=== PATIENT | male | born 1945 | race Caucasian/White ===

== ENCOUNTER 2016-07-05 13:21 | Inpatient (IN) | payer MEDICARE, BC ==
[2016-07-05] MEDS ORDERED: Acetaminophen 325 MG Tab PO ONE (13:36)
[2016-07-05] MEDS ORDERED: Ampicillin/Sulbactam Na 3 GM in Sodium Chloride 0.9% 100 ML IV ONE (13:37)
[2016-07-05] MEDS ORDERED: Sodium Chloride 0.9% 2.5 ML Syringe FLUSH PRN (13:37)
[2016-07-05] MEDS ORDERED: Sodium Chloride 0.9% 10 ML Syringe FLUSH PRN (13:37)
[2016-07-05] MEDS ORDERED: Albuterol/Ipratropium 3.0-0.5 MG/3 ML Neb Soln NEB ONE (13:37)
[2016-07-05] MEDS ORDERED: Sodium Chloride 0.9% 1,000 ML IV ONE (13:39)
--- NOTE | 2016-07-05 13:44 | EDM.PDOC ---
ED HISTORY OF PRESENT ILLNESS - General Chief Complaint: Respiratory Problem Stated Complaint: TROUBLE BREATHING Time Seen by Provider: 07/05/16 13:25 - History of Present Illness INITIAL COMMENTS - FREE TEXT/NARRATIVE: HISTORY AND PHYSICAL: History of present illness: The patient is a 71-year-old male who was recently discharged from [facility] in [place] one week ago with a protracted history. 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 He had a history of recurrent pneumonias and developed an empyema on the right side and was treated surgically in [place] several weeks ago. He was on antibiotics for 2 weeks, Unasyn, for his positive sputum cultures and wanted to come home so he was discharged last week on . Outpatient antibiotics were set up with the infectious disease physician and he was receiving Invanz until he had a reaction to this drug 4 days ago. Since that time he has not received any antibiotics. According to the patient he's been tolerating his feeds relatively well and has not any had any fevers Although his temp here is 101. The patient states he is incredibly dry mouth and he has been coughing ever since he was discharged last week with the cough seemed to get worse today. He felt more short of breath with a cough. He does use nebulizer treatments at home and this did not seem to help. He has no discrete chest pain abdominal pain or any other discomfort. Review of systems: As per history of present illness and below otherwise all systems reviewed and negative. Past medical history: As per history of present illness and as reviewed below otherwise noncontributory. Surgical history: As per history of present illness and as reviewed below otherwise noncontributory. Social history: No reported history of drug or alcohol abuse. Family history: As per history of present illness and as reviewed below otherwise noncontributory. Physical exam: General: Well-developed well-nourished male who has a chronic stacatto-like a dry cough in the ER. He is not breathless but he seems to have some work of breathing. HEENT: Atraumatic, normocephalic, pupils reactive, negative for conjunctival pallor or scleral icterus, mucous membranes very dry, throat clear, neck supple , nontender, trachea midline. At the site of the old tracheostomy site there is a small pinhole that the patient does cover when he tries to speak but there is no gross erythema or swelling at the site Lungs: Breath sounds on the left are very tubular but there is good air exchange route the left along. The right side is very coarse and rhonchi throughout with some wheezing but there is no stridor but there is abdominal muscle use with breathing, a healing incision at the right chest wall is seen and nontender and the remainder of the chest is nontender. Heart: S1S2, regular rhythm and tachycardic rate, negative for clicks, rubs, or JVD. Abdomen: Soft, nondistended, nontender. Negative for masses or hepatosplenomegaly. Negative for costovertebral tenderness. Pelvis: Stable nontender. Genitourinary: Deferred. Rectal: Deferred. Extremities: Atraumatic, negative for cords or calf pain. Neurovascular unremarkable. No pedal edema Neuro: Awake, alert, oriented. Cranial nerves II through XII unremarkable. Cerebellum unremarkable. Motor and sensory unremarkable throughout. Exam nonfocal. Diagnostics: EKG chest x-ray CBC CMP lactic acid blood cultures x2 Therapeutics: IV fluids duo neb humidified oxygen Unasyn, oxygen monitor Please note that I did discuss this case at length with Dr. pierce the patient's primary care physician to get a background history and he was the one who gave me detailed information about the antibiotics. 1415: Case was discussed with our hospitalist and he is currently seeing the patient. Upon my re\\re entry into the room with him the patient looks significantly better and has better color overall and on his modified oxygen is having less cough. He states he does feel better and the sats are 94% . We reviewed the chest x-ray together and we are currently awaiting the remainder of his workup. We will decide if he can stay here for admission or needs to be transferred to [place] 1420: Dr Brown will admit the patient here and the and patient are very happy. He currently awaiting only EKG in [facility] and our plan for telemetry admission Critical care time excluding procedures:31min Impression: Acute dyspnea and recurrent infection/early sepsis with history of recurrent pneumonias, empyema and thoracotomy Definitive disposition and diagnosis as appropriate pending reevaluation and review of above. - Related Data Allergies/ADRs: Allergies Allergy/AdvReac Type Severity Reaction Status Date / Time ertapenem [From Invanz] Allergy Unknown Unknown Verified 07/05/16 13:39 Home Meds: Home Meds Aspirin 81 mg PO DAILY 11/25/15 [History] Levothyroxine 125 mcg PO ACBREAKFAST 11/25/15 [History] Metoprolol Succinate [Toprol XL] 25 mg PO BID 11/25/15 [History] Prochlorperazine [Compazine] 10 mg PO Q6H PRN 11/25/15 [History] Simvastatin [Zocor] 40 mg PO DAILY 11/25/15 [History] buPROPion [Wellbutrin] 50 mg PO BID 11/25/15 [History] Lisinopril 0.5 tab PO DAILY 07/05/16 [History] Loperamide HCl [Loperamide] 1 mg PEGTUBE DAILY 07/05/16 [History] Ranitidine [Zantac] 10 mg PEGTUBE BID 07/05/16 [History] guaiFENesin [Adult Tussin Chest Congestion] 15 ml PEGTUBE Q4HR 07/05/16 [History ] Past Medical History HEENT History: Reports: Hard of hearing, Other (see below) Other HEENT History: Bilateral hearing aids, Hears best on RIGHT when aids out Cardiovascular History: Reports: Hypertension, [place] Respiratory History: Reports: COPD, Pneumonia, recurrent, Sleep apnea, Other ( see below) Other Respiratory History: Sleep apnea with machien "do not use it", 50 yr history of tobacco use, QUIT 04/2011 Gastrointestinal History: Reports: Other (see below) Other Gastrointestinal History: Epiglottis cancer diagnosis 06/21/2013 Genitourinary History: Reports: None Musculoskeletal History: Reports: Other (see below) Other Musculoskeletal History: hx: fracturing both ankles, Cheek, denies any implants in fractures. 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 Also had trach that almost healed by this time and feeding tube that is still in use Dermatologic History: Reports: None - Infectious Disease History Infectious Disease History: Reports: Chicken pox, Measles - Past Surgical History HEENT Surgical History: Reports: None Cardiovascular Surgical History: Reports: Coronary artery stent Other Respiratory Surgeries/Procedures: Fluid drained from lung in right side in [place] GI Surgical History: Reports: Other (see below) Other GI Surgeries/Procedures: PEG Social & Family History - Family History Family Medical History: Noncontributory - Tobacco Use Smoking Status *Q: Former Smoker Years of Tobacco use: 50 Used Tobacco, but Quit: Yes Month Tobacco Last Used: 06/13/2010 Second Hand Smoke Exposure: No - Caffeine Use Caffeine Use: Reports: None - Alcohol Use Days Per Week of Alcohol Use: 0 - Recreational Drug Use Recreational Drug Use: No Drug Use in Last 12 Months: No ED ROS GENERAL - Review of Systems Review Of Systems: ROS reveals no pertinent complaints other than HPI. ED EXAM, GENERAL - Physical Exam Exam: See Below (See dictation) Course - Vital Signs Last Recorded V/S: Last Vital Signs Temp 39.3 C H 07/05/16 13:30 Pulse 134 H 07/05/16 13:30 Resp 28 H 07/05/16 13:30 BP 135/72 07/05/16 13:30 Pulse Ox 90 L 07/05/16 13:45 - Orders/Labs/Meds Orders: Active Orders 24 hr Category Date Time Status Patient Status [ADT] Stat ADT 07/05/16 14:24 Ordered Cardiac Monitoring [RC] . DIRECTED Care 07/05/16 13:36 Active EKG Documentation Completion [RC] STAT Care 07/05/16 13:36 Active Oxygen Therapy, ED [RC] ASDIRECTED Care 07/05/16 13:36 Active Pulse Oximetry [RC] ASDIRECTED Care 07/05/16 13:36 Active RT Aerosol Therapy [RC] ASDIRECTED Care 07/05/16 13:37 Active CULTURE BLOOD [BC] Stat Lab 07/05/16 13:37 Ordered CULTURE BLOOD [BC] Stat Lab 07/05/16 13:37 Ordered Sodium Chloride 0.9% [Normal Saline] 1,000 ml Med 07/05/16 13:39 Active IV STAT Sodium Chloride 0.9% [Saline Flush] Med 07/05/16 13:37 Active 10 ml FLUSH ASDIRECTED PRN Sodium Chloride 0.9% [Saline Flush] Med 07/05/16 13:37 Active 2.5 ml FLUSH ASDIRECTED PRN Blood Culture x2 Reflex Set [OM.PC] Stat Ot 07/05/16 13:36 Ordered Saline Lock Insert [OM.PC] Stat Oth 07/05/16 13:36 Ordered Medication Orders Sodium Chloride (Normal Saline) 1,000 mls @ 999 mls/hr IV STAT ONE Stop: 07/05/16 14:39 Last Admin: 07/05/16 14:03 Dose: 999 mls/hr Sodium Chloride (Saline Flush) 10 ml FLUSH ASDIRECTED PRN PRN Reason: Keep Vein Open Last Admin: 07/05/16 14:04 Dose: 10 ml Sodium Chloride (Saline Flush) 2.5 ml FLUSH ASDIRECTED PRN PRN Reason: Keep Vein Open Last Admin: 07/05/16 14:04 Dose: 2.5 ml Labs: Laboratory Tests 07/05/16 07/05/16 07/05/16 Range/Units 13:35 13:35 13:35 WBC 17.17 H (4.0-11.0) K/uL RBC 4.11 L (4.50-5.90) M/uL Hgb 11.7 L (13.0-17.0) g/dL Hct 37.6 L (38.0-50.0) % MCV 91.5 (80.0-98.0) fL MCH 28.5 (27.0-32.0) pg MCHC 31.1 (31.0-37.0) g/dL RDW Std Deviation 49.3 (28.0-62.0) fl RDW Coeff of [place] 15 (11.0-15.0) % Plt Count 301 (150-400) K/uL MPV 10.50 (7.40-12.00) fL Neut % (Auto) 86.3 H (48.0-80.0) % Lymph % (Auto) 6.1 L (16.0-40.0) % [place] % (Auto) 5.1 (0.0-15.0) % Eos % (Auto) 2.2 (0.0-7.0) % Baso % (Auto) 0.3 (0.0-1.5) % Neut # 14.8 H (1.4-5.7) K/uL Lymph # 1.0 (0.6-2.4) K/uL [place] # 0.9 H (0.0-0.8) K/uL Eos # 0.4 (0.0-0.7) K/uL Baso # 0.1 (0.0-0.1) K/uL Nucleated RBC % 0.0 /100WBC Nucleated RBCs # 0 K/uL Lactate 2.5 H (0.20-2.00) mmol/L Sodium 138 (136-146) mmol/L Potassium 4.3 (3.5-5.1) mmol/L Chloride 100 (98-110) mmol/L Carbon Dioxide 26 (21-31) mmol/L BUN 17 (6.0-23.0) mg/dL Creatinine 0.9 (0.6-1.5) mg/dL Est Cr Clr Drug Dosing 67.38 mL/min Estimated GFR (MDRD) > 60.0 ml/min Glucose 94 (60-110) mg/dL Calcium 9.2 (8.8-10.8) mg/dL Total Bilirubin 0.4 (0.1-1.5) mg/dL AST 15 (5-40) IU/L ALT 15 (8-54) IU/L Alkaline Phosphatase 148 (40-150) Total Protein 7.1 (6.0-8.0) g/dL Albumin 3.6 (3.4-4.8) g/dL Globulin 3.5 (2.0-3.5) g/dL Albumin/Globulin Ratio 1.0 L (1.3-2.8) Meds: Medications Generic Name Dose Route Start Last Admin Trade Name Freq PRN Reason Stop Dose Admin Sodium Chloride 1,000 mls @ 999 mls/hr 07/05/16 13:39 07/05/16 14:03 Normal Saline IV 07/05/16 14:39 999 mls/hr STAT ONE Administration Sodium Chloride 10 ml 07/05/16 13:37 07/05/16 14:04 Saline Flush FLUSH 10 ml ASDIRECTED PRN Administration Keep Vein Open Sodium Chloride 2.5 ml 07/05/16 13:37 07/05/16 14:04 Saline Flush FLUSH 2.5 ml ASDIRECTED PRN Administration Keep Vein Open Discontinued Medications Generic Name Dose Route Start Last Admin Trade Name Freq PRN Reason Stop Dose Admin Acetaminophen 650 mg 07/05/16 13:36 07/05/16 14:01 Tylenol PO 07/05/16 13:37 650 mg NOW ONE Administration Albuterol/Ipratropium 3 ml 07/05/16 13:37 07/05/16 13:52 Duoneb 3.0-0.5 Mg/3 Ml NEB 07/05/16 13:38 3 ml ONETIME ONE Administration Ampicillin Sodium/Sulbactam 100 mls @ 200 mls/hr 07/05/16 13:37 Sodium 3 gm/ Sodium Chloride IV 07/05/16 14:06 ONETIME ONE Sodium Chloride 500 mls @ 999 mls/hr 07/05/16 13:45 Normal Saline IV STAT JORGE Departure - Departure Time of Disposition: 14:23 Disposition: Admitted As Inpatient 68 Condition: fair Clinical Impression: Dyspnea Qualifiers: Dyspnea type: unspecified Qualified Code(s): R06.00 - Dyspnea, unspecified Sepsis Qualifiers: Sepsis type: sepsis due to unspecified organism Qualified Code(s): A41.9 - Sepsis, unspecified organism Referrals: Akira Mai [Primary Care Provider] - Forms: ED Department Discharge - My Orders Last 24 Hours: My Active Orders 07/05/16 13:36 Cardiac Monitoring [RC] . DIRECTED EKG Documentation Completion [RC] STAT Oxygen Therapy, ED [RC] ASDIRECTED Pulse Oximetry [RC] ASDIRECTED Blood Culture x2 Reflex Set [OM.PC] Stat Saline Lock Insert [OM.PC] Stat 07/05/16 13:37 RT Aerosol Therapy [RC] ASDIRECTED CULTURE BLOOD [BC] Stat CULTURE BLOOD [BC] Stat Sodium Chloride 0.9% [Saline Flush] 10 ml FLUSH ASDIRECTED PRN Sodium Chloride 0.9% [Saline Flush] 2.5 ml FLUSH ASDIRECTED PRN 07/05/16 13:39 Sodium Chloride 0.9% [Normal Saline] 1,000 ml IV STAT 07/05/16 14:24 Patient Status [ADT] Stat - Assessment/Plan Last 24 Hours: My Active Orders 07/05/16 13:36 Cardiac Monitoring [RC] . DIRECTED EKG Documentation Completion [RC] STAT Oxygen Therapy, ED [RC] ASDIRECTED Pulse Oximetry [RC] ASDIRECTED Blood Culture x2 Reflex Set [OM.PC] Stat Saline Lock Insert [OM.PC] Stat 07/05/16 13:37 RT Aerosol Therapy [RC] ASDIRECTED CULTURE BLOOD [BC] Stat CULTURE BLOOD [BC] Stat Sodium Chloride 0.9% [Saline Flush] 10 ml FLUSH ASDIRECTED PRN Sodium Chloride 0.9% [Saline Flush] 2.5 ml FLUSH ASDIRECTED PRN 07/05/16 13:39 Sodium Chloride 0.9% [Normal Saline] 1,000 ml IV STAT 07/05/16 14:24 Patient Status [ADT] Stat
[2016-07-05] MEDS ORDERED: Sodium Chloride 0.9% 500 ML IV SCH (13:45)
[2016-07-05 14:15] LABS: CHLORIDE,CL 100 mmol/L (98-110); SODIUM,NA 138 mmol/L (136-146)
--- NOTE | 2016-07-05 14:19 | CR ---
EXAMINATION: Portable chest radiograph. HISTORY: Shortness of breath. FINDINGS: The trachea is midline. The cardiomediastinal silhouette is within normal limits. There is likely a trace right pleural effusion with adjacent atelectasis. Mild left basilar atelectasis and/or infiltr ate is not excluded. Osseous structures appear unremarkable. IMPRESSION: Mild bibasilar atelectasis and/or infiltrate with a trace right pleural effusion.
[2016-07-05] MEDS ORDERED: Bisacodyl 5 MG Tab PO PRN (14:43)
[2016-07-05] MEDS ORDERED: Ondansetron 4 MG Tab.DIS PO PRN (14:43)
[2016-07-05] MEDS ORDERED: Acetaminophen 325 MG Tab PO PRN (14:43)
[2016-07-05] MEDS ORDERED: Prochlorperazine 10 MG Tab PO PRN (14:50)
--- NOTE | 2016-07-05 14:59 | PCM.HP ---
H&P History of Present Illness - General Date of Service: 07/05/16 Source of Information: Patient, Family, Provider - History of Present Illness Initial Comments - Free Text/Narative: He was recently discharged from [facility] after a prolonged hospitalization for pneumonia , empyema. He was on INvanz a prolonged course. Invanz was stopped due to intolerance. Shortly thereafter he developed fever . He has a G tube for recurrent aspiration after radiation for epiglottis cancer. He has a full code status. He has a chronic cough. - Related Data Allergies/Adverse Reactions: Allergies Allergy/AdvReac Type Severity Reaction Status Date / Time ertapenem [From Invanz] Allergy Unknown Unknown Verified 07/05/16 13:39 Home Medications: Home Meds Aspirin 81 mg PO DAILY 11/25/15 [History] Levothyroxine 125 mcg PO ACBREAKFAST 11/25/15 [History] Metoprolol Succinate [Toprol XL] 25 mg PO BID 11/25/15 [History] Prochlorperazine [Compazine] 10 mg PO Q6H PRN 11/25/15 [History] Simvastatin [Zocor] 40 mg PO DAILY 11/25/15 [History] buPROPion [Wellbutrin] 50 mg PO BID 11/25/15 [History] Lisinopril 0.5 tab PO DAILY 07/05/16 [History] Loperamide HCl [Loperamide] 1 mg PEGTUBE DAILY 07/05/16 [History] Ranitidine [Zantac] 10 mg PEGTUBE BID 07/05/16 [History] guaiFENesin [Adult Tussin Chest Congestion] 15 ml PEGTUBE Q4HR 07/05/16 [History ] Past Medical History HEENT History: Reports: Hard of hearing, Other (see below) Other HEENT History: Bilateral hearing aids, Hears best on RIGHT when aids out Cardiovascular History: Reports: Hypertension, [place] Respiratory History: Reports: COPD, Pneumonia, recurrent, Sleep apnea, Other ( see below) Other Respiratory History: Sleep apnea with machien "do not use it", 50 yr history of tobacco use, QUIT 04/2011 Gastrointestinal History: Reports: Other (see below) Other Gastrointestinal History: Epiglottis cancer diagnosis 06/21/2013 Genitourinary History: Reports: None Musculoskeletal History: Reports: Other (see below) Other Musculoskeletal History: hx: fracturing both ankles, Cheek, denies any implants in fractures. 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 Also had trach that almost healed by this time and feeding tube that is still in use Dermatologic History: Reports: None - Infectious Disease History Infectious Disease History: Reports: Chicken pox, Measles - Past Surgical History HEENT Surgical History: Reports: None Cardiovascular Surgical History: Reports: Coronary artery stent Other Respiratory Surgeries/Procedures: Fluid drained from lung in right side in [place] GI Surgical History: Reports: Other (see below) Other GI Surgeries/Procedures: PEG Social & Family History - Family History Family Medical History: Noncontributory - Tobacco Use Smoking Status *Q: Former Smoker Years of Tobacco use: 50 Used Tobacco, but Quit: Yes Month Tobacco Last Used: 06/13/2010 Second Hand Smoke Exposure: No - Caffeine Use Caffeine Use: Reports: None - Alcohol Use Days Per Week of Alcohol Use: 0 - Recreational Drug Use Recreational Drug Use: No Drug Use in Last 12 Months: No H&P Review of Systems - Review of Systems: Review Of Systems: See Below General: Reports: fever HEENT: Reports: other (chronic aspiration ) Pulmonary: Reports: cough (chronic cough) Cardiovascular: Denies: chest pain, palpitations Gastrointestinal: Denies: Abdominal pain, Black stool, Bloody stool Genitourinary: Denies: dysuria, frequency, hematuria Skin: Denies: jaundice Neurological: Denies: seizure Exam - Exam Exam: See Below - Vital Signs Vital Signs: Last Vital Signs Temp 102.8 F H 07/05/16 13:30 Pulse 134 H 07/05/16 13:30 Resp 28 H 07/05/16 13:30 BP 135/72 07/05/16 13:30 Pulse Ox 90 L 07/05/16 13:45 Weight: 65.3 kg - Exam General: alert, cooperative HEENT: EOMI Neck: supple, trachea midline Lungs: Other (coarse bilateral breath sounds) Cardiovascular: regular rate, regular rhythm Abdomen: soft. No: tenderness (Male) Exam: Deferred Rectal (Males) Exam: Deferred Neuro Extensive - Motor, Sensory, Reflexes: No: facial palsy (L), facial palsy ( R), hemiplagia (L), hemiplagia (R) Psychiatric: alert. No: agitated - Patient Data Result Diagrams: 07/05/16 13:35 07/05/16 13:35 *Q Meaningful Use (ADM) - VTE *Q VTE Criteria *Q: - Stroke *Q Stroke Criteria *Q: - AMI *Q AMI Criteria *Q: - Problem List (1) Aspiration pneumonia SNOMED Code(s): 711971677 ICD Code: J69.0 - PNEUMONITIS DUE TO INHALATION OF FOOD AND VOMIT Status: Acute Current Visit: No Problem List Initiated/Reviewed/Updated: Yes Orders Last 24hrs: Active Orders 24 hr Category Date Time Status Oxygen Therapy [RC] PRN Care 07/05/16 14:43 Ordered Oxygen Therapy [RC] PRN Care 07/05/16 14:53 Ordered RT Aerosol Therapy [RC] ASDIRECTED Care 07/05/16 14:49 Ordered VTE/DVT Education [RC] PER UNIT ROUTINE Care 07/05/16 14:43 Ordered VTE/DVT Education [RC] PER UNIT ROUTINE Care 07/05/16 14:53 Ordered Vital Signs [RC] Q4H Care 07/05/16 14:43 Ordered Vital Signs [RC] Q4H Care 07/05/16 14:53 Ordered Regular Diet [DIET] Diet 07/05/16 Dinner Ordered BASIC METABOLIC PANEL,BMP [CHEM] AM Lab 07/06/16 05:11 Ordered BASIC METABOLIC PANEL,BMP [CHEM] AM Lab 07/07/16 05:11 Ordered BASIC METABOLIC PANEL,BMP [CHEM] AM Lab 07/08/16 05:11 Ordered CBC WITH AUTO DIFF [HEME] AM Lab 07/06/16 05:11 Ordered CBC WITH AUTO DIFF [HEME] AM Lab 07/07/16 05:11 Ordered CBC WITH AUTO DIFF [HEME] AM Lab 07/08/16 05:11 Ordered CULTURE SPUTUM + SMEAR [RM] Stat Lab 07/05/16 14:48 Uncollected MAGNESIUM [CHEM] AM Lab 07/06/16 05:11 Ordered MAGNESIUM [CHEM] AM Lab 07/07/16 05:11 Ordered MAGNESIUM [CHEM] AM Lab 07/08/16 05:11 Ordered Acetaminophen [Tylenol] Med 07/05/16 14:43 Ordered 650 mg PO Q4H PRN Albuterol/Ipratropium [DuoNeb 3.0-0.5 MG/3 ML] Med 07/05/16 21:00 Ordered 3 ml NEB Q6H Ampicillin/Sulbactam Na [Unasyn] 3 gm Med 07/05/16 21:00 Ordered Sodium Chloride 0.9% [Normal Saline] 100 ml IV Q6H Aspirin Med 07/06/16 09:00 Ordered 81 mg PO DAILY Bisacodyl [Dulcolax] Med 07/05/16 14:43 Ordered 5 mg PO DAILY PRN Enoxaparin [Lovenox] Med 07/06/16 09:00 Ordered 40 mg SUBCUT DAILY Levothyroxine Med 07/06/16 07:30 Ordered 125 mcg PO ACBREAKFAST Lisinopril [Prinivil] Med 07/06/16 09:00 Ordered 0.5 tab PO DAILY Loperamide [Imodium] Med 07/06/16 09:00 Ordered 1 mg GTUBE DAILY Metoprolol Succinate [Toprol XL] Med 07/05/16 21:00 Ordered 25 mg PO BID Ondansetron [Zofran ODT] Med 07/05/16 14:43 Ordered 4 mg PO Q4H PRN Prochlorperazine [Compazine] Med 07/05/16 14:50 Ordered 10 mg PO Q6H PRN Ranitidine [Zantac] Med 07/05/16 21:00 Ordered 10 mg PEGTUBE BID Simvastatin [Zocor] Med 07/06/16 09:00 Ordered 40 mg PO DAILY Temazepam [Restoril] Med 07/05/16 14:43 Ordered 15 mg PO BEDTIME PRN buPROPion [Wellbutrin] Med 07/05/16 21:00 Ordered 50 mg PO BID guaiFENesin Med 07/05/16 16:00 Ordered 15 ml PEGTUBE Q4HR Resuscitation Status Routine Resus Stat 07/05/16 14:43 Ordered Medication Orders Acetaminophen (Tylenol) 650 mg PO Q4H PRN PRN Reason: Pain (Mild 1-3)/fever Albuterol/Ipratropium (Duoneb 3.0-0.5 Mg/3 Ml) 3 ml NEB Q6H JORGE Aspirin (Aspirin) 81 mg PO DAILY JORGE Bisacodyl (Dulcolax) 5 mg PO DAILY PRN PRN Reason: Constipation Bupropion HCl (Wellbutrin) 50 mg PO BID JOREG Enoxaparin Sodium (Lovenox) 40 mg SUBCUT DAILY [facility] Ampicillin Sodium/Sulbactam (Sodium 3 gm/ Sodium Chloride) 100 mls @ 200 mls/ hr IV Q6H JORGE Levothyroxine Sodium (Levothyroxine) 125 mcg PO ACBREAKFAST JORGE Lisinopril (Prinivil) mg PO DAILY JORGE Loperamide HCl (Imodium) 1 mg GTUBE DAILY [facility] Metoprolol Succinate (Toprol Xl) 25 mg PO BID [facility] Non-Formulary Medication (Simvastatin [Zocor]) 40 mg PO DAILY [facility] Non-Formulary Medication (Guaifenesin) 15 ml PEGTUBE Q4HR JORGE Ondansetron HCl (Zofran Odt) 4 mg PO Q4H PRN PRN Reason: nausea, able to take PO Prochlorperazine Maleate (Compazine) 10 mg PO Q6H PRN PRN Reason: Nausea Ranitidine HCl (Zantac) 10 mg PEGTUBE BID [facility] Sodium Chloride (Saline Flush) 10 ml FLUSH ASDIRECTED PRN PRN Reason: Keep Vein Open Last Admin: 07/05/16 14:04 Dose: 10 ml Sodium Chloride (Saline Flush) 2.5 ml FLUSH ASDIRECTED PRN PRN Reason: Keep Vein Open Last Admin: 07/05/16 14:04 Dose: 2.5 ml Temazepam (Restoril) 15 mg PO BEDTIME PRN PRN Reason: Sleep Assessment/Plan Comment:: will admit restart unasyn
[2016-07-05] MEDS: GUAIFENESIN PEGTUBE SCH ×2 (16:38→20:18)
[2016-07-05] MEDS: Ranitidine 15 MG/ML Syrup 10 ML UD Cup PEGTUBE SCH (20:15)
[2016-07-05] MEDS: buPROPion 100 MG Tab PO SCH (20:15)
[2016-07-05] MEDS: Ampicillin/Sulbactam Na 3 GM in Sodium Chloride 0.9% 100 ML IV SCH (20:23)
[2016-07-05] MEDS: Metoprolol Succinate 25 MG Tab.ER PO SCH (20:28)
[2016-07-05] MEDS: Albuterol/Ipratropium 3.0-0.5 MG/3 ML Neb Soln NEB SCH (21:05)
[2016-07-05] MEDS: Temazepam 15 MG Cap PO PRN (22:08)
[2016-07-06] MEDS: GUAIFENESIN PEGTUBE SCH ×6 (00:46→20:04)
[2016-07-06] MEDS: Ampicillin/Sulbactam Na 3 GM in Sodium Chloride 0.9% 100 ML IV SCH ×4 (03:36→21:32)
[2016-07-06] MEDS: Albuterol/Ipratropium 3.0-0.5 MG/3 ML Neb Soln NEB SCH ×4 (03:37→20:30)
[2016-07-06 06:26] LABS: CHLORIDE,CL 103 mmol/L (98-110); SODIUM,NA 141 mmol/L (136-146)
[2016-07-06] MEDS: Levothyroxine 125 MCG Tab PO SCH (06:52)
[2016-07-06] MEDS: Loperamide 1 MG/5 ML ML Solution 120 ML Bottle GTUBE SCH (08:27)
[2016-07-06] MEDS: Metoprolol Succinate 25 MG Tab.ER PO SCH ×2 (08:30→20:03)
[2016-07-06] MEDS: Simvastatin 40 MG Tab PO SCH (08:30)
[2016-07-06] MEDS: Aspirin 81 MG Tab.Chew PO SCH (08:30)
[2016-07-06] MEDS: Lisinopril 5 MG Tab PO SCH (08:30)
[2016-07-06] MEDS: Enoxaparin 40 MG/0.4 ML Syringe SUBCUT SCH (08:30)
[2016-07-06] MEDS: buPROPion 100 MG Tab PO SCH ×2 (08:31→20:03)
[2016-07-06] MEDS: Ranitidine 15 MG/ML Syrup 10 ML UD Cup PEGTUBE SCH ×2 (08:49→20:04)
--- NOTE | 2016-07-06 13:49 | PCM.PN ---
- General Info Date of Service: 07/06/16 - Review of Systems Gastrointestinal: Denies: Vomiting (feeling improvement) Psychiatric: Denies: agitation - Patient Data Vitals - most recent: Last Vital Signs Temp 98.2 F 07/06/16 12:00 Pulse 91 07/06/16 12:00 Resp 19 07/06/16 12:00 BP 127/60 07/06/16 12:00 Pulse Ox 96 07/06/16 12:34 Weight - most recent: 65.3 kg I&O - last 24 hours: Intake & Output 07/05/16 07/06/16 07/06/16 22:59 06:59 14:59 Intake Total 100 1040 Output Total 280 780 Balance -180 260 Lab Results last 24 hrs: Laboratory Results - last 24 hr 07/05/16 07/06/16 07/06/16 Range/Units 17:14 05:57 05:57 WBC 9.56 (4.0-11.0) K/uL RBC 3.39 L (4.50-5.90) M/uL Hgb 9.8 L (13.0-17.0) g/dL Hct 31.3 L (38.0-50.0) % MCV 92.3 (80.0-98.0) fL MCH 28.9 (27.0-32.0) pg MCHC 31.3 (31.0-37.0) g/dL RDW Std Deviation 51.2 (28.0-62.0) fl RDW Coeff of Randolph 15 (11.0-15.0) % Plt Count 249 (150-400) K/uL MPV 10.00 (7.40-12.00) fL Neut % (Auto) 76.2 (48.0-80.0) % Lymph % (Auto) 9.7 L (16.0-40.0) % [place] % (Auto) 8.7 (0.0-15.0) % Eos % (Auto) 5.1 (0.0-7.0) % Baso % (Auto) 0.3 (0.0-1.5) % Neut # 7.3 H (1.4-5.7) K/uL Lymph # 0.9 (0.6-2.4) K/uL [place] # 0.8 (0.0-0.8) K/uL Eos # 0.5 (0.0-0.7) K/uL Baso # 0.0 (0.0-0.1) K/uL Nucleated RBC % 0.0 /100WBC Nucleated RBCs # 0 K/uL Lactate 1.3 (0.20-2.00) mmol/L Sodium 141 (136-146) mmol/L Potassium 4.2 (3.5-5.1) mmol/L Chloride 103 (98-110) mmol/L Carbon Dioxide 29 (21-31) mmol/L BUN 13 (6.0-23.0) mg/dL Creatinine 0.8 (0.6-1.5) mg/dL Est Cr Clr Drug Dosing 75.81 mL/min Estimated GFR (MDRD) > 60.0 ml/min Glucose 115 H (60-110) mg/dL Calcium 8.3 L (8.8-10.8) mg/dL Magnesium 1.6 (1.5-2.3) mEq/L Teo Results last 24 hrs: Microbiology 07/05/16 19:45 Gram Stain - Final Sputum - Expectorated Med Orders - Current: Current Medications Acetaminophen (Tylenol) 650 mg PO Q4H PRN PRN Reason: Pain (Mild 1-3)/fever Albuterol/Ipratropium (Duoneb 3.0-0.5 Mg/3 Ml) 3 ml NEB Q6H [facility] Last Admin: 07/06/16 08:45 Dose: 3 ml Aspirin (Aspirin) 81 mg PO DAILY [facility] Last Admin: 07/06/16 08:30 Dose: 81 mg Bisacodyl (Dulcolax) 5 mg PO DAILY PRN PRN Reason: Constipation Bupropion HCl (Wellbutrin) 50 mg PO BID [facility] Last Admin: 07/06/16 08:31 Dose: 50 mg Enoxaparin Sodium (Lovenox) 40 mg SUBCUT DAILY [facility] Last Admin: 07/06/16 08:30 Dose: 40 mg Ampicillin Sodium/Sulbactam (Sodium 3 gm/ Sodium Chloride) 100 mls @ 200 mls/ hr IV Q6H [facility] Levothyroxine Sodium (Levothyroxine) 125 mcg PO ACBREAKFAST [facility] Last Admin: 07/06/16 06:52 Dose: 125 mcg Lisinopril (Prinivil) 5 mg PO DAILY [facility] Last Admin: 07/06/16 08:30 Dose: 5 mg Loperamide HCl (Imodium) 1 mg GTUBE DAILY [facility] Last Admin: 07/06/16 08:27 Dose: 7.5 ml Metoprolol Succinate (Toprol Xl) 25 mg PO BID [facility] Last Admin: 07/06/16 08:30 Dose: 25 mg Non-Formulary Medication 1 Each ( Guaifenesin 10 Ml) 10 ml PEGTUBE Q4HR [facility] Last Admin: 07/06/16 12:07 Dose: 10 ml Ondansetron HCl (Zofran Odt) 4 mg PO Q4H PRN PRN Reason: nausea, able to take PO Prochlorperazine Maleate (Compazine) 10 mg PO Q6H PRN PRN Reason: Nausea Ranitidine HCl (Zantac) 150 mg PEGTUBE BID [facility] Last Admin: 07/06/16 08:49 Dose: 10 ml Simvastatin (Zocor) 40 mg PO DAILY [facility] Last Admin: 07/06/16 08:30 Dose: 40 mg Sodium Chloride (Saline Flush) 10 ml FLUSH ASDIRECTED PRN PRN Reason: Keep Vein Open Last Admin: 07/05/16 14:04 Dose: 10 ml Sodium Chloride (Saline Flush) 2.5 ml FLUSH ASDIRECTED PRN PRN Reason: Keep Vein Open Last Admin: 07/05/16 14:04 Dose: 2.5 ml Temazepam (Restoril) 15 mg PO BEDTIME PRN PRN Reason: Sleep Last Admin: 07/05/16 22:08 Dose: 15 mg Discontinued Medications Acetaminophen (Tylenol) 650 mg PO NOW ONE Stop: 07/05/16 13:37 Last Admin: 07/05/16 14:01 Dose: 650 mg Albuterol/Ipratropium (Duoneb 3.0-0.5 Mg/3 Ml) 3 ml NEB ONETIME ONE Stop: 07/05/16 13:38 Last Admin: 07/05/16 13:52 Dose: 3 ml Ampicillin Sodium/Sulbactam (Sodium 3 gm/ Sodium Chloride) 100 mls @ 200 mls/ hr IV ONETIME ONE Stop: 07/05/16 14:06 Last Admin: 07/05/16 14:43 Dose: 200 mls/hr Sodium Chloride (Normal Saline) 500 mls @ 999 mls/hr IV STAT JORGE Sodium Chloride (Normal Saline) 1,000 mls @ 999 mls/hr IV STAT ONE Stop: 07/05/16 14:39 Last Admin: 07/05/16 14:03 Dose: 999 mls/hr Ampicillin Sodium/Sulbactam (Sodium 3 gm/ Sodium Chloride) 100 mls @ 200 mls/ hr IV Q6H [facility] Last Admin: 07/06/16 08:38 Dose: 200 mls/hr - Exam General: alert, oriented, cooperative Neck: supple, trachea midline Lungs: Other (faint rhonchi; good tidal volumes) Cardiovascular: regular rate, regular rhythm Abdomen: no tenderness Psy/Mental Status: alert, normal affect - Problem List & Annotations (1) Aspiration pneumonia SNOMED Code(s): 169738949 Code(s): J69.0 - PNEUMONITIS DUE TO INHALATION OF FOOD AND VOMIT Status: Acute Current Visit: No - Problem List Review Problem List Initiated/Reviewed/Updated: Yes - My Orders Last 24 Hours: My Active Orders 07/05/16 14:43 Oxygen Therapy [RC] PRN VTE/DVT Education [RC] PER UNIT ROUTINE Vital Signs [RC] Q4H Acetaminophen [Tylenol] 650 mg PO Q4H PRN Bisacodyl [Dulcolax] 5 mg PO DAILY PRN Ondansetron [Zofran ODT] 4 mg PO Q4H PRN Temazepam [Restoril] 15 mg PO BEDTIME PRN Resuscitation Status Routine 07/05/16 14:49 RT Aerosol Therapy [RC] ASDIRECTED 07/05/16 14:50 Prochlorperazine [Compazine] 10 mg PO Q6H PRN 07/05/16 14:52 Telemetry Monitoring [Cardiac Monitoring] [RC] Q8H 07/05/16 14:53 Oxygen Therapy [RC] PRN VTE/DVT Education [RC] PER UNIT ROUTINE 07/05/16 16:00 guaiFENesin 10 ml PEGTUBE Q4HR 07/05/16 19:45 CULTURE SPUTUM + SMEAR [RM] Stat 07/05/16 21:00 Albuterol/Ipratropium [DuoNeb 3.0-0.5 MG/3 ML] 3 ml NEB Q6H Metoprolol Succinate [Toprol XL] 25 mg PO BID Ranitidine [Zantac] 150 mg PEGTUBE BID buPROPion [Wellbutrin] 50 mg PO BID 07/05/16 Dinner Tube Feeding Adult Diet [DIET] 07/06/16 07:30 Levothyroxine 125 mcg PO ACBREAKFAST 07/06/16 09:00 Aspirin 81 mg PO DAILY Enoxaparin [Lovenox] 40 mg SUBCUT DAILY Lisinopril [Prinivil] 5 mg PO DAILY Loperamide [Imodium] 1 mg GTUBE DAILY Simvastatin [Zocor] 40 mg PO DAILY 07/06/16 15:00 Ampicillin/Sulbactam Na [Unasyn] 3 gm Sodium Chloride 0.9% [Normal Saline] 100 ml IV Q6H 07/07/16 05:11 BASIC METABOLIC PANEL,BMP [CHEM] AM CBC WITH AUTO DIFF [HEME] AM MAGNESIUM [CHEM] AM 07/08/16 05:11 BASIC METABOLIC PANEL,BMP [CHEM] AM CBC WITH AUTO DIFF [HEME] AM MAGNESIUM [CHEM] AM - Plan Plan:: will admit restart isidro Brown MD 07/06/2016: continue isidro. Will seek reports from [place] recent admission. Luis Fernando Brown MD
[2016-07-06] MEDS: Temazepam 15 MG Cap PO PRN (22:25)
[2016-07-07] MEDS: GUAIFENESIN PEGTUBE SCH ×3 (00:12→10:28)
[2016-07-07] MEDS: Ampicillin/Sulbactam Na 3 GM in Sodium Chloride 0.9% 100 ML IV SCH ×4 (02:19→20:06)
[2016-07-07] MEDS: Albuterol/Ipratropium 3.0-0.5 MG/3 ML Neb Soln NEB SCH ×4 (02:24→21:15)
[2016-07-07] MEDS: Levothyroxine 125 MCG Tab PO SCH (06:30)
[2016-07-07 07:10] LABS: CHLORIDE,CL 103 mmol/L (98-110); SODIUM,NA 139 mmol/L (136-146)
[2016-07-07] MEDS: Ranitidine 15 MG/ML Syrup 10 ML UD Cup PEGTUBE SCH ×2 (09:18→20:01)
[2016-07-07] MEDS: Lisinopril 5 MG Tab PO SCH (09:18)
[2016-07-07] MEDS: Aspirin 81 MG Tab.Chew PO SCH (09:18)
[2016-07-07] MEDS: Metoprolol Succinate 25 MG Tab.ER PO SCH ×2 (09:18→20:06)
[2016-07-07] MEDS: Simvastatin 40 MG Tab PO SCH (09:18)
[2016-07-07] MEDS: buPROPion 100 MG Tab PO SCH ×2 (09:19→22:02)
[2016-07-07] MEDS: Loperamide 1 MG/5 ML ML Solution 120 ML Bottle GTUBE SCH (09:21)
[2016-07-07] MEDS: Enoxaparin 40 MG/0.4 ML Syringe SUBCUT SCH (09:31)
[2016-07-07] MEDS: guaiFENesin 300 MG/15 ML Soln 15 ML UD Cup PEGTUBE SCH ×4 (09:31→20:05)
--- NOTE | 2016-07-07 13:10 | PCM.PN ---
- General Info Date of Service: 07/07/16 - Review of Systems Gastrointestinal: Denies: Abdominal pain Skin: Denies: cyanosis Systems Review Comment:: he thinks that he is improving - Patient Data Vitals - most recent: Last Vital Signs Temp 98.6 F 07/07/16 08:00 Pulse 99 07/07/16 09:18 Resp 18 07/07/16 08:00 BP 134/70 07/07/16 09:18 Pulse Ox 88 L 07/07/16 11:17 Weight - most recent: 65.3 kg I&O - last 24 hours: Intake & Output 07/06/16 07/07/16 07/07/16 22:59 06:59 14:59 Intake Total 2140 1050 Output Total 400 Balance 2140 650 Lab Results last 24 hrs: Laboratory Results - last 24 hr 07/07/16 07/07/16 Range/Units 06:25 06:25 WBC 8.43 (4.0-11.0) K/uL RBC 3.22 L (4.50-5.90) M/uL Hgb 9.5 L (13.0-17.0) g/dL Hct 30.8 L (38.0-50.0) % MCV 95.7 (80.0-98.0) fL MCH 29.5 (27.0-32.0) pg MCHC 30.8 L (31.0-37.0) g/dL RDW Std Deviation 48.5 (28.0-62.0) fl RDW Coeff of [place] 14 (11.0-15.0) % Plt Count 300 (150-400) K/uL MPV 10.60 (7.40-12.00) fL Neut % (Auto) 72.6 (48.0-80.0) % Lymph % (Auto) 7.9 L (16.0-40.0) % [place] % (Auto) 11.0 (0.0-15.0) % Eos % (Auto) 8.3 H (0.0-7.0) % Baso % (Auto) 0.2 (0.0-1.5) % Neut # 6.1 H (1.4-5.7) K/uL Lymph # 0.7 (0.6-2.4) K/uL [place] # 0.9 H (0.0-0.8) K/uL Eos # 0.7 (0.0-0.7) K/uL Baso # 0.0 (0.0-0.1) K/uL Sodium 139 (136-146) mmol/L Potassium 3.9 (3.5-5.1) mmol/L Chloride 103 (98-110) mmol/L Carbon Dioxide 28 (21-31) mmol/L BUN 13 (6.0-23.0) mg/dL Creatinine 0.7 (0.6-1.5) mg/dL Est Cr Clr Drug Dosing 86.64 mL/min Estimated GFR (MDRD) > 60.0 ml/min Glucose 111 H (60-110) mg/dL Calcium 8.5 L (8.8-10.8) mg/dL Magnesium 1.3 L (1.5-2.3) mEq/L Teo Results last 24 hrs: Microbiology 07/05/16 19:45 Gram Stain - Final Sputum - Expectorated Med Orders - Current: Current Medications Acetaminophen (Tylenol) 650 mg PO Q4H PRN PRN Reason: Pain (Mild 1-3)/fever Albuterol/Ipratropium (Duoneb 3.0-0.5 Mg/3 Ml) 3 ml NEB Q6H [facility] Last Admin: 07/07/16 08:37 Dose: 3 ml Aspirin (Aspirin) 81 mg PO DAILY [facility] Last Admin: 07/07/16 09:18 Dose: 81 mg Bisacodyl (Dulcolax) 5 mg PO DAILY PRN PRN Reason: Constipation Bupropion HCl (Wellbutrin) 50 mg PO BID [facility] Last Admin: 07/07/16 09:19 Dose: 50 mg Enoxaparin Sodium (Lovenox) 40 mg SUBCUT DAILY [facility] Last Admin: 07/07/16 09:31 Dose: 40 mg Guaifenesin (Guaifenesin) 200 mg PEGTUBE Q4HR [facility] Last Admin: 07/07/16 12:34 Dose: 200 mg Ampicillin Sodium/Sulbactam (Sodium 3 gm/ Sodium Chloride) 100 mls @ 200 mls/ hr IV Q6H [facility] Last Admin: 07/07/16 09:17 Dose: 200 mls/hr Levothyroxine Sodium (Levothyroxine) 125 mcg PO ACBREAKFAST [facility] Last Admin: 07/07/16 06:30 Dose: 125 mcg Lisinopril (Prinivil) 5 mg PO DAILY [facility] Last Admin: 07/07/16 09:18 Dose: 5 mg Loperamide HCl (Imodium) 1 mg GTUBE DAILY [facility] Last Admin: 07/07/16 09:21 Dose: Not Given Metoprolol Succinate (Toprol Xl) 25 mg PO BID [facility] Last Admin: 07/07/16 09:18 Dose: 25 mg Ondansetron HCl (Zofran Odt) 4 mg PO Q4H PRN PRN Reason: nausea, able to take PO Prochlorperazine Maleate (Compazine) 10 mg PO Q6H PRN PRN Reason: Nausea Ranitidine HCl (Zantac) 150 mg PEGTUBE BID [facility] Last Admin: 07/07/16 09:18 Dose: 10 ml Simvastatin (Zocor) 40 mg PO DAILY [facility] Last Admin: 07/07/16 09:18 Dose: 40 mg Sodium Chloride (Saline Flush) 10 ml FLUSH ASDIRECTED PRN PRN Reason: Keep Vein Open Last Admin: 07/05/16 14:04 Dose: 10 ml Sodium Chloride (Saline Flush) 2.5 ml FLUSH ASDIRECTED PRN PRN Reason: Keep Vein Open Last Admin: 07/05/16 14:04 Dose: 2.5 ml Temazepam (Restoril) 15 mg PO BEDTIME PRN PRN Reason: Sleep Last Admin: 07/06/16 22:25 Dose: 15 mg Discontinued Medications Acetaminophen (Tylenol) 650 mg PO NOW ONE Stop: 07/05/16 13:37 Last Admin: 07/05/16 14:01 Dose: 650 mg Albuterol/Ipratropium (Duoneb 3.0-0.5 Mg/3 Ml) 3 ml NEB ONETIME ONE Stop: 07/05/16 13:38 Last Admin: 07/05/16 13:52 Dose: 3 ml Ampicillin Sodium/Sulbactam (Sodium 3 gm/ Sodium Chloride) 100 mls @ 200 mls/ hr IV ONETIME ONE Stop: 07/05/16 14:06 Last Admin: 07/05/16 14:43 Dose: 200 mls/hr Sodium Chloride (Normal Saline) 500 mls @ 999 mls/hr IV STAT [facility] Sodium Chloride (Normal Saline) 1,000 mls @ 999 mls/hr IV STAT ONE Stop: 07/05/16 14:39 Last Admin: 07/05/16 14:03 Dose: 999 mls/hr Ampicillin Sodium/Sulbactam (Sodium 3 gm/ Sodium Chloride) 100 mls @ 200 mls/ hr IV Q6H [facility] Last Admin: 07/06/16 08:38 Dose: 200 mls/hr Non-Formulary Medication 1 Each ( Guaifenesin 10 Ml) 10 ml PEGTUBE Q4HR [facility] Last Admin: 07/07/16 10:28 Dose: Not Given - Exam General: alert, oriented, cooperative Neck: supple Lungs: Normal respiratory effort, Other (slight diffuse coarsening of breath sounds) Cardiovascular: regular rate, regular rhythm Abdomen: no tenderness Neurological: cranial nerves intact - Problem List & Annotations (1) Aspiration pneumonia SNOMED Code(s): 404260249 Code(s): J69.0 - PNEUMONITIS DUE TO INHALATION OF FOOD AND VOMIT Status: Acute Current Visit: No (2) Leukocytosis SNOMED Code(s): 466511678, 981749919 Code(s): D72.829 - ELEVATED WHITE BLOOD CELL COUNT, UNSPECIFIED Status: Acute Current Visit: Yes (3) History of airway aspiration SNOMED Code(s): 090995956 Code(s): Z78.9 - OTHER SPECIFIED HEALTH STATUS Status: Acute Current Visit: Yes (4) Cancer, epiglottis SNOMED Code(s): 092016052, 200548866 Code(s): C32.1 - MALIGNANT NEOPLASM OF SUPRAGLOTTIS Status: Acute Current Visit: Yes (5) Empyema lung SNOMED Code(s): 846767141 Code(s): J86.9 - PYOTHORAX WITHOUT FISTULA Status: Acute Current Visit: Yes (6) History of COPD SNOMED Code(s): 054860762 Code(s): Z87.09 - PERSONAL HISTORY OF OTHER DISEASES OF THE RESPIRATORY SYSTEM Status: Acute Current Visit: Yes (7) Feeding by G-tube SNOMED Code(s): 220366743, 263692029 Code(s): Z93.1 - GASTROSTOMY STATUS Status: Acute Current Visit: Yes (8) History of chronic hypertension SNOMED Code(s): 842866902 Code(s): Z86.79 - PERSONAL HISTORY OF OTHER DISEASES OF THE CIRCULATORY SYSTEM Status: Acute Current Visit: Yes (9) History of coronary artery disease SNOMED Code(s): 973908766 Code(s): Z86.79 - PERSONAL HISTORY OF OTHER DISEASES OF THE CIRCULATORY SYSTEM Status: Acute Current Visit: Yes - Problem List Review Problem List Initiated/Reviewed/Updated: Yes - My Orders Last 24 Hours: My Active Orders 07/06/16 13:50 Communication Order [RC] PER UNIT ROUTINE 07/06/16 15:00 Ampicillin/Sulbactam Na [Unasyn] 3 gm Sodium Chloride 0.9% [Normal Saline] 100 ml IV Q6H 07/07/16 08:10 guaiFENesin 200 mg PEGTUBE Q4HR 07/08/16 05:11 BASIC METABOLIC PANEL,BMP [CHEM] AM CBC WITH AUTO DIFF [HEME] AM MAGNESIUM [CHEM] AM 07/08/16 07:00 CXR [Chest 2V] [CR] Routine - Plan Plan:: will admit restart isidro Brown MD 07/06/2016: continue unasyn. Will seek reports from [place] recent admission. Luis Fernando Brown MD 07/07/2016 continue unasyn. await further records from [facility] Anticipate discharge likely by Friday CXR tomorrow am Luis Fernando Brown MD
[2016-07-07] MEDS: Temazepam 15 MG Cap PO PRN (22:01)
[2016-07-08] MEDS: guaiFENesin 300 MG/15 ML Soln 15 ML UD Cup PEGTUBE SCH ×6 (00:02→20:32)
[2016-07-08] MEDS: Ampicillin/Sulbactam Na 3 GM in Sodium Chloride 0.9% 100 ML IV SCH ×2 (03:24→08:28)
[2016-07-08] MEDS: Albuterol/Ipratropium 3.0-0.5 MG/3 ML Neb Soln NEB SCH ×4 (03:24→17:15)
[2016-07-08 05:30] LABS: CHLORIDE,CL 102 mmol/L (98-110); SODIUM,NA 140 mmol/L (136-146)
[2016-07-08] MEDS: Levothyroxine 125 MCG Tab PO SCH (06:39)
[2016-07-08] MEDS: Aspirin 81 MG Tab.Chew PO SCH (08:23)
[2016-07-08] MEDS: buPROPion 100 MG Tab PO SCH ×2 (08:23→20:33)
[2016-07-08] MEDS: Simvastatin 40 MG Tab PO SCH (08:23)
[2016-07-08] MEDS: Lisinopril 5 MG Tab PO SCH (08:27)
[2016-07-08] MEDS: Metoprolol Succinate 25 MG Tab.ER PO SCH ×2 (08:27→20:39)
[2016-07-08] MEDS: Enoxaparin 40 MG/0.4 ML Syringe SUBCUT SCH (08:28)
[2016-07-08] MEDS: Loperamide 1 MG/5 ML ML Solution 120 ML Bottle GTUBE SCH (08:34)
[2016-07-08] MEDS ORDERED: Magnesium Sulfate/Water 2 GM in Premix Bag 1 BAG IV ONE (08:37)
[2016-07-08] MEDS: Ranitidine 15 MG/ML Syrup 10 ML UD Cup PEGTUBE SCH ×2 (08:54→20:32)
--- NOTE | 2016-07-08 12:13 | PCM.PN ---
- General Info Date of Service: 07/08/16 Functional Status: Reports: tolerating diet - Review of Systems General: Reports: no symptoms HEENT: Reports: no symptoms Pulmonary: Reports: no symptoms Cardiovascular: Reports: no symptoms Gastrointestinal: Reports: No symptoms Genitourinary: Reports: no symptoms Musculoskeletal: Reports: no symptoms Skin: Reports: no symptoms Neurological: Reports: no symptoms Psychiatric: Reports: no symptoms - Patient Data Vitals - most recent: Last Vital Signs Temp 97.6 F 07/08/16 08:00 Pulse 91 07/08/16 08:27 Resp 18 07/08/16 08:00 BP 144/77 H 07/08/16 08:27 Pulse Ox 93 L 07/08/16 08:00 Weight - most recent: 65.3 kg I&O - last 24 hours: Intake & Output 07/07/16 07/08/16 07/08/16 22:59 06:59 14:59 Intake Total 670 100 Balance 670 100 Lab Results last 24 hrs: Laboratory Results - last 24 hr 07/08/16 07/08/16 Range/Units 04:45 04:45 WBC 7.67 (4.0-11.0) K/uL RBC 3.50 L (4.50-5.90) M/uL Hgb 10.1 L (13.0-17.0) g/dL Hct 32.9 L (38.0-50.0) % MCV 94.0 (80.0-98.0) fL MCH 28.9 (27.0-32.0) pg MCHC 30.7 L (31.0-37.0) g/dL RDW Std Deviation 46.7 (28.0-62.0) fl RDW Coeff of [place] 14 (11.0-15.0) % Plt Count 373 (150-400) K/uL MPV 10.30 (7.40-12.00) fL Neut % (Auto) 71.5 (48.0-80.0) % Lymph % (Auto) 9.5 L (16.0-40.0) % [place] % (Auto) 10.0 (0.0-15.0) % Eos % (Auto) 8.5 H (0.0-7.0) % Baso % (Auto) 0.5 (0.0-1.5) % Neut # 5.5 (1.4-5.7) K/uL Lymph # 0.7 (0.6-2.4) K/uL [place] # 0.8 (0.0-0.8) K/uL Eos # 0.7 (0.0-0.7) K/uL Baso # 0.0 (0.0-0.1) K/uL Sodium 140 (136-146) mmol/L Potassium 3.9 (3.5-5.1) mmol/L Chloride 102 (98-110) mmol/L Carbon Dioxide 28 (21-31) mmol/L BUN 11 (6.0-23.0) mg/dL Creatinine 0.7 (0.6-1.5) mg/dL Est Cr Clr Drug Dosing 86.64 mL/min Estimated GFR (MDRD) > 60.0 ml/min Glucose 114 H (60-110) mg/dL Calcium 8.8 (8.8-10.8) mg/dL Magnesium 1.4 L (1.5-2.3) mEq/L Teo Results last 24 hrs: Microbiology 07/05/16 19:45 Gram Stain - Final Sputum - Expectorated Sputum Culture - Preliminary Escherichia Coli Med Orders - Current: Current Medications Acetaminophen (Tylenol) 650 mg PO Q4H PRN PRN Reason: Pain (Mild 1-3)/fever Albuterol/Ipratropium (Duoneb 3.0-0.5 Mg/3 Ml) 3 ml NEB Q6H [facility] Aspirin (Aspirin) 81 mg PO DAILY [facility] Last Admin: 07/08/16 08:23 Dose: 81 mg Bisacodyl (Dulcolax) 5 mg PO DAILY PRN PRN Reason: Constipation Bupropion HCl (Wellbutrin) 50 mg PO BID [facility] Last Admin: 07/08/16 08:23 Dose: 50 mg Enoxaparin Sodium (Lovenox) 40 mg SUBCUT DAILY [facility] Last Admin: 07/08/16 08:28 Dose: 40 mg Guaifenesin (Guaifenesin) 200 mg PEGTUBE Q4HR [facility] Last Admin: 07/08/16 08:22 Dose: 200 mg Ampicillin Sodium/Sulbactam (Sodium 3 gm/ Sodium Chloride) 100 mls @ 200 mls/ hr IV Q6H [facility] Last Admin: 07/08/16 08:28 Dose: 200 mls/hr Levothyroxine Sodium (Levothyroxine) 125 mcg PO ACBREAKFAST [facility] Last Admin: 07/08/16 06:39 Dose: 125 mcg Lisinopril (Prinivil) 5 mg PO DAILY [facility] Last Admin: 07/08/16 08:27 Dose: 5 mg Loperamide HCl (Imodium) 1 mg GTUBE DAILY [facility] Last Admin: 07/08/16 08:34 Dose: Not Given Metoprolol Succinate (Toprol Xl) 25 mg PO BID [facility] Last Admin: 07/08/16 08:27 Dose: 25 mg Ondansetron HCl (Zofran Odt) 4 mg PO Q4H PRN PRN Reason: nausea, able to take PO Prochlorperazine Maleate (Compazine) 10 mg PO Q6H PRN PRN Reason: Nausea Ranitidine HCl (Zantac) 150 mg PEGTUBE BID [facility] Last Admin: 07/08/16 08:54 Dose: 15 ml Simvastatin (Zocor) 40 mg PO DAILY [facility] Last Admin: 07/08/16 08:23 Dose: 40 mg Sodium Chloride (Saline Flush) 10 ml FLUSH ASDIRECTED PRN PRN Reason: Keep Vein Open Last Admin: 07/05/16 14:04 Dose: 10 ml Sodium Chloride (Saline Flush) 2.5 ml FLUSH ASDIRECTED PRN PRN Reason: Keep Vein Open Last Admin: 07/05/16 14:04 Dose: 2.5 ml Temazepam (Restoril) 15 mg PO BEDTIME PRN PRN Reason: Sleep Last Admin: 07/07/16 22:01 Dose: 15 mg Discontinued Medications Acetaminophen (Tylenol) 650 mg PO NOW ONE Stop: 07/05/16 13:37 Last Admin: 07/05/16 14:01 Dose: 650 mg Albuterol/Ipratropium (Duoneb 3.0-0.5 Mg/3 Ml) 3 ml NEB ONETIME ONE Stop: 07/05/16 13:38 Last Admin: 07/05/16 13:52 Dose: 3 ml Albuterol/Ipratropium (Duoneb 3.0-0.5 Mg/3 Ml) 3 ml NEB Q6H [facility] Last Admin: 07/08/16 09:31 Dose: 3 ml Ampicillin Sodium/Sulbactam (Sodium 3 gm/ Sodium Chloride) 100 mls @ 200 mls/ hr IV ONETIME ONE Stop: 07/05/16 14:06 Last Admin: 07/05/16 14:43 Dose: 200 mls/hr Sodium Chloride (Normal Saline) 500 mls @ 999 mls/hr IV STAT JORGE Sodium Chloride (Normal Saline) 1,000 mls @ 999 mls/hr IV STAT ONE Stop: 07/05/16 14:39 Last Admin: 07/05/16 14:03 Dose: 999 mls/hr Ampicillin Sodium/Sulbactam (Sodium 3 gm/ Sodium Chloride) 100 mls @ 200 mls/ hr IV Q6H [facility] Last Admin: 07/06/16 08:38 Dose: 200 mls/hr Magnesium Sulfate 2 gm/ Premix 50 mls @ 25 mls/hr IV ONETIME ONE Stop: 07/08/16 10:36 Last Admin: 07/08/16 09:29 Dose: 25 mls/hr Non-Formulary Medication 1 Each ( Guaifenesin 10 Ml) 10 ml PEGTUBE Q4HR [facility] Last Admin: 07/07/16 10:28 Dose: Not Given - Exam Quality Assessment: supplemental oxygen General: alert, oriented HEENT: Pupils equal, EOMI Neck: supple, trachea midline Lungs: Clear to auscultation, Normal respiratory effort Cardiovascular: regular rate, regular rhythm Abdomen: bowel sounds present, soft Back Exam: normal inspection, full range of motion Extremities: no edema - Problem List Review Problem List Initiated/Reviewed/Updated: Yes - Plan Plan:: CXR: new bilateral pneumonia with trace right pleural fluid. Clinically patient is doing well. [facility] to send pleural fluid cultures
--- NOTE | 2016-07-08 14:27 | PCM.SN ---
- Free Text/Narrative Note: Reviewed [facility] records and called DR. Tierney. Patient has recurrent aspiration pneumonia. Patient was discharged with Ertapenem I.V QD then he developed a reaction four days later. He was switched to PO augmentin NOT unasyn. This hospitalization his sputum culture is E-coli which is sensitive to Rocephin. Dr. doe recommended five days of rocephin antibiotics and if improved discharge to home.
[2016-07-08] MEDS ORDERED: cefTRIAXone 1 GM in Premix Bag 1 BAG IV SCH (14:30)
--- NOTE | 2016-07-08 18:10 | CR ---
MEXAM DATE: 07/05/16 PATIENT'S AGE: 71 Patient: MARLEEN SOSA Facility: [place], [place] Site . Site : 1945 Study: XRay Chest [id number]/27/2017 7:34:36 AM Ordering Physician: Kevin Freitas Final Report: INDICATION: Right-sided empyema TECHNIQUE: Chest 2 views. COMPARISON: 07/05/2016 FINDINGS: Cardiovascular and mediastinum: Heart size and vasculature are normal in caliber and appearance. Mediastinum is within normal limits. Lungs and pleural spaces: Ill-defined infiltrates are present in the perihilar region on the right and the left lower lobe. Trace right lateral pleural effusion is suspected. No pneumothorax. Bones and soft tissues: No significant findings. IMPRESSION: Suspected bilateral lower lobe pneumonia and trace right pleural effusion. Pneumonia is a new finding. Dictated by Karl Alfaro MD @ 07/08/2016 7:56:02 AM Dictated by: Karl Alfaro MD @ 07/08/2016 07:56:07 (Electronic Signature) Report Signed by Proxy and Original Signed Document filed in the Medical Record. [facility]
[2016-07-08] MEDS: Temazepam 15 MG Cap PO PRN (22:14)
[2016-07-09] MEDS: guaiFENesin 300 MG/15 ML Soln 15 ML UD Cup PEGTUBE SCH ×4 (00:25→12:04)
[2016-07-09] MEDS: Albuterol/Ipratropium 3.0-0.5 MG/3 ML Neb Soln NEB SCH ×3 (00:25→11:11)
[2016-07-09 05:39] LABS: CHLORIDE,CL 102 mmol/L (98-110); SODIUM,NA 141 mmol/L (136-146)
[2016-07-09] MEDS: Levothyroxine 125 MCG Tab PO SCH (06:31)
[2016-07-09] MEDS: buPROPion 100 MG Tab PO SCH (08:26)
[2016-07-09] MEDS: Lisinopril 5 MG Tab PO SCH (08:26)
[2016-07-09] MEDS: Aspirin 81 MG Tab.Chew PO SCH (08:27)
[2016-07-09] MEDS: Simvastatin 40 MG Tab PO SCH (08:27)
[2016-07-09] MEDS: Metoprolol Succinate 25 MG Tab.ER PO SCH (08:28)
[2016-07-09] MEDS: Ranitidine 15 MG/ML Syrup 10 ML UD Cup PEGTUBE SCH (08:29)
[2016-07-09] MEDS: Loperamide 1 MG/5 ML ML Solution 120 ML Bottle GTUBE SCH (08:30)
[2016-07-09] MEDS: Enoxaparin 40 MG/0.4 ML Syringe SUBCUT SCH (08:36)
[2016-07-09] MEDS ORDERED: Magnesium Sulfate/Water 2 GM in Premix Bag 1 BAG IV ONE ×2 (09:39→11:55)
[2016-07-09] MEDS ORDERED: Levofloxacin/Dextrose 5%-Water 750 MG in Premix Bag 1 BAG IV SCH (10:15)
--- NOTE | 2016-07-09 11:01 | PCM.PN ---
<Daysi Arambula - Last Filed: 07/09/16 11:51> - General Info Date of Service: 07/09/16 Functional Status: Reports: tolerating diet - Review of Systems General: Reports: no symptoms HEENT: Reports: no symptoms Pulmonary: Reports: no symptoms Cardiovascular: Reports: no symptoms Gastrointestinal: Reports: No symptoms Genitourinary: Reports: no symptoms Musculoskeletal: Reports: no symptoms Skin: Reports: no symptoms Neurological: Reports: no symptoms Psychiatric: Reports: no symptoms - Patient Data Vitals - most recent: Last Vital Signs Temp 98.9 F 07/09/16 07:45 Pulse 100 07/09/16 08:28 Resp 20 07/09/16 07:45 BP 136/71 07/09/16 08:28 Pulse Ox 93 L 07/09/16 07:45 Weight - most recent: 143 lb 15.39 oz I&O - last 24 hours: Intake & Output 07/08/16 07/09/16 07/09/16 22:59 06:59 14:59 Intake Total 1020 550 Output Total 250 280 Balance 770 270 Lab Results last 24 hrs: Laboratory Results - last 24 hr 07/09/16 07/09/16 07/09/16 Range/Units 04:35 04:35 04:35 WBC 6.51 (4.0-11.0) K/uL RBC 3.85 L (4.50-5.90) M/uL Hgb 10.9 L (13.0-17.0) g/dL Hct 35.3 L (38.0-50.0) % MCV 91.7 (80.0-98.0) fL MCH 28.3 (27.0-32.0) pg MCHC 30.9 L (31.0-37.0) g/dL RDW Std Deviation 48.1 (28.0-62.0) fl RDW Coeff of Randolph 14 (11.0-15.0) % Plt Count 408 H (150-400) K/uL MPV 10.10 (7.40-12.00) fL Neut % (Auto) 69.0 (48.0-80.0) % Lymph % (Auto) 10.8 L (16.0-40.0) % Bertie % (Auto) 10.8 (0.0-15.0) % Eos % (Auto) 8.0 H (0.0-7.0) % Baso % (Auto) 1.4 (0.0-1.5) % Neut # 4.5 (1.4-5.7) K/uL Lymph # 0.7 (0.6-2.4) K/uL Bertie # 0.7 (0.0-0.8) K/uL Eos # 0.5 (0.0-0.7) K/uL Baso # 0.1 (0.0-0.1) K/uL Nucleated RBC % 0.0 /100WBC Nucleated RBCs # 0 K/uL Sodium 141 (136-146) mmol/L Potassium 4.6 (3.5-5.1) mmol/L Chloride 102 (98-110) mmol/L Carbon Dioxide 28 (21-31) mmol/L BUN 12 (6.0-23.0) mg/dL Creatinine 0.7 (0.6-1.5) mg/dL Est Cr Clr Drug Dosing 86.64 mL/min Estimated GFR (MDRD) > 60.0 ml/min Glucose 110 (60-110) mg/dL Calcium 8.9 (8.8-10.8) mg/dL Magnesium 1.5 (1.5-2.3) mEq/L Teo Results last 24 hrs: Microbiology 07/05/16 19:45 Gram Stain - Final Sputum - Expectorated Sputum Culture - Final Escherichia Coli Pseudomonas Aeruginosa Med Orders - Current: Current Medications Acetaminophen (Tylenol) 650 mg PO Q4H PRN PRN Reason: Pain (Mild 1-3)/fever Albuterol/Ipratropium (Duoneb 3.0-0.5 Mg/3 Ml) 3 ml NEB Q6H [facility] Last Admin: 07/09/16 06:40 Dose: 3 ml Aspirin (Aspirin) 81 mg PO DAILY [facility] Last Admin: 07/09/16 08:27 Dose: 81 mg Bisacodyl (Dulcolax) 5 mg PO DAILY PRN PRN Reason: Constipation Bupropion HCl (Wellbutrin) 50 mg PO BID [facility] Last Admin: 07/09/16 08:26 Dose: 50 mg Enoxaparin Sodium (Lovenox) 40 mg SUBCUT DAILY [facility] Last Admin: 07/09/16 08:36 Dose: 40 mg Guaifenesin (Guaifenesin) 200 mg PEGTUBE Q4HR [facility] Last Admin: 07/09/16 08:29 Dose: 200 mg Magnesium Sulfate 2 gm/ Premix 50 mls @ 25 mls/hr IV ONETIME ONE Stop: 07/09/16 11:38 Piperacillin Sod/Tazobactam (Sod 4.5 gm/ Sodium Chloride) 100 mls @ 100 mls/hr IV Q6H [facility] Levofloxacin/Dextrose 750 mg/ (Premix) 150 mls @ 100 mls/hr IV Q24H [facility] Last Admin: 07/09/16 10:22 Dose: 100 mls/hr Levothyroxine Sodium (Levothyroxine) 125 mcg PO ACBREAKFAST [facility] Last Admin: 07/09/16 06:31 Dose: 125 mcg Lisinopril (Prinivil) 5 mg PO DAILY [facility] Last Admin: 07/09/16 08:26 Dose: 5 mg Loperamide HCl (Imodium) 1 mg GTUBE DAILY [facility] Last Admin: 07/09/16 08:30 Dose: 7.5 ml Metoprolol Succinate (Toprol Xl) 25 mg PO BID [facility] Last Admin: 07/09/16 08:28 Dose: 25 mg Ondansetron HCl (Zofran Odt) 4 mg PO Q4H PRN PRN Reason: nausea, able to take PO Prochlorperazine Maleate (Compazine) 10 mg PO Q6H PRN PRN Reason: Nausea Ranitidine HCl (Zantac) 150 mg PEGTUBE BID [facility] Last Admin: 07/09/16 08:29 Dose: 10 ml Simvastatin (Zocor) 40 mg PO DAILY [facility] Last Admin: 07/09/16 08:27 Dose: 40 mg Sodium Chloride (Saline Flush) 10 ml FLUSH ASDIRECTED PRN PRN Reason: Keep Vein Open Last Admin: 07/05/16 14:04 Dose: 10 ml Sodium Chloride (Saline Flush) 2.5 ml FLUSH ASDIRECTED PRN PRN Reason: Keep Vein Open Last Admin: 07/05/16 14:04 Dose: 2.5 ml Temazepam (Restoril) 15 mg PO BEDTIME PRN PRN Reason: Sleep Last Admin: 07/08/16 22:14 Dose: 15 mg Discontinued Medications Acetaminophen (Tylenol) 650 mg PO NOW ONE Stop: 07/05/16 13:37 Last Admin: 07/05/16 14:01 Dose: 650 mg Albuterol/Ipratropium (Duoneb 3.0-0.5 Mg/3 Ml) 3 ml NEB ONETIME ONE Stop: 07/05/16 13:38 Last Admin: 07/05/16 13:52 Dose: 3 ml Albuterol/Ipratropium (Duoneb 3.0-0.5 Mg/3 Ml) 3 ml NEB Q6H [facility] Last Admin: 07/08/16 09:31 Dose: 3 ml Ampicillin Sodium/Sulbactam (Sodium 3 gm/ Sodium Chloride) 100 mls @ 200 mls/ hr IV ONETIME ONE Stop: 07/05/16 14:06 Last Admin: 07/05/16 14:43 Dose: 200 mls/hr Sodium Chloride (Normal Saline) 500 mls @ 999 mls/hr IV STAT JORGE Sodium Chloride (Normal Saline) 1,000 mls @ 999 mls/hr IV STAT ONE Stop: 07/05/16 14:39 Last Admin: 07/05/16 14:03 Dose: 999 mls/hr Ampicillin Sodium/Sulbactam (Sodium 3 gm/ Sodium Chloride) 100 mls @ 200 mls/ hr IV Q6H [facility] Last Admin: 07/06/16 08:38 Dose: 200 mls/hr Ampicillin Sodium/Sulbactam (Sodium 3 gm/ Sodium Chloride) 100 mls @ 200 mls/ hr IV Q6H [facility] Last Admin: 07/08/16 08:28 Dose: 200 mls/hr Magnesium Sulfate 2 gm/ Premix 50 mls @ 25 mls/hr IV ONETIME ONE Stop: 07/08/16 10:36 Last Admin: 07/08/16 09:29 Dose: 25 mls/hr Ceftriaxone Sodium/Dextrose 1 (gm/ Premix) 50 mls @ 100 mls/hr IV Q24H [facility] Last Admin: 07/08/16 15:46 Dose: 100 mls/hr Non-Formulary Medication 1 Each ( Guaifenesin 10 Ml) 10 ml PEGTUBE Q4HR [facility] Last Admin: 07/07/16 10:28 Dose: Not Given - Exam General: alert, oriented, cooperative HEENT: Pupils equal, EOMI Neck: supple Lungs: Normal respiratory effort, Decreased breath sounds Cardiovascular: regular rate, regular rhythm Abdomen: bowel sounds present, soft Back Exam: normal inspection Extremities: no edema Skin: warm, dry, intact Neurological: no new focal deficit Psy/Mental Status: alert, normal affect - Problem List Review Problem List Initiated/Reviewed/Updated: Yes - My Orders Last 24 Hours: My Active Orders 07/09/16 09:39 Magnesium Sulfate/Water [Magnesium Sulfate 2 GM in Water 50 ML] 2 gm Premix Bag 1 bag IV ONETIME 07/09/16 10:15 Levofloxacin/Dextrose 5%-Water [Levaquin in D5W 750 MG/150 ML] 750 mg Premix Bag 1 bag IV Q24H 07/09/16 12:00 Piperacillin/Tazobactam [Piperacil-Tazobact] 4.5 gm Sodium Chloride 0.9% [ Normal Saline] 100 ml IV Q6H - Plan Plan:: 71 y male admitted for recurrent pneumonia yesterday sputum culture: [facility] 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 Tierney. <Neeraj Ward - Last Filed: 07/09/16 16:15> - Patient Data Vitals - most recent: Last Vital Signs Temp 98.8 F 07/09/16 11:38 Pulse 100 07/09/16 11:38 Resp 18 07/09/16 11:38 BP 122/69 07/09/16 11:38 Pulse Ox 95 07/09/16 11:38 I&O - last 24 hours: Intake & Output 07/09/16 07/09/16 07/09/16 06:59 14:59 22:59 Intake Total 550 Output Total 280 Balance 270 Lab Results last 24 hrs: Laboratory Results - last 24 hr 07/09/16 07/09/16 07/09/16 Range/Units 04:35 04:35 04:35 WBC 6.51 (4.0-11.0) K/uL RBC 3.85 L (4.50-5.90) M/uL Hgb 10.9 L (13.0-17.0) g/dL Hct 35.3 L (38.0-50.0) % MCV 91.7 (80.0-98.0) fL MCH 28.3 (27.0-32.0) pg MCHC 30.9 L (31.0-37.0) g/dL RDW Std Deviation 48.1 (28.0-62.0) fl RDW Coeff of Randolph 14 (11.0-15.0) % Plt Count 408 H (150-400) K/uL MPV 10.10 (7.40-12.00) fL Neut % (Auto) 69.0 (48.0-80.0) % Lymph % (Auto) 10.8 L (16.0-40.0) % Bertie % (Auto) 10.8 (0.0-15.0) % Eos % (Auto) 8.0 H (0.0-7.0) % Baso % (Auto) 1.4 (0.0-1.5) % Neut # 4.5 (1.4-5.7) K/uL Lymph # 0.7 (0.6-2.4) K/uL Bertie # 0.7 (0.0-0.8) K/uL Eos # 0.5 (0.0-0.7) K/uL Baso # 0.1 (0.0-0.1) K/uL Nucleated RBC % 0.0 /100WBC Nucleated RBCs # 0 K/uL Sodium 141 (136-146) mmol/L Potassium 4.6 (3.5-5.1) mmol/L Chloride 102 (98-110) mmol/L Carbon Dioxide 28 (21-31) mmol/L BUN 12 (6.0-23.0) mg/dL Creatinine 0.7 (0.6-1.5) mg/dL Est Cr Clr Drug Dosing 86.64 mL/min Estimated GFR (MDRD) > 60.0 ml/min Glucose 110 (60-110) mg/dL Calcium 8.9 (8.8-10.8) mg/dL Magnesium 1.5 (1.5-2.3) mEq/L Teo Results last 24 hrs: Microbiology 07/05/16 19:45 Gram Stain - Final Sputum - Expectorated Sputum Culture - Final Escherichia Coli Pseudomonas Aeruginosa Med Orders - Current: Current Medications Acetaminophen (Tylenol) 650 mg PO Q4H PRN PRN Reason: Pain (Mild 1-3)/fever Albuterol/Ipratropium (Duoneb 3.0-0.5 Mg/3 Ml) 3 ml NEB Q6H [facility] Last Admin: 07/09/16 11:11 Dose: 3 ml Aspirin (Aspirin) 81 mg PO DAILY [facility] Last Admin: 07/09/16 08:27 Dose: 81 mg Bisacodyl (Dulcolax) 5 mg PO DAILY PRN PRN Reason: Constipation Bupropion HCl (Wellbutrin) 50 mg PO BID [facility] Last Admin: 07/09/16 08:26 Dose: 50 mg Enoxaparin Sodium (Lovenox) 40 mg SUBCUT DAILY [facility] Last Admin: 07/09/16 08:36 Dose: 40 mg Guaifenesin (Guaifenesin) 200 mg PEGTUBE Q4HR [facility] Last Admin: 07/09/16 12:04 Dose: 200 mg Piperacillin Sod/Tazobactam (Sod 4.5 gm/ Sodium Chloride) 100 mls @ 100 mls/hr IV Q6H [facility] Last Admin: 07/09/16 13:23 Dose: 100 mls/hr Levothyroxine Sodium (Levothyroxine) 125 mcg PO ACBREAKFAST [facility] Last Admin: 07/09/16 06:31 Dose: 125 mcg Lisinopril (Prinivil) 5 mg PO DAILY [facility] Last Admin: 07/09/16 08:26 Dose: 5 mg Loperamide HCl (Imodium) 1 mg GTUBE DAILY [facility] Last Admin: 07/09/16 08:30 Dose: 7.5 ml Metoprolol Succinate (Toprol Xl) 25 mg PO BID [facility] Last Admin: 07/09/16 08:28 Dose: 25 mg Ondansetron HCl (Zofran Odt) 4 mg PO Q4H PRN PRN Reason: nausea, able to take PO Prochlorperazine Maleate (Compazine) 10 mg PO Q6H PRN PRN Reason: Nausea Ranitidine HCl (Zantac) 150 mg PEGTUBE BID [facility] Last Admin: 07/09/16 08:29 Dose: 10 ml Simvastatin (Zocor) 40 mg PO DAILY [facility] Last Admin: 07/09/16 08:27 Dose: 40 mg Sodium Chloride (Saline Flush) 10 ml FLUSH ASDIRECTED PRN PRN Reason: Keep Vein Open Last Admin: 07/05/16 14:04 Dose: 10 ml Sodium Chloride (Saline Flush) 2.5 ml FLUSH ASDIRECTED PRN PRN Reason: Keep Vein Open Last Admin: 07/05/16 14:04 Dose: 2.5 ml Temazepam (Restoril) 15 mg PO BEDTIME PRN PRN Reason: Sleep Last Admin: 07/08/16 22:14 Dose: 15 mg Discontinued Medications Acetaminophen (Tylenol) 650 mg PO NOW ONE Stop: 07/05/16 13:37 Last Admin: 07/05/16 14:01 Dose: 650 mg Albuterol/Ipratropium (Duoneb 3.0-0.5 Mg/3 Ml) 3 ml NEB ONETIME ONE Stop: 07/05/16 13:38 Last Admin: 07/05/16 13:52 Dose: 3 ml Albuterol/Ipratropium (Duoneb 3.0-0.5 Mg/3 Ml) 3 ml NEB Q6H [facility] Last Admin: 07/08/16 09:31 Dose: 3 ml Ampicillin Sodium/Sulbactam (Sodium 3 gm/ Sodium Chloride) 100 mls @ 200 mls/ hr IV ONETIME ONE Stop: 07/05/16 14:06 Last Admin: 07/05/16 14:43 Dose: 200 mls/hr Sodium Chloride (Normal Saline) 500 mls @ 999 mls/hr IV STAT JORGE Sodium Chloride (Normal Saline) 1,000 mls @ 999 mls/hr IV STAT ONE Stop: 07/05/16 14:39 Last Admin: 07/05/16 14:03 Dose: 999 mls/hr Ampicillin Sodium/Sulbactam (Sodium 3 gm/ Sodium Chloride) 100 mls @ 200 mls/ hr IV Q6H [facility] Last Admin: 07/06/16 08:38 Dose: 200 mls/hr Ampicillin Sodium/Sulbactam (Sodium 3 gm/ Sodium Chloride) 100 mls @ 200 mls/ hr IV Q6H [facility] Last Admin: 07/08/16 08:28 Dose: 200 mls/hr Magnesium Sulfate 2 gm/ Premix 50 mls @ 25 mls/hr IV ONETIME ONE Stop: 07/08/16 10:36 Last Admin: 07/08/16 09:29 Dose: 25 mls/hr Ceftriaxone Sodium/Dextrose 1 (gm/ Premix) 50 mls @ 100 mls/hr IV Q24H [facility] Last Admin: 07/08/16 15:46 Dose: 100 mls/hr Magnesium Sulfate 2 gm/ Premix 50 mls @ 25 mls/hr IV ONETIME ONE Stop: 07/09/16 11:38 Last Admin: 07/09/16 11:54 Dose: Not Given Levofloxacin/Dextrose 750 mg/ (Premix) 150 mls @ 100 mls/hr IV Q24H [facility] Last Admin: 07/09/16 10:22 Dose: 100 mls/hr Magnesium Sulfate 2 gm/ Premix 50 mls @ 50 mls/hr IV ONETIME ONE Stop: 07/09/16 12:54 Last Admin: 07/09/16 12:18 Dose: 50 mls/hr Non-Formulary Medication 1 Each ( Guaifenesin 10 Ml) 10 ml PEGTUBE Q4HR [facility] Last Admin: 07/07/16 10:28 Dose: Not Given - Plan Plan:: Patient seen and examined , agree with assessment and plan . Infectious dises was called recommended patient transfer to [place] for ID consult
[2016-07-09] MEDS ORDERED: Piperacillin/Tazobactam 4.5 GM in Sodium Chloride 0.9% 100 ML IV SCH (12:00)
--- NOTE | 2016-07-09 12:43 | PCM.DCSUM1 ---
<Daysi Arambula - Last Filed: 07/10/16 12:25> Discharge Summary - Hospital Course Free Text/Narrative:: 71 yo male admitted for recurrent aspiration. He recently had a long course of hospital stay in [place] from 06/02/16-06/27/16 for bilateral aspiration pneumonia, hypoxic respiratory failure and right sided empyema s/p decortication. He was discharged with ertapenam where he developed rash and hives whcih was switched to po augmentin. He started to develop fever, chills, rigors and productive cough. He had elevated WBC 17.9 and lactate of 2.5. He was treated with IVF and Unasyn while waiting for sensitivities. He was positive for E-COLI in sputum culture yesterday which was sensitive to Rocephin. 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 I spoke to Dr. man who recommended to send him back to [place] for further evaluation. - Discharge Data Discharge Date: 07/09/16 Discharge Disposition: DC/Tfer to Acute Hospital 02 Condition: Good - Patient Summary/Data Operative Procedure(s) Performed: egd with biopsy. colonoscopy - Patient Instructions Diet: Heart Healthy Diet Activity: As Tolerated Driving: Do Not Drive Notify Provider of: Fever, Increased Pain, Swelling and Redness, Drainage, Nausea and/or Vomiting - Discharge Plan Home Medications: Home Meds Aspirin 81 mg PO DAILY 11/25/15 [History] Levothyroxine 125 mcg PO ACBREAKFAST 11/25/15 [History] Metoprolol Succinate [Toprol XL] 25 mg PO BID 11/25/15 [History] Prochlorperazine [Compazine] 10 mg PO Q6H PRN 11/25/15 [History] Simvastatin [Zocor] 40 mg PO DAILY 11/25/15 [History] buPROPion [Wellbutrin] 50 mg PO BID 11/25/15 [History] Lisinopril 5 mg PO DAILY 07/05/16 [History] Loperamide HCl [Loperamide] 1 mg PEGTUBE DAILY 07/05/16 [History] Ranitidine [Zantac] 10 mg PEGTUBE BID 07/05/16 [History] guaiFENesin [Adult Tussin Chest Congestion] 15 ml PEGTUBE Q4HR 07/05/16 [History ] Forms: ED Department Discharge Referrals: Akira Mai [Primary Care Provider] - - General Info Date of Service: 07/09/16 Functional Status: Reports: pain controlled - Review of Systems General: Reports: no symptoms HEENT: Reports: no symptoms Pulmonary: Reports: no symptoms Cardiovascular: Reports: no symptoms Gastrointestinal: Reports: No symptoms Genitourinary: Reports: no symptoms Musculoskeletal: Reports: no symptoms Skin: Reports: no symptoms Neurological: Reports: no symptoms Psychiatric: Reports: no symptoms - Patient Data Vitals - Most Recent: Last Vital Signs Temp 98.8 F 07/09/16 11:38 Pulse 100 07/09/16 11:38 Resp 18 07/09/16 11:38 BP 122/69 07/09/16 11:38 Pulse Ox 95 07/09/16 11:38 Weight - Most Recent: 143 lb 15.39 oz I&O - Last 24 hours: Intake & Output 07/08/16 07/09/16 07/09/16 22:59 06:59 14:59 Intake Total 1020 550 Output Total 250 280 Balance 770 270 Lab Results - Last 24 hrs: Laboratory Results - last 24 hr 07/09/16 07/09/16 07/09/16 Range/Units 04:35 04:35 04:35 WBC 6.51 (4.0-11.0) K/uL RBC 3.85 L (4.50-5.90) M/uL Hgb 10.9 L (13.0-17.0) g/dL Hct 35.3 L (38.0-50.0) % MCV 91.7 (80.0-98.0) fL MCH 28.3 (27.0-32.0) pg MCHC 30.9 L (31.0-37.0) g/dL RDW Std Deviation 48.1 (28.0-62.0) fl RDW Coeff of Randolph 14 (11.0-15.0) % Plt Count 408 H (150-400) K/uL MPV 10.10 (7.40-12.00) fL Neut % (Auto) 69.0 (48.0-80.0) % Lymph % (Auto) 10.8 L (16.0-40.0) % Trinity % (Auto) 10.8 (0.0-15.0) % Eos % (Auto) 8.0 H (0.0-7.0) % Baso % (Auto) 1.4 (0.0-1.5) % Neut # 4.5 (1.4-5.7) K/uL Lymph # 0.7 (0.6-2.4) K/uL Trinity # 0.7 (0.0-0.8) K/uL Eos # 0.5 (0.0-0.7) K/uL Baso # 0.1 (0.0-0.1) K/uL Nucleated RBC % 0.0 /100WBC Nucleated RBCs # 0 K/uL Sodium 141 (136-146) mmol/L Potassium 4.6 (3.5-5.1) mmol/L Chloride 102 (98-110) mmol/L Carbon Dioxide 28 (21-31) mmol/L BUN 12 (6.0-23.0) mg/dL Creatinine 0.7 (0.6-1.5) mg/dL Est Cr Clr Drug Dosing 86.64 mL/min Estimated GFR (MDRD) > 60.0 ml/min Glucose 110 (60-110) mg/dL Calcium 8.9 (8.8-10.8) mg/dL Magnesium 1.5 (1.5-2.3) mEq/L ADRIANA Results - Last 24 hrs: Microbiology 07/05/16 19:45 Gram Stain - Final Sputum - Expectorated Sputum Culture - Final Escherichia Coli Pseudomonas Aeruginosa Med Orders - Current: Current Medications Acetaminophen (Tylenol) 650 mg PO Q4H PRN PRN Reason: Pain (Mild 1-3)/fever Albuterol/Ipratropium (Duoneb 3.0-0.5 Mg/3 Ml) 3 ml NEB Q6H [facility] Last Admin: 07/09/16 11:11 Dose: 3 ml Aspirin (Aspirin) 81 mg PO DAILY [facility] Last Admin: 07/09/16 08:27 Dose: 81 mg Bisacodyl (Dulcolax) 5 mg PO DAILY PRN PRN Reason: Constipation Bupropion HCl (Wellbutrin) 50 mg PO BID [facility] Last Admin: 07/09/16 08:26 Dose: 50 mg Enoxaparin Sodium (Lovenox) 40 mg SUBCUT DAILY [facility] Last Admin: 07/09/16 08:36 Dose: 40 mg Guaifenesin (Guaifenesin) 200 mg PEGTUBE Q4HR [facility] Last Admin: 07/09/16 12:04 Dose: 200 mg Piperacillin Sod/Tazobactam (Sod 4.5 gm/ Sodium Chloride) 100 mls @ 100 mls/hr IV Q6H [facility] Magnesium Sulfate 2 gm/ Premix 50 mls @ 50 mls/hr IV ONETIME ONE Stop: 07/09/16 12:54 Last Admin: 07/09/16 12:18 Dose: 50 mls/hr Levothyroxine Sodium (Levothyroxine) 125 mcg PO ACBREAKFAST [facility] Last Admin: 07/09/16 06:31 Dose: 125 mcg Lisinopril (Prinivil) 5 mg PO DAILY [facility] Last Admin: 07/09/16 08:26 Dose: 5 mg Loperamide HCl (Imodium) 1 mg GTUBE DAILY [facility] Last Admin: 07/09/16 08:30 Dose: 7.5 ml Metoprolol Succinate (Toprol Xl) 25 mg PO BID [facility] Last Admin: 07/09/16 08:28 Dose: 25 mg Ondansetron HCl (Zofran Odt) 4 mg PO Q4H PRN PRN Reason: nausea, able to take PO Prochlorperazine Maleate (Compazine) 10 mg PO Q6H PRN PRN Reason: Nausea Ranitidine HCl (Zantac) 150 mg PEGTUBE BID [facility] Last Admin: 07/09/16 08:29 Dose: 10 ml Simvastatin (Zocor) 40 mg PO DAILY [facility] Last Admin: 07/09/16 08:27 Dose: 40 mg Sodium Chloride (Saline Flush) 10 ml FLUSH ASDIRECTED PRN PRN Reason: Keep Vein Open Last Admin: 07/05/16 14:04 Dose: 10 ml Sodium Chloride (Saline Flush) 2.5 ml FLUSH ASDIRECTED PRN PRN Reason: Keep Vein Open Last Admin: 07/05/16 14:04 Dose: 2.5 ml Temazepam (Restoril) 15 mg PO BEDTIME PRN PRN Reason: Sleep Last Admin: 07/08/16 22:14 Dose: 15 mg Discontinued Medications Acetaminophen (Tylenol) 650 mg PO NOW ONE Stop: 07/05/16 13:37 Last Admin: 07/05/16 14:01 Dose: 650 mg Albuterol/Ipratropium (Duoneb 3.0-0.5 Mg/3 Ml) 3 ml NEB ONETIME ONE Stop: 07/05/16 13:38 Last Admin: 07/05/16 13:52 Dose: 3 ml Albuterol/Ipratropium (Duoneb 3.0-0.5 Mg/3 Ml) 3 ml NEB Q6H [facility] Last Admin: 07/08/16 09:31 Dose: 3 ml Ampicillin Sodium/Sulbactam (Sodium 3 gm/ Sodium Chloride) 100 mls @ 200 mls/ hr IV ONETIME ONE Stop: 07/05/16 14:06 Last Admin: 07/05/16 14:43 Dose: 200 mls/hr Sodium Chloride (Normal Saline) 500 mls @ 999 mls/hr IV STAT JORGE Sodium Chloride (Normal Saline) 1,000 mls @ 999 mls/hr IV STAT ONE Stop: 07/05/16 14:39 Last Admin: 07/05/16 14:03 Dose: 999 mls/hr Ampicillin Sodium/Sulbactam (Sodium 3 gm/ Sodium Chloride) 100 mls @ 200 mls/ hr IV Q6H [facility] Last Admin: 07/06/16 08:38 Dose: 200 mls/hr Ampicillin Sodium/Sulbactam (Sodium 3 gm/ Sodium Chloride) 100 mls @ 200 mls/ hr IV Q6H [facility] Last Admin: 07/08/16 08:28 Dose: 200 mls/hr Magnesium Sulfate 2 gm/ Premix 50 mls @ 25 mls/hr IV ONETIME ONE Stop: 07/08/16 10:36 Last Admin: 07/08/16 09:29 Dose: 25 mls/hr Ceftriaxone Sodium/Dextrose 1 (gm/ Premix) 50 mls @ 100 mls/hr IV Q24H [facility] Last Admin: 07/08/16 15:46 Dose: 100 mls/hr Magnesium Sulfate 2 gm/ Premix 50 mls @ 25 mls/hr IV ONETIME ONE Stop: 07/09/16 11:38 Last Admin: 07/09/16 11:54 Dose: Not Given Levofloxacin/Dextrose 750 mg/ (Premix) 150 mls @ 100 mls/hr IV Q24H [facility] Last Admin: 07/09/16 10:22 Dose: 100 mls/hr Non-Formulary Medication 1 Each ( Guaifenesin 10 Ml) 10 ml PEGTUBE Q4HR [facility] Last Admin: 07/07/16 10:28 Dose: Not Given - Exam General: Reports: alert, oriented, cooperative HEENT: Reports: Pupils equal, Pupils reactive, EOMI Neck: Reports: supple Lungs: Reports: Normal respiratory effort, Decreased breath sounds Cardiovascular: Reports: regular rate, regular rhythm Abdomen: Reports: bowel sounds present, soft Extremities: Reports: no edema Skin: Reports: warm, dry, intact Neurological: Reports: no new focal deficit Psy/Mental Status: Reports: alert, normal affect, normal mood *Q Meaningful Use (DIS) - VTE *Q VTE Criteria *Q: - Stroke *Q Stroke Criteria *Q: - AMI *Q AMI Criteria *Q: <Neeraj Ward - Last Filed: 07/10/16 16:57> Discharge Summary - Discharge Summary/Plan Comment Discharge Summary/Plan Comment: Patient seen and examined , agree with discharge summary - Patient Data Vitals - Most Recent: Last Vital Signs Temp 98.5 F 07/09/16 13:30 Pulse 103 H 07/09/16 13:30 Resp 20 07/09/16 13:30 BP 135/72 07/09/16 13:30 Pulse Ox 94 L 07/09/16 13:30 Med Orders - Current: Current Medications Discontinued Medications Acetaminophen (Tylenol) 650 mg PO NOW ONE Stop: 07/05/16 13:37 Last Admin: 07/05/16 14:01 Dose: 650 mg Acetaminophen (Tylenol) 650 mg PO Q4H PRN PRN Reason: Pain (Mild 1-3)/fever Albuterol/Ipratropium (Duoneb 3.0-0.5 Mg/3 Ml) 3 ml NEB ONETIME ONE Stop: 07/05/16 13:38 Last Admin: 07/05/16 13:52 Dose: 3 ml Albuterol/Ipratropium (Duoneb 3.0-0.5 Mg/3 Ml) 3 ml NEB Q6H [facility] Last Admin: 07/08/16 09:31 Dose: 3 ml Albuterol/Ipratropium (Duoneb 3.0-0.5 Mg/3 Ml) 3 ml NEB Q6H [facility] Last Admin: 07/09/16 11:11 Dose: 3 ml Aspirin (Aspirin) 81 mg PO DAILY [facility] Last Admin: 07/09/16 08:27 Dose: 81 mg Bisacodyl (Dulcolax) 5 mg PO DAILY PRN PRN Reason: Constipation Bupropion HCl (Wellbutrin) 50 mg PO BID [facility] Last Admin: 07/09/16 08:26 Dose: 50 mg Enoxaparin Sodium (Lovenox) 40 mg SUBCUT DAILY [facility] Last Admin: 07/09/16 08:36 Dose: 40 mg Guaifenesin (Guaifenesin) 200 mg PEGTUBE Q4HR [facility] Last Admin: 07/09/16 12:04 Dose: 200 mg Ampicillin Sodium/Sulbactam (Sodium 3 gm/ Sodium Chloride) 100 mls @ 200 mls/ hr IV ONETIME ONE Stop: 07/05/16 14:06 Last Admin: 07/05/16 14:43 Dose: 200 mls/hr Sodium Chloride (Normal Saline) 500 mls @ 999 mls/hr IV STAT [facility] Sodium Chloride (Normal Saline) 1,000 mls @ 999 mls/hr IV STAT ONE Stop: 07/05/16 14:39 Last Admin: 07/05/16 14:03 Dose: 999 mls/hr Ampicillin Sodium/Sulbactam (Sodium 3 gm/ Sodium Chloride) 100 mls @ 200 mls/ hr IV Q6H [facility] Last Admin: 07/06/16 08:38 Dose: 200 mls/hr Ampicillin Sodium/Sulbactam (Sodium 3 gm/ Sodium Chloride) 100 mls @ 200 mls/ hr IV Q6H [facility] Last Admin: 07/08/16 08:28 Dose: 200 mls/hr Magnesium Sulfate 2 gm/ Premix 50 mls @ 25 mls/hr IV ONETIME ONE Stop: 07/08/16 10:36 Last Admin: 07/08/16 09:29 Dose: 25 mls/hr Ceftriaxone Sodium/Dextrose 1 (gm/ Premix) 50 mls @ 100 mls/hr IV Q24H [facility] Last Admin: 07/08/16 15:46 Dose: 100 mls/hr Magnesium Sulfate 2 gm/ Premix 50 mls @ 25 mls/hr IV ONETIME ONE Stop: 07/09/16 11:38 Last Admin: 07/09/16 11:54 Dose: Not Given Piperacillin Sod/Tazobactam (Sod 4.5 gm/ Sodium Chloride) 100 mls @ 100 mls/hr IV Q6H [facility] Last Admin: 07/09/16 13:23 Dose: 100 mls/hr Levofloxacin/Dextrose 750 mg/ (Premix) 150 mls @ 100 mls/hr IV Q24H [facility] Last Admin: 07/09/16 10:22 Dose: 100 mls/hr Magnesium Sulfate 2 gm/ Premix 50 mls @ 50 mls/hr IV ONETIME ONE Stop: 07/09/16 12:54 Last Admin: 07/09/16 12:18 Dose: 50 mls/hr Levothyroxine Sodium (Levothyroxine) 125 mcg PO ACBREAKFAST [facility] Last Admin: 07/09/16 06:31 Dose: 125 mcg Lisinopril (Prinivil) 5 mg PO DAILY [facility] Last Admin: 07/09/16 08:26 Dose: 5 mg Loperamide HCl (Imodium) 1 mg GTUBE DAILY [facility] Last Admin: 07/09/16 08:30 Dose: 7.5 ml Metoprolol Succinate (Toprol Xl) 25 mg PO BID [facility] Last Admin: 07/09/16 08:28 Dose: 25 mg Non-Formulary Medication 1 Each ( Guaifenesin 10 Ml) 10 ml PEGTUBE Q4HR [facility] Last Admin: 07/07/16 10:28 Dose: Not Given Ondansetron HCl (Zofran Odt) 4 mg PO Q4H PRN PRN Reason: nausea, able to take PO Prochlorperazine Maleate (Compazine) 10 mg PO Q6H PRN PRN Reason: Nausea Ranitidine HCl (Zantac) 150 mg PEGTUBE BID [facility] Last Admin: 07/09/16 08:29 Dose: 10 ml Simvastatin (Zocor) 40 mg PO DAILY [facility] Last Admin: 07/09/16 08:27 Dose: 40 mg Sodium Chloride (Saline Flush) 10 ml FLUSH ASDIRECTED PRN PRN Reason: Keep Vein Open Last Admin: 07/05/16 14:04 Dose: 10 ml Sodium Chloride (Saline Flush) 2.5 ml FLUSH ASDIRECTED PRN PRN Reason: Keep Vein Open Last Admin: 07/05/16 14:04 Dose: 2.5 ml Temazepam (Restoril) 15 mg PO BEDTIME PRN PRN Reason: Sleep Last Admin: 07/08/16 22:14 Dose: 15 mg *Q Meaningful Use (DIS) - VTE *Q VTE Criteria *Q: - Stroke *Q Stroke Criteria *Q: - AMI *Q AMI Criteria *Q:
[2016-07-09 17:58] VITALS: BP 135/72
== END 2016-07-09 13:45 | DRG 871 ==
LOC: MW.ED 13:21 → MW.MS 14:30
PROVIDERS: ADMIT Family Medicine; ATTEND Family Medicine
DX: A41.9 Sepsis, unspecified organism (principal); J69.0 Pneumonitis due to inhalation of food and vomit; J86.9 Pyothorax without fistula; J44.9 Chronic obstructive pulmonary disease, unspecified; J44.0 Chronic obstructive pulmonary disease with (acute) lower respiratory infection; I25.2 Old myocardial infarction; Z85.89 Personal history of malignant neoplasm of other organs and systems; B96.20 Unspecified Escherichia coli [E. coli] as the cause of diseases classified elsewhere; B96.5 Pseudomonas (aeruginosa) (mallei) (pseudomallei) as the cause of diseases classified elsewhere; I10 Essential (primary) hypertension; E03.9 Hypothyroidism, unspecified; I25.10 Atherosclerotic heart disease of native coronary artery without angina pectoris; C32.1 Malignant neoplasm of supraglottis; Z79.82 Long term (current) use of aspirin; Z87.891 Personal history of nicotine dependence; Z79.899 Other long term (current) drug therapy; Z88.8 Allergy status to other drugs, medicaments and biological substances; Z93.1 Gastrostomy status
CPT/HCPCS: 71010; 80053; 83605; 85025; 87040 ×2; 93005; 94664; 96361; 99285; A9270; J7040; 36415; 71020; 71020-26; 80048; 83735; 87070; 87077; 87186; 87205; 94640; 96365; 96374; 97802; J0295; J0696; J1650; J1956; J2543; J3475; J7030

== ENCOUNTER → 2016-07-25 | Outpatient (CLI) | payer MEDICARE, BC ==
[2016-07-25 13:12] LABS: CHLORIDE,CL 100 mmol/L (98-110); SODIUM,NA 141 mmol/L (136-146)
== END ==
LOC: MW.CHRC 11:49
PROVIDERS: ATTEND Family Medicine
DX: J86.9 Pyothorax without fistula (principal); E03.9 Hypothyroidism, unspecified; R19.7 Diarrhea, unspecified; I50.9 Heart failure, unspecified; J18.9 Pneumonia, unspecified organism; E87.5 Hyperkalemia; Z23 Encounter for immunization
CPT/HCPCS: 36415; 80053; 84439; 84443; 85025; 90670; G0009; G0463

== ENCOUNTER → 2016-07-29 | Outpatient (CLI) | payer MEDICARE, BC | END | disposition home or self-care (01) | LOC: MW.CHRC 09:54 | PROVIDERS: ATTEND Family Medicine | DX: R19.7 Diarrhea, unspecified (principal) | CPT/HCPCS: 87046; 87324; 87899 ==

== ENCOUNTER → 2016-07-31 | Outpatient (CLI) | payer MEDICARE, BC ==
[2016-07-31 12:09] LABS: CHLORIDE,CL 101 mmol/L (98-110); SODIUM,NA 141 mmol/L (136-146)
== END ==
LOC: MW.CHRC 10:59
PROVIDERS: ATTEND Family Medicine
DX: J18.9 Pneumonia, unspecified organism (principal); R19.7 Diarrhea, unspecified
CPT/HCPCS: 36415; 80053; 85025; G0463

== ENCOUNTER → 2016-08-02 | Outpatient (CLI) | payer MEDICARE, BC ==
--- NOTE | 2016-08-08 14:05 | ECHO ---
The echocardiogram report can be seen in this patient's EMR in the Reports section. RODOLFO
== END ==
LOC: MW.US 12:46
PROVIDERS: ATTEND Family Medicine
DX: I50.9 Heart failure, unspecified (principal)
CPT/HCPCS: 93306

== ENCOUNTER → 2016-08-12 | Outpatient (CLI) | payer MEDICARE, BC ==
--- NOTE | 2016-08-12 11:55 | CR ---
EXAMINATION: Two-view chest (PA and Lateral views). HISTORY: Cough. Comparison: 07/08/2016. FINDINGS: The trachea is midline. The cardiomediastinal silhouette is within normal limits. Stable bibasilar a telectasis/scarring and/or infiltrate. A trace right pleural effusion is not excluded. Chronic inter stitial prominence and mild hyperinflation. Osseous structures appear unremarkable. IMPRESSION: Stable chest radiograph.
== END ==
LOC: MW.CHRC 11:22
PROVIDERS: ATTEND Family Medicine
DX: R05 Cough (principal); R91.8 Other nonspecific abnormal finding of lung field; J98.11 Atelectasis; R93.8 Abnormal findings on diagnostic imaging of other specified body structures; Z85.21 Personal history of malignant neoplasm of larynx; Z43.1 Encounter for attention to gastrostomy
CPT/HCPCS: 36415; 71020; 71020-26; 85025; 94640; 99214

== ENCOUNTER → 2016-08-20 | Outpatient (CLI) | payer MEDICARE, BC | END | disposition home or self-care (01) | LOC: MW.CHRC 15:50 | PROVIDERS: ATTEND Family Medicine | DX: R05 Cough (principal); J18.9 Pneumonia, unspecified organism | CPT/HCPCS: 36415; 85025; G0463 ==

== ENCOUNTER → 2016-09-09 | Outpatient (CLI) | payer MEDICARE, BC ==
--- NOTE | 2016-09-09 12:12 | CR ---
EXAMINATION: Two-view chest (PA and Lateral views). HISTORY: Cough. COMPARISON: 08/12/2016, 07/08/2016 FINDINGS: The trachea is midline. The cardiomediastinal silhouette is within normal limits. Chronic interstiti al prominence most notable within the lung bases. Mild hyperinflation is noted. Osseous structures appear unremarkable. IMPRESSION: Chronic bibasilar scarring.
== END ==
LOC: MW.CHFP 09:56
PROVIDERS: ATTEND Family Medicine
DX: R05 Cough (principal); R06.00 Dyspnea, unspecified; D72.829 Elevated white blood cell count, unspecified; J44.9 Chronic obstructive pulmonary disease, unspecified
CPT/HCPCS: 36415; 71020; 71020-26; 85025; G0463

== ENCOUNTER 2017-08-17 00:39 | Emergency (ER) | payer MEDICARE, BC ==
--- NOTE | 2017-08-17 01:19 | EDM.PDOC ---
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 He also has a recent tracheostomy performed August 04, 2017. Tonight he had crushed some medication to placed through the PEG tube and there was a piece of a tablet that became lodged in the tube there were unable to flush this through however on arrival here the tube is completely clear we were able to flush 30 mL's of saline without any difficulty as well as repeated approximately one hour later another 30 mL again without any difficulty. patient's is generally concerned may be fearful however the patient does not have any concerns appear to be comfortable in no distress whatsoever he denies fever nausea vomiting diarrhea constipation chest pain shortness breath headache dizziness palpitation no bowel or urine symptoms ] Review of systems: As per history of present illness and below otherwise all systems reviewed and negative. Past medical history: As per history of present illness and as reviewed below otherwise noncontributory. Surgical history: As per history of present illness and as reviewed below otherwise noncontributory. Social history: No reported history of drug or alcohol abuse. Family history: As per history of present illness and as reviewed below otherwise noncontributory. Physical exam: HEENT: Atraumatic, normocephalic, pupils reactive, negative for conjunctival pallor or scleral icterus, mucous membranes moist, throat clear, neck supple, nontender, trachea midline. trachea noted, drainage tube between left there and esophagus noted Lungs: Clear to auscultation, breath sounds equal bilaterally, chest nontender. Heart: S1S2, regular, negative for clicks, rubs, or JVD. Abdomen: Soft, nondistended, nontender. Negative for masses or hepatosplenomegaly. Negative for costovertebral tenderness. PEG tube noted clear no plug Pelvis: Stable nontender. Genitourinary: Deferred. Rectal: Deferred. Extremities: Atraumatic, negative for cords or calf pain. Neurovascular unremarkable. Neuro: Awake, alert, oriented. Cranial nerves II through XII unremarkable. Cerebellum unremarkable. Motor and sensory unremarkable throughout. Exam nonfocal. Diagnostics: [ clinical Saline flush without difficulty ] Therapeutics: [] Impression: [ medical screening exam Chronic history of baseline ] Definitive disposition and diagnosis as appropriate pending reevaluation and review of above. - Related Data Allergies Allergy/AdvReac Type Severity Reaction Status Date / Time ertapenem [From Invanz] Allergy Unknown Rash Verified 08/17/17 01:01 Home Meds: Home Meds Aspirin 81 mg PO DAILY 11/25/15 [History] Levothyroxine 100 mcg PO ACBREAKFAST 11/25/15 [History] Metoprolol Succinate [Toprol XL] 25 mg PO BID 11/25/15 [History] Simvastatin [Zocor] 40 mg PO BEDTIME 11/25/15 [History] buPROPion [Wellbutrin] 50 mg PO TID 11/25/15 [History] Loperamide HCl [Loperamide] 1 mg PEGTUBE DAILY 07/05/16 [History] Acetaminophen [Tylenol Arthritis Pain] 650 mg PO Q4HR PRN 08/17/17 [History] Albuterol/Ipratropium [DuoNeb 3.0-0.5 MG/3 ML] 3 ml INH ASDIRECTED 08/17/17 [ History] Cetirizine [ZyrTEC] 0 mg PO DAILY 08/17/17 [History] Fluticasone Furoate [Flonase Sensimist] 0 spray INH BID 08/17/17 [History] Past Medical History HEENT History: Reports: Hard of Hearing, Impaired Vision, Other (See Below) Other HEENT History: wears glasses Cardiovascular History: Reports: Hypertension, [place] Other Cardiovascular History: 2010 Respiratory History: Reports: COPD, Pneumonia, Recurrent, Sleep Apnea, Other ( See Below) Other Respiratory History: Sleep apnea with machien "do not use it", 50 yr history of tobacco use, QUIT 04/2011 Gastrointestinal History: Reports: Other (See Below) Other Gastrointestinal History: 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, Other (See Below) Other Oncologic History: epiglottis Dermatologic History: Reports: None - Infectious Disease History Infectious Disease History: Reports: Chicken Pox, Measles - Past Surgical History Cardiovascular Surgical History: Reports: Coronary Artery Stent Respiratory Surgical History: Reports: Tracheostomy, Other (See Below) GI Surgical History: Reports: Other (See Below) Other GI Surgeries/Procedures: Gastrostomy TUbe Social & Family History - Family History Family Medical History: Noncontributory HEENT: Reports: Impaired Vision Cardiac: Reports: Heart Failure Musculoskeletal: Reports: Arthritis Neurological: Reports: CVA Endocrine/Metabolic: Reports: Diabetes, type II Oncologic: Reports: Breast, Other (See Below) Other Oncologic Family History: Stomach - Tobacco Use Smoking Status *Q: Never Smoker Years of Tobacco use: 50 Used Tobacco, but Quit: Yes Month/Year Tobacco Last Used: 06/13/2010 Second Hand Smoke Exposure: No - Caffeine Use Caffeine Use: Reports: None - Alcohol Use Days Per Week of Alcohol Use: 0 - Recreational Drug Use Recreational Drug Use: No Drug Use in Last 12 Months: No ED ROS GENERAL - Review of Systems Review Of Systems: ROS reveals no pertinent complaints other than HPI. ED EXAM, GENERAL - Physical Exam Exam: See Below Course - Vital Signs Last Recorded V/S: Last Vital Signs Temp 97.8 F 08/17/17 00:39 Pulse 82 08/17/17 00:39 Resp 18 08/17/17 00:39 BP 119/63 08/17/17 00:39 Pulse Ox 97 08/17/17 00:39 Departure - Departure Time of Disposition: 02:20 Disposition: Home, Self-Care 01 Condition: Good Clinical Impression: Encounter for medical screening examination - Discharge Information Referrals: Akira Mai [Primary Care Provider] - Forms: ED Department Discharge Additional Instructions: Return if symptoms persist or worsen or new concerning symptoms develop Follow-up with surgeon as scheduled for recheck Follow-up with primary care as needed The following information is given to patients seen in the emergency department who are being discharged to home. This information is to outline your options for follow-up care. We provide all patients seen in our emergency department with a follow-up referral. The need for follow-up, as well as the timing and circumstances, are variable depending upon the specifics of your emergency department visit. If you don't have a primary care physician on staff, we will provide you with a referral. We always advise you to contact your personal physician following an emergency department visit to inform them of the circumstance of the visit and for follow-up with them and/or the need for any referrals to a consulting specialist. The emergency department will also refer you to a specialist when appropriate. This referral assures that you have the opportunity for follow-up care with a specialist. All of these measure are taken in an effort to provide you with optimal care, which includes your follow-up. Under all circumstances we always encourage you to contact your private physician who remains a resource for coordinating your care. When calling for follow-up care, please make the office aware that this follow-up is from your recent emergency room visit. If for any reason you are refused follow-up, please contact the [facility] emergency department at and asked to speak to the emergency department charge nurse.
[2017-08-17 02:22] VITALS: BP 124/64
== END 2017-08-17 02:30 | disposition home or self-care (01) ==
LOC: MW.ED 00:39
DX: Z43.1 Encounter for attention to gastrostomy (principal); I10 Essential (primary) hypertension; I25.2 Old myocardial infarction; E03.9 Hypothyroidism, unspecified; Z88.8 Allergy status to other drugs, medicaments and biological substances; Z79.82 Long term (current) use of aspirin; Z79.899 Other long term (current) drug therapy; Z87.891 Personal history of nicotine dependence; Z85.21 Personal history of malignant neoplasm of larynx
CPT/HCPCS: 99283

== ENCOUNTER 2018-11-18 05:54 | Observation (INO) | payer MEDICARE, BC ==
[2018-11-18] MEDS ORDERED: Sodium Chloride 0.9% 2.5 ML Syringe FLUSH PRN (06:05)
[2018-11-18] MEDS ORDERED: Sodium Chloride 0.9% 10 ML Syringe FLUSH PRN (06:05)
--- NOTE | 2018-11-18 06:12 | EDM.PDOC ---
ED HPI GENERAL MEDICAL PROBLEM - General Stated Complaint: PT IS DISORIENTATED Time Seen by Provider: 11/18/18 05:59 - History of Present Illness INITIAL COMMENTS - FREE TEXT/NARRATIVE: HISTORY AND PHYSICAL: History of present illness: The patient is a 73-year-old male with a history of COPD hypertension hypercholesterolemia coronary artery disease multiple episodes of pneumonia at trach is in place and thyroid disease who presents with for "confusion" .. 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 The patient has a history of a total laryngectomy done at [facility] and has a trach in place. The patient recently was seen here by our radiation oncology team in August and was noted to have a new right lung nodule which according to at bedside received radiation therapy at another location. The patient has been dealing with disc issues in his back and has had chronic pain. According to the at bedside at approximately 5 AM, one hour ago, she heard some ruffling of the shower curtain in the bathroom and when she entered the bathroom the patient was attempting to put the shower curtain back in place as it it fallen down and she was unsure if the patient pulled it down accidentally or intentionally. She did not hear or notice that the patient had fallen in the bathroom. He then proceeded to leave the bathroom and as he was walking to his recliner chair he seemed to be very off balance and had his hands outstretched as if he were trying to reach for things to maintain his balance and he proceeded to fall to the right side. He did not hit his head pass out or blackout and after she was able to get him up and reassess him and he seemed very confused with some of her questions and not acting at his baseline of appropriateness. Yesterday he had a normal day without any systemic issues. According to the the last time she saw him at his baseline of normal was 12 midnight and the next time she saw him was with the events as described above. Due to the patient's history of laryngectomy he only whispers. She says that he was completely at his baseline at 12 midnight last evening. He did not complain of any pain after the fall and when she sat him in a chair she says that he did not know what month it was but then he subsequently was able to tell her his birthdate. She said it was very vague but he just didn't seem like himself. She didn't notice any focal weakness and he kept telling her that he was "okay". The patient is hard of hearing and also needs glasses which the did not bring along. On our evaluation the patient says he is not having chest pain he is not having shortness of breath abdominal pain back or neck pain and no extremity complaints. He denies nausea vomiting diarrhea fevers and chills. He has no headache no neck or back pain and no upper respiratory symptoms The patient used to have a PEG tube in place which has now been removed and he is eating independently without issues. When I queried the patient about where he was he knew he was in the hospital and made a funny face as if not to be pleased. says this is typical of his personality Review of systems: As per history of present illness and below otherwise all systems reviewed and negative. Past medical history: As per history of present illness and as reviewed below otherwise noncontributory. Surgical history: As per history of present illness and as reviewed below otherwise noncontributory. Social history: No reported history of drug or alcohol abuse. Family history: As per history of present illness and as reviewed below otherwise noncontributory. Physical exam: General: Well-developed frail man who was assisted from the wheelchair into the bed and initially was exhibiting signs of global weakness but after some time he was able to follow commands and whisper answers. He has a visible trach place. Patient seemed drowsy on initial evaluation but again will open eyes and respond to voice and questions. HEENT: Atraumatic, normocephalic, pupils reactive approximate 3 mm bilaterally, negative for conjunctival pallor or scleral icterus, mucous membranes moist, throat clear, neck supple, nontender, trachea midline. Lungs: Clear to auscultation with some coarse breath sounds but good air exchange and good effort and no stridor or work of breathing, breath sounds equal bilaterally, chest nontender. Heart: S1S2, regular rate and rhythm no overt murmurs, negative for clicks, rubs , or JVD. Abdomen: Soft, nondistended, nontender. Bowel sounds are hyperactive and there are multiple old scars seen. Negative for masses or hepatosplenomegaly. Negative for costovertebral tenderness. Pelvis: Stable nontender. Genitourinary: Deferred. Rectal: Deferred. Extremities: Atraumatic, negative for cords or calf pain. Neurovascular unremarkable. Full range of motion without any defects or deficits and no pedal edema. The patient has chronic bruising seen on his upper extremities which the says occurs when he bumps into things and they are varying ages but there is no new injuries appreciated on the soft tissue or in the bony regions of the extremities. Neuro: Awake, alert, oriented. Cranial nerves II through XII unremarkable. Cerebellum unremarkable. Motor and sensory unremarkable throughout. Exam nonfocal. Patient is able to answer more complex questions. His duster tender and dorsi and plantar flexion is 5/5 bilaterally inclusive of the great toe and heel winkler is also intact. There is no evidence of any focal deficits on our exam. Back: There are no midline step-offs or defects of the thoracic or lumbar spine and no posterior rib tenderness and no soft tissue injuries are appreciated Skin: turgor is normal and there is no evidence of any overt rashes or lesions and no diaphoresis Diagnostics: EKG chest x-ray CT scan of the head CBC CMP troponin TSH lactate acid UA and blood cultures Therapeutics: IV O2 monitor Rocephin The patient's last known well time was 12 midnight and on arrival here he is at 6 hours time frame from last well-known time. We will continue to monitor the patient's workup and disposition pending those results The case was called as a trauma alert as it was noted once came back and we were able to obtain information that he does take an aspirin daily. Although the patient did not his head or blackout we are proceeding to evaluate the patient more for the cause of his fall than the fall itself as the patient is not exhibiting any pain or traumatic symptomatology . We will involve the trauma surgeon as needed 0640: Patient is back from CT and says that he is significantly improved from earlier and is much more himself but is still just a little bit slow overall. She says that he is very active at home and actually mowed the lawn last week and went to the store yesterday. 0645: Case was discussed with Dr. Myles and he is aware of this history and the patient's presenting symptoms and agrees that he should be observed today. He would like to be recontacted with any abnormalities on the lab tests or the imaging. I will endorse those test to Dr. Harris who will follow those up and recontact as needed. Chest x-ray reveals a possible right lower lobe pneumonia as well as changes in the right midlung field which correspond with areas of new radiation of the patient just received. CT scan of the head also indicates some sinusitis. We will give a dose of Rocephin and send blood cultures Impression: Unstable gait and confusion per history improved, simple fall secondary to the unstable gait, history of multiple cancers total laryngectomy and trach Definitive disposition and diagnosis as appropriate pending reevaluation and review of above. - Related Data Allergies Allergy/AdvReac Type Severity Reaction Status Date / Time ertapenem [From Invanz] Allergy Unknown Rash Verified 11/18/18 06:44 Home Meds: Home Meds Aspirin 81 mg PO DAILY 11/25/15 [History] Levothyroxine 100 mcg PO ACBREAKFAST 11/25/15 [History] Metoprolol Succinate [Toprol XL] 25 mg PO BID 11/25/15 [History] Simvastatin [Zocor] 40 mg PO BEDTIME 11/25/15 [History] buPROPion [Wellbutrin] 50 mg PO TID 11/25/15 [History] Albuterol/Ipratropium [DuoNeb 3.0-0.5 MG/3 ML] 3 ml INH ASDIRECTED 08/17/17 [ History] Cetirizine [ZyrTEC] 0 mg PO DAILY 08/17/17 [History] Cholecalciferol (Vitamin D3) [Vitamin D3] units PO DAILY 11/18/18 [History] Past Medical History HEENT History: Reports: Hard of Hearing, Impaired Vision, Other (See Below) Other HEENT History: wears glasses Cardiovascular History: Reports: Hypertension, CT Other Cardiovascular History: 2010 Respiratory History: Reports: COPD, Pneumonia, Recurrent, Sleep Apnea, Other ( See Below) Other Respiratory History: Sleep apnea with machine "do not use it", 50 yr history of tobacco use, QUIT 04/2011 Gastrointestinal History: Reports: Other (See Below) Other Gastrointestinal History: 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 Neurological History: Reports: None Psychiatric History: Reports: Depression Endocrine/Metabolic History: Reports: Hypothyroidism Other Endocrine/Metabolic History: Hypothyroidism Hematologic History: Reports: None Immunologic History: Reports: None Oncologic (Cancer) History: Reports: Lung, Other (See Below) Other Oncologic History: epiglottis Dermatologic History: Reports: None - Infectious Disease History Infectious Disease History: Reports: Chicken Pox, Measles - Past Surgical History HEENT Surgical History: Reports: Tonsillectomy Cardiovascular Surgical History: Reports: Coronary Artery Stent Respiratory Surgical History: Reports: Tracheostomy, Other (See Below) Other Respiratory Surgeries/Procedures: laryngectomy 08/04/17. "lung surgery" 2016 GI Surgical History: Reports: Other (See Below) Other GI Surgeries/Procedures: Gastrostomy TUbe Musculoskeletal Surgical History: Reports: Shoulder Surgery, Other (See Below) Other Musculoskeletal Surgeries/Procedures:: ankle surgery Social & Family History - Family History Family Medical History: Noncontributory HEENT: Reports: Impaired Vision Cardiac: Reports: Heart Failure Musculoskeletal: Reports: Arthritis Neurological: Reports: CVA Endocrine/Metabolic: Reports: Diabetes, type II Oncologic: Reports: Breast, Other (See Below) Other Oncologic Family History: Stomach - Caffeine Use Caffeine Use: Reports: None ED ROS GENERAL - Review of Systems Review Of Systems: ROS reveals no pertinent complaints other than HPI. ED EXAM, GENERAL - Physical Exam Exam: See Below (See dictation) Course - Vital Signs Last Recorded V/S: Last Vital Signs Temp 36.1 C 11/18/18 05:54 Pulse 71 11/18/18 06:34 Resp 20 11/18/18 06:34 BP 122/73 11/18/18 06:34 Pulse Ox 97 11/18/18 06:34 - Orders/Labs/Meds Orders: Active Orders 24 hr Category Date Time Status Patient Status [ADT] Stat ADT 11/18/18 06:49 Active Blood Glucose Check, Bedside [RC] ONETIME Care 11/18/18 06:01 Active Cardiac Monitoring [RC] . DIRECTED Care 11/18/18 06:01 Active EKG Documentation Completion [RC] STAT Care 11/18/18 06:01 Active Oxygen Therapy, ED [RC] ASDIRECTED Care 11/18/18 06:01 Active Pulse Oximetry [RC] ASDIRECTED Care 11/18/18 06:01 Active CULTURE BLOOD [BC] Stat Lab 11/18/18 06:51 Ordered CULTURE BLOOD [BC] Stat Lab 11/18/18 06:51 Ordered UA RFX ADRIANA AND CULT IF INDIC [URIN] Stat Lab 11/18/18 06:40 Received Sodium Chloride 0.9% [Saline Flush] Med 11/18/18 06:05 Active 10 ml FLUSH ASDIRECTED PRN Sodium Chloride 0.9% [Saline Flush] Med 11/18/18 06:05 Active 2.5 ml FLUSH ASDIRECTED PRN cefTRIAXone [Rocephin in Dextrose,Iso-Osm 1 GM/50 ML] 1 Med 11/18/18 06:51 Active gm Premix Bag 1 bag IV ONETIME Blood Culture x2 Reflex Set [OM.PC] Stat Oth 11/18/18 06:51 Ordered Saline Lock Insert [OM.PC] Stat Oth 11/18/18 06:01 Ordered Medication Orders Ceftriaxone Sodium/Dextrose 1 (gm/ Premix) 50 mls @ 100 mls/hr IV ONETIME ONE Stop: 11/18/18 07:20 Sodium Chloride (Saline Flush) 10 ml FLUSH ASDIRECTED PRN PRN Reason: Keep Vein Open Sodium Chloride (Saline Flush) 2.5 ml FLUSH ASDIRECTED PRN PRN Reason: Keep Vein Open Labs: Laboratory Tests 11/18/18 11/18/18 11/18/18 Range/Units 06:00 06:00 06:00 WBC 5.53 (4.0-11.0) K/uL RBC 4.18 L (4.50-5.90) M/uL Hgb 12.6 L (13.0-17.0) g/dL Hct 39.1 (38.0-50.0) % MCV 93.5 (80.0-98.0) fL MCH 30.1 (27.0-32.0) pg MCHC 32.2 (31.0-37.0) g/dL RDW Std Deviation 46.9 (28.0-62.0) fl RDW Coeff of Randolph 14 (11.0-15.0) % Plt Count 253 (150-400) K/uL MPV 9.90 (7.40-12.00) fL Neut % (Auto) 65.9 (48.0-80.0) % Lymph % (Auto) 20.1 (16.0-40.0) % Noble % (Auto) 11.0 (0.0-15.0) % Eos % (Auto) 2.5 (0.0-7.0) % Baso % (Auto) 0.5 (0.0-1.5) % Neut # (Auto) 3.6 (1.4-5.7) K/uL Lymph # (Auto) 1.1 (0.6-2.4) K/uL Noble # (Auto) 0.6 (0.0-0.8) K/uL Eos # (Auto) 0.1 (0.0-0.7) K/uL Baso # (Auto) 0.0 (0.0-0.1) K/uL Nucleated RBC % 0.0 /100WBC Nucleated RBCs # 0 K/uL Lactate 1.5 (0.20-2.00) mmol/L Sodium 142 (136-148) mmol/L Potassium 3.6 (3.5-5.1) mmol/L Chloride 107 (98-107) mmol/L Carbon Dioxide 24.1 (21.0-32.0) mmol/L BUN 19 H (7.0-18.0) mg/dL Creatinine 1.2 (0.8-1.3) mg/dL Est Cr Clr Drug Dosing TNP Estimated GFR (MDRD) 59.7 ml/min Glucose 99 (74-106) mg/dL Calcium 8.5 (8.5-10.1) mg/dL Total Bilirubin 0.2 (0.2-1.0) mg/dL AST 24 (15-37) IU/L ALT 27 (14-63) IU/L Alkaline Phosphatase 67 (46-116) U/L Troponin I < 0.050 (0.000-0.056) ng/mL Total Protein 6.8 (6.4-8.2) g/dL Albumin 3.5 (3.4-5.0) g/dL Globulin 3.3 (2.6-4.0) g/dL Albumin/Globulin Ratio 1.1 (0.9-1.6) [facility] 3rd Generation 2.57 (0.36-3.74) uIU/mL Meds: Medications Generic Name Dose Route Start Last Admin Trade Name Dana PRN Reason Stop Dose Admin Ceftriaxone Sodium/Dextrose 1 50 mls @ 100 mls/hr 11/18/18 06:51 gm/ Premix IV 11/18/18 07:20 ONETIME ONE Sodium Chloride 10 ml 11/18/18 06:05 Saline Flush FLUSH ASDIRECTED PRN Keep Vein Open Sodium Chloride 2.5 ml 11/18/18 06:05 Saline Flush FLUSH ASDIRECTED PRN Keep Vein Open Departure - Departure Time of Disposition: 07:00 Disposition: Refer to Observation Condition: Good Clinical Impression: Confusion - Discharge Information Referrals: Akira Mai MD [Primary Care Provider] - - My Orders Last 24 Hours: My Active Orders 11/18/18 06:01 Blood Glucose Check, Bedside [RC] ONETIME Cardiac Monitoring [RC] . DIRECTED EKG Documentation Completion [RC] STAT Oxygen Therapy, ED [RC] ASDIRECTED Pulse Oximetry [RC] ASDIRECTED Saline Lock Insert [OM.PC] Stat 11/18/18 06:05 Sodium Chloride 0.9% [Saline Flush] 10 ml FLUSH ASDIRECTED PRN Sodium Chloride 0.9% [Saline Flush] 2.5 ml FLUSH ASDIRECTED PRN 11/18/18 06:40 UA RFX ADRIANA AND CULT IF INDIC [URIN] Stat 11/18/18 06:49 Patient Status [ADT] Stat 11/18/18 06:51 CULTURE BLOOD [BC] Stat CULTURE BLOOD [BC] Stat cefTRIAXone [Rocephin in Dextrose,Iso-Osm 1 GM/50 ML] 1 gm Premix Bag 1 bag IV ONETIME Blood Culture x2 Reflex Set [OM.PC] Stat - Assessment/Plan Last 24 Hours: My Active Orders 11/18/18 06:01 Blood Glucose Check, Bedside [RC] ONETIME Cardiac Monitoring [RC] . DIRECTED EKG Documentation Completion [RC] STAT Oxygen Therapy, ED [RC] ASDIRECTED Pulse Oximetry [RC] ASDIRECTED Saline Lock Insert [OM.PC] Stat 11/18/18 06:05 Sodium Chloride 0.9% [Saline Flush] 10 ml FLUSH ASDIRECTED PRN Sodium Chloride 0.9% [Saline Flush] 2.5 ml FLUSH ASDIRECTED PRN 11/18/18 06:40 UA RFX ADRIANA AND CULT IF INDIC [URIN] Stat 11/18/18 06:49 Patient Status [ADT] Stat 11/18/18 06:51 CULTURE BLOOD [BC] Stat CULTURE BLOOD [BC] Stat cefTRIAXone [Rocephin in Dextrose,Iso-Osm 1 GM/50 ML] 1 gm Premix Bag 1 bag IV ONETIME Blood Culture x2 Reflex Set [OM.PC] Stat
--- NOTE | 2018-11-18 06:49 | CR ---
INDICATION: Disorientation. COMPARISON: None available TECHNIQUE: Portable AP erect chest performed at 6:13 a.m. FINDINGS: There is an irregular central mass within the right lung measuring approximately 3 cm in size. This extends towards the right hilum. Within the right lower lobe there is bronchial wall thickening and subtle patchy air bronchograms suggesting areas of inflammatory pneumonia. Left lung appears clear. Heart and pulmonary vessels are normal in size. IMPRESSION: Suspicious mass noted within the central right lung. This could be investigated further with a contrast-enhanced CT scan of the chest. Inflammatory changes are noted within the right lower lobe suggesting early pneumonia. Dictated by Sidney Martinez MD @ Nov 18 2018 6:45AM Signed by Dr. Sidney Martinez @ Nov 18 2018 6:48AM
[2018-11-18] MEDS ORDERED: cefTRIAXone 1 GM in Premix Bag 1 BAG IV ONE (06:51)
[2018-11-18 06:52] LABS: CHLORIDE,CL 107 mmol/L (98-107); SODIUM,NA 142 mmol/L (136-148)
--- NOTE | 2018-11-18 06:54 | CT ---
INDICATION: Disorientation COMPARISON: none TECHNIQUE: A CT volumetric acquisition was performed of the brain without IV contrast. FINDINGS: There is no evidence of a subdural or epidural hematoma. There is no evidence of subarachnoid hemorrhage or intraparenchymal bleeding. The CT images reveal a normal appearance of the cerebral ventricles and basal cisterns. There is no evidence of localized tissue infarction or mass effect. There is normal fields white matter differentiation. Atherosclerotic vascular calcifications are noted within the carotid arteries. The mastoid air cells and middle ear cavities are clear. The calvarium appears intact. There is inflammatory mucoperiosteal thickening within the left maxillary sinus. The remaining paranasal sinuses appear clear IMPRESSION: No evidence of intracranial hemorrhage, infarct or mass effect. Left maxillary sinusitis. Please note that all CT scans at this facility use dose modulation, iterative reconstruction, and/or weight-based dosing when appropriate to reduce radiation dose to as low as reasonably achievable. Dictated by Sidney Martinez MD @ Nov 18 2018 6:48AM Signed by Dr. Sidney Martinez @ Nov 18 2018 6:52AM
[2018-11-18] MEDS ORDERED: Albuterol/Ipratropium 3.0-0.5 MG/3 ML Neb Soln INH PRN (09:16)
[2018-11-18] MEDS ORDERED: Acetaminophen 325 MG Tab PO PRN (09:21)
[2018-11-18] MEDS: Aspirin 81 MG Tab.Chew PO SCH (09:58)
[2018-11-18] MEDS: Fluticasone Propionate Nasal Spray 16 GM Bottle NASBOTH SCH (09:58)
[2018-11-18] MEDS: Cetirizine 10 MG Tab PO SCH (09:59)
[2018-11-18] MEDS: Metoprolol Succinate 50 MG Tab.ER PO SCH ×2 (10:00→20:58)
--- NOTE | 2018-11-18 10:27 | PCM.HP ---
H&P History of Present Illness - General Date of Service: 11/18/18 Admit Problem/Dx: Admission Diagnosis/Problem Admission Diagnosis/Problem Confusion Source of Information: Patient, Family, Old Records History Limitations: Reports: Other (trach limits communication, patient whispers and mouths words. 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 She reports he heard noises in the bathroom and he was fixing the shower curtain. He then was walking down the hallway and seemed unsteady and holding on to the rodriguez for support and was walking off to the right more so. The denies recent cough or increase in phlegm from trach and no color change in phlegm. No fevers or chills at home. She reports he has been choking more on food and not swallowing as easily. I spoke with Clayton, who only whispers and mouths words. He feels fine. Denies dizziness or feeling off. Denies confusion and even denies fall his witnessed. But she does report he slowly helped himself to the ground more so. He denies chest pain or cough. No abdominal pain. In the ED labwork WNL. Troponin negative. UA negative. CXR reveals R central pulmonary mass as well as RLL atelectasis. Headt CT negative for intracranial process and noted L maxillary sinusitis.BC obtained. VS stable in ED. He was treated with Rocephin and referred to observation for confusion and possible CAP. - Related Data Allergies/Adverse Reactions: Allergies Allergy/AdvReac Type Severity Reaction Status Date / Time ertapenem [From Invanz] Allergy Unknown Rash Verified 11/18/18 06:44 Home Medications: Home Meds Aspirin 81 mg PO DAILY 11/25/15 [History] Levothyroxine 100 mcg PO ACBREAKFAST 11/25/15 [History] Metoprolol Succinate [Toprol XL] 25 mg PO BID 11/25/15 [History] Simvastatin [Zocor] 40 mg PO BEDTIME 11/25/15 [History] Albuterol/Ipratropium [DuoNeb 3.0-0.5 MG/3 ML] 3 ml INH ASDIRECTED 08/17/17 [ History] Cetirizine [ZyrTEC] 5 mg PO DAILY 08/17/17 [History] Acetaminophen with Codeine [Acetaminophen-Cod #2] 1 tab 11/18/18 [History] Cholecalciferol (Vitamin D3) [Vitamin D3] 1 cap PO DAILY 11/18/18 [History] Past Medical History HEENT History: Reports: Hard of Hearing, Impaired Vision, Other (See Below) Other HEENT History: wears glasses Cardiovascular History: Reports: Hypertension, IL, Stents (2010) Other Cardiovascular History: IL 2010 Respiratory History: Reports: COPD, Pneumonia, Recurrent, Sleep Apnea, Other ( See Below) Other Respiratory History: Sleep apnea with machine "do not use it", 50 yr history of tobacco use, QUIT 04/2011 Gastrointestinal History: Reports: Other (See Below) Other Gastrointestinal History: 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 Denies: CVA, TIA Psychiatric History: Reports: Depression Endocrine/Metabolic History: Reports: Hypothyroidism. Denies: Diabetes, Type II Hematologic History: Reports: None Immunologic History: Reports: None Oncologic (Cancer) History: Reports: Lung, Other (See Below) Other Oncologic History: epiglottis Dermatologic History: Reports: None - Infectious Disease History Infectious Disease History: Reports: Chicken Pox, Measles - Past Surgical History HEENT Surgical History: Reports: Tonsillectomy Other HEENT Surgeries/Procedures: total laryngectomy with trach placement 2016 Cardiovascular Surgical History: Reports: Coronary Artery Stent Respiratory Surgical History: Reports: Tracheostomy, Other (See Below) GI Surgical History: Reports: Other (See Below) Other GI Surgeries/Procedures: Gastrostomy Tube, has since been removed. Musculoskeletal Surgical History: Reports: Shoulder Surgery, Other (See Below) Other Musculoskeletal Surgeries/Procedures:: ankle surgery Social & Family History - Family History Family Medical History: Noncontributory HEENT: Reports: Impaired Vision Cardiac: Reports: Heart Failure Musculoskeletal: Reports: Arthritis Neurological: Reports: CVA Endocrine/Metabolic: Reports: Diabetes, type II Oncologic: Reports: Breast, Other (See Below) Other Oncologic Family History: Stomach - Tobacco Use Smoking Status *Q: Former Smoker Years of Tobacco use: 50 Packs/Tins Daily: 1 Used Tobacco, but Quit: No Second Hand Smoke Exposure: No - Caffeine Use Caffeine Use: Reports: Coffee - Recreational Drug Use Recreational Drug Use: No - Living Situation & Occupation Living situation: Reports: H&P Review of Systems - Review of Systems: Review Of Systems: See Below General: Denies: Fever, Chills, Malaise HEENT: Reports: Vertigo (he denies this, reports he appeared dizzy and unsteady with walking) Pulmonary: Reports: No Symptoms. Denies: Shortness of Breath, Wheezing, Cough Cardiovascular: Reports: No Symptoms. Denies: Chest Pain, Edema, Blood Pressure Problem Gastrointestinal: Reports: No Symptoms. Denies: Abdominal Pain, Black Stool, Bloody Stool Genitourinary: Reports: No Symptoms. Denies: Frequency, Burning Musculoskeletal: Reports: Back Pain (chronic with sciatica) Skin: Reports: No Symptoms Psychiatric: Reports: No Symptoms Neurological: Reports: No Symptoms Hematologic/Lymphatic: Reports: No Symptoms Immunologic: Reports: No Symptoms Exam - Exam Exam: See Below - Vital Signs Vital Signs: Last Vital Signs Temp 97.6 F 11/18/18 08:34 Pulse 73 11/18/18 10:00 Resp 16 11/18/18 08:34 BP 113/61 11/18/18 10:00 Pulse Ox 97 11/18/18 09:21 Orthostatic Blood Pressure [ 102/67 Standing] Orthostatic Blood Pressure [ 125/71 Sitting] Orthostatic Blood Pressure [ 119/70 Supine] Weight: 61 kg - Exam Quality Assessment: Supplemental Oxygen General: Alert, Oriented HEENT: Conjunctiva Clear, Pupils Equal. No: Hearing Intact ([place], not wearing his hearing aids) Neck: Supple, Other (trach in place, no drainage or erythema.) Lungs: Clear to Auscultation, Normal Respiratory Effort Cardiovascular: Regular Rate, Regular Rhythm Back Exam: Normal Inspection, Full Range of Motion Extremities: Normal Inspection, Normal Range of Motion, Non-Tender Neurological: Cranial Nerves Intact Neuro Extensive - Mental Status: Alert, Oriented x3, Normal Mood/Affect Neuro Extensive - Motor, Sensory, Reflexes: CN II-XII Intact, Normal Gait, Normal Reflexes. No: Abnormal Gait, Tongue Deviation (L), Tongue Deviation (R) Psychiatric: Alert, Normal Affect, Normal Mood - Patient Data Lab Results Last 24 hrs: Laboratory Results - last 24 hr 11/18/18 11/18/18 11/18/18 Range/Units 06:00 06:00 06:00 WBC 5.53 (4.0-11.0) K/uL RBC 4.18 L (4.50-5.90) M/uL Hgb 12.6 L (13.0-17.0) g/dL Hct 39.1 (38.0-50.0) % MCV 93.5 (80.0-98.0) fL MCH 30.1 (27.0-32.0) pg MCHC 32.2 (31.0-37.0) g/dL RDW Std Deviation 46.9 (28.0-62.0) fl RDW Coeff of [place] 14 (11.0-15.0) % Plt Count 253 (150-400) K/uL MPV 9.90 (7.40-12.00) fL Neut % (Auto) 65.9 (48.0-80.0) % Lymph % (Auto) 20.1 (16.0-40.0) % [place] % (Auto) 11.0 (0.0-15.0) % Eos % (Auto) 2.5 (0.0-7.0) % Baso % (Auto) 0.5 (0.0-1.5) % Neut # (Auto) 3.6 (1.4-5.7) K/uL Lymph # (Auto) 1.1 (0.6-2.4) K/uL [place] # (Auto) 0.6 (0.0-0.8) K/uL Eos # (Auto) 0.1 (0.0-0.7) K/uL Baso # (Auto) 0.0 (0.0-0.1) K/uL Nucleated RBC % 0.0 /100WBC Nucleated RBCs # 0 K/uL Lactate 1.5 (0.20-2.00) mmol/L Sodium 142 (136-148) mmol/L Potassium 3.6 (3.5-5.1) mmol/L Chloride 107 (98-107) mmol/L Carbon Dioxide 24.1 (21.0-32.0) mmol/L BUN 19 H (7.0-18.0) mg/dL Creatinine 1.2 (0.8-1.3) mg/dL Est Cr Clr Drug Dosing TNP Estimated GFR (MDRD) 59.7 ml/min Glucose 99 (74-106) mg/dL Calcium 8.5 (8.5-10.1) mg/dL Total Bilirubin 0.2 (0.2-1.0) mg/dL AST 24 (15-37) IU/L ALT 27 (14-63) IU/L Alkaline Phosphatase 67 (46-116) U/L Troponin I < 0.050 (0.000-0.056) ng/mL Total Protein 6.8 (6.4-8.2) g/dL Albumin 3.5 (3.4-5.0) g/dL Globulin 3.3 (2.6-4.0) g/dL Albumin/Globulin Ratio 1.1 (0.9-1.6) TSH 3rd Generation 2.57 (0.36-3.74) uIU/mL Urine Color Urine Appearance Urine pH (5.0-8.0) Ur Specific [place] (1.001-1.035) Urine Protein (NEGATIVE) mg/dL Urine Glucose (UA) (NEGATIVE) mg/dL Urine Ketones (NEGATIVE) mg/dL Urine Occult Blood (NEGATIVE) Urine Nitrite (NEGATIVE) Urine Bilirubin (NEGATIVE) Urine Urobilinogen (<2.0) EU/dL Ur Leukocyte Esterase (NEGATIVE) 11/18/18 Range/Units 06:40 WBC (4.0-11.0) K/uL RBC (4.50-5.90) M/uL Hgb (13.0-17.0) g/dL Hct (38.0-50.0) % MCV (80.0-98.0) fL MCH (27.0-32.0) pg MCHC (31.0-37.0) g/dL RDW Std Deviation (28.0-62.0) fl RDW Coeff of [place] (11.0-15.0) % Plt Count (150-400) K/uL MPV (7.40-12.00) fL Neut % (Auto) (48.0-80.0) % Lymph % (Auto) (16.0-40.0) % [place] % (Auto) (0.0-15.0) % Eos % (Auto) (0.0-7.0) % Baso % (Auto) (0.0-1.5) % Neut # (Auto) (1.4-5.7) K/uL Lymph # (Auto) (0.6-2.4) K/uL [place] # (Auto) (0.0-0.8) K/uL Eos # (Auto) (0.0-0.7) K/uL Baso # (Auto) (0.0-0.1) K/uL Nucleated RBC % /100WBC Nucleated RBCs # K/uL Lactate (0.20-2.00) mmol/L Sodium (136-148) mmol/L Potassium (3.5-5.1) mmol/L Chloride (98-107) mmol/L Carbon Dioxide (21.0-32.0) mmol/L BUN (7.0-18.0) mg/dL Creatinine (0.8-1.3) mg/dL Est Cr Clr Drug Dosing Estimated GFR (MDRD) ml/min Glucose (74-106) mg/dL Calcium (8.5-10.1) mg/dL Total Bilirubin (0.2-1.0) mg/dL AST (15-37) IU/L ALT (14-63) IU/L Alkaline Phosphatase (46-116) U/L Troponin I (0.000-0.056) ng/mL Total Protein (6.4-8.2) g/dL Albumin (3.4-5.0) g/dL Globulin (2.6-4.0) g/dL Albumin/Globulin Ratio (0.9-1.6) TSH 3rd Generation (0.36-3.74) uIU/mL Urine Color YELLOW Urine Appearance CLEAR Urine pH 5.5 (5.0-8.0) Ur Specific [place] 1.010 (1.001-1.035) Urine Protein NEGATIVE (NEGATIVE) mg/dL Urine Glucose (UA) NEGATIVE (NEGATIVE) mg/dL Urine Ketones NEGATIVE (NEGATIVE) mg/dL Urine Occult Blood NEGATIVE (NEGATIVE) Urine Nitrite NEGATIVE (NEGATIVE) Urine Bilirubin NEGATIVE (NEGATIVE) Urine Urobilinogen 0.2 (<2.0) EU/dL Ur Leukocyte Esterase NEGATIVE (NEGATIVE) Result Diagrams: 11/18/18 06:00 11/18/18 06:00 - Problem List (1) Confusion SNOMED Code(s): 977171159 ICD Code: R41.0 - DISORIENTATION, UNSPECIFIED Status: Acute Current Visit : Yes (2) CAP (community acquired pneumonia) SNOMED Code(s): 149722317 ICD Code: J18.9 - PNEUMONIA, UNSPECIFIED ORGANISM Status: Acute Current Visit: Yes Qualifiers: Laterality: right Lung location: lower lobe of lung Qualified Code(s): J18.1 - Lobar pneumonia, unspecified organism (3) Dysphagia SNOMED Code(s): 61566838, 079290006 ICD Code: R13.10 - DYSPHAGIA, UNSPECIFIED Status: Acute Current Visit: Yes (4) Hx of laryngectomy SNOMED Code(s): 621695398, 997299694 ICD Code: Z90.02 - ACQUIRED ABSENCE OF LARYNX Status: Chronic Current Visit: Yes (5) Tracheostomy in place SNOMED Code(s): 918240738 ICD Code: Z93.0 - TRACHEOSTOMY STATUS Status: Chronic Current Visit: Yes (6) HTN (hypertension) SNOMED Code(s): 99538178 ICD Code: I10 - ESSENTIAL (PRIMARY) HYPERTENSION Status: Chronic Current Visit: Yes (7) CAD (coronary artery disease) SNOMED Code(s): 36988259 ICD Code: I25.10 - ATHSCL HEART DISEASE OF [place] CORONARY ARTERY W/O ANG PCTRS Status: Chronic Current Visit: Yes (8) HLD (hyperlipidemia) SNOMED Code(s): 12796637 ICD Code: E78.5 - HYPERLIPIDEMIA, UNSPECIFIED Status: Chronic Current Visit: Yes (9) COPD (chronic obstructive pulmonary disease) SNOMED Code(s): 21228686 ICD Code: J44.9 - CHRONIC OBSTRUCTIVE PULMONARY DISEASE, UNSPECIFIED Status : Chronic Current Visit: Yes (10) Cancer, epiglottis SNOMED Code(s): 801308753, 697672076 ICD Code: C32.1 - MALIGNANT NEOPLASM OF SUPRAGLOTTIS Status: Chronic Current Visit: No Problem List Initiated/Reviewed/Updated: Yes Orders Last 24hrs: Active Orders 24 hr Category Date Time Status Patient Status [ADT] Stat ADT 11/18/18 06:49 Active Blood Glucose Check, Bedside [RC] ONETIME Care 11/18/18 06:01 Active Cardiac Monitoring [RC] . DIRECTED Care 11/18/18 06:01 Active EKG Documentation Completion [RC] STAT Care 11/18/18 06:01 Active Intake and Output [RC] QSHIFT Care 11/18/18 09:21 Active Orthostatic Vital Signs [RC] ASDIRECTED Care 11/18/18 09:14 Active Oxygen Therapy [RC] PRN Care 11/18/18 09:21 Active Oxygen Therapy, ED [RC] ASDIRECTED Care 11/18/18 06:01 Active Pulse Oximetry [RC] ASDIRECTED Care 11/18/18 06:01 Active Tracheostomy Care [RT Tracheostomy Assessment] [RC] Care 11/18/18 09:15 Active ASDIRECTED Up With Assistance [RC] ASDIRECTED Care 11/18/18 09:21 Active VTE/DVT Education [RC] PER UNIT ROUTINE Care 11/18/18 09:21 Active Vital Signs [RC] Q4H Care 11/18/18 09:21 Active Consult to Speech Language Pathology [GAME MANAGER Evaluation Cons 11/18/18 09:16 Active and Treatment] [CONS] Routine PT Evaluation and Treatment [CONS] Routine Cons 11/18/18 09:14 Active Regular Diet [DIET] Diet 11/18/18 Breakfast Active CULTURE BLOOD [BC] Stat Lab 11/18/18 07:03 Received CULTURE BLOOD [BC] Stat Lab 11/18/18 07:20 Received Acetaminophen [Tylenol] Med 11/18/18 09:21 Active 650 mg PO Q4H PRN Albuterol/Ipratropium [DuoNeb 3.0-0.5 MG/3 ML] Med 11/18/18 09:16 Active 3 ml INH Q6HRRT PRN Aspirin Med 11/18/18 09:30 Active 81 mg PO DAILY Cetirizine [ZyrTEC] Med 11/18/18 09:30 Active 10 mg PO DAILY Fluticasone Propionate [Flonase] Med 11/18/18 09:30 Active See Dose Instructions NASBOTH DAILY Levothyroxine [Synthroid] Med 11/19/18 07:30 Active 100 mcg PO ACBREAKFAST Metoprolol Succinate [Toprol XL] Med 11/18/18 09:30 Active 25 mg PO BID Simvastatin [Zocor] Med 11/18/18 21:00 Active 40 mg PO BEDTIME Sodium Chloride 0.9% [Saline Flush] Med 11/18/18 06:05 Active 10 ml FLUSH ASDIRECTED PRN Sodium Chloride 0.9% [Saline Flush] Med 11/18/18 06:05 Active 2.5 ml FLUSH ASDIRECTED PRN Blood Culture x2 Reflex Set [OM.PC] Stat Ot 11/18/18 06:51 Ordered RT Suction Oropharyngeal [RESPCARE] Routine Ot 11/18/18 09:19 Ordered Saline Lock Insert [OM.PC] Stat Ot 11/18/18 06:01 Ordered Resuscitation Status Routine Resus Stat 11/18/18 09:13 Ordered Medication Orders Acetaminophen (Tylenol) 650 mg PO Q4H PRN PRN Reason: Pain (Mild 1-3)/fever Albuterol/Ipratropium (Duoneb 3.0-0.5 Mg/3 Ml) 3 ml INH Q6HRRT PRN PRN Reason: SOB/wheezing Aspirin (Aspirin) 81 mg PO DAILY [facility] Last Admin: 11/18/18 09:58 Dose: 81 mg Cetirizine HCl (Zyrtec) 10 mg PO DAILY [facility] Last Admin: 11/18/18 09:59 Dose: 10 mg Fluticasone Propionate (Flonase) 0 gm NASBOTH DAILY [facility] Last Admin: 11/18/18 09:58 Dose: 1 spray Levothyroxine Sodium (Synthroid) 100 mcg PO ACBREAKFAST [facility] Metoprolol Succinate (Toprol Xl) 25 mg PO BID [facility] Last Admin: 11/18/18 10:00 Dose: 25 mg Simvastatin (Zocor) 40 mg PO BEDTIME [facility] Sodium Chloride (Saline Flush) 10 ml FLUSH ASDIRECTED PRN PRN Reason: Keep Vein Open Sodium Chloride (Saline Flush) 2.5 ml FLUSH ASDIRECTED PRN PRN Reason: Keep Vein Open Assessment/Plan Comment:: This 73 year old male admitted with confusion with unsteady gait and suspected CAP 1. Confusion/Unsteady gait: No alert and oriented. Orthostatic BP reveals some orthostasis, will start gentle IVFs and recheck this evening. PT to evaluate and treat. Denies much narcotic use, does have chronic back pain which he sees a specialist soon for evaluation. 2. Suspected CAP: Given Rocephin in the ED. No leukocytosis or increase in cough or secretions. No fever at home. Maxillary sinusitis noted on head CT. Continue Rocephin and Azithromycin. 3. Dysphagia: Consult ST, recommended Modified barium swallow study then maybe consider esophagram. 4. HTN: Orthostatic hypotension noted this morning. Give IVFs and monitor. 5. CAD: Stable, continue statin and ASA VTE prophylaxis: Heparin. Dispo: 1 day
[2018-11-18] MEDS ORDERED: Sodium Chloride 0.9% 1,000 ML IV SCH (10:30)
[2018-11-18] MEDS ORDERED: Azithromycin 250 MG Tab PO SCH (13:30)
--- NOTE | 2018-11-18 16:00 | CR ---
EXAMINATION: Oropharyngeal video swallow study. HISTORY: Dysphasia, and tracheostomy COMPARISON: None TECHNIQUE: Lateral images obtained, speech pathologist present, various barium consistencies provided. FINDINGS: There is good bolus formation and transfer. Epiglottis is not definitively characterize, possibly surgically absent. Thin liquids were well tolerated. Pudding and solid foods takes several subsequent swallows to clear the pharyngeal region. IMPRESSION: 1. Pudding consistency and solid foods takes several swallows to clear the pharyngeal region. Please see speech pathology report for additional details.
[2018-11-18] MEDS ORDERED: Simvastatin 40 MG Tab PO SCH (21:00)
[2018-11-18] MEDS: Acetaminophen/Codeine 300-30 MG Tab PO PRN (22:14)
[2018-11-19] MEDS: Acetaminophen/Codeine 300-30 MG Tab PO PRN ×2 (02:50→06:17)
[2018-11-19 06:08] LABS: CHLORIDE,CL 107 mmol/L (98-107); SODIUM,NA 142 mmol/L (136-148)
[2018-11-19] MEDS: Levothyroxine 100 MCG Tab PO SCH ×2 (06:16→06:32)
[2018-11-19 08:10] VITALS: BP 175/100
--- NOTE | 2018-11-19 08:32 | PCM.DCSUM1 ---
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 She reports he heard noises in the bathroom and he was fixing the shower curtain. He then was walking down the hallway and seemed unsteady and holding on to the rodriguez for support and was walking off to the right more so. The denies recent cough or increase in phlegm from trach and no color change in phlegm. No fevers or chills at home. She reports he has been choking more on food and not swallowing as easily. I spoke with Clayton, who only whispers and mouths words. He feels fine. Denies dizziness or feeling off. Denies confusion and even denies fall his witnessed. But she does report he slowly helped himself to the ground more so. He denies chest pain or cough. No abdominal pain. In the ED labwork WNL. Troponin negative. UA negative. CXR reveals R central pulmonary mass as well as RLL atelectasis. Headt CT negative for intracranial process and noted L maxillary sinusitis.BC obtained. VS stable in ED. He was treated with Rocephin and referred to observation for confusion and possible CAP. Diagnosis: Stroke: No - Discharge Data Discharge Date: 11/19/18 Discharge Disposition: Home, Self-Care 01 Condition: Good - Discharge Diagnosis/Problem(s) (1) Confusion SNOMED Code(s): 707298246 ICD Code: R41.0 - DISORIENTATION, UNSPECIFIED Status: Acute (2) CAP (community acquired pneumonia) SNOMED Code(s): 267666133 ICD Code: J18.9 - PNEUMONIA, UNSPECIFIED ORGANISM Status: Acute Qualifiers: Laterality: right Lung location: lower lobe of lung Qualified Code(s): J18.1 - Lobar pneumonia, unspecified organism (3) Dysphagia SNOMED Code(s): 88770648, 379155544 ICD Code: R13.10 - DYSPHAGIA, UNSPECIFIED Status: Acute (4) Hx of laryngectomy SNOMED Code(s): 776828670, 600663551 ICD Code: Z90.02 - ACQUIRED ABSENCE OF LARYNX Status: Chronic (5) Tracheostomy in place SNOMED Code(s): 785977098 ICD Code: Z93.0 - TRACHEOSTOMY STATUS Status: Chronic (6) HTN (hypertension) SNOMED Code(s): 31559740 ICD Code: I10 - ESSENTIAL (PRIMARY) HYPERTENSION Status: Chronic (7) CAD (coronary artery disease) SNOMED Code(s): 39545885 ICD Code: I25.10 - ATHSCL HEART DISEASE OF [place] CORONARY ARTERY W/O ANG PCTRS Status: Chronic (8) HLD (hyperlipidemia) SNOMED Code(s): 20726963 ICD Code: E78.5 - HYPERLIPIDEMIA, UNSPECIFIED Status: Chronic (9) COPD (chronic obstructive pulmonary disease) SNOMED Code(s): 47654144 ICD Code: J44.9 - CHRONIC OBSTRUCTIVE PULMONARY DISEASE, UNSPECIFIED Status : Chronic (10) Cancer, epiglottis SNOMED Code(s): 981507993, 397969218 ICD Code: C32.1 - MALIGNANT NEOPLASM OF SUPRAGLOTTIS Status: Chronic - Patient Summary/Data Consults: Consultations 11/18/18 09:14 PT Evaluation and Treatment [CONS] Routine 11/18/18 09:16 Consult to Speech Language Pathology [[employer] SEAMER Evaluation and Treatment] [CONS] Routine - Patient Instructions Diet: Regular Diet as Tolerated Activity: As Tolerated Driving: Do Not Drive Showering/Bathing: May Shower Notify Provider of: Fever, Increased Pain, Swelling and Redness, Drainage, Nausea and/or Vomiting - Discharge Plan *PRESCRIPTION DRUG MONITORING PROGRAM REVIEWED*: Not Applicable *COPY OF PRESCRIPTION DRUG MONITORING REPORT IN PATIENT CAITLYN: Not Applicable Prescriptions/Med Rec: Azithromycin [Zithromax] 500 mg PO Q24H #6 tablet Home Medications: Home Meds Aspirin 81 mg PO DAILY 11/25/15 [History] Levothyroxine 100 mcg PO ACBREAKFAST 11/25/15 [History] Metoprolol Succinate [Toprol XL] 25 mg PO BID 11/25/15 [History] Simvastatin [Zocor] 40 mg PO BEDTIME 11/25/15 [History] Albuterol/Ipratropium [DuoNeb 3.0-0.5 MG/3 ML] 3 ml INH ASDIRECTED 08/17/17 [ History] Cetirizine [ZyrTEC] 5 mg PO DAILY 08/17/17 [History] Acetaminophen with Codeine [Acetaminophen-Cod #2] 1 tab 11/18/18 [History] Cholecalciferol (Vitamin D3) [Vitamin D3] 1 cap PO DAILY 11/18/18 [History] Azithromycin [Zithromax] 500 mg PO Q24H #6 tablet 11/19/18 [Rx] Fluticasone Propionate [Flonase] 1 spray NASBOTH DAILY #1 bottle 11/19/18 [Rx] Oxygen Therapy Mode: Room Air Patient Handouts: Confusion, Azithromycin tablets, Community-Acquired Pneumonia , Adult, [id number] Referrals: [facility] [Outside] - 12/04/18 2:00 pm Akira Mai MD [Primary Care Provider] - - Discharge Summary/Plan Comment DC Time >30 min.: No Discharge Summary/Plan Comment: Admitting Diagnoses: Confusion CAP Discharge Diagnoses: CAP Dehydration Other PMH Hx epiglottis cancer Hx total laryngectomy Tracheostomy in place HTN CAD HLD COPD Davis was admitted and monitored for confusion. He denied any concerns. All concerns came from . He was noted to have Orthostatic hypotension, he was given some IVFs and BP improved. He was up ambulating well and was alert and oriented. PNA suspected to RLL on Xray. He was continued on Azithromycin and Rocephin. He is very eager for discharge home today. He is to continue Azithromycin for 3 more days. MBS study was obtained as he reports food gets stuck a lot. This was noted to have some residual but it clear with water after eat bite. He was told to monitor which foods do this such as meat and breads and to be cautious and diligent about drinking water after eat bite. No risk of aspiration since laryngectomy. he is to return to ED or clinic if concerns should arise. - General Info Date of Service: 11/19/18 Admission Dx/Problem (Free Text: Admission Diagnosis/Problem Admission Diagnosis/Problem Confusion Subjective Update: Doing well this morning, completely alert and oriented. No concerns eating breakfast. No other symptoms. Functional Status: Reports: Pain Controlled, Tolerating Diet, Ambulating, Urinating - Review of Systems General: Reports: No Symptoms. Denies: Weakness, Fatigue HEENT: Reports: No Symptoms. Denies: Headaches, Sore Throat, Visual Changes Pulmonary: Reports: No Symptoms. Denies: Shortness of Breath Cardiovascular: Reports: No Symptoms. Denies: Chest Pain Gastrointestinal: Reports: No Symptoms. Denies: Abdominal Pain, Nausea, Vomiting Genitourinary: Reports: No Symptoms Musculoskeletal: Reports: No Symptoms Skin: Reports: No Symptoms Neurological: Reports: No Symptoms Psychiatric: Reports: No Symptoms - Patient Data Vitals - Most Recent: Last Vital Signs Temp 98.6 F 11/19/18 08:00 Pulse 84 11/19/18 08:00 Resp 16 11/19/18 08:00 BP 175/100 H 11/19/18 08:00 Pulse Ox 92 L 11/19/18 04:25 Orthostatic Blood Pressure [ 171/80 Standing] Orthostatic Blood Pressure [ 187/81 Sitting] Orthostatic Blood Pressure [ 172/84 Supine] Weight - Most Recent: 61 kg I&O - Last 24 hours: Intake & Output 11/18/18 11/19/18 11/19/18 22:59 06:59 14:59 Intake Total 640 Output Total 775 Balance -135 Lab Results - Last 24 hrs: Laboratory Results - last 24 hr 11/19/18 11/19/18 Range/Units 05:05 05:05 WBC 6.13 (4.0-11.0) K/uL RBC 4.15 L (4.50-5.90) M/uL Hgb 12.4 L (13.0-17.0) g/dL Hct 38.8 (38.0-50.0) % MCV 93.5 (80.0-98.0) fL MCH 29.9 (27.0-32.0) pg MCHC 32.0 (31.0-37.0) g/dL RDW Std Deviation 46.9 (28.0-62.0) fl RDW Coeff of [place] 14 (11.0-15.0) % Plt Count 233 (150-400) K/uL MPV 10.00 (7.40-12.00) fL Neut % (Auto) 79.3 (48.0-80.0) % Lymph % (Auto) 8.8 L (16.0-40.0) % [place] % (Auto) 9.1 (0.0-15.0) % Eos % (Auto) 2.1 (0.0-7.0) % Baso % (Auto) 0.7 (0.0-1.5) % Neut # (Auto) 4.9 (1.4-5.7) K/uL Lymph # (Auto) 0.5 L (0.6-2.4) K/uL [place] # (Auto) 0.6 (0.0-0.8) K/uL Eos # (Auto) 0.1 (0.0-0.7) K/uL Baso # (Auto) 0.0 (0.0-0.1) K/uL Nucleated RBC % 0.0 /100WBC Nucleated RBCs # 0 K/uL Sodium 142 (136-148) mmol/L Potassium 4.3 (3.5-5.1) mmol/L Chloride 107 (98-107) mmol/L Carbon Dioxide 27.5 (21.0-32.0) mmol/L BUN 16 (7.0-18.0) mg/dL Creatinine 0.9 (0.8-1.3) mg/dL Est Cr Clr Drug Dosing 64.95 mL/min Estimated GFR (MDRD) > 60.0 ml/min Glucose 114 H (74-106) mg/dL Calcium 8.5 (8.5-10.1) mg/dL ADRIANA Results - Last 24 hrs: Microbiology 11/18/18 07:20 Aerobic Blood Culture - Preliminary Blood - Venous - Lab Draw NO GROWTH AFTER 1 DAY Anaerobic Blood Culture - Preliminary NO GROWTH AFTER 1 DAY 11/18/18 07:03 Aerobic Blood Culture - Preliminary Blood - Venous NO GROWTH AFTER 1 DAY Anaerobic Blood Culture - Preliminary NO GROWTH AFTER 1 DAY Med Orders - Current: Current Medications Acetaminophen (Tylenol) 650 mg PO Q4H PRN PRN Reason: Pain (Mild 1-3)/fever Acetaminophen/Codeine Phosphate (Tylenol With Codeine No.3 300mg/30mg) 1 tab PO Q4H PRN PRN Reason: Pain Last Admin: 11/19/18 06:17 Dose: 1 tab Albuterol/Ipratropium (Duoneb 3.0-0.5 Mg/3 Ml) 3 ml INH Q6HRRT PRN PRN Reason: SOB/wheezing Aspirin (Aspirin) 81 mg PO DAILY JORGE Last Admin: 11/18/18 09:58 Dose: 81 mg Azithromycin (Zithromax) 500 mg PO Q24H [facility] Last Admin: 11/18/18 14:17 Dose: 500 mg Cetirizine HCl (Zyrtec) 10 mg PO DAILY [facility] Last Admin: 11/18/18 09:59 Dose: 10 mg Fluticasone Propionate (Flonase) 0 gm NASBOTH DAILY [facility] Last Admin: 11/18/18 09:58 Dose: 1 spray Levothyroxine Sodium (Synthroid) 100 mcg PO ACBREAKFAST [facility] Last Admin: 11/19/18 06:32 Dose: Not Given Metoprolol Succinate (Toprol Xl) 25 mg PO BID [facility] Last Admin: 11/18/18 20:58 Dose: 25 mg Simvastatin (Zocor) 40 mg PO BEDTIME [facility] Last Admin: 11/18/18 20:58 Dose: 40 mg Sodium Chloride (Saline Flush) 10 ml FLUSH ASDIRECTED PRN PRN Reason: Keep Vein Open Sodium Chloride (Saline Flush) 2.5 ml FLUSH ASDIRECTED PRN PRN Reason: Keep Vein Open Discontinued Medications Ceftriaxone Sodium/Dextrose 1 (gm/ Premix) 50 mls @ 100 mls/hr IV ONETIME ONE Stop: 11/18/18 07:20 Last Admin: 11/18/18 07:25 Dose: 100 mls/hr Sodium Chloride (Normal Saline) 1,000 mls @ 100 mls/hr IV ASDIRECTED [facility] Last Admin: 11/18/18 11:38 Dose: 100 mls/hr - Exam General: Reports: Alert, Oriented, Cooperative, No Acute Distress Neck: Reports: Supple, Other (trach patent, no erythema or drainage) Lungs: Reports: Clear to Auscultation, Normal Respiratory Effort Cardiovascular: Reports: Regular Rate, Regular Rhythm GI/Abdominal Exam: Normal Bowel Sounds, Soft, Non-Tender Wound/Incisions: Reports: Healing Well Neurological: Reports: No New Focal Deficit Psy/Mental Status: Reports: Alert, Normal Affect, Normal Mood
[2018-11-19] MEDS: Fluticasone Propionate Nasal Spray 16 GM Bottle NASBOTH SCH (08:54)
[2018-11-19] MEDS: Aspirin 81 MG Tab.Chew PO SCH (08:54)
[2018-11-19] MEDS: Cetirizine 10 MG Tab PO SCH (08:54)
[2018-11-19] MEDS: Metoprolol Succinate 50 MG Tab.ER PO SCH (08:57)
== END 2018-11-19 09:40 | disposition home or self-care (01) ==
LOC: MW.ED 05:54 → MW.MS 06:49
PROVIDERS: ADMIT Internal Medicine; ATTEND Internal Medicine
DX: R41.0 Disorientation, unspecified (principal); J18.1 Lobar pneumonia, unspecified organism; R13.10 Dysphagia, unspecified; I10 Essential (primary) hypertension; I25.10 Atherosclerotic heart disease of native coronary artery without angina pectoris; E78.5 Hyperlipidemia, unspecified; J44.9 Chronic obstructive pulmonary disease, unspecified; C32.1 Malignant neoplasm of supraglottis; E03.9 Hypothyroidism, unspecified; M19.90 Unspecified osteoarthritis, unspecified site; Z90.02 Acquired absence of larynx; Z93.0 Tracheostomy status; Z79.82 Long term (current) use of aspirin; Z79.899 Other long term (current) drug therapy; Z79.891 Long term (current) use of opiate analgesic; Z79.2 Long term (current) use of antibiotics; Z79.52 Long term (current) use of systemic steroids; Z88.1 Allergy status to other antibiotic agents; Z87.891 Personal history of nicotine dependence
CPT/HCPCS: 36415; 70450; 71045; 74230; 80048; 80053; 81003; 83605; 84443; 84484; 85025; 87040; 92611; 93005; 96361; 96374; 97110; 97161; 99285; A4217; A9270; G0378; J0696; J7040

== ENCOUNTER 2018-11-23 12:32 | Observation (INO) | payer MEDICARE, BC ==
[2018-11-23] MEDS ORDERED: Sodium Chloride 0.9% 2.5 ML Syringe FLUSH PRN (12:38)
[2018-11-23] MEDS ORDERED: Sodium Chloride 0.9% 1,000 ML IV ONE (12:38)
[2018-11-23] MEDS ORDERED: Sodium Chloride 0.9% 10 ML Syringe FLUSH PRN (12:38)
[2018-11-23] MEDS ORDERED: Morphine 2 MG/ML Syringe IVPUSH ONE (12:38)
[2018-11-23] MEDS ORDERED: Ondansetron 4 MG/2 ML SDV IVPUSH ONE (12:38)
[2018-11-23] MEDS ORDERED: Silver Sulfadiazine 1% Crm 400 GM Jar TOP ONE (12:48)
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
[2018-11-23] MEDS ORDERED: Albuterol/Ipratropium 3.0-0.5 MG/3 ML Neb Soln NEB ONE (13:18)
[2018-11-23] MEDS ORDERED: Ketorolac 30 MG/ML SDV IVPUSH ONE (13:18)
[2018-11-23] MEDS ORDERED: fentaNYL 100 MCG/2 ML SDV IVPUSH ONE (13:21)
[2018-11-23] MEDS ORDERED: Acetaminophen 325 MG Tab PO PRN (13:24)
[2018-11-23] MEDS ORDERED: Ondansetron 4 MG/2 ML SDV IVPUSH PRN (13:24)
[2018-11-23] MEDS ORDERED: Ketorolac 15 MG/ML SDV ONE (13:26)
[2018-11-23 13:33] LABS: CHLORIDE,CL 104 mmol/L (98-107); SODIUM,NA 142 mmol/L (136-148)
[2018-11-23] MEDS ORDERED: methylPREDNISolone Sodium Succinate 125 MG/2 ML SDV IVPUSH ONE (13:36)
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
--- NOTE | 2018-11-23 14:38 | CR ---
EXAMINATION: Portable chest radiograph. HISTORY: Shortness of breath. FINDINGS: The trachea is midline. The heart is normal in size. Endotracheal tube noted with tip in good position within the mid air column. Spiculated right suprahilar masslike infiltrate noted. There is however increasing hazy infiltrate within the remaining right hemithorax. No pneumothorax or pleural effusion. Osseous structures appear osteopenic. Advanced degenerative changes within the right shoulder. IMPRESSION: 1. Spiculated suspicious masslike infiltrate within the right suprahilar region again noted. 2. Otherwise mildly increasing infiltrate within the right lung, this may represent developing pneumonia. 3. Endotracheal tube noted with tip in good position.
[2018-11-23] MEDS: Ibuprofen 400 MG Tab PO SCH ×2 (15:03→21:20)
[2018-11-23] MEDS: Bacitracin Oint 28.35 GM Tube TOP SCH ×2 (15:04→21:27)
[2018-11-23] MEDS: Lactated Ringers 1,000 ML IV SCH (15:51)
[2018-11-23] MEDS: Morphine 10 MG/ML Syringe IVPUSH PRN ×2 (15:57→22:25)
[2018-11-23] MEDS ORDERED: Simvastatin 40 MG Tab PO SCH (21:00)
[2018-11-23] MEDS: Metoprolol Succinate 25 MG Tab.ER PO SCH (21:21)
[2018-11-24] MEDS: Acetaminophen/HYDROcodone 325-5 MG Tab PO PRN ×2 (00:15→08:25)
[2018-11-24] MEDS: Lactated Ringers 1,000 ML IV SCH (03:00)
[2018-11-24] MEDS: Morphine 10 MG/ML Syringe IVPUSH PRN (03:12)
[2018-11-24] MEDS: Ibuprofen 400 MG Tab PO SCH (05:45)
[2018-11-24] MEDS: Bacitracin Oint 28.35 GM Tube TOP SCH (05:52)
[2018-11-24] MEDS ORDERED: Levothyroxine 100 MCG Tab PO SCH ×2 (06:00→07:30)
[2018-11-24 07:32] VITALS: BP 147/72
[2018-11-24] MEDS: Metoprolol Succinate 25 MG Tab.ER PO SCH (08:24)
[2018-11-24] MEDS ORDERED: Cetirizine 10 MG Tab PO SCH (09:00)
[2018-11-24] MEDS ORDERED: Cholecalciferol (Vitamin D3) 25 MCG Tab PO SCH (09:00)
[2018-11-24] MEDS ORDERED: Aspirin 81 MG Tab.Chew PO SCH (09:00)
== END 2018-11-24 11:34 | disposition home or self-care (01) ==
LOC: MW.ED 12:32 → MW.MS 13:09
PROVIDERS: ADMIT Surgery; ATTEND Surgery
DX: T22.30XA Burn of third degree of shoulder and upper limb, except wrist and hand, unspecified site, initial encounter (principal); T20.3 Burn of third degree of head, face, and neck; T21.32XA Burn of third degree of abdominal wall, initial encounter; T31.10 Burns involving 10-19% of body surface with 0% to 9% third degree burns; I25.10 Atherosclerotic heart disease of native coronary artery without angina pectoris; J44.9 Chronic obstructive pulmonary disease, unspecified; C32.1 Malignant neoplasm of supraglottis; I10 Essential (primary) hypertension; M19.012 Primary osteoarthritis, left shoulder; M19.011 Primary osteoarthritis, right shoulder; M19.022 Primary osteoarthritis, left elbow; M19.021 Primary osteoarthritis, right elbow; M19.072 Primary osteoarthritis, left ankle and foot; M19.071 Primary osteoarthritis, right ankle and foot; E03.9 Hypothyroidism, unspecified; X04.XXXA Exposure to ignition of highly flammable material, initial encounter; Z87.891 Personal history of nicotine dependence; Z90.02 Acquired absence of larynx; Z93.0 Tracheostomy status; Z88.1 Allergy status to other antibiotic agents; Z79.82 Long term (current) use of aspirin; Z79.899 Other long term (current) drug therapy; Z79.891 Long term (current) use of opiate analgesic; Z79.2 Long term (current) use of antibiotics; Z79.51 Long term (current) use of inhaled steroids
CPT/HCPCS: 36415; 71045; 80053; 85025; 96361; 96374; 96375; 96376; 99285; A9270; G0378; J1885; J2270; J2405; J2930; J3010; J7040; J7120; 99284; J7620-GY

== ENCOUNTER 2019-06-10 10:12 | Observation (INO) | payer MEDICARE, BC ==
[2019-06-10] MEDS ORDERED: Sodium Chloride 0.9% 2.5 ML Syringe FLUSH PRN (10:41)
[2019-06-10] MEDS ORDERED: Sodium Chloride 0.9% 10 ML SDV IV PRN (10:41)
[2019-06-10] MEDS ORDERED: Sodium Chloride 0.9% 10 ML Syringe FLUSH PRN (10:41)
--- NOTE | 2019-06-10 10:44 | EDM.PDOC ---
ED HPI GENERAL MEDICAL PROBLEM - General Chief Complaint: Neuro Symptoms/Deficits Stated Complaint: CONFUSION Time Seen by Provider: 06/10/19 10:33 Source of Information: Reports: Patient, Family History Limitations: Reports: Other - History of Present Illness INITIAL COMMENTS - FREE TEXT/NARRATIVE: HISTORY OF PRESENT ILLNESS: Patient is a 74 year old male brought in by family for evaluation of confusion and weakness. came home last night at 2000 and noticed him sleeping in his recliner with his tongue "hanging out to the side." . She had to wake him at 0130 today to suction his trach. This morning, she noticed he was more confused than usual and had difficulty ambulating. 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 Pt is on ASA. No recent trauma/falls. No cp, dyspnea or abdominal pain. No recent urinary sx. No focal weakness/ paresthesias. REVIEW OF SYSTEMS: Other than the symptoms associated with the present events, the following is reported with regard to recent health: General: (-) fever. HENT: (-) congestion. Respiratory: (-) cough. Cardiovascular: (-) chest pain. GI: (-) abdominal pain. : (-) urinary complaints. Musculoskeletal: (-) other aches or pains. Endocrine: (+) generalized weakness. Neurological: (-) localized weakness. Skin: (-) rash PAST MEDICAL HISTORY: reviewed as per nursing notes SOCIAL HISTORY: reviewed as per nursing notes, MEDICATIONS: Per nurse's note ALLERGIES: Per nurse's note, reviewed by me PHYSICAL EXAMINATION: GENERALIZED APPEARANCE: well developed, well nourished in no distress VITAL SIGNS: Per nurse's note, reviewed by me SKIN: Warm, dry; (-) cyanosis; (-) rash. HEAD: (-) scalp swelling, (-) tenderness. EYES: (-) conjunctival pallor, (-) scleral icterus. ENMT: (-) stridor; mucous membranes moist. NECK: (-) tenderness, (-) stiffness, trach present c/d/i CHEST AND RESPIRATORY: (-) rales, (-) rhonchi, (-) wheezes; breath sounds equal bilaterally. HEART AND CARDIOVASCULAR: (-) irregularity; (-) murmur, (-) gallop. ABDOMEN AND GI: Soft; (-) tenderness, (-) guarding, (-) rebound, (-) palpable masses, EXTREMITIES: (-) deformity, (-) edema. NEURO AND PSYCH: Alert. oriented x 2 (not oriented to year). No facial droop. No gaze palsy.visual elena intact to confrontation. no facial palsy. No drift to UE/LE. Sensation intact. No neglect. unable to test language. Finger to nose wnl. DIAGNOSTICS: EKG: nsr at [address] bpm. n[address] axis. no st elevation or depression CT head: read by radiologist (see report), reviewed by myself EMERGENCY DEPARTMENT COURSE AND TREATMENT: Patient's condition remained stable during Emergency Department evaluation. Pt initially had limb ataxia at initial time of triage nurse evaluation, but resolved at time of my evaluation. confusion improved from this morning per . Pt did not take his ASA today. ASA ordered. Call placed to hospitalist, Dr. Daigle, who kindly agrees to admit. PLAN AND FOLLOW-UP: Admit to med-surg. - Related Data Allergies Allergy/AdvReac Type Severity Reaction Status Date / Time ertapenem [From Invanz] Allergy Unknown Rash Verified 11/23/18 15:11 Home Meds: Home Meds Aspirin 81 mg PO DAILY 11/25/15 [History] Levothyroxine 100 mcg PO ACBREAKFAST 11/25/15 [History] Metoprolol Succinate [Toprol XL] 25 mg PO BID 11/25/15 [History] Simvastatin [Zocor] 40 mg PO BEDTIME 11/25/15 [History] Cetirizine [ZyrTEC] 10 mg PO DAILY 08/17/17 [History] Cholecalciferol (Vitamin D3) [Vitamin D3] 1 cap PO TID 11/18/18 [History] Famotidine 40 mg PO BID 06/10/19 [History] Pentoxifylline 400 mg PO 06/10/19 [History] Past Medical History HEENT History: Reports: Hard of Hearing, Impaired Vision, Other (See Below) Other HEENT History: wears glasses Cardiovascular History: Reports: Hypertension, [place], Stents Other Cardiovascular History: [place] 2010 Respiratory History: Reports: COPD, Pneumonia, Recurrent, Sleep Apnea, Other ( See Below) Other Respiratory History: Sleep apnea with machine "do not use it", 50 yr history of tobacco use, QUIT 04/2011 Gastrointestinal History: Reports: Other (See Below) Other Gastrointestinal History: 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 Neurological History: Reports: None Psychiatric History: Reports: Anxiety, Depression Endocrine/Metabolic History: Reports: Hypothyroidism Other Endocrine/Metabolic History: Hypothyroidism Hematologic History: Reports: None Immunologic History: Reports: None Oncologic (Cancer) History: Reports: Lung, Other (See Below) Other Oncologic History: epiglottis Dermatologic History: Reports: None - Infectious Disease History Infectious Disease History: Reports: Chicken Pox, Measles - Past Surgical History HEENT Surgical History: Reports: Tonsillectomy Other HEENT Surgeries/Procedures: total laryngectomy with trach placement 2016 Cardiovascular Surgical History: Reports: Coronary Artery Stent Respiratory Surgical History: Reports: Tracheostomy, Other (See Below) GI Surgical History: Reports: Other (See Below) Other GI Surgeries/Procedures: Gastrostomy Tube, has since been removed. Musculoskeletal Surgical History: Reports: Shoulder Surgery, Other (See Below) Other Musculoskeletal Surgeries/Procedures:: ankle surgery Social & Family History - Family History Family Medical History: Noncontributory HEENT: Reports: Impaired Vision Cardiac: Reports: Heart Failure Musculoskeletal: Reports: Arthritis Neurological: Reports: CVA Endocrine/Metabolic: Reports: Diabetes, type II Oncologic: Reports: Breast, Other (See Below) Other Oncologic Family History: Stomach - Caffeine Use Caffeine Use: Reports: Coffee - Living Situation & Occupation Living situation: Reports: ED ROS GENERAL - Review of Systems Review Of Systems: See Below (see dictation) ED EXAM, NEURO - Physical Exam Exam: See Below (see dictation) Course - Vital Signs Last Recorded V/S: Last Vital Signs Temp 96.8 F 06/10/19 10:14 Pulse 69 06/10/19 12:55 Resp 16 06/10/19 12:55 BP 112/58 L 06/10/19 12:55 Pulse Ox 97 06/10/19 12:55 - Orders/Labs/Meds Orders: Active Orders 24 hr Category Date Time Status Admission Status [Patient Status] [ADT] Stat ADT 06/10/19 12:32 Active Assess Neurological Status [RC] ASDIRECTED Care 06/10/19 10:41 Active Bedrest [RC] ASDIRECTED Care 06/10/19 10:41 Active Blood Glucose Check, Bedside [RC] STAT Care 06/10/19 10:41 Active Cardiac Monitoring [RC] . DIRECTED Care 06/10/19 10:41 Active EKG 12 Lead [EKG Documentation Completion] [RC] ROUTINE Care 06/10/19 10:40 Active EKG Documentation Completion [RC] STAT Care 06/10/19 10:41 Active Height and Weight [RC] UPON Care 06/10/19 10:41 Active Initiate Acute Stroke Protocol [RC] STAT Care 06/10/19 10:41 Active NIH Stroke Scale [RC] ASDIRECTED Care 06/10/19 10:41 Active Nursing Bedside Swallow Screen [RC] ASDIRECTED Care 06/10/19 10:41 Active Oxygen Therapy [RC] ASDIRECTED Care 06/10/19 10:41 Active Stroke Education, General [RC] Click to Edit Care 06/10/19 10:41 Active Telemetry Monitoring [Cardiac Monitoring] [RC] . Care 06/10/19 12:37 Active DIRECTED Vital Signs [RC] Q15M Care 06/10/19 10:41 Active Ang Head wo Cont [MR] Stat Exams 06/10/19 12:37 Ordered Ang Neck wo Cont [MR] Stat Exams 06/10/19 12:37 Ordered Brain w wo Cont [MR] Stat Exams 06/10/19 12:37 Ordered Echo Comp wo Cont [US] Urgent Exams 06/10/19 12:38 Ordered UA RFX ADRIANA AND CULT IF INDIC [URIN] Stat Lab 06/10/19 12:31 Ordered Sodium Chloride 0.9% [Normal Saline] Med 06/10/19 10:41 Active 10 ml IV ASDIRECTED PRN Sodium Chloride 0.9% [Saline Flush] Med 06/10/19 10:41 Active 10 ml FLUSH ASDIRECTED PRN Sodium Chloride 0.9% [Saline Flush] Med 06/10/19 10:41 Active 2.5 ml FLUSH ASDIRECTED PRN Peripheral IV Insertion Adult [OM.PC] Stat Oth 06/10/19 10:41 Ordered Peripheral IV Insertion Adult [OM.PC] Stat Oth 06/10/19 10:41 Ordered Medication Orders Sodium Chloride (Saline Flush) 10 ml FLUSH ASDIRECTED PRN PRN Reason: Keep Vein Open Last Admin: 06/10/19 12:06 Dose: 10 ml Sodium Chloride (Saline Flush) 2.5 ml FLUSH ASDIRECTED PRN PRN Reason: Keep Vein Open Last Admin: 06/10/19 12:06 Dose: 2.5 ml Sodium Chloride (Normal Saline) 10 ml IV ASDIRECTED PRN PRN Reason: IV Use Last Admin: 06/10/19 12:06 Dose: 10 ml Labs: Laboratory Tests 06/10/19 06/10/19 06/10/19 Range/Units 10:46 10:46 10:46 WBC 6.14 (4.0-11.0) K/uL RBC 4.75 (4.50-5.90) M/uL Hgb 13.5 (13.0-17.0) g/dL Hct 42.7 (38.0-50.0) % MCV 89.9 (80.0-98.0) fL MCH 28.4 (27.0-32.0) pg MCHC 31.6 (31.0-37.0) g/dL RDW Std Deviation 52.4 (28.0-62.0) fl RDW Coeff of Randolph 16 H (11.0-15.0) % Plt Count 355 (150-400) K/uL MPV 9.80 (7.40-12.00) fL Neut % (Auto) 65.1 (48.0-80.0) % Lymph % (Auto) 19.5 (16.0-40.0) % Bradley % (Auto) 9.8 (0.0-15.0) % Eos % (Auto) 4.6 (0.0-7.0) % Baso % (Auto) 1.0 (0.0-1.5) % Neut # (Auto) 4.0 (1.4-5.7) K/uL Lymph # (Auto) 1.2 (0.6-2.4) K/uL Bradley # (Auto) 0.6 (0.0-0.8) K/uL Eos # (Auto) 0.3 (0.0-0.7) K/uL Baso # (Auto) 0.1 (0.0-0.1) K/uL Nucleated RBC % 0.0 /100WBC Nucleated RBCs # 0 K/uL INR 1.00 APTT 24.5 (18.6-31.3) SEC Sodium 145 (136-148) mmol/L Potassium 4.5 (3.5-5.1) mmol/L Chloride 105 (98-107) mmol/L Carbon Dioxide 28.7 (21.0-32.0) mmol/L BUN 15 (7.0-18.0) mg/dL Creatinine 1.0 (0.8-1.3) mg/dL Est Cr Clr Drug Dosing 55.69 mL/min Estimated GFR (MDRD) > 60.0 ml/min Glucose 94 (74-106) mg/dL Calcium 9.2 (8.5-10.1) mg/dL Total Bilirubin 0.3 (0.2-1.0) mg/dL AST 29 (15-37) IU/L ALT 22 (14-63) IU/L Alkaline Phosphatase 86 (46-116) U/L Troponin I < 0.050 (0.000-0.056) ng/mL Total Protein 7.9 (6.4-8.2) g/dL Albumin 3.8 (3.4-5.0) g/dL Globulin 4.1 H (2.6-4.0) g/dL Albumin/Globulin Ratio 0.9 (0.9-1.6) TSH 3rd Generation 0.73 (0.36-3.74) uIU/mL Meds: Medications Generic Name Dose Route Start Last Admin Trade Name Freq PRN Reason Stop Dose Admin Sodium Chloride 10 ml 06/10/19 10:41 06/10/19 12:06 Saline Flush FLUSH 10 ml ASDIRECTED PRN Administration Keep Vein Open Sodium Chloride 2.5 ml 06/10/19 10:41 06/10/19 12:06 Saline Flush FLUSH 2.5 ml ASDIRECTED PRN Administration Keep Vein Open Sodium Chloride 10 ml 06/10/19 10:06/10/19 12:06 Normal Saline IV 10 ml ASDIRECTED PRN Administration IV Use Discontinued Medications Generic Name Dose Route Start Last Admin Trade Name Freq PRN Reason Stop Dose Admin Aspirin 325 mg 06/10/19 12:30 06/10/19 12:54 Aspirin PO 06/10/19 12:31 325 mg ONETIME ONE Administration Gadobenate Dimeglumine 20 ml 06/10/19 13:15 06/10/19 13:20 Multihance IVPUSH 06/10/19 13:16 11 ml ONETIME STA Administration Departure - Departure Time of Disposition: 12:34 Disposition: Refer to Observation Condition: Good Clinical Impression: TIA (transient ischemic attack), Altered mental status - Discharge Information Sepsis Event Note - Evaluation Sepsis Screening Result: No Definite Risk - Focused Exam Vital Signs: Vital Signs Temp Pulse Resp BP Pulse Ox 06/10/19 12:30 78 16 106/61 99 06/10/19 12:15 63 16 112/67 100 06/10/19 12:00 65 18 121/63 97 06/10/19 11:52 63 18 119/61 97 06/10/19 11:27 63 18 124/77 96 06/10/19 11:12 64 20 140/69 96 06/10/19 10:14 96.8 F 66 16 126/69 90 L Date Exam was Performed: 06/10/19 Time Exam was Performed: 13:50 - My Orders Last 24 Hours: My Active Orders 06/10/19 10:40 EKG 12 Lead [EKG Documentation Completion] [RC] ROUTINE 06/10/19 10:41 Assess Neurological Status [RC] ASDIRECTED Bedrest [RC] ASDIRECTED Blood Glucose Check, Bedside [RC] STAT Cardiac Monitoring [RC] . DIRECTED EKG Documentation Completion [RC] STAT Height and Weight [RC] UPON Initiate Acute Stroke Protocol [RC] STAT NIH Stroke Scale [RC] ASDIRECTED Nursing Bedside Swallow Screen [RC] ASDIRECTED Oxygen Therapy [RC] ASDIRECTED Stroke Education, General [RC] Click to Edit Vital Signs [RC] Q15M Sodium Chloride 0.9% [Normal Saline] 10 ml IV ASDIRECTED PRN Sodium Chloride 0.9% [Saline Flush] 10 ml FLUSH ASDIRECTED PRN Sodium Chloride 0.9% [Saline Flush] 2.5 ml FLUSH ASDIRECTED PRN Peripheral IV Insertion Adult [OM.PC] Stat Peripheral IV Insertion Adult [OM.PC] Stat 06/10/19 12:31 UA RFX ADRIANA AND CULT IF INDIC [URIN] Stat 06/10/19 12:32 Admission Status [Patient Status] [ADT] Stat - Assessment/Plan Last 24 Hours: My Active Orders 06/10/19 10:40 EKG 12 Lead [EKG Documentation Completion] [RC] ROUTINE 06/10/19 10:41 Assess Neurological Status [RC] ASDIRECTED Bedrest [RC] ASDIRECTED Blood Glucose Check, Bedside [RC] STAT Cardiac Monitoring [RC] . DIRECTED EKG Documentation Completion [RC] STAT Height and Weight [RC] UPON Initiate Acute Stroke Protocol [RC] STAT NIH Stroke Scale [RC] ASDIRECTED Nursing Bedside Swallow Screen [RC] ASDIRECTED Oxygen Therapy [RC] ASDIRECTED Stroke Education, General [RC] Click to Edit Vital Signs [RC] Q15M Sodium Chloride 0.9% [Normal Saline] 10 ml IV ASDIRECTED PRN Sodium Chloride 0.9% [Saline Flush] 10 ml FLUSH ASDIRECTED PRN Sodium Chloride 0.9% [Saline Flush] 2.5 ml FLUSH ASDIRECTED PRN Peripheral IV Insertion Adult [OM.PC] Stat Peripheral IV Insertion Adult [OM.PC] Stat 06/10/19 12:31 UA RFX ADRIANA AND CULT IF INDIC [URIN] Stat 06/10/19 12:32 Admission Status [Patient Status] [ADT] Stat
--- NOTE | 2019-06-10 11:05 | CT ---
Head CT Technique: Multiple axial sections through the brain were obtained. Intravenous contrast was not utilized. Comparison: No prior intracranial imaging is available. Findings: Ventricles along with basal cisterns and sulci over the convexities are mildly prominent. Mild atrophy is also noted within the cerebellum. 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 No other abnormal parenchymal densities are seen. No evidence of intracranial hemorrhage. No midline shift or mass effect is appreciated. Atherosclerotic calcification is seen within the carotid siphon. Visualized mastoid sinuses are clear. Minimal areas mucosal thickening within the left maxillary and ethmoid sinuses are seen. No acute calvarial abnormality is appreciated. Impression: 1. Sinus findings believed to be chronic. 2. Mild senescent change as noted above. 3. No acute intracranial abnormality is identified on noncontrast head CT study. Diagnostic code #2 This report was dictated in [place] Standard Time
[2019-06-10 11:48] LABS: BLOOD UREA NITROGEN,BUN 15 mg/dL (7.0-18.0); CARBON DIOXIDE,CO2 28.7 mmol/L (21.0-32.0); CHLORIDE,CL 105 mmol/L (98-107); GLUCOSE RANDOM 94 mg/dL (74-106); POTASSIUM,K 4.5 mmol/L (3.5-5.1); SODIUM,NA 145 mmol/L (136-148)
[2019-06-10] MEDS ORDERED: Aspirin 325 MG Tab PO ONE (12:30)
[2019-06-10] MEDS ORDERED: Gadobenate Dimeglumine 529 MG/ML 20 ML SDV IVPUSH STA (13:15)
[2019-06-10] MEDS ORDERED: Ondansetron 4 MG/2 ML SDV IVPUSH PRN (14:17)
--- NOTE | 2019-06-10 14:17 | PCM.HP.2 ---
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 arrived home last night and he was sleeping in the recliner, she woke him up around 0130 to suction his trach. This morning then she noticed more confusion than usual and difficulty ambulating. He was leaned forward sleeping in an unusual position. She reports she gave him socks and he had no idea what to do with them. Patient whispers only due to trach. He reports he is feeling good and doesn't feel he is confused. He denies any pain currently. Appears tired. Denies recent illness or fevers. No chest pain or SOB. In the ED labwork WNL. EKG SR with no ST elevation. Head CT negative. UA pending. Troponin negative. ASA given. Admitted for suspected TIA rule out CVA. - Related Data Allergies/Adverse Reactions: Allergies Allergy/AdvReac Type Severity Reaction Status Date / Time ertapenem [From Invanz] Allergy Unknown Rash Verified 06/10/19 15:07 Home Medications: Home Meds Aspirin 81 mg PO DAILY 11/25/15 [History] Levothyroxine 100 mcg PO ACBREAKFAST 11/25/15 [History] Metoprolol Succinate [Toprol XL] 25 mg PO BID 11/25/15 [History] Simvastatin [Zocor] 40 mg PO BEDTIME 11/25/15 [History] Cetirizine [ZyrTEC] 10 mg PO DAILY 08/17/17 [History] Cholecalciferol (Vitamin D3) [Vitamin D3] 1 cap PO DAILY 11/18/18 [History] Famotidine 40 mg PO BID 06/10/19 [History] Pentoxifylline 400 mg PO TID 06/10/19 [History] Vitamin E 400 unit PO BIDMEALS 06/10/19 [History] Past Medical History HEENT History: Reports: Hard of Hearing, Impaired Vision, Other (See Below) Other HEENT History: wears glasses Cardiovascular History: Reports: Hypertension, MS, Stents Other Cardiovascular History: MS 2010 Respiratory History: Reports: COPD, Pneumonia, Recurrent, Sleep Apnea, Other ( See Below) Other Respiratory History: Sleep apnea with machine "do not use it", 50 yr history of tobacco use, QUIT 04/2011 Gastrointestinal History: Reports: Other (See Below) Other Gastrointestinal History: 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 Neurological History: Reports: None Psychiatric History: Reports: Anxiety, Depression Endocrine/Metabolic History: Reports: Hypothyroidism Other Endocrine/Metabolic History: Hypothyroidism Hematologic History: Reports: None Immunologic History: Reports: None Oncologic (Cancer) History: Reports: Lung, Other (See Below) Other Oncologic History: epiglottis Dermatologic History: Reports: None - Infectious Disease History Infectious Disease History: Reports: Chicken Pox, Measles - Past Surgical History HEENT Surgical History: Reports: Tonsillectomy Other HEENT Surgeries/Procedures: total laryngectomy with trach placement 2016 Cardiovascular Surgical History: Reports: Coronary Artery Stent Respiratory Surgical History: Reports: Tracheostomy, Other (See Below) GI Surgical History: Reports: Other (See Below) Other GI Surgeries/Procedures: Gastrostomy Tube, has since been removed. Musculoskeletal Surgical History: Reports: Shoulder Surgery, Other (See Below) Other Musculoskeletal Surgeries/Procedures:: ankle surgery Social & Family History - Family History Family Medical History: Noncontributory HEENT: Reports: Impaired Vision Cardiac: Reports: Heart Failure Musculoskeletal: Reports: Arthritis Neurological: Reports: CVA Endocrine/Metabolic: Reports: Diabetes, type II Oncologic: Reports: Breast, Other (See Below) Other Oncologic Family History: Stomach - Tobacco Use Smoking Status *Q: Former Smoker Used Tobacco, but Quit: Yes Month/Year Tobacco Last Used: 05/2010 - Caffeine Use Caffeine Use: Reports: Coffee - Living Situation & Occupation Living situation: Reports: H&P Review of Systems - Review of Systems: Review Of Systems: See Below General: Reports: No Symptoms. Denies: Fever, Chills, Malaise Pulmonary: Reports: No Symptoms. Denies: Shortness of Breath, Cough, Sputum Cardiovascular: Reports: No Symptoms. Denies: Chest Pain Gastrointestinal: Reports: No Symptoms. Denies: Abdominal Pain Genitourinary: Reports: No Symptoms. Denies: Dysuria, Frequency, Burning Musculoskeletal: Reports: No Symptoms. Denies: Neck Pain Neurological: Reports: Confusion Exam - Exam Exam: See Below - Vital Signs Vital Signs: Last Vital Signs Temp 96.8 F 06/10/19 10:14 Pulse 69 06/10/19 12:55 Resp 16 06/10/19 12:55 BP 112/58 L 06/10/19 12:55 Pulse Ox 97 06/10/19 12:55 Weight: 58.967 kg - Exam General: Alert, Oriented, Cooperative Lungs: Clear to Auscultation, Normal Respiratory Effort Cardiovascular: Regular Rate, Regular Rhythm GI/Abdominal Exam: Normal Bowel Sounds, Soft, Non-Tender (Male) Exam: No Hernia Extremities: Normal Inspection, Normal Range of Motion, Non-Tender, No Pedal Edema Neuro Extensive - Mental Status: Alert, Oriented x3 Neuro Extensive - Motor, Sensory, Reflexes: CN II-XII Intact Psychiatric: Alert, Normal Affect, Normal Mood - Patient Data Lab Results Last 24 hrs: Laboratory Results - last 24 hr 06/10/19 06/10/19 06/10/19 Range/Units 10:46 10:46 10:46 WBC 6.14 (4.0-11.0) K/uL RBC 4.75 (4.50-5.90) M/uL Hgb 13.5 (13.0-17.0) g/dL Hct 42.7 (38.0-50.0) % MCV 89.9 (80.0-98.0) fL MCH 28.4 (27.0-32.0) pg MCHC 31.6 (31.0-37.0) g/dL RDW Std Deviation 52.4 (28.0-62.0) fl RDW Coeff of [place] 16 H (11.0-15.0) % Plt Count 355 (150-400) K/uL MPV 9.80 (7.40-12.00) fL Neut % (Auto) 65.1 (48.0-80.0) % Lymph % (Auto) 19.5 (16.0-40.0) % [place] % (Auto) 9.8 (0.0-15.0) % Eos % (Auto) 4.6 (0.0-7.0) % Baso % (Auto) 1.0 (0.0-1.5) % Neut # (Auto) 4.0 (1.4-5.7) K/uL Lymph # (Auto) 1.2 (0.6-2.4) K/uL [place] # (Auto) 0.6 (0.0-0.8) K/uL Eos # (Auto) 0.3 (0.0-0.7) K/uL Baso # (Auto) 0.1 (0.0-0.1) K/uL Nucleated RBC % 0.0 /100WBC Nucleated RBCs # 0 K/uL INR 1.00 APTT 24.5 (18.6-31.3) SEC Sodium 145 (136-148) mmol/L Potassium 4.5 (3.5-5.1) mmol/L Chloride 105 (98-107) mmol/L Carbon Dioxide 28.7 (21.0-32.0) mmol/L BUN 15 (7.0-18.0) mg/dL Creatinine 1.0 (0.8-1.3) mg/dL Est Cr Clr Drug Dosing 55.69 mL/min Estimated GFR (MDRD) > 60.0 ml/min Glucose 94 (74-106) mg/dL Calcium 9.2 (8.5-10.1) mg/dL Total Bilirubin 0.3 (0.2-1.0) mg/dL AST 29 (15-37) IU/L ALT 22 (14-63) IU/L Alkaline Phosphatase 86 (46-116) U/L Troponin I < 0.050 (0.000-0.056) ng/mL Total Protein 7.9 (6.4-8.2) g/dL Albumin 3.8 (3.4-5.0) g/dL Globulin 4.1 H (2.6-4.0) g/dL Albumin/Globulin Ratio 0.9 (0.9-1.6) TSH 3rd Generation 0.73 (0.36-3.74) uIU/mL Result Diagrams: 06/10/19 10:46 06/10/19 10:46 Sepsis Event Note - Evaluation Sepsis Screening Result: No Definite Risk - Focused Exam Vital Signs: Vital Signs Temp Pulse Resp BP Pulse Ox 06/10/19 12:55 69 16 112/58 L 97 06/10/19 12:30 78 16 106/61 99 06/10/19 12:15 63 16 112/67 100 06/10/19 12:00 65 18 121/63 97 06/10/19 11:52 63 18 119/61 97 06/10/19 11:27 63 18 124/77 96 06/10/19 11:12 64 20 140/69 96 06/10/19 10:14 96.8 F 66 16 126/69 90 L Date Exam was Performed: 06/10/19 Time Exam was Performed: 16:26 - Problem List (1) Altered mental status SNOMED Code(s): 237092968 ICD Code: R41.82 - ALTERED MENTAL STATUS, UNSPECIFIED Status: Acute Current Visit: Yes (2) TIA (transient ischemic attack) SNOMED Code(s): 351728063 ICD Code: G45.9 - TRANSIENT CEREBRAL ISCHEMIC ATTACK, UNSPECIFIED Status: Acute Current Visit: Yes (3) History of COPD SNOMED Code(s): 361142670 ICD Code: Z87.09 - PERSONAL HISTORY OF OTHER DISEASES OF THE RESPIRATORY SYSTEM Status: Acute Current Visit: No (4) History of chronic hypertension SNOMED Code(s): 100223959 ICD Code: Z86.79 - PERSONAL HISTORY OF OTHER DISEASES OF THE CIRCULATORY SYSTEM Status: Acute Current Visit: No (5) History of coronary artery disease SNOMED Code(s): 885761127 ICD Code: Z86.79 - PERSONAL HISTORY OF OTHER DISEASES OF THE CIRCULATORY SYSTEM Status: Acute Current Visit: No (6) CAD (coronary artery disease) SNOMED Code(s): 08425001 ICD Code: I25.10 - ATHSCL HEART DISEASE OF [place] CORONARY ARTERY W/O ANG PCTRS Status: Chronic Priority: Medium Current Visit: No (7) HLD (hyperlipidemia) SNOMED Code(s): 35164756 ICD Code: E78.5 - HYPERLIPIDEMIA, UNSPECIFIED Status: Chronic Current Visit: No (8) HTN (hypertension) SNOMED Code(s): 68637530 ICD Code: I10 - ESSENTIAL (PRIMARY) HYPERTENSION Status: Chronic Current Visit: No (9) Hx of laryngectomy SNOMED Code(s): 464292592, 690384240 ICD Code: Z90.02 - ACQUIRED ABSENCE OF LARYNX Status: Chronic Priority: Low Current Visit: No (10) Tracheostomy in place SNOMED Code(s): 206395789 ICD Code: Z93.0 - TRACHEOSTOMY STATUS Status: Chronic Priority: Low Current Visit: No Problem List Initiated/Reviewed/Updated: Yes Orders Last 24hrs: Active Orders 24 hr Category Date Time Status Admission Status [Patient Status] [ADT] Stat ADT 06/10/19 12:32 Active Assess Neurological Status [RC] ASDIRECTED Care 06/10/19 10:41 Active Bedrest [RC] ASDIRECTED Care 06/10/19 10:41 Active Cardiac Monitoring [RC] . DIRECTED Care 06/10/19 10:41 Active EKG 12 Lead [EKG Documentation Completion] [RC] ROUTINE Care 06/10/19 10:40 Active EKG Documentation Completion [RC] STAT Care 06/10/19 10:41 Active Height and Weight [RC] UPON Care 06/10/19 10:41 Active Initiate Acute Stroke Protocol [RC] STAT Care 06/10/19 10:41 Active NIH Stroke Scale [RC] ASDIRECTED Care 06/10/19 10:41 Active Nursing Bedside Swallow Screen [RC] ASDIRECTED Care 06/10/19 10:41 Active Oxygen Therapy [RC] ASDIRECTED Care 06/10/19 10:41 Active Stroke Education, General [RC] Click to Edit Care 06/10/19 10:41 Active Telemetry Monitoring [Cardiac Monitoring] [RC] . Care 06/10/19 12:37 Active DIRECTED Ang Head wo Cont [MR] Stat Exams 06/10/19 12:37 Ordered Ang Neck wo Cont [MR] Stat Exams 06/10/19 12:37 Ordered Brain w wo Cont [MR] Stat Exams 06/10/19 12:37 Ordered Echo Comp wo Cont [US] Urgent Exams 06/10/19 12:38 Ordered UA RFX ADRIANA AND CULT IF INDIC [URIN] Stat Lab 06/10/19 12:31 Ordered Sodium Chloride 0.9% [Normal Saline] Med 06/10/19 10:41 Active 10 ml IV ASDIRECTED PRN Sodium Chloride 0.9% [Saline Flush] Med 06/10/19 10:41 Active 10 ml FLUSH ASDIRECTED PRN Sodium Chloride 0.9% [Saline Flush] Med 06/10/19 10:41 Active 2.5 ml FLUSH ASDIRECTED PRN Peripheral IV Insertion Adult [OM.PC] Stat Oth 06/10/19 10:41 Ordered Peripheral IV Insertion Adult [OM.PC] Stat Oth 06/10/19 10:41 Ordered Medication Orders Sodium Chloride (Saline Flush) 10 ml FLUSH ASDIRECTED PRN PRN Reason: Keep Vein Open Last Admin: 06/10/19 12:06 Dose: 10 ml Sodium Chloride (Saline Flush) 2.5 ml FLUSH ASDIRECTED PRN PRN Reason: Keep Vein Open Last Admin: 06/10/19 12:06 Dose: 2.5 ml Sodium Chloride (Normal Saline) 10 ml IV ASDIRECTED PRN PRN Reason: IV Use Last Admin: 06/10/19 12:06 Dose: 10 ml Assessment/Plan Comment:: This 74 year old male admitted with confusion and unsteady gait at home 1. Confusion/unsteady: Alert and oriented during admission interview, no family at bedside. denies concerns. Did ambulate and gait was unsteady, but not sure of baseline. He denies weakness. MRI/MRA pending. ECHO pending. Rule out CVA, suspect possible TIA. Labwork WNL. Will add lipid, A1c and B12. Will also obtained CXR due to recurrently PNA. No cough fevers or leukocytosis noted 2. HTN: BP stable, allow permissive HTN if possible CVA 3. CAD: Stable, Continue statin and ASA. No chest pain 4. Tracheostomy: No increase in phlegm and no fevers. Trach cares. VTE prophylaxis: Heparin Dispo: 1 day - Mortality Measure Prognosis:: Good
[2019-06-10 15:07] LABS: HEMOGLOBIN A1C 6.2 % (4.5-6.2)
--- NOTE | 2019-06-10 15:15 | MR ---
Mri brain (with and without contrast) Technique: T1 sagittal and coronal; T1, T2, FLAIR and diffusion axial; post gadolinium T1 fat-suppressed axial, sagittal and coronal images were obtained. Comparison: Previous head CT study performed on the same day (10:28 AM). Findings: Ventricles along with basal cisterns and sulci over the convexities are mildly prominent. Multiple areas of increased signal are seen within the periventricular and some cortical white matter. Findings are felt to be fairly stable from previous MRI. These findings are compatible with small vessel ischemic demyelination change. No other abnormal signal is seen within the brain parenchyma. No acute diffusion abnormalities are appreciated. No abnormal enhancement is seen within the brain parenchyma. Impression: 1. Mild senescent change as noted above. 2. No acute diffusion abnormalities are seen. 3. Findings remain fairly stable from previous MRI. Diagnostic code #2 This report was dictated in [place] Standard Time
--- NOTE | 2019-06-10 15:15 | MR ---
MR angiogram of brain Technique: Multiple axial sections were obtained utilizing [id number] MR angiogram sequence through the brain. Study is centered to the elem of [place]. Multiple MIP images were obtained. Findings: Distal vertebral arteries and basilar artery appear within normal limits. Posterior cerebral arteries also within normal limits. Distal internal carotid arteries, middle cerebral arteries and anterior cerebral arteries appear within normal limits. No focal stenosis is appreciated. No occlusion is identified. No discrete aneurysm is appreciated. Impression: 1. No abnormality is appreciated on MR angiogram study of the brain. Diagnostic code #1 This report was dictated in [place] Standard Time
--- NOTE | 2019-06-10 15:15 | MR ---
MR angiogram of neck Technique: [id number] MR angiogram study was obtained centered to the carotid bifurcations. Findings: No focal stenosis is appreciated within the carotid bulbs or within the proximal internal or external carotid arteries. Visualized vertebral arteries are patent. Impression: 1. No focal stenosis on noncontrast study centered to the carotid bulbs. Diagnostic code #1 This report was dictated in [place] Standard Time
--- NOTE | 2019-06-10 15:39 | CR ---
Chest: Portable view of the chest was obtained. Comparison: Prior chest x-ray 12/02/18. Increasing parenchymal density within the right upper lung is seen. Difficult to exclude increasing scarring versus increasing parenchymal mass. Scattered surgical clips are seen within the neck and within the left chest possibly within the mediastinum. Heart size is normal. Left lung is clear. Bony structures shows degenerative change within the right shoulder. Impression: 1. Increasing parenchymal density within the right upper lung, uncertain if this represents worsening parenchymal mass or represents increasing scarring. 2. Other findings as noted above believed to be incidental. Diagnostic code #9 This report was dictated in [place] Standard Time
[2019-06-10] MEDS ORDERED: Sodium Chloride 0.9% 1,000 ML IV ONE ×2 (21:23→22:30)
[2019-06-10 21:51] LABS: BLOOD UREA NITROGEN,BUN 22 mg/dL (7.0-18.0); CARBON DIOXIDE,CO2 29.6 mmol/L (21.0-32.0); CHLORIDE,CL 104 mmol/L (98-107); GLUCOSE RANDOM 109 mg/dL (74-106); SODIUM,NA 145 mmol/L (136-148)
[2019-06-10] MEDS: Piperacillin/Tazobactam 3.375 GM in Sodium Chloride 0.9% 50 ML IV SCH (22:17)
--- NOTE | 2019-06-10 22:34 | CT ---
INDICATION: Fall TECHNIQUE: CT head without contrast. COMPARISON: None FINDINGS: CSF spaces: Within normal limits for age. Brain parenchyma: The fields-white differentiation is normal. No sign of mass, hemorrhage, or midline shift. Skull base and calvarium: Left maxillary sinus mucosal thickening. The visualized orbits are grossly unremarkable. No skull fractures. By posterior parietal scalp hematoma. IMPRESSION: Right posterior parietal scalp hematoma with no associated fractures or evidence of acute intracranial trauma. Dictated by Robi Foster MD @ 06/10/2019 10:32:38 PM Please note that all CT scans at this facility use dose modulation, iterative reconstruction, and/or weight-based dosing when appropriate to reduce radiation dose to as low as reasonably achievable. Dictated by: Robi Foster MD @ 06/10/2019 22:32:41 (Electronically Signed)
[2019-06-10] MEDS: Acetaminophen 325 MG Tab PO PRN (23:27)
[2019-06-11] MEDS ORDERED: Sodium Chloride 0.9% 1,000 ML IV SCH (02:00)
[2019-06-11] MEDS: Piperacillin/Tazobactam 3.375 GM in Sodium Chloride 0.9% 50 ML IV SCH ×3 (05:14→21:08)
--- NOTE | 2019-06-11 09:08 | PCM.PN ---
- General Info Date of Service: 06/11/19 Admission Dx/Problem (Free Text): Admission Diagnosis/Problem Admission Diagnosis/Problem TIA, Transient ischemic attack Subjective Update: Feeling ok this morning, mild headache. Back of his head hurts. No blurred vision or double. No chest pain or SOB. No cough. at bedside. reports he has done better after IVFs Functional Status: Reports: Pain Controlled, Tolerating Diet, Ambulating, Urinating - Review of Systems General: Reports: No Symptoms HEENT: Reports: Headaches. Denies: Visual Changes Pulmonary: Reports: No Symptoms. Denies: Shortness of Breath Cardiovascular: Reports: No Symptoms Gastrointestinal: Reports: No Symptoms. Denies: Abdominal Pain, Nausea Genitourinary: Reports: No Symptoms. Denies: Dysuria, Frequency, Burning Neurological: Reports: No Symptoms Psychiatric: Reports: No Symptoms - Patient Data Vitals - Most Recent: Last Vital Signs Temp 97.8 F 06/11/19 04:00 Pulse 98 06/11/19 04:00 Resp 18 06/11/19 04:00 BP 139/85 06/11/19 04:00 Pulse Ox 94 L 06/11/19 04:00 Weight - Most Recent: 58.967 kg I&O - Last 24 Hours: Intake & Output 06/10/19 06/11/19 06/11/19 22:59 06:59 14:59 Intake Total 2924 50 Output Total 200 Balance 2724 50 Lab Results Last 24 Hours: Laboratory Results - last 24 hr 06/10/19 06/10/19 06/10/19 Range/Units 10:46 10:46 10:46 WBC 6.14 (4.0-11.0) K/uL RBC 4.75 (4.50-5.90) M/uL Hgb 13.5 (13.0-17.0) g/dL Hct 42.7 (38.0-50.0) % MCV 89.9 (80.0-98.0) fL MCH 28.4 (27.0-32.0) pg MCHC 31.6 (31.0-37.0) g/dL RDW Std Deviation 52.4 (28.0-62.0) fl RDW Coeff of Randolph 16 H (11.0-15.0) % Plt Count 355 (150-400) K/uL MPV 9.80 (7.40-12.00) fL Neut % (Auto) 65.1 (48.0-80.0) % Lymph % (Auto) 19.5 (16.0-40.0) % Bibb % (Auto) 9.8 (0.0-15.0) % Eos % (Auto) 4.6 (0.0-7.0) % Baso % (Auto) 1.0 (0.0-1.5) % Neut # (Auto) 4.0 (1.4-5.7) K/uL Lymph # (Auto) 1.2 (0.6-2.4) K/uL Bibb # (Auto) 0.6 (0.0-0.8) K/uL Eos # (Auto) 0.3 (0.0-0.7) K/uL Baso # (Auto) 0.1 (0.0-0.1) K/uL Nucleated RBC % 0.0 /100WBC Nucleated RBCs # 0 K/uL INR 1.00 APTT 24.5 (18.6-31.3) SEC Lactate (0.20-2.00) mmol/L Sodium 145 (136-148) mmol/L Potassium 4.5 (3.5-5.1) mmol/L Chloride 105 (98-107) mmol/L Carbon Dioxide 28.7 (21.0-32.0) mmol/L BUN 15 (7.0-18.0) mg/dL Creatinine 1.0 (0.8-1.3) mg/dL Est Cr Clr Drug Dosing 55.69 mL/min Estimated GFR (MDRD) > 60.0 ml/min Glucose 94 (74-106) mg/dL POC Glucose (60-110) mg/dL Hemoglobin A1c (4.5-6.2) % Calcium 9.2 (8.5-10.1) mg/dL Phosphorus (2.6-4.7) mg/dL Magnesium (1.8-2.4) mg/dL Total Bilirubin 0.3 (0.2-1.0) mg/dL AST 29 (15-37) IU/L ALT 22 (14-63) IU/L Alkaline Phosphatase 86 (46-116) U/L Troponin I < 0.050 (0.000-0.056) ng/mL Total Protein 7.9 (6.4-8.2) g/dL Albumin 3.8 (3.4-5.0) g/dL Globulin 4.1 H (2.6-4.0) g/dL Albumin/Globulin Ratio 0.9 (0.9-1.6) Triglycerides (0-200) mg/dL Cholesterol (50-200) mg/dL LDL Cholesterol, Calc (60-180) mg/dL VLDL Cholesterol (5-55) mg/dL HDL Cholesterol (40-60) mg/dL Cholesterol/HDL Ratio (3.3-6.0) Vitamin B12 (193-986) pg/mL TSH 3rd Generation 0.73 (0.36-3.74) uIU/mL Urine Color Urine Appearance Urine pH (5.0-8.0) Ur Specific Ronan (1.001-1.035) Urine Protein (NEGATIVE) mg/dL Urine Glucose (UA) (NEGATIVE) mg/dL Urine Ketones (NEGATIVE) mg/dL Urine Occult Blood (NEGATIVE) Urine Nitrite (NEGATIVE) Urine Bilirubin (NEGATIVE) Urine Urobilinogen (<2.0) EU/dL Ur Leukocyte Esterase (NEGATIVE) 06/10/19 06/10/19 06/10/19 Range/Units 10:46 10:46 15:12 WBC (4.0-11.0) K/uL RBC (4.50-5.90) M/uL Hgb (13.0-17.0) g/dL Hct (38.0-50.0) % MCV (80.0-98.0) fL MCH (27.0-32.0) pg MCHC (31.0-37.0) g/dL RDW Std Deviation (28.0-62.0) fl RDW Coeff of Randolph (11.0-15.0) % Plt Count (150-400) K/uL MPV (7.40-12.00) fL Neut % (Auto) (48.0-80.0) % Lymph % (Auto) (16.0-40.0) % Bibb % (Auto) (0.0-15.0) % Eos % (Auto) (0.0-7.0) % Baso % (Auto) (0.0-1.5) % Neut # (Auto) (1.4-5.7) K/uL Lymph # (Auto) (0.6-2.4) K/uL Bibb # (Auto) (0.0-0.8) K/uL Eos # (Auto) (0.0-0.7) K/uL Baso # (Auto) (0.0-0.1) K/uL Nucleated RBC % /100WBC Nucleated RBCs # K/uL INR APTT (18.6-31.3) SEC Lactate (0.20-2.00) mmol/L Sodium (136-148) mmol/L Potassium (3.5-5.1) mmol/L Chloride (98-107) mmol/L Carbon Dioxide (21.0-32.0) mmol/L BUN (7.0-18.0) mg/dL Creatinine (0.8-1.3) mg/dL Est Cr Clr Drug Dosing mL/min Estimated GFR (MDRD) ml/min Glucose (74-106) mg/dL POC Glucose (60-110) mg/dL Hemoglobin A1c 6.2 (4.5-6.2) % Calcium (8.5-10.1) mg/dL Phosphorus (2.6-4.7) mg/dL Magnesium (1.8-2.4) mg/dL Total Bilirubin (0.2-1.0) mg/dL AST (15-37) IU/L ALT (14-63) IU/L Alkaline Phosphatase (46-116) U/L Troponin I (0.000-0.056) ng/mL Total Protein (6.4-8.2) g/dL Albumin (3.4-5.0) g/dL Globulin (2.6-4.0) g/dL Albumin/Globulin Ratio (0.9-1.6) Triglycerides 129 (0-200) mg/dL Cholesterol 173 (50-200) mg/dL LDL Cholesterol, Calc 78 (60-180) mg/dL VLDL Cholesterol 25 (5-55) mg/dL HDL Cholesterol 69 H (40-60) mg/dL Cholesterol/HDL Ratio 2.5 L (3.3-6.0) Vitamin B12 467 (193-986) pg/mL TSH 3rd Generation (0.36-3.74) uIU/mL Urine Color Urine Appearance Urine pH (5.0-8.0) Ur Specific Ronan (1.001-1.035) Urine Protein (NEGATIVE) mg/dL Urine Glucose (UA) (NEGATIVE) mg/dL Urine Ketones (NEGATIVE) mg/dL Urine Occult Blood (NEGATIVE) Urine Nitrite (NEGATIVE) Urine Bilirubin (NEGATIVE) Urine Urobilinogen (<2.0) EU/dL Ur Leukocyte Esterase (NEGATIVE) 06/10/19 06/10/19 06/10/19 Range/Units 20:50 21:13 21:15 WBC 7.55 (4.0-11.0) K/uL RBC 4.46 L (4.50-5.90) M/uL Hgb 12.8 L (13.0-17.0) g/dL Hct 39.4 (38.0-50.0) % MCV 88.3 (80.0-98.0) fL MCH 28.7 (27.0-32.0) pg MCHC 32.5 (31.0-37.0) g/dL RDW Std Deviation 51.2 (28.0-62.0) fl RDW Coeff of Randolph 16 H (11.0-15.0) % Plt Count 291 (150-400) K/uL MPV 9.50 (7.40-12.00) fL Neut % (Auto) 71.5 (48.0-80.0) % Lymph % (Auto) 15.5 L (16.0-40.0) % Bibb % (Auto) 10.5 (0.0-15.0) % Eos % (Auto) 2.0 (0.0-7.0) % Baso % (Auto) 0.5 (0.0-1.5) % Neut # (Auto) 5.4 (1.4-5.7) K/uL Lymph # (Auto) 1.2 (0.6-2.4) K/uL Bibb # (Auto) 0.8 (0.0-0.8) K/uL Eos # (Auto) 0.2 (0.0-0.7) K/uL Baso # (Auto) 0.0 (0.0-0.1) K/uL Nucleated RBC % 0.0 /100WBC Nucleated RBCs # 0 K/uL INR APTT (18.6-31.3) SEC Lactate (0.20-2.00) mmol/L Sodium (136-148) mmol/L Potassium (3.5-5.1) mmol/L Chloride (98-107) mmol/L Carbon Dioxide (21.0-32.0) mmol/L BUN (7.0-18.0) mg/dL Creatinine (0.8-1.3) mg/dL Est Cr Clr Drug Dosing mL/min Estimated GFR (MDRD) ml/min Glucose (74-106) mg/dL POC Glucose 107 (60-110) mg/dL Hemoglobin A1c (4.5-6.2) % Calcium (8.5-10.1) mg/dL Phosphorus (2.6-4.7) mg/dL Magnesium (1.8-2.4) mg/dL Total Bilirubin (0.2-1.0) mg/dL AST (15-37) IU/L ALT (14-63) IU/L Alkaline Phosphatase (46-116) U/L Troponin I (0.000-0.056) ng/mL Total Protein (6.4-8.2) g/dL Albumin (3.4-5.0) g/dL Globulin (2.6-4.0) g/dL Albumin/Globulin Ratio (0.9-1.6) Triglycerides (0-200) mg/dL Cholesterol (50-200) mg/dL LDL Cholesterol, Calc (60-180) mg/dL VLDL Cholesterol (5-55) mg/dL HDL Cholesterol (40-60) mg/dL Cholesterol/HDL Ratio (3.3-6.0) Vitamin B12 (193-986) pg/mL TSH 3rd Generation (0.36-3.74) uIU/mL Urine Color YELLOW Urine Appearance CLEAR Urine pH 5.5 (5.0-8.0) Ur Specific Ronan 1.025 (1.001-1.035) Urine Protein NEGATIVE (NEGATIVE) mg/dL Urine Glucose (UA) NEGATIVE (NEGATIVE) mg/dL Urine Ketones NEGATIVE (NEGATIVE) mg/dL Urine Occult Blood NEGATIVE (NEGATIVE) Urine Nitrite NEGATIVE (NEGATIVE) Urine Bilirubin NEGATIVE (NEGATIVE) Urine Urobilinogen 0.2 (<2.0) EU/dL Ur Leukocyte Esterase NEGATIVE (NEGATIVE) 06/10/19 06/10/19 06/10/19 Range/Units 21:15 21:15 21:15 WBC (4.0-11.0) K/uL RBC (4.50-5.90) M/uL Hgb (13.0-17.0) g/dL Hct (38.0-50.0) % MCV (80.0-98.0) fL MCH (27.0-32.0) pg MCHC (31.0-37.0) g/dL RDW Std Deviation (28.0-62.0) fl RDW Coeff of Randolph (11.0-15.0) % Plt Count (150-400) K/uL MPV (7.40-12.00) fL Neut % (Auto) (48.0-80.0) % Lymph % (Auto) (16.0-40.0) % Bibb % (Auto) (0.0-15.0) % Eos % (Auto) (0.0-7.0) % Baso % (Auto) (0.0-1.5) % Neut # (Auto) (1.4-5.7) K/uL Lymph # (Auto) (0.6-2.4) K/uL Bibb # (Auto) (0.0-0.8) K/uL Eos # (Auto) (0.0-0.7) K/uL Baso # (Auto) (0.0-0.1) K/uL Nucleated RBC % /100WBC Nucleated RBCs # K/uL INR APTT (18.6-31.3) SEC Lactate 2.6 H* (0.20-2.00) mmol/L Sodium 145 (136-148) mmol/L Potassium 4.0 (3.5-5.1) mmol/L Chloride 104 (98-107) mmol/L Carbon Dioxide 29.6 (21.0-32.0) mmol/L BUN 22 H (7.0-18.0) mg/dL Creatinine 1.1 (0.8-1.3) mg/dL Est Cr Clr Drug Dosing 50.63 mL/min Estimated GFR (MDRD) > 60.0 ml/min Glucose 109 H (74-106) mg/dL POC Glucose (60-110) mg/dL Hemoglobin A1c (4.5-6.2) % Calcium 9.0 (8.5-10.1) mg/dL Phosphorus 4.0 (2.6-4.7) mg/dL Magnesium 1.9 (1.8-2.4) mg/dL Total Bilirubin (0.2-1.0) mg/dL AST (15-37) IU/L ALT (14-63) IU/L Alkaline Phosphatase (46-116) U/L Troponin I < 0.050 (0.000-0.056) ng/mL Total Protein (6.4-8.2) g/dL Albumin (3.4-5.0) g/dL Globulin (2.6-4.0) g/dL Albumin/Globulin Ratio (0.9-1.6) Triglycerides (0-200) mg/dL Cholesterol (50-200) mg/dL LDL Cholesterol, Calc (60-180) mg/dL VLDL Cholesterol (5-55) mg/dL HDL Cholesterol (40-60) mg/dL Cholesterol/HDL Ratio (3.3-6.0) Vitamin B12 (193-986) pg/mL TSH 3rd Generation (0.36-3.74) uIU/mL Urine Color Urine Appearance Urine pH (5.0-8.0) Ur Specific Ronan (1.001-1.035) Urine Protein (NEGATIVE) mg/dL Urine Glucose (UA) (NEGATIVE) mg/dL Urine Ketones (NEGATIVE) mg/dL Urine Occult Blood (NEGATIVE) Urine Nitrite (NEGATIVE) Urine Bilirubin (NEGATIVE) Urine Urobilinogen (<2.0) EU/dL Ur Leukocyte Esterase (NEGATIVE) 06/11/19 Range/Units 01:05 WBC (4.0-11.0) K/uL RBC (4.50-5.90) M/uL Hgb (13.0-17.0) g/dL Hct (38.0-50.0) % MCV (80.0-98.0) fL MCH (27.0-32.0) pg MCHC (31.0-37.0) g/dL RDW Std Deviation (28.0-62.0) fl RDW Coeff of Randolph (11.0-15.0) % Plt Count (150-400) K/uL MPV (7.40-12.00) fL Neut % (Auto) (48.0-80.0) % Lymph % (Auto) (16.0-40.0) % Bibb % (Auto) (0.0-15.0) % Eos % (Auto) (0.0-7.0) % Baso % (Auto) (0.0-1.5) % Neut # (Auto) (1.4-5.7) K/uL Lymph # (Auto) (0.6-2.4) K/uL Bibb # (Auto) (0.0-0.8) K/uL Eos # (Auto) (0.0-0.7) K/uL Baso # (Auto) (0.0-0.1) K/uL Nucleated RBC % /100WBC Nucleated RBCs # K/uL INR APTT (18.6-31.3) SEC Lactate 1.1 (0.20-2.00) mmol/L Sodium (136-148) mmol/L Potassium (3.5-5.1) mmol/L Chloride (98-107) mmol/L Carbon Dioxide (21.0-32.0) mmol/L BUN (7.0-18.0) mg/dL Creatinine (0.8-1.3) mg/dL Est Cr Clr Drug Dosing mL/min Estimated GFR (MDRD) ml/min Glucose (74-106) mg/dL POC Glucose (60-110) mg/dL Hemoglobin A1c (4.5-6.2) % Calcium (8.5-10.1) mg/dL Phosphorus (2.6-4.7) mg/dL Magnesium (1.8-2.4) mg/dL Total Bilirubin (0.2-1.0) mg/dL AST (15-37) IU/L ALT (14-63) IU/L Alkaline Phosphatase (46-116) U/L Troponin I (0.000-0.056) ng/mL Total Protein (6.4-8.2) g/dL Albumin (3.4-5.0) g/dL Globulin (2.6-4.0) g/dL Albumin/Globulin Ratio (0.9-1.6) Triglycerides (0-200) mg/dL Cholesterol (50-200) mg/dL LDL Cholesterol, Calc (60-180) mg/dL VLDL Cholesterol (5-55) mg/dL HDL Cholesterol (40-60) mg/dL Cholesterol/HDL Ratio (3.3-6.0) Vitamin B12 (193-986) pg/mL TSH 3rd Generation (0.36-3.74) uIU/mL Urine Color Urine Appearance Urine pH (5.0-8.0) Ur Specific Ronan (1.001-1.035) Urine Protein (NEGATIVE) mg/dL Urine Glucose (UA) (NEGATIVE) mg/dL Urine Ketones (NEGATIVE) mg/dL Urine Occult Blood (NEGATIVE) Urine Nitrite (NEGATIVE) Urine Bilirubin (NEGATIVE) Urine Urobilinogen (<2.0) EU/dL Ur Leukocyte Esterase (NEGATIVE) Med Orders - Current: Current Medications Acetaminophen (Tylenol) 650 mg PO Q4H PRN PRN Reason: Pain (Mild 1-3)/fever Last Admin: 06/10/19 23:27 Dose: 650 mg Piperacillin Sod/Tazobactam (Sod 3.375 gm/ Sodium Chloride) 50 mls @ 100 mls/ hr IV Q8H [facility] Last Admin: 06/11/19 05:14 Dose: 100 mls/hr Vancomycin HCl 1 gm/ Sodium (Chloride) 250 mls @ 166 mls/hr IV Q8H [facility] Last Admin: 06/11/19 06:56 Dose: 166 mls/hr Sodium Chloride (Normal Saline) 1,000 mls @ 125 mls/hr IV ASDIRECTED [facility] Last Admin: 06/11/19 02:15 Dose: 125 mls/hr Ondansetron HCl (Zofran) 4 mg IVPUSH Q4H PRN PRN Reason: Nausea Sodium Chloride (Saline Flush) 10 ml FLUSH ASDIRECTED PRN PRN Reason: Keep Vein Open Last Admin: 06/10/19 12:06 Dose: 10 ml Sodium Chloride (Saline Flush) 2.5 ml FLUSH ASDIRECTED PRN PRN Reason: Keep Vein Open Last Admin: 06/10/19 12:06 Dose: 2.5 ml Sodium Chloride (Normal Saline) 10 ml IV ASDIRECTED PRN PRN Reason: IV Use Last Admin: 06/10/19 12:06 Dose: 10 ml Discontinued Medications Aspirin (Aspirin) 325 mg PO ONETIME ONE Stop: 06/10/19 12:31 Last Admin: 06/10/19 12:54 Dose: 325 mg Gadobenate Dimeglumine (Multihance) 20 ml IVPUSH ONETIME STA Stop: 06/10/19 13:16 Last Admin: 06/10/19 13:20 Dose: 11 ml Sodium Chloride (Normal Saline) 1,000 mls @ 999 mls/hr IV .Bolus ONE Stop: 06/10/19 22:23 Last Admin: 06/10/19 21:13 Dose: 999 mls/hr Vancomycin HCl 1 gm/ Sodium (Chloride) 250 mls @ 166 mls/hr IV ONETIME ONE Stop: 06/10/19 23:30 Last Admin: 06/11/19 01:26 Dose: Not Given Sodium Chloride (Normal Saline) 1,000 mls @ 999 mls/hr IV BOLUS ONE Stop: 06/10/19 23:30 Last Admin: 06/10/19 21:20 Dose: 999 mls/hr - Exam General: Alert, Oriented, Cooperative Lungs: Clear to Auscultation, Normal Respiratory Effort, Other (trach) Cardiovascular: Regular Rate, Regular Rhythm GI/Abdominal Exam: Normal Bowel Sounds, Soft, Non-Tender Extremities: Normal Inspection, Normal Range of Motion, Non-Tender, No Pedal Edema Neurological: No New Focal Deficit Psy/Mental Status: Alert, Normal Affect, Normal Mood Sepsis Event Note - Evaluation Sepsis Screening Result: No Definite Risk - Focused Exam Vital Signs: Vital Signs Temp Pulse Resp BP Pulse Ox 06/11/19 04:00 97.8 F 98 18 139/85 94 L 06/10/19 22:30 98 F 99 17 146/69 H 100 06/10/19 21:30 99 17 141/80 H 100 06/10/19 21:15 83 16 86/37 L 99 06/10/19 21:10 70 15 53/25 L 88 L Date Exam was Performed: 06/11/19 Time Exam was Performed: 09:03 - Problem List & Annotations (1) Altered mental status SNOMED Code(s): 971648416 Code(s): R41.82 - ALTERED MENTAL STATUS, UNSPECIFIED Status: Acute Current Visit: Yes (2) TIA (transient ischemic attack) SNOMED Code(s): 364076415 Code(s): G45.9 - TRANSIENT CEREBRAL ISCHEMIC ATTACK, UNSPECIFIED Status: Acute Current Visit: Yes (3) History of COPD SNOMED Code(s): 188582505 Code(s): Z87.09 - PERSONAL HISTORY OF OTHER DISEASES OF THE RESPIRATORY SYSTEM Status: Acute Current Visit: No (4) History of chronic hypertension SNOMED Code(s): 988248917 Code(s): Z86.79 - PERSONAL HISTORY OF OTHER DISEASES OF THE CIRCULATORY SYSTEM Status: Acute Current Visit: No (5) History of coronary artery disease SNOMED Code(s): 216486270 Code(s): Z86.79 - PERSONAL HISTORY OF OTHER DISEASES OF THE CIRCULATORY SYSTEM Status: Acute Current Visit: No (6) CAD (coronary artery disease) SNOMED Code(s): 92738788 Code(s): I25.10 - ATHSCL HEART DISEASE OF [place] CORONARY ARTERY W/O ANG PCTRS Status: Chronic Priority: Medium Current Visit: No (7) HLD (hyperlipidemia) SNOMED Code(s): 67348974 Code(s): E78.5 - HYPERLIPIDEMIA, UNSPECIFIED Status: Chronic Current Visit: No (8) HTN (hypertension) SNOMED Code(s): 76432247 Code(s): I10 - ESSENTIAL (PRIMARY) HYPERTENSION Status: Chronic Current Visit: No (9) Hx of laryngectomy SNOMED Code(s): 260766116, 509272875 Code(s): Z90.02 - ACQUIRED ABSENCE OF LARYNX Status: Chronic Priority: Low Current Visit: No (10) Tracheostomy in place SNOMED Code(s): 520498109 Code(s): Z93.0 - TRACHEOSTOMY STATUS Status: Chronic Priority: Low Current Visit: No - Problem List Review Problem List Initiated/Reviewed/Updated: No - My Orders Last 24 Hours: My Active Orders 06/10/19 12:37 Telemetry Monitoring [Cardiac Monitoring] [RC] Q8H 06/10/19 12:38 Echo Comp wo Cont [US] Urgent 06/10/19 14:17 Intake and Output [RC] Q12H Up With Assistance [RC] ASDIRECTED VTE/DVT Education [RC] PER UNIT ROUTINE Vital Signs [RC] Q4H Acetaminophen [Tylenol] 650 mg PO Q4H PRN Ondansetron [Zofran] 4 mg IVPUSH Q4H PRN 06/10/19 14:37 PT Evaluation and Treatment [CONS] Routine 06/10/19 14:46 Tracheostomy Care [RT Tracheostomy Assessment] [RC] ASDIRECTED 06/10/19 14:48 Resuscitation Status Routine 06/10/19 Lunch Heart Healthy Diet [DIET] 06/11/19 08:02 Orthostatic Vital Signs [RC] ASDIRECTED - Plan Plan:: This 74 year old male admitted with confusion and unsteady gait at home 1. Confusion/unsteady: Had possible syncope last evening with at bedside, he sat up in bed and passed out falling backwards on the bed. Hit his head on the railing. Head CT negative, scalp hematoma noted. Mild headache this morning. IVFs started oernight and IV antibiotics. Obtain Orthostatic VS this morning. Consider pneumonia, will speak with Dr Boyd today regarding CXR findings. 2. HTN: BP stable, allow permissive HTN if possible CVA 3. CAD: Stable, Continue statin and ASA. No chest pain 4. Tracheostomy: No increase in phlegm and no fevers. Trach cares. VTE prophylaxis: Heparin Dispo: 1 day
[2019-06-11] MEDS: Acetaminophen 325 MG Tab PO PRN ×2 (12:59→19:51)
[2019-06-11] MEDS ORDERED: Simvastatin 40 MG Tab PO SCH (21:00)
[2019-06-12] MEDS: Acetaminophen 325 MG Tab PO PRN (03:45)
[2019-06-12] MEDS: Piperacillin/Tazobactam 3.375 GM in Sodium Chloride 0.9% 50 ML IV SCH (06:17)
[2019-06-12 06:57] LABS: BLOOD UREA NITROGEN,BUN 10 mg/dL (7.0-18.0); CARBON DIOXIDE,CO2 27.1 mmol/L (21.0-32.0); CHLORIDE,CL 108 mmol/L (98-107); GLUCOSE RANDOM 110 mg/dL (74-106); POTASSIUM,K 3.6 mmol/L (3.5-5.1); SODIUM,NA 144 mmol/L (136-148)
[2019-06-12] MEDS ORDERED: Levothyroxine 100 MCG Tab PO SCH (07:00)
--- NOTE | 2019-06-12 09:01 | PCM.DCSUM1 ---
<Dominique Armenta - Last Filed: 06/12/19 12:03> Discharge Summary - Hospital Course HPI Initial Comments: Admission Date: 06/10/19 Discharge Date: 06/12/19 Admission Diagnosis: 1. Confusion/unsteady 2. HTN 3. CAD 4. Tracheostomy Discharge Diagnosis: 1. Confusion/unsteady- resolved 2. HTN- stable 3. CAD 4. Tracheostomy 5. 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 In the ED lab work WNL. EKG SR with no ST elevation. Head CT negative. UA pending. Troponin negative. ASA given. Admitted for suspected TIA rule out CVA. He was admitted to the floor, work up for stroke with MRI brain and MRA head/neck did not reveal any acute abnormalities. Echo was pending at time of discharge. He was monitored on telemetry without any significant events. Patient already on statin ad ASA. Was evaluated by PT and they declared he did not need any further skilled needs. Initially blood pressure meds were held to allow for permissive hypertension and then restarted. A rapid response was called on the patient night of admission. He was trying to get out of bed with assistance of then fell back on bed and hit head on railing. Blood pressure at time was 53/25, he was given 2L bolus of fluids and BP improved to 141/80, lactic acid was drawn and elevated, patient started on broad spectrum antibiotics. By then next morning lactic acid had resolved. Repeat CT scan was negative. No white count and no sign of infection on work up. Patient will not be discharged home on antibiotics. Patient had scalp hematoma but no deficits. Orthostatics were checked later and were wnl. By day of discharge, patient was feeling better, and was wanting to go home. Disposition: Home Discharge Condition: vitals stable, tolerating oral diet, ambulating without difficulty, symptom improvement Discharge Instructions: regular diet as tolerated, activity as tolerated, take medications as prescribed. Symptoms to report to physician include fever/chills , chest pain, shortness of breath, abdominal pain, confusion, facial droop, slurred speech, extremity weakness, erythema, drainage/discharge, or not improving as expected. Discharge Medications: Aspirin 81 mg PO DAILY Levothyroxine 100 mcg PO ACBREAKFAST Metoprolol Succinate [Toprol XL] 25 mg PO BID Simvastatin [Zocor] 40 mg PO BEDTIME Cetirizine [ZyrTEC] 10 mg PO DAILY Cholecalciferol (Vitamin D3) [Vitamin D3] 1 cap PO DAILY Famotidine 40 mg PO BID Pentoxifylline 400 mg PO TID Vitamin E 400 unit PO BIDMEALS Follow-up: PCP- Dr. Mai 06/21/19 - Discharge Data Discharge Date: 06/12/19 Discharge Disposition: Home, Self-Care 01 Condition: Stable - Referral to Home Health Primary Care Physician: Akira Mai MD - Patient Summary/Data Consults: Consultations 06/10/19 14:37 PT Evaluation and Treatment [CONS] Routine - Discharge Plan Prescriptions/Med Rec: Levofloxacin [Levaquin] 750 mg PO DAILY 5 Days #5 tablet Home Medications: Home Meds Aspirin 81 mg PO DAILY 11/25/15 [History] Levothyroxine 100 mcg PO ACBREAKFAST 11/25/15 [History] Metoprolol Succinate [Toprol XL] 25 mg PO BID 11/25/15 [History] Simvastatin [Zocor] 40 mg PO BEDTIME 11/25/15 [History] Cetirizine [ZyrTEC] 10 mg PO DAILY 08/17/17 [History] Cholecalciferol (Vitamin D3) [Vitamin D3] 1 cap PO DAILY 11/18/18 [History] Famotidine 40 mg PO BID 06/10/19 [History] Pentoxifylline 400 mg PO TID 06/10/19 [History] Vitamin E 400 unit PO BIDMEALS 06/10/19 [History] Levofloxacin [Levaquin] 750 mg PO DAILY 5 Days #5 tablet 06/12/19 [Rx] Patient Handouts: Transient Ischemic Attack, [id number], Levofloxacin tablets Referrals: Akira Mai MD [Primary Care Provider] - 06/21/19 2:45 pm (Be in the clinic 15 minutes before the appointment, bring photo ID and insurance card) - Discharge Summary/Plan Comment DC Time >30 min.: No - Patient Data Vitals - Most Recent: Last Vital Signs Temp 96.7 F 02/01/20 08:00 Pulse 79 06/12/19 08:00 Resp 18 06/12/19 08:00 BP 144/73 H 06/12/19 08:00 Pulse Ox 91 L 06/12/19 08:00 Orthostatic Blood Pressure [ 153/78 Standing] Orthostatic Blood Pressure [ 156/74 Sitting] Orthostatic Blood Pressure [ 157/76 Supine] Weight - Most Recent: 58.967 kg I&O - Last 24 hours: Intake & Output 06/11/19 06/12/19 06/12/19 22:59 06:59 14:59 Intake Total 1849 500 50 Output Total 950 950 Balance 899 -450 50 Lab Results - Last 24 hrs: Laboratory Results - last 24 hr 06/11/19 06/11/19 06/12/19 Range/Units 15:48 22:32 06:00 WBC 7.52 (4.0-11.0) K/uL RBC 3.81 L (4.50-5.90) M/uL Hgb 11.2 L (13.0-17.0) g/dL Hct 33.7 L (38.0-50.0) % MCV 88.5 (80.0-98.0) fL MCH 29.4 (27.0-32.0) pg MCHC 33.2 (31.0-37.0) g/dL RDW Std Deviation 49.6 (28.0-62.0) fl RDW Coeff of [place] 15 (11.0-15.0) % Plt Count 263 (150-400) K/uL MPV 9.50 (7.40-12.00) fL Neut % (Auto) 74.7 (48.0-80.0) % Lymph % (Auto) 9.7 L (16.0-40.0) % [place] % (Auto) 11.4 (0.0-15.0) % Eos % (Auto) 3.5 (0.0-7.0) % Baso % (Auto) 0.7 (0.0-1.5) % Neut # (Auto) 5.6 (1.4-5.7) K/uL Lymph # (Auto) 0.7 (0.6-2.4) K/uL [place] # (Auto) 0.9 H (0.0-0.8) K/uL Eos # (Auto) 0.3 (0.0-0.7) K/uL Baso # (Auto) 0.1 (0.0-0.1) K/uL Nucleated RBC % 0.0 /100WBC Nucleated RBCs # 0 K/uL Sodium (136-148) mmol/L Potassium (3.5-5.1) mmol/L Chloride (98-107) mmol/L Carbon Dioxide (21.0-32.0) mmol/L BUN (7.0-18.0) mg/dL Creatinine (0.8-1.3) mg/dL Est Cr Clr Drug Dosing mL/min Estimated GFR (MDRD) ml/min Glucose (74-106) mg/dL POC Glucose 159 H (60-110) mg/dL Calcium (8.5-10.1) mg/dL Vancomycin Trough 14.6 H (5.0-10.0) ug/mL 06/12/19 Range/Units 06:00 WBC (4.0-11.0) K/uL RBC (4.50-5.90) M/uL Hgb (13.0-17.0) g/dL Hct (38.0-50.0) % MCV (80.0-98.0) fL MCH (27.0-32.0) pg MCHC (31.0-37.0) g/dL RDW Std Deviation (28.0-62.0) fl RDW Coeff of [place] (11.0-15.0) % Plt Count (150-400) K/uL MPV (7.40-12.00) fL Neut % (Auto) (48.0-80.0) % Lymph % (Auto) (16.0-40.0) % [place] % (Auto) (0.0-15.0) % Eos % (Auto) (0.0-7.0) % Baso % (Auto) (0.0-1.5) % Neut # (Auto) (1.4-5.7) K/uL Lymph # (Auto) (0.6-2.4) K/uL [place] # (Auto) (0.0-0.8) K/uL Eos # (Auto) (0.0-0.7) K/uL Baso # (Auto) (0.0-0.1) K/uL Nucleated RBC % /100WBC Nucleated RBCs # K/uL Sodium 144 (136-148) mmol/L Potassium 3.6 (3.5-5.1) mmol/L Chloride 108 H (98-107) mmol/L Carbon Dioxide 27.1 (21.0-32.0) mmol/L BUN 10 (7.0-18.0) mg/dL Creatinine 0.7 L (0.8-1.3) mg/dL Est Cr Clr Drug Dosing 79.56 mL/min Estimated GFR (MDRD) > 60.0 ml/min Glucose 110 H (74-106) mg/dL POC Glucose (60-110) mg/dL Calcium 8.0 L (8.5-10.1) mg/dL Vancomycin Trough (5.0-10.0) ug/mL Med Orders - Current: Current Medications Acetaminophen (Tylenol) 650 mg PO Q4H PRN PRN Reason: Pain (Mild 1-3)/fever Last Admin: 06/12/19 03:45 Dose: 650 mg Piperacillin Sod/Tazobactam (Sod 3.375 gm/ Sodium Chloride) 50 mls @ 100 mls/ hr IV Q8H [facility] Last Admin: 06/12/19 06:17 Dose: 100 mls/hr Vancomycin HCl 1 gm/ Sodium (Chloride) 250 mls @ 166 mls/hr IV Q8H [facility] Last Admin: 06/12/19 07:33 Dose: 166 mls/hr Levothyroxine Sodium (Synthroid) 100 mcg PO DAILY@0700 [facility] Last Admin: 06/12/19 07:34 Dose: 100 mcg Ondansetron HCl (Zofran) 4 mg IVPUSH Q4H PRN PRN Reason: Nausea Simvastatin (Zocor) 40 mg PO BEDTIME [facility] Last Admin: 06/11/19 20:55 Dose: 40 mg Sodium Chloride (Saline Flush) 10 ml FLUSH ASDIRECTED PRN PRN Reason: Keep Vein Open Last Admin: 06/10/19 12:06 Dose: 10 ml Sodium Chloride (Saline Flush) 2.5 ml FLUSH ASDIRECTED PRN PRN Reason: Keep Vein Open Last Admin: 06/10/19 12:06 Dose: 2.5 ml Sodium Chloride (Normal Saline) 10 ml IV ASDIRECTED PRN PRN Reason: IV Use Last Admin: 06/10/19 12:06 Dose: 10 ml Discontinued Medications Aspirin (Aspirin) 325 mg PO ONETIME ONE Stop: 06/10/19 12:31 Last Admin: 06/10/19 12:54 Dose: 325 mg Gadobenate Dimeglumine (Multihance) 20 ml IVPUSH ONETIME STA Stop: 06/10/19 13:16 Last Admin: 06/10/19 13:20 Dose: 11 ml Sodium Chloride (Normal Saline) 1,000 mls @ 999 mls/hr IV .Bolus ONE Stop: 06/10/19 22:23 Last Admin: 06/10/19 21:13 Dose: 999 mls/hr Vancomycin HCl 1 gm/ Sodium (Chloride) 250 mls @ 166 mls/hr IV ONETIME ONE Stop: 06/10/19 23:30 Last Admin: 06/11/19 01:26 Dose: Not Given Sodium Chloride (Normal Saline) 1,000 mls @ 999 mls/hr IV BOLUS ONE Stop: 06/10/19 23:30 Last Admin: 06/10/19 21:20 Dose: 999 mls/hr Sodium Chloride (Normal Saline) 1,000 mls @ 125 mls/hr IV ASDIRECTED [facility]ORGE Last Admin: 06/11/19 02:15 Dose: 125 mls/hr <Sage Myles - Last Filed: 06/16/19 13:59> Discharge Summary - Referral to Home Health Primary Care Physician: Akira Mai MD - Patient Summary/Data Consults: Consultations 06/10/19 14:37 PT Evaluation and Treatment [CONS] Routine - Patient Data Vitals - Most Recent: Last Vital Signs Temp 37.1 C 06/12/19 12:00 Pulse 86 06/12/19 12:39 Resp 16 06/12/19 12:00 BP 180/90 H 06/12/19 12:39 Pulse Ox 95 06/12/19 12:00 Orthostatic Blood Pressure [ 153/78 Standing] Orthostatic Blood Pressure [ 156/74 Sitting] Orthostatic Blood Pressure [ 157/76 Supine] Med Orders - Current: Current Medications Discontinued Medications Acetaminophen (Tylenol) 650 mg PO Q4H PRN PRN Reason: Pain (Mild 1-3)/fever Last Admin: 06/12/19 03:45 Dose: 650 mg Aspirin (Aspirin) 325 mg PO ONETIME ONE Stop: 06/10/19 12:31 Last Admin: 06/10/19 12:54 Dose: 325 mg Gadobenate Dimeglumine (Multihance) 20 ml IVPUSH ONETIME STA Stop: 06/10/19 13:16 Last Admin: 06/10/19 13:20 Dose: 11 ml Sodium Chloride (Normal Saline) 1,000 mls @ 999 mls/hr IV .Bolus ONE Stop: 06/10/19 22:23 Last Admin: 06/10/19 21:13 Dose: 999 mls/hr Piperacillin Sod/Tazobactam (Sod 3.375 gm/ Sodium Chloride) 50 mls @ 100 mls/ hr IV Q8H [facility] Last Admin: 06/12/19 06:17 Dose: 100 mls/hr Vancomycin HCl 1 gm/ Sodium (Chloride) 250 mls @ 166 mls/hr IV ONETIME ONE Stop: 06/10/19 23:30 Last Admin: 06/11/19 01:26 Dose: Not Given Vancomycin HCl 1 gm/ Sodium (Chloride) 250 mls @ 166 mls/hr IV Q8H [facility] Last Admin: 06/12/19 07:33 Dose: 166 mls/hr Sodium Chloride (Normal Saline) 1,000 mls @ 999 mls/hr IV BOLUS ONE Stop: 06/10/19 23:30 Last Admin: 06/10/19 21:20 Dose: 999 mls/hr Sodium Chloride (Normal Saline) 1,000 mls @ 125 mls/hr IV ASDIRECTED [facility] Last Admin: 06/11/19 02:15 Dose: 125 mls/hr Levothyroxine Sodium (Synthroid) 100 mcg PO DAILY@0700 [facility] Last Admin: 06/12/19 07:34 Dose: 100 mcg Metoprolol Succinate (Toprol Xl) 25 mg PO BID [facility] Last Admin: 06/12/19 12:39 Dose: 25 mg Ondansetron HCl (Zofran) 4 mg IVPUSH Q4H PRN PRN Reason: Nausea Simvastatin (Zocor) 40 mg PO BEDTIME [facility] Last Admin: 06/11/19 20:55 Dose: 40 mg Sodium Chloride (Saline Flush) 10 ml FLUSH ASDIRECTED PRN PRN Reason: Keep Vein Open Last Admin: 06/10/19 12:06 Dose: 10 ml Sodium Chloride (Saline Flush) 2.5 ml FLUSH ASDIRECTED PRN PRN Reason: Keep Vein Open Last Admin: 06/10/19 12:06 Dose: 2.5 ml Sodium Chloride (Normal Saline) 10 ml IV ASDIRECTED PRN PRN Reason: IV Use Last Admin: 06/10/19 12:06 Dose: 10 ml - Free Text/Narrative Note: I have seen and evaluated the patient with the resident. I have discussed findings and treatment plan with the resident. I agree with the assessment and plan in the following note.
[2019-06-12] MEDS ORDERED: Metoprolol Succinate 50 MG Tab.ER PO SCH (12:30)
[2019-06-12 12:47] VITALS: BP 180/90; PULSE 86
--- NOTE | 2019-06-14 14:44 | ECHO ---
The echocardiogram report can be seen in this patient's EMR (Electronic Medical Record) in the REPORTS section. The echocardiogram report has also been scanned into PACS and can be seen there as well. [email or web address]
== END 2019-06-12 13:30 | disposition home or self-care (01) ==
LOC: MW.ED 10:12 → MW.MS 12:48 → MW.ED 12:53 → MW.MS 12:54 → UNDOADMOB 12:54
PROVIDERS: ADMIT Student in an Organized Health Care Education/Training Program; ATTEND Student in an Organized Health Care Education/Training Program
DX: R41.82 Altered mental status, unspecified (principal); R26.81 Unsteadiness on feet; I10 Essential (primary) hypertension; I25.10 Atherosclerotic heart disease of native coronary artery without angina pectoris; I95.9 Hypotension, unspecified; E87.2 Acidosis; S00.03XA Contusion of scalp, initial encounter; J44.9 Chronic obstructive pulmonary disease, unspecified; E78.5 Hyperlipidemia, unspecified; G47.30 Sleep apnea, unspecified; F32.9 Major depressive disorder, single episode, unspecified; F41.9 Anxiety disorder, unspecified; E03.9 Hypothyroidism, unspecified; I25.2 Old myocardial infarction; M19.012 Primary osteoarthritis, left shoulder; M19.011 Primary osteoarthritis, right shoulder; M19.022 Primary osteoarthritis, left elbow; M19.021 Primary osteoarthritis, right elbow; W22.03XA Walked into furniture, initial encounter; Z79.82 Long term (current) use of aspirin; Z79.899 Other long term (current) drug therapy; Z95.5 Presence of coronary angioplasty implant and graft; Z87.891 Personal history of nicotine dependence; Z93.0 Tracheostomy status; Z90.02 Acquired absence of larynx
CPT/HCPCS: 36415; 70450; 70544; 70547; 70553; 71045; 80048; 80053; 80061; 80202; 81003; 82607; 82962; 83036; 83605; 83735; 84100; 84443; 84484; 85025; 85610; 85730; 93005; 93306; 96365; 96366; 96367; 96376; 97161; 99285; A9270; A9577; G0378; J2543; J3370; J7030; J7050; 99284

== ENCOUNTER 2020-08-17 11:55 | Emergency (ER) | payer MEDICARE, BC ==
--- NOTE | 2020-08-17 12:06 | EDM.PDOC ---
ED HPI GENERAL MEDICAL PROBLEM - General Chief Complaint: General Time Seen by Provider: 08/17/20 11:55 Source of Information: Reports: Patient History Limitations: Reports: No Limitations - History of Present Illness INITIAL COMMENTS - FREE TEXT/NARRATIVE: 75-year-old male past medical history COPD on home O2 for last 2 weeks 2/2 to recent diagnosis of PNA, CAD, hypertension, hyperlipidemia, TIA, G-tube, pneumonia, sepsis, lung cancer, tracheostomy presents for low O2 sats at home. Patient notes that he was diagnosed with pneumonia 2 weeks ago. He recently finished a course of antibiotics. Since last night he has noted low SPO2 levels on his home oxygen concentrator. Despite bumping it from his baseline 2 L to 3 L he was still satting 90% and feeling short of breath. When he switched to his portable tank at 2 L he went up to 100%. He notes some pain on the right side of his chest which is typical for him and he relates this to his cancer. He denies any fevers. He does have a chronic cough. Denies any other symptoms. - Related Data Allergies Allergy/AdvReac Type Severity Reaction Status Date / Time ertapenem [From Invanz] Allergy Unknown Rash Verified 08/17/20 11:58 Home Meds: Home Meds Aspirin 81 mg PO DAILY 11/25/15 [History] Levothyroxine 100 mcg PO ACBREAKFAST 11/25/15 [History] Metoprolol Succinate [Toprol XL] 25 mg PO BID 11/25/15 [History] Simvastatin [Zocor] 40 mg PO BEDTIME 11/25/15 [History] Cetirizine [ZyrTEC] 10 mg PO DAILY 08/17/17 [History] Cholecalciferol (Vitamin D3) [Vitamin D3] 1 cap PO DAILY 11/18/18 [History] Famotidine 40 mg PO BID 06/10/19 [History] Pentoxifylline 400 mg PO TID 06/10/19 [History] Vitamin E 400 unit PO BIDMEALS 06/10/19 [History] levoFLOXacin [Levaquin] 750 mg PO DAILY 5 Days #5 tablet 06/12/19 [Rx] Past Medical History HEENT History: Reports: Hard of Hearing, Impaired Vision, Other (See Below) Other HEENT History: wears glasses Cardiovascular History: Reports: Hypertension, DC, Stents Other Cardiovascular History: DC 2010 Respiratory History: Reports: COPD, Pneumonia, Recurrent, Sleep Apnea, Other (See Below) Other Respiratory History: Sleep apnea with machine "do not use it", 50 yr history of tobacco use, QUIT 04/2011 Gastrointestinal History: Reports: Other (See Below) Other Gastrointestinal History: 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 Neurological History: Reports: None Psychiatric History: Reports: Anxiety, Depression Endocrine/Metabolic History: Reports: Hypothyroidism Other Endocrine/Metabolic History: Hypothyroidism Hematologic History: Reports: None Immunologic History: Reports: None Oncologic (Cancer) History: Reports: Lung, Other (See Below) Other Oncologic History: epiglottis Dermatologic History: Reports: None - Infectious Disease History Infectious Disease History: Reports: Chicken Pox, Measles - Past Surgical History HEENT Surgical History: Reports: Tonsillectomy Other HEENT Surgeries/Procedures: total laryngectomy with trach placement 2016 Cardiovascular Surgical History: Reports: Coronary Artery Stent Respiratory Surgical History: Reports: Tracheostomy, Other (See Below) GI Surgical History: Reports: Other (See Below) Other GI Surgeries/Procedures: Gastrostomy Tube, has since been removed. Musculoskeletal Surgical History: Reports: Shoulder Surgery, Other (See Below) Other Musculoskeletal Surgeries/Procedures:: ankle surgery Social & Family History - Family History Family Medical History: No Pertinent Family History HEENT: Reports: Impaired Vision Cardiac: Reports: Heart Failure Musculoskeletal: Reports: Arthritis Neurological: Reports: CVA Endocrine/Metabolic: Reports: Diabetes, type II Oncologic: Reports: Breast, Other (See Below) Other Oncologic Family History: Stomach - Caffeine Use Caffeine Use: Reports: Coffee - Living Situation & Occupation Living situation: Reports: ED ROS GENERAL - Review of Systems Review Of Systems: Comprehensive ROS is negative, except as noted in HPI. ED EXAM, GENERAL - Physical Exam Exam: See Below Exam Limited By: No Limitations General Appearance: Alert, WD/WN, No Apparent Distress Ears: Hearing Grossly Normal Nose: Normal Inspection Throat/Mouth: No Airway Compromise Head: Atraumatic, Normocephalic Neck: Normal Inspection, Other (tracheostomy in place) Respiratory/Chest: No Respiratory Distress, Lungs Clear, Normal Breath Sounds, No Accessory Muscle Use Cardiovascular: Normal Peripheral Pulses, Regular Rate, Rhythm Extremities: Normal Inspection Neurological: Alert, Oriented Psychiatric: Normal Affect, Normal Mood Skin Exam: Warm, Dry, Intact, Normal Color #1 Interpretation EKG Date: 08/17/20 Time: 12:45 Rhythm: NSR Rate (Beats/Min): 93 [place]: Normal P-Wave: Present QRS: Normal ST-T: Normal QT: Normal IA/PQ Interval: 144 Comparison: NA - No Prior EKG EKG Interpretation Comments: normal EKG #2 Interpretation EKG Date: 08/17/20 Time: 15:37 Rhythm: NSR Rate (Beats/Min): 135 [place]: Normal P-Wave: Present QRS: Normal ST-T: Normal QT: Normal IA/PQ Interval: 137 Course - Vital Signs Last Recorded V/S: Last Vital Signs Temp 98.2 F 08/17/20 17:01 Pulse 110 H 08/17/20 17:15 Resp 27 H 08/17/20 17:15 BP 119/59 L 08/17/20 17:15 Pulse Ox 99 08/17/20 17:15 - Orders/Labs/Meds Orders: Active Orders 24 hr Category Date Time Status EKG Documentation Completion [RC] STAT Care 08/17/20 12:20 Active EKG Documentation Completion [RC] STAT Care 08/17/20 15:24 Active Pulse Oximetry [RC] ASDIRECTED Care 08/17/20 12:20 Active CULTURE BLOOD [BC] Stat Lab 08/17/20 13:00 Results CULTURE BLOOD [BC] Stat Lab 08/17/20 16:23 Received Sodium Chloride 0.9% [Normal Saline] 1,000 ml Med 08/17/20 16:30 Active IV .Bolus Sodium Chloride 0.9% [Saline Flush] Med 08/17/20 12:20 Active 10 ml FLUSH ASDIRECTED PRN Sodium Chloride 0.9% [Saline Flush] Med 08/17/20 12:20 Active 2.5 ml FLUSH ASDIRECTED PRN Blood Culture x2 Reflex Set [OM.PC] Stat Oth 08/17/20 16:11 Ordered Saline Lock Insert [OM.PC] Stat Oth 08/17/20 12:20 Ordered Medication Orders Sodium Chloride (Normal Saline) 1,000 mls @ 999 mls/hr IV .Bolus ONE Stop: 08/17/20 17:30 Last Admin: 08/17/20 16:52 Dose: 999 mls/hr Documented by: [id number] Sodium Chloride (Sodium Chloride 0.9% 10 Ml Syringe) 10 ml FLUSH ASDIRECTED PRN PRN Reason: Keep Vein Open Last Admin: 08/17/20 13:51 Dose: 10 ml Documented by: [id number] Sodium Chloride (Sodium Chloride 0.9% 2.5 Ml Syringe) 2.5 ml FLUSH ASDIRECTED PRN PRN Reason: Keep Vein Open Last Admin: 08/17/20 13:51 Dose: 2.5 ml Documented by: [id number] Labs: Laboratory Tests 08/17/20 08/17/20 08/17/20 Range/Units 13:00 13:00 13:00 WBC 11.14 H (4.0-11.0) K/uL RBC 3.56 L (4.50-5.90) M/uL Hgb 8.2 L (13.0-17.0) g/dL Hct 28.4 L (38.0-50.0) % MCV 79.8 L (80.0-98.0) fL MCH 23.0 L (27.0-32.0) pg MCHC 28.9 L (31.0-37.0) g/dL RDW Std Deviation 45.5 (28.0-62.0) fl RDW Coeff of [place] 15 (11.0-15.0) % Plt Count 644 H (150-400) K/uL MPV 9.80 (7.40-12.00) fL Neut % (Auto) 87.9 H (48.0-80.0) % Lymph % (Auto) 4.4 L (16.0-40.0) % Wood % (Auto) 5.3 (0.0-15.0) % Eos % (Auto) 2.0 (0.0-7.0) % Baso % (Auto) 0.4 (0.0-1.5) % Neut # (Auto) 9.8 H (1.4-5.7) K/uL Lymph # (Auto) 0.5 L (0.6-2.4) K/uL Wood # (Auto) 0.6 (0.0-0.8) K/uL Eos # (Auto) 0.2 (0.0-0.7) K/uL Baso # (Auto) 0.1 (0.0-0.1) K/uL Nucleated RBC % 0.0 /100WBC Nucleated RBCs # 0 K/uL ABG pH (7.35-7.45) ABG pCO2 (35-45) mmHG ABG pO2 (75-100) mmHG ABG HCO3 (22-26) mEq/L ABG Total CO2 ABG Base Excess (-2.0-2.0) Lactate 2.1 H* (0.20-2.00) mmol/L Sodium 138 (136-148) mmol/L Potassium 4.1 (3.5-5.1) mmol/L Chloride 99 (98-107) mmol/L Carbon Dioxide 31.3 (21.0-32.0) mmol/L BUN 15 (7.0-18.0) mg/dL Creatinine 0.9 (0.8-1.3) mg/dL Est Cr Clr Drug Dosing 63.59 mL/min Estimated GFR (MDRD) > 60.0 ml/min Glucose 177 H (74-106) mg/dL Calcium 9.5 (8.5-10.1) mg/dL Total Bilirubin 0.2 (0.2-1.0) mg/dL AST 15 (15-37) IU/L ALT 19 (14-63) IU/L Alkaline Phosphatase 106 (46-116) U/L Troponin I < 0.050 (0.000-0.056) ng/mL Total Protein 7.2 (6.4-8.2) g/dL Albumin 2.5 L (3.4-5.0) g/dL Globulin 4.7 H (2.6-4.0) g/dL Albumin/Globulin Ratio 0.5 L (0.9-1.6) Urine Color Urine Appearance Urine pH (5.0-8.0) Ur Specific [place] (1.001-1.035) Urine Protein (NEGATIVE) mg/dL Urine Glucose (UA) (NEGATIVE) mg/dL Urine Ketones (NEGATIVE) mg/dL Urine Occult Blood (NEGATIVE) Urine Nitrite (NEGATIVE) Urine Bilirubin (NEGATIVE) Urine Urobilinogen (<2.0) EU/dL Ur Leukocyte Esterase (NEGATIVE) Influenza Type A RNA (NEGATIVE) Influenza Type B RNA (NEGATIVE) SARS-CoV-2 RNA (CHARMAINE) (NEGATIVE) 08/17/20 08/17/20 08/17/20 Range/Units 14:52 15:28 15:30 WBC (4.0-11.0) K/uL RBC (4.50-5.90) M/uL Hgb (13.0-17.0) g/dL Hct (38.0-50.0) % MCV (80.0-98.0) fL MCH (27.0-32.0) pg MCHC (31.0-37.0) g/dL RDW Std Deviation (28.0-62.0) fl RDW Coeff of [place] (11.0-15.0) % Plt Count (150-400) K/uL MPV (7.40-12.00) fL Neut % (Auto) (48.0-80.0) % Lymph % (Auto) (16.0-40.0) % Wood % (Auto) (0.0-15.0) % Eos % (Auto) (0.0-7.0) % Baso % (Auto) (0.0-1.5) % Neut # (Auto) (1.4-5.7) K/uL Lymph # (Auto) (0.6-2.4) K/uL [place] # (Auto) (0.0-0.8) K/uL Eos # (Auto) (0.0-0.7) K/uL Baso # (Auto) (0.0-0.1) K/uL Nucleated RBC % /100WBC Nucleated RBCs # K/uL ABG pH 7.243 L (7.35-7.45) ABG pCO2 65 H (35-45) mmHG ABG pO2 115 H (75-100) mmHG ABG HCO3 28 H (22-26) mEq/L ABG Total CO2 27.2 ABG Base Excess -0.1 (-2.0-2.0) Lactate 2.3 H* (0.20-2.00) mmol/L Sodium (136-148) mmol/L Potassium (3.5-5.1) mmol/L Chloride (98-107) mmol/L Carbon Dioxide (21.0-32.0) mmol/L BUN (7.0-18.0) mg/dL Creatinine (0.8-1.3) mg/dL Est Cr Clr Drug Dosing mL/min Estimated GFR (MDRD) ml/min Glucose (74-106) mg/dL Calcium (8.5-10.1) mg/dL Total Bilirubin (0.2-1.0) mg/dL AST (15-37) IU/L ALT (14-63) IU/L Alkaline Phosphatase (46-116) U/L Troponin I (0.000-0.056) ng/mL Total Protein (6.4-8.2) g/dL Albumin (3.4-5.0) g/dL Globulin (2.6-4.0) g/dL Albumin/Globulin Ratio (0.9-1.6) Urine Color Urine Appearance Urine pH (5.0-8.0) Ur Specific [place] (1.001-1.035) Urine Protein (NEGATIVE) mg/dL Urine Glucose (UA) (NEGATIVE) mg/dL Urine Ketones (NEGATIVE) mg/dL Urine Occult Blood (NEGATIVE) Urine Nitrite (NEGATIVE) Urine Bilirubin (NEGATIVE) Urine Urobilinogen (<2.0) EU/dL Ur Leukocyte Esterase (NEGATIVE) Influenza Type A RNA NEGATIVE (NEGATIVE) Influenza Type B RNA NEGATIVE (NEGATIVE) SARS-CoV-2 RNA (CHARMAINE) NEGATIVE (NEGATIVE) 08/17/20 Range/Units 16:40 WBC (4.0-11.0) K/uL RBC (4.50-5.90) M/uL Hgb (13.0-17.0) g/dL Hct (38.0-50.0) % MCV (80.0-98.0) fL MCH (27.0-32.0) pg MCHC (31.0-37.0) g/dL RDW Std Deviation (28.0-62.0) fl RDW Coeff of [place] (11.0-15.0) % Plt Count (150-400) K/uL MPV (7.40-12.00) fL Neut % (Auto) (48.0-80.0) % Lymph % (Auto) (16.0-40.0) % [place] % (Auto) (0.0-15.0) % Eos % (Auto) (0.0-7.0) % Baso % (Auto) (0.0-1.5) % Neut # (Auto) (1.4-5.7) K/uL Lymph # (Auto) (0.6-2.4) K/uL [place] # (Auto) (0.0-0.8) K/uL Eos # (Auto) (0.0-0.7) K/uL Baso # (Auto) (0.0-0.1) K/uL Nucleated RBC % /100WBC Nucleated RBCs # K/uL ABG pH (7.35-7.45) ABG pCO2 (35-45) mmHG ABG pO2 (75-100) mmHG ABG HCO3 (22-26) mEq/L ABG Total CO2 ABG Base Excess (-2.0-2.0) Lactate (0.20-2.00) mmol/L Sodium (136-148) mmol/L Potassium (3.5-5.1) mmol/L Chloride (98-107) mmol/L Carbon Dioxide (21.0-32.0) mmol/L BUN (7.0-18.0) mg/dL Creatinine (0.8-1.3) mg/dL Est Cr Clr Drug Dosing mL/min Estimated GFR (MDRD) ml/min Glucose (74-106) mg/dL Calcium (8.5-10.1) mg/dL Total Bilirubin (0.2-1.0) mg/dL AST (15-37) IU/L ALT (14-63) IU/L Alkaline Phosphatase (46-116) U/L Troponin I (0.000-0.056) ng/mL Total Protein (6.4-8.2) g/dL Albumin (3.4-5.0) g/dL Globulin (2.6-4.0) g/dL Albumin/Globulin Ratio (0.9-1.6) Urine Color YELLOW Urine Appearance CLEAR Urine pH 5.0 (5.0-8.0) Ur Specific [place] 1.020 (1.001-1.035) Urine Protein NEGATIVE (NEGATIVE) mg/dL Urine Glucose (UA) NEGATIVE (NEGATIVE) mg/dL Urine Ketones NEGATIVE (NEGATIVE) mg/dL Urine Occult Blood NEGATIVE (NEGATIVE) Urine Nitrite NEGATIVE (NEGATIVE) Urine Bilirubin NEGATIVE (NEGATIVE) Urine Urobilinogen 0.2 (<2.0) EU/dL Ur Leukocyte Esterase NEGATIVE (NEGATIVE) Influenza Type A RNA (NEGATIVE) Influenza Type B RNA (NEGATIVE) SARS-CoV-2 RNA (CHARMAINE) (NEGATIVE) Meds: Medications Generic Name Dose Route Start Last Admin Trade Name Freq PRN Reason Stop Dose Admin Sodium Chloride 1,000 mls @ 999 mls/hr 08/17/20 16:30 08/17/20 16:52 Normal Saline IV 08/17/20 17:30 999 mls/hr .Bolus ONE Administration Sodium Chloride 10 ml 08/17/20 12:20 08/17/20 13:51 Sodium Chloride 0.9% 10 Ml Syringe FLUSH 10 ml ASDIRECTED PRN Administration Keep Vein Open Sodium Chloride 2.5 ml 08/17/20 12:20 08/17/20 13:51 Sodium Chloride 0.9% 2.5 Ml Syringe FLUSH 2.5 ml ASDIRECTED PRN Administration Keep Vein Open Discontinued Medications Generic Name Dose Route Start Last Admin Trade Name Freq PRN Reason Stop Dose Admin Sodium Chloride 1,000 mls @ 999 mls/hr 08/17/20 13:25 08/17/20 13:49 Normal Saline IV 08/17/20 14:25 999 mls/hr .Bolus ONE Administration Cefepime HCl 2 gm/ Premix 50 mls @ 100 mls/hr 08/17/20 16:10 08/17/20 16:47 IV 08/17/20 16:39 100 mls/hr ONETIME ONE Administration Iopamidol 60 ml 08/17/20 16:06 08/17/20 16:06 Iopamidol 755 Mg/Ml 500 Ml Multipack Bottle IVPUSH 08/17/20 16:07 60 ml ONETIME ONE Administration - Re-Assessments/Exams Free Text/Narrative Re-Assessment/Exam: 08/17/20 12:20 We will get basic labs. Will get chest x-ray. Will suction the tracheostomy. Patient is satting 100% on 2 L nasal cannula oxygen from the wall. Perhaps his symptoms are secondary to machine malfunction. 08/17/20 12:42 I spoke with [facility] who will reach out to patient to see about going to his home and evaluating the patient's oxygen concentrator. In the meantime we will follow up labs/imaging and disposition accordingly. 08/17/20 14:51 Labs for not grossly changed from prior. I had reached out to [facility] who can be a patient's also 6 PM to change out his oxygen concentrator. We did ambulate the patient without oxygen as a trial to the bathroom and back and he became tachypneic, tachycardic to 140s, O2 sats dropping to the 60s. Given this I think patient should stay in the hospital. I will get a CTA chest to rule pulmonary embolism. 08/17/20 15:41 O2 sats to improve to high 90s with 15 L with trach mask. Patient is still tachycardic to 130s. We will follow-up CT and dispo. 08/17/20 17:12 Bedside POCUS shows small pericardial effusion but no tamponade physiology. Patient's blood pressure is soft in the 90s over 60s, heart rate 110. 08/17/20 17:28 Will transfer to [facility] to Dr. Taveras Departure - Departure Time of Disposition: 17:29 Disposition: DC/Tfer to Acute Hospital 02 Condition: Serious Clinical Impression: Respiratory distress - Discharge Information Referrals: PCP,None [Primary Care Provider] - Forms: ED Department Discharge Critical Care Note - Critical Care Note Total Time (mins): 35 Sepsis Event Note (ED) - Focused Exam Vital Signs: Vital Signs Temp Temp Pulse Resp BP Pulse Ox 08/17/20 17:15 110 H 27 H 119/59 L 99 08/17/20 17:01 98.2 F 08/17/20 16:57 112 H 26 H 94/52 L 99 08/17/20 16:46 118 H 27 H 108/60 98 08/17/20 16:16 129 H 28 H 169/86 H 98 08/17/20 16:00 127 H 27 H 171/91 H 99 08/17/20 15:54 122 H 28 H 155/70 H 99 08/17/20 15:50 131 H 30 H 183/90 H 99 08/17/20 15:16 136 H 31 H 197/104 H 97 08/17/20 15:05 143 H 34 H 181/105 H 93 L 08/17/20 14:34 96 17 127/85 100 08/17/20 14:04 91 18 144/75 H 100 08/17/20 13:53 87 17 144/71 H 100 08/17/20 13:04 90 17 132/69 100 08/17/20 12:34 99 19 140/69 97 08/17/20 11:59 97.6 F 93 17 139/66 100 - My Orders Last 24 Hours: My Active Orders 08/17/20 12:20 EKG Documentation Completion [RC] STAT Pulse Oximetry [RC] ASDIRECTED Sodium Chloride 0.9% [Saline Flush] 10 ml FLUSH ASDIRECTED PRN Sodium Chloride 0.9% [Saline Flush] 2.5 ml FLUSH ASDIRECTED PRN Saline Lock Insert [OM.PC] Stat 08/17/20 13:00 CULTURE BLOOD [BC] Stat 08/17/20 15:24 EKG Documentation Completion [RC] STAT 08/17/20 16:11 Blood Culture x2 Reflex Set [OM.PC] Stat 08/17/20 16:23 CULTURE BLOOD [BC] Stat 08/17/20 16:30 Sodium Chloride 0.9% [Normal Saline] 1,000 ml IV .Bolus - Assessment/Plan Last 24 Hours: My Active Orders 08/17/20 12:20 EKG Documentation Completion [RC] STAT Pulse Oximetry [RC] ASDIRECTED Sodium Chloride 0.9% [Saline Flush] 10 ml FLUSH ASDIRECTED PRN Sodium Chloride 0.9% [Saline Flush] 2.5 ml FLUSH ASDIRECTED PRN Saline Lock Insert [OM.PC] Stat 08/17/20 13:00 CULTURE BLOOD [BC] Stat 08/17/20 15:24 EKG Documentation Completion [RC] STAT 08/17/20 16:11 Blood Culture x2 Reflex Set [OM.PC] Stat 08/17/20 16:23 CULTURE BLOOD [BC] Stat 08/17/20 16:30 Sodium Chloride 0.9% [Normal Saline] 1,000 ml IV .Bolus
[2020-08-17] MEDS ORDERED: Sodium Chloride 0.9% 2.5 ML Syringe FLUSH PRN (12:20)
[2020-08-17] MEDS ORDERED: Sodium Chloride 0.9% 10 ML Syringe FLUSH PRN (12:20)
--- NOTE | 2020-08-17 13:04 | CR ---
Indication: Lung cancer history of pneumonia Comparison: Two-view chest July 31 Technique: Single AP view chest Findings: There is hyperinflation and chronic interstitial change with extensive posttreatment changes of the right upper lobe. There is slightly increasing airspace opacity within the right upper lobe which may represent minimal postobstructive infiltrate. There is persistent fluid or blunting of the right costophrenic angle. Stable cardiac silhouette with surgical clips in the left chest. The bony thorax is grossly intact. Impression: Extensive posttreatment changes of the right hemithorax with parenchymal scarring and masslike fibrotic retraction with questionable mildly increased airspace opacity in the medial right upper lobe which may represent postobstructive infiltrate. The left hemithorax remains clear. Dictated by Kevin Moe MD @ Aug 17 2020 1:00PM Signed by Dr. Kevin Moe @ Aug 17 2020 1:02PM
[2020-08-17] MEDS ORDERED: Sodium Chloride 0.9% 1,000 ML IV ONE ×2 (13:25→16:30)
[2020-08-17 13:42] LABS: BLOOD UREA NITROGEN,BUN 15 mg/dL (7.0-18.0); CARBON DIOXIDE,CO2 31.3 mmol/L (21.0-32.0); CHLORIDE,CL 99 mmol/L (98-107); GLUCOSE RANDOM 177 mg/dL (74-106); POTASSIUM,K 4.1 mmol/L (3.5-5.1); SODIUM,NA 138 mmol/L (136-148)
[2020-08-17] MEDS ORDERED: Iopamidol 755 MG/ML 500 ML Multipack Bottle IVPUSH ONE (16:06)
[2020-08-17] MEDS ORDERED: Cefepime 2 GM in Premix Bag 1 BAG IV ONE (16:10)
[2020-08-17 16:22] LABS: CORONAVIRUS COVID-19 NAA NEGATIVE (NEGATIVE); INFLUENZA A NAA NEGATIVE (NEGATIVE); INFLUENZA B NAA NEGATIVE (NEGATIVE)
--- NOTE | 2020-08-17 17:17 | CT ---
INDICATION: Dyspnea, history of lung and throat cancer TECHNIQUE: CT chest pulmonary PE protocol acquired with 60 cc Isovue 370 IV contrast. COMPARISON: Chest radiograph from earlier today and from July 31, 2020 FINDINGS: Cardiovascular structures: Normal vascular enhancement of the pulmonary arteries, no sign of pulmonary embolism. Heart size is normal. There are coronary artery calcifications. No sign of aneurysm in the thoracic aorta. Mediastinum and kodi: Right paratracheal, precarinal, prevascular, and subcarinal adenopathy measuring up to 1.7 cm. Small hiatal hernia. Lungs: Emphysema. Interval increase in right upper lobe mass, previously 3.2 x 10.9 cm, now 4.6 x 11.2 x 10.9 cm. New, diffuse areas of reticular markings and some focal areas of consolidation in both lungs. Stable linear scarring and retraction in the right upper lobe may be secondary to prior treatment. Pleura and pericardium: No effusions. Chest wall and axilla: No mass or adenopathy. Upper abdomen: A 4.5 cm rounded area of soft tissue density medial to the gallbladder appears new compared to the prior study. This is incompletely evaluated on this exam. This does cause some mass effect on the duodenum with shift to the duodenum to the midline.. Bones: Bony erosions and pathological fracture of the right anterior 3rd rib. Bony erosions and likely subacute pathologic fracture of the right anterior 4th rib. IMPRESSION: No pulmonary embolism. Interval increase in size of right upper lobe mass. Diffuse mediastinal adenopathy measuring up to 1.7 cm. New reticular markings throughout the lungs with some more focal areas of consolidation. Findings are concerning for lymphangitis spread of cancer, edema, or infection. New rounded area of soft tissue density medial to the gallbladder causes mass effect on the duodenum. This may represent an enlarged lymph node or hepatic metastases. Bony erosions of the right anterior 3rd and 4th ribs with pathologic fracture of the right anterior 3rd rib. Coronary artery disease. Please note that all CT scans at this facility use dose modulation, iterative reconstruction, and/or weight-based dosing when appropriate to reduce radiation dose to as low as reasonably achievable. Dictated by Sandra Gaitan MD @ Aug 17 2020 5:15PM Signed by Dr. Sandra Gaitan @ Aug 17 2020 5:15PM
[2020-08-17 17:53] VITALS: BP 122/63; PULSE 102
== END 2020-08-17 18:18 ==
LOC: MW.ED 11:55
DX: R06.03 Acute respiratory distress (principal); J44.9 Chronic obstructive pulmonary disease, unspecified; I25.10 Atherosclerotic heart disease of native coronary artery without angina pectoris; I10 Essential (primary) hypertension; E78.5 Hyperlipidemia, unspecified; I25.2 Old myocardial infarction; E03.9 Hypothyroidism, unspecified; Z86.73 Personal history of transient ischemic attack (TIA), and cerebral infarction without residual deficits; Z88.8 Allergy status to other drugs, medicaments and biological substances; Z99.81 Dependence on supplemental oxygen; Z95.5 Presence of coronary angioplasty implant and graft; Z79.82 Long term (current) use of aspirin; Z79.899 Other long term (current) drug therapy; Z20.822 Contact with and (suspected) exposure to COVID-19
CPT/HCPCS: 0240U; 36415; 36600; 71045; 71275; 80053; 81003; 82803; 83605; 84484; 85025; 87040; 93005; 96365; 99285; J0692; J7030; Q9967; 93010; 99291

== ENCOUNTER 2020-08-29 16:40 | Inpatient (IN) | payer MEDICARE, BC ==
[2020-08-29] MEDS ORDERED: Sodium Chloride 0.9% 1,000 ML IV ONE (17:27)
[2020-08-29 18:51] LABS: BLOOD UREA NITROGEN,BUN 12 mg/dL (7.0-18.0); CARBON DIOXIDE,CO2 30.3 mmol/L (21.0-32.0); CHLORIDE,CL 99 mmol/L (98-107); GLUCOSE RANDOM 116 mg/dL (74-106); LIPASE 77 U/L (73-393); POTASSIUM,K 4.4 mmol/L (3.5-5.1); SODIUM,NA 136 mmol/L (136-148)
[2020-08-29] MEDS ORDERED: Iopamidol 755 MG/ML 500 ML Multipack Bottle IVPUSH STA (19:56)
--- NOTE | 2020-08-29 20:07 | PCM.EKG ---
#1 Interpretation EKG Date: 08/29/20 Time: 17:56 Rhythm: NSR Rate (Beats/Min): 98 [place]: Normal P-Wave: Present QRS: Normal ST-T: Normal QT: Normal Comparison: No Change (08/17/20) EKG Interpretation Comments: Sinus Rhythm
--- NOTE | 2020-08-29 20:40 | CT ---
INDICATION: Lower abdominal pain. Anal discharge. History of squamous cell carcinoma of the epiglottis. COMPARISON: PET-CT scan dated 30 May 2020. TECHNIQUE: CT scan of the abdomen and pelvis with 75 cc of Isovue-370 given intravenously. FINDINGS: The lung bases show mild bibasilar atelectasis. No focal abnormalities identified in the visualized portions of the liver, spleen, pancreas, adrenal glands, and kidneys. No hydronephrosis. No obstructing uroliths. Stool distended rectum with mild perirectal edema. The remainder of the GI tract is incompletely distended but shows no gross abnormalities. No retroperitoneal, pelvic sidewall, or mesenteric adenopathy. Atherosclerotic vascular calcifications. Degenerative changes of the spine. Impression : 1. Stool distended rectum with mild perirectal edema may represent stercoral proctitis. Please note that all CT scans at this facility use dose modulation, iterative reconstruction, and/or weight-based dosing when appropriate to reduce radiation dose to as low as reasonably achievable. Dictated by Spenser Guerrero MD @ Aug 29 2020 8:23PM Signed by Dr. Spenser Guerrero @ Aug 29 2020 8:39PM
[2020-08-29] MEDS ORDERED: Vancomycin 125 MG Cap PO STA (20:57)
--- NOTE | 2020-08-29 21:13 | EDM.PDOC ---
ED HPI GENERAL MEDICAL PROBLEM - General Chief Complaint: Gastrointestinal Problem Stated Complaint: STOOL CONCERNS Time Seen by Provider: 08/29/20 16:57 Source of Information: Reports: Patient, Family History Limitations: Reports: No Limitations - History of Present Illness INITIAL COMMENTS - FREE TEXT/NARRATIVE: HISTORY AND PHYSICAL: History of present illness: Patient is a 75-year-old male, with a history of lung cancer, COPD on home oxygen, recent diagnosis of pneumonia, coronary artery disease, hypertension, hyperlipidemia, G-tube placement, tracheostomy x2 to 3 years, who was just recently discharged from [facility] secondary to pneumonia treatment, who presents emergency room today with concern of leaking diarrhea/stool with incontinence, intermittent with constipation, and lower abdominal pain x2 days. Patient was originally seen by his primary care provider in the clinic who instructed him to come to the emergency room for further evaluation. Patient s tates that he has been feeling better since his recent pneumonia treatment and states he was discharged approximately 1 week ago from [facility]. Patient's is at bedside with him. Patient states that overall, he has been constipated over the past week and states that he was receiving continual bowel regimen while in the hospital. Patient states he started leaking fecal matter that is dark brown in material and states that he is not able to control it starting yesterday and starting of having lower abdominal pain today. Patient states he has not taken anything for his symptoms. Patient states for his lung cancer, he is currently receiving IV immunotherapy but states that he has not on chemo or radiation. Patient states that he is scheduled to have a PET scan done with concern of possible metastasis of his cancer which was supposed to be today, but he did not feel well enough so was rescheduled for next week. Patient denies any other symptoms or concerns. Patient denies fever, chills, chest pain, shortness of breath, or cough. Denies headache, neck stiff ness, change in vision, syncope, or near syncope. Denies nausea, vomiting, or dysuria. Has not noted any blood in urine or stool. Patient has been eating and drinking appropriately. Review of systems: As per history of present illness and below otherwise all systems reviewed and negative. Past medical history: As per history of present illness and as reviewed below otherwise noncontributory. Surgical history: As per history of present illness and as reviewed below otherwise noncontributory. Social history: See social history for further information Family history: As per history of present illness and as reviewed below otherwise noncontributory. Physical exam: General: Patient is alert, oriented, and in no acute distress. Patient laying comfortably on exam table. Tachycardic 10 5-1 10 on exam, otherwise vitally stable and reviewed by me. HEENT: Tracheostomy in place. Atraumatic, normocephalic, pupils equal and reactive bilaterally, negative for conjunctival pallor or scleral icterus, mucous membranes moist, TMs normal bilaterally, throat clear, neck supple, nontender, trachea midline. No drooling or trismus noted. No meningeal signs. No hot potato voice noted. Lungs: Clear to auscultation, breath sounds equal bilaterally, chest nontender. Heart: S1S2, regular rate and rhythm without overt murmur Abdomen: Soft, nondistended, mild-moderate lower abdominal tenderness without guarding, negative rebound. Negative for masses or hepatosplenomegaly. Negative for costovertebral tenderness. Pelvis: Stable nontender. Genitourinary: Deferred. Rectal: Cabin Cleaner at bedside Omaira Franco. Rectal tone intact. Incontinent of a small amount of brown diarrhea. Stool ball noted in the rectal vault. Hemoccult negative. Skin: Intact, warm, dry. No lesions or rashes noted. Extremities: Atraumatic, negative for cords or calf pain. Neurovascular unremarkable. Neuro: Awake, alert, oriented. Cranial nerves II through XII unremarkable. Cerebellum unremarkable. Motor and sensory unremarkable throughout. Exam nonfocal. Notes: On initial exam, patient is nontoxic, in no acute distress, mildly tachycardic at 105-110 on exam, otherwise vitally stable. He has a remote/recent history of being on antibiotics for a pneumonia and started having diarrhea/fecal incontinence starting yesterday. Concern of possible C. difficile infection. Will obtain stool sample as well as perform lab work and scan of patient's abdomen and pelvis. CBC is significant for leukocytosis of 21 with normal lactate; in the presence of mild tachycardia, will add on blood cultures for SIRS/sepsis concern. Patient does have microcytic anemia which appears to be chronic and improved from past recent lab work with a hgb 10.5. CMP is unremarkable. Lipase is normal. Urinalysis is unremarkable. C. difficile testing is positive for C. difficile antigen. Abdominal pelvic CT shows a stool distended rectum with mild perirectal edema may represent proctitis. Given patient is symptomatic for C. difficile infection with diarrhea and stool incontinence along with finding of proctitis on imaging, suspect that patient's leukocytosis is due to C. difficile infection. Patient provided with p.o. vancomycin in the ED today and fluids. Upon reevaluation of patient he remains vitally stable and comfortable throughout stay in ED. I did call and speak to the hospitalist on-call, Dr. Myles, and thoroughly discussed patient's case. Will admit patient to inpatient on telemetry. Voices understanding and is agreeable to plan of care. Denies any further questions or concerns at this time. Diagnostics: EKG, CBC, CMP, UA, lipase, abdominal pelvic CT with contrast, COVID-19, stool culture/Shiga, ova and parasite, C. difficile, lactate, blood cultures x 2 Therapeutics: NS, Vancomycin PO Impression: Clostridium difficile infection Proctitis SIRS Immunosuppression Plan: Admit to inpatient to Dr. Myles on telemetry Definitive disposition and diagnosis as appropriate pending reevaluation and review of above. Abdomen Pain Score (Numeric/FACES): 5 - Related Data Allergies Allergy/AdvReac Type Severity Reaction Status Date / Time ertapenem [From Invanz] Allergy Unknown Rash Verified 08/29/20 16:58 Home Meds: Home Meds Aspirin 81 mg PO DAILY 11/25/15 [History] Levothyroxine 100 mcg PO ACBREAKFAST 11/25/15 [History] Metoprolol Succinate [Toprol XL] 25 mg PO BID 11/25/15 [History] Simvastatin [Zocor] 40 mg PO BEDTIME 11/25/15 [History] Cetirizine [ZyrTEC] 10 mg PO DAILY 08/17/17 [History] Cholecalciferol (Vitamin D3) [Vitamin D3] 1 cap PO DAILY 11/18/18 [History] Famotidine 40 mg PO BID 06/10/19 [History] Pentoxifylline 400 mg PO TID 06/10/19 [History] Vitamin E 400 unit PO BIDMEALS 06/10/19 [History] levoFLOXacin [Levaquin] 750 mg PO DAILY 5 Days #5 tablet 06/12/19 [Rx] Past Medical History HEENT History: Reports: Hard of Hearing, Impaired Vision, Other (See Below) Other HEENT History: wears glasses Cardiovascular History: Reports: Hypertension, RI, Stents Other Cardiovascular History: RI 2010 Respiratory History: Reports: COPD, Pneumonia, Recurrent, Sleep Apnea, Other (See Below) Other Respiratory History: Sleep apnea with machine "do not use it", 50 yr history of tobacco use, QUIT 04/2011 Gastrointestinal History: Reports: Other (See Below) Other Gastrointestinal History: 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 Neurological History: Reports: None Psychiatric History: Reports: Anxiety, Depression Endocrine/Metabolic History: Reports: Hypothyroidism Other Endocrine/Metabolic History: Hypothyroidism Hematologic History: Reports: None Immunologic History: Reports: None Oncologic (Cancer) History: Reports: Lung, Other (See Below) Other Oncologic History: epiglottis Dermatologic History: Reports: None - Infectious Disease History Infectious Disease History: Reports: Chicken Pox, Measles - Past Surgical History HEENT Surgical History: Reports: Tonsillectomy Other HEENT Surgeries/Procedures: total laryngectomy with trach placement 2016 Cardiovascular Surgical History: Reports: Coronary Artery Stent Respiratory Surgical History: Reports: Tracheostomy, Other (See Below) Other Respiratory Surgeries/Procedures: laryngectomy 08/04/17. "lung surgery" 2016 GI Surgical History: Reports: Other (See Below) Other GI Surgeries/Procedures: Gastrostomy Tube, has since been removed. Musculoskeletal Surgical History: Reports: Shoulder Surgery, Other (See Below) Other Musculoskeletal Surgeries/Procedures:: ankle surgery Social & Family History - Family History Family Medical History: No Pertinent Family History HEENT: Reports: Impaired Vision Cardiac: Reports: Heart Failure Musculoskeletal: Reports: Arthritis Neurological: Reports: CVA Endocrine/Metabolic: Reports: Diabetes, type II Oncologic: Reports: Breast, Other (See Below) Other Oncologic Family History: Stomach - Tobacco Use Tobacco Use Status *Q: Never Tobacco User - Caffeine Use Caffeine Use: Reports: None - Recreational Drug Use Recreational Drug Use: No - Living Situation & Occupation Living situation: Reports: ED ROS GENERAL - Review of Systems Review Of Systems: Comprehensive ROS is negative, except as noted in HPI. ED EXAM, GENERAL - Physical Exam Exam: See Below (see dictation) Course - Vital Signs Last Recorded V/S: Last Vital Signs Temp 98.8 F 08/29/20 17:00 Pulse 99 08/29/20 21:15 Resp 18 08/29/20 21:15 BP 128/58 L 08/29/20 21:15 Pulse Ox 99 08/29/20 21:15 - Orders/Labs/Meds Orders: Active Orders 24 hr Category Date Time Status EKG Documentation Completion [RC] STAT Care 08/29/20 17:31 Active C DIFICILE TOXIN BY PCR CONF [MREF] Stat Lab 08/29/20 19:35 Received CULTURE BLOOD [BC] Stat Lab 08/29/20 18:41 Received CULTURE BLOOD [BC] Stat Lab 08/29/20 18:53 Results OCCULT BLOOD, FECAL BY IMMUNOA Stat Lab 08/29/20 17:30 Ordered OVA & PARASITES BY IMMUNOASSAY [MREF] Stat Lab 08/29/20 17:28 Ordered STOOL CULTURE/SHIGA TOXIN [MREF] Stat Lab 08/29/20 17:28 Ordered Blood Culture x2 Reflex Set [OM.PC] Stat Oth 08/29/20 18:16 Ordered Labs: Laboratory Tests 08/29/20 08/29/20 08/29/20 Range/Units 17:55 17:55 18:16 WBC 21.65 H (4.0-11.0) K/uL RBC 4.17 L (4.50-5.90) M/uL Hgb 10.4 L (13.0-17.0) g/dL Hct 34.2 L (38.0-50.0) % MCV 82.0 (80.0-98.0) fL MCH 24.9 L (27.0-32.0) pg MCHC 30.4 L (31.0-37.0) g/dL RDW Std Deviation 51.6 (28.0-62.0) fl RDW Coeff of Randolph 17 H (11.0-15.0) % Plt Count 558 H (150-400) K/uL MPV 9.70 (7.40-12.00) fL Neut % (Auto) 89.5 H (48.0-80.0) % Lymph % (Auto) 1.8 L (16.0-40.0) % Lawrence % (Auto) 7.7 (0.0-15.0) % Eos % (Auto) 0.8 (0.0-7.0) % Baso % (Auto) 0.2 (0.0-1.5) % Neut # (Auto) 19.4 H (1.4-5.7) K/uL Lymph # (Auto) 0.4 L (0.6-2.4) K/uL Lawrence # (Auto) 1.7 H (0.0-0.8) K/uL Eos # (Auto) 0.2 (0.0-0.7) K/uL Baso # (Auto) 0.1 (0.0-0.1) K/uL Nucleated RBC % 0.0 /100WBC Nucleated RBCs # 0 K/uL Lactate 1.0 (0.20-2.00) mmol/L Sodium 136 (136-148) mmol/L Potassium 4.4 (3.5-5.1) mmol/L Chloride 99 (98-107) mmol/L Carbon Dioxide 30.3 (21.0-32.0) mmol/L BUN 12 (7.0-18.0) mg/dL Creatinine 0.9 (0.8-1.3) mg/dL Est Cr Clr Drug Dosing 55.81 mL/min Estimated GFR (MDRD) > 60.0 ml/min Glucose 116 H (74-106) mg/dL Calcium 9.5 (8.5-10.1) mg/dL Total Bilirubin 0.3 (0.2-1.0) mg/dL AST 16 (15-37) IU/L ALT 23 (14-63) IU/L Alkaline Phosphatase 126 H (46-116) U/L Total Protein 7.1 (6.4-8.2) g/dL Albumin 2.5 L (3.4-5.0) g/dL Globulin 4.6 H (2.6-4.0) g/dL Albumin/Globulin Ratio 0.5 L (0.9-1.6) Lipase 77 (73-393) U/L Urine Color Urine Appearance Urine pH (5.0-8.0) Ur Specific Fries (1.001-1.035) Urine Protein (NEGATIVE) mg/dL Urine Glucose (UA) (NEGATIVE) mg/dL Urine Ketones (NEGATIVE) mg/dL Urine Occult Blood (NEGATIVE) Urine Nitrite (NEGATIVE) Urine Bilirubin (NEGATIVE) Urine Urobilinogen (<2.0) EU/dL Ur Leukocyte Esterase (NEGATIVE) Influenza Type A RNA (NEGATIVE) Influenza Type B RNA (NEGATIVE) SARS-CoV-2 RNA (CHARMAINE) (NEGATIVE) 08/29/20 08/29/20 Range/Units 18:22 21:00 WBC (4.0-11.0) K/uL RBC (4.50-5.90) M/uL Hgb (13.0-17.0) g/dL Hct (38.0-50.0) % MCV (80.0-98.0) fL MCH (27.0-32.0) pg MCHC (31.0-37.0) g/dL RDW Std Deviation (28.0-62.0) fl RDW Coeff of Randolph (11.0-15.0) % Plt Count (150-400) K/uL MPV (7.40-12.00) fL Neut % (Auto) (48.0-80.0) % Lymph % (Auto) (16.0-40.0) % Lawrence % (Auto) (0.0-15.0) % Eos % (Auto) (0.0-7.0) % Baso % (Auto) (0.0-1.5) % Neut # (Auto) (1.4-5.7) K/uL Lymph # (Auto) (0.6-2.4) K/uL Lawrence # (Auto) (0.0-0.8) K/uL Eos # (Auto) (0.0-0.7) K/uL Baso # (Auto) (0.0-0.1) K/uL Nucleated RBC % /100WBC Nucleated RBCs # K/uL Lactate (0.20-2.00) mmol/L Sodium (136-148) mmol/L Potassium (3.5-5.1) mmol/L Chloride (98-107) mmol/L Carbon Dioxide (21.0-32.0) mmol/L BUN (7.0-18.0) mg/dL Creatinine (0.8-1.3) mg/dL Est Cr Clr Drug Dosing mL/min Estimated GFR (MDRD) ml/min Glucose (74-106) mg/dL Calcium (8.5-10.1) mg/dL Total Bilirubin (0.2-1.0) mg/dL AST (15-37) IU/L ALT (14-63) IU/L Alkaline Phosphatase (46-116) U/L Total Protein (6.4-8.2) g/dL Albumin (3.4-5.0) g/dL Globulin (2.6-4.0) g/dL Albumin/Globulin Ratio (0.9-1.6) Lipase (73-393) U/L Urine Color YELLOW Urine Appearance CLEAR Urine pH 5.5 (5.0-8.0) Ur Specific Fries 1.015 (1.001-1.035) Urine Protein NEGATIVE (NEGATIVE) mg/dL Urine Glucose (UA) NEGATIVE (NEGATIVE) mg/dL Urine Ketones TRACE H (NEGATIVE) mg/dL Urine Occult Blood NEGATIVE (NEGATIVE) Urine Nitrite NEGATIVE (NEGATIVE) Urine Bilirubin NEGATIVE (NEGATIVE) Urine Urobilinogen 0.2 (<2.0) EU/dL Ur Leukocyte Esterase NEGATIVE (NEGATIVE) Influenza Type A RNA NEGATIVE (NEGATIVE) Influenza Type B RNA NEGATIVE (NEGATIVE) SARS-CoV-2 RNA (CHARMAINE) NEGATIVE (NEGATIVE) Meds: Medications Discontinued Medications Generic Name Dose Route Start Last Admin Trade Name Freq PRN Reason Stop Dose Admin Albuterol 2.5 mg 08/29/20 22:04 08/29/20 22:21 Albuterol 0.083% 2.5 Mg/3 Ml Neb Soln NEB 08/29/20 22:05 2.5 mg ONETIME ONE Administration Sodium Chloride 1,000 mls @ 999 mls/hr 08/29/20 17:27 08/29/20 17:50 Normal Saline IV 08/29/20 18:27 999 mls/hr BOLUS ONE Administration Iopamidol 75 ml 08/29/20 19:56 08/29/20 19:56 Iopamidol 755 Mg/Ml 500 Ml Multipack Bottle IVPUSH 08/29/20 19:57 75 ml ONETIME STA Administration Vancomycin HCl 500 mg 08/29/20 20:57 08/29/20 21:55 Vancomycin 125 Mg Cap PO 08/29/20 20:58 500 mg NOW STA Administration Departure - Departure Time of Disposition: 21:06 Disposition: Admitted As Inpatient 68 Clinical Impression: Clostridium difficile infection, Proctitis, Immunosuppression, SIRS (systemic inflammatory response syndrome) - Discharge Information Sepsis Event Note (ED) - Evaluation Sepsis Screening Result: No Definite Risk - Focused Exam Vital Signs: Vital Signs Temp Pulse Resp BP Pulse Ox 08/29/20 17:00 98.8 F 108 H 18 147/65 H 98 - My Orders Last 24 Hours: My Active Orders 08/29/20 17:28 OVA & PARASITES BY IMMUNOASSAY [MREF] Stat STOOL CULTURE/SHIGA TOXIN [MREF] Stat 08/29/20 17:30 OCCULT BLOOD, FECAL BY IMMUNOA Stat 08/29/20 17:31 EKG Documentation Completion [RC] STAT 08/29/20 18:16 Blood Culture x2 Reflex Set [OM.PC] Stat 08/29/20 18:41 CULTURE BLOOD [BC] Stat 08/29/20 18:53 CULTURE BLOOD [BC] Stat 08/29/20 19:35 C DIFICILE TOXIN BY PCR CONF [MREF] Stat - Assessment/Plan Last 24 Hours: My Active Orders 08/29/20 17:28 OVA & PARASITES BY IMMUNOASSAY [MREF] Stat STOOL CULTURE/SHIGA TOXIN [MREF] Stat 08/29/20 17:30 OCCULT BLOOD, FECAL BY IMMUNOA Stat 08/29/20 17:31 EKG Documentation Completion [RC] STAT 08/29/20 18:16 Blood Culture x2 Reflex Set [OM.PC] Stat 08/29/20 18:41 CULTURE BLOOD [BC] Stat 08/29/20 18:53 CULTURE BLOOD [BC] Stat 08/29/20 19:35 C DIFICILE TOXIN BY PCR CONF [MREF] Stat
[2020-08-29 21:57] LABS: CORONAVIRUS COVID-19 NAA NEGATIVE (NEGATIVE); INFLUENZA A NAA NEGATIVE (NEGATIVE); INFLUENZA B NAA NEGATIVE (NEGATIVE)
[2020-08-29] MEDS ORDERED: Albuterol 0.083% 2.5 MG/3 ML Neb Soln NEB ONE (22:04)
--- NOTE | 2020-08-29 23:41 | PCM.HP.2 ---
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 Patient has several incontinent watery stools today. Patient recently was admitted in [place] for pneumonia and has finished antibiotics. He was having problems with constipation until the diarrhea starting. He denies any fevers. Abdomen Pain Score (Numeric/FACES): 5 - Related Data Allergies/Adverse Reactions: Allergies Allergy/AdvReac Type Severity Reaction Status Date / Time ertapenem [From Invanz] Allergy Unknown Rash Verified 08/29/20 23:27 Home Medications: Home Meds Aspirin 81 mg PO DAILY 11/25/15 [History] Levothyroxine 100 mcg PO ACBREAKFAST 11/25/15 [History] Metoprolol Succinate [Toprol XL] 25 mg PO BID 11/25/15 [History] Simvastatin [Zocor] 40 mg PO BEDTIME 11/25/15 [History] Cetirizine [ZyrTEC] 10 mg PO DAILY 08/17/17 [History] Cholecalciferol (Vitamin D3) [Vitamin D3] 1 cap PO DAILY 11/18/18 [History] Famotidine 40 mg PO BID 06/10/19 [History] Pentoxifylline 400 mg PO TID 06/10/19 [History] Vitamin E 400 unit PO BIDMEALS 06/10/19 [History] levoFLOXacin [Levaquin] 750 mg PO DAILY 5 Days #5 tablet 06/12/19 [Rx] Acetaminophen/HYDROcodone [Lee 325-10 MG] 10 mg PO Q4H PRN 08/29/20 [History] Past Medical History HEENT History: Reports: Hard of Hearing, Impaired Vision, Other (See Below) Other HEENT History: wears glasses Cardiovascular History: Reports: Hypertension, VA, Stents Other Cardiovascular History: VA 2010 Respiratory History: Reports: COPD, Pneumonia, Recurrent, Sleep Apnea, Other (See Below) Other Respiratory History: Sleep apnea with machine "do not use it", 50 yr history of tobacco use, QUIT 04/2011 Gastrointestinal History: Reports: Other (See Below) Other Gastrointestinal History: 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 Neurological History: Reports: None Psychiatric History: Reports: Anxiety, Depression Endocrine/Metabolic History: Reports: Hypothyroidism Other Endocrine/Metabolic History: Hypothyroidism Hematologic History: Reports: None Immunologic History: Reports: None Oncologic (Cancer) History: Reports: Lung, Other (See Below) Other Oncologic History: epiglottis Dermatologic History: Reports: None - Infectious Disease History Infectious Disease History: Reports: Chicken Pox, Measles - Past Surgical History HEENT Surgical History: Reports: Tonsillectomy Other HEENT Surgeries/Procedures: total laryngectomy with trach placement 2016 Cardiovascular Surgical History: Reports: Coronary Artery Stent Respiratory Surgical History: Reports: Tracheostomy, Other (See Below) Other Respiratory Surgeries/Procedures: laryngectomy 08/04/17. "lung surgery" 2016 GI Surgical History: Reports: Other (See Below) Other GI Surgeries/Procedures: Gastrostomy Tube, has since been removed. Musculoskeletal Surgical History: Reports: Shoulder Surgery, Other (See Below) Other Musculoskeletal Surgeries/Procedures:: ankle surgery Social & Family History - Family History Family Medical History: No Pertinent Family History HEENT: Reports: Impaired Vision Cardiac: Reports: Heart Failure Musculoskeletal: Reports: Arthritis Neurological: Reports: CVA Endocrine/Metabolic: Reports: Diabetes, type II Oncologic: Reports: Breast, Other (See Below) Other Oncologic Family History: Stomach - Tobacco Use Tobacco Use Status *Q: Former Tobacco User Used Tobacco, but Quit: Yes Month/Year Tobacco Last Used: 2010 - Caffeine Use Caffeine Use: Reports: Coffee - Recreational Drug Use Recreational Drug Use: No - Living Situation & Occupation Living situation: Reports: H&P Review of Systems - Review of Systems: Review Of Systems: Comprehensive ROS is negative, except as noted in HPI. Exam - Exam Exam: See Below - Vital Signs Vital Signs: Last Vital Signs Temp 36.9 C 08/29/20 22:45 Pulse 107 H 08/29/20 22:45 Resp 18 08/29/20 22:45 BP 144/69 H 08/29/20 22:45 Pulse Ox 100 08/29/20 22:45 Weight: 51.437 kg - Exam General: Alert, Oriented HEENT: Mucosa Moist & [place] Neck: Other (trach ostomy in place) Lungs: Clear to Auscultation, Normal Respiratory Effort Cardiovascular: Regular Rate, Regular Rhythm GI/Abdominal Exam: Normal Bowel Sounds, Soft, Non-Tender Extremities: Non-Tender, No Pedal Edema Skin: Warm, Dry, Intact Neurological: Cranial Nerves Intact. No: Focal Deficit - Patient Data Lab Results Last 24 hrs: Laboratory Results - last 24 hr 08/29/20 08/29/20 08/29/20 Range/Units 17:55 17:55 18:16 WBC 21.65 H (4.0-11.0) K/uL RBC 4.17 L (4.50-5.90) M/uL Hgb 10.4 L (13.0-17.0) g/dL Hct 34.2 L (38.0-50.0) % MCV 82.0 (80.0-98.0) fL MCH 24.9 L (27.0-32.0) pg MCHC 30.4 L (31.0-37.0) g/dL RDW Std Deviation 51.6 (28.0-62.0) fl RDW Coeff of [place] 17 H (11.0-15.0) % Plt Count 558 H (150-400) K/uL MPV 9.70 (7.40-12.00) fL Neut % (Auto) 89.5 H (48.0-80.0) % Lymph % (Auto) 1.8 L (16.0-40.0) % [place] % (Auto) 7.7 (0.0-15.0) % Eos % (Auto) 0.8 (0.0-7.0) % Baso % (Auto) 0.2 (0.0-1.5) % Neut # (Auto) 19.4 H (1.4-5.7) K/uL Lymph # (Auto) 0.4 L (0.6-2.4) K/uL [place] # (Auto) 1.7 H (0.0-0.8) K/uL Eos # (Auto) 0.2 (0.0-0.7) K/uL Baso # (Auto) 0.1 (0.0-0.1) K/uL Nucleated RBC % 0.0 /100WBC Nucleated RBCs # 0 K/uL Lactate 1.0 (0.20-2.00) mmol/L Sodium 136 (136-148) mmol/L Potassium 4.4 (3.5-5.1) mmol/L Chloride 99 (98-107) mmol/L Carbon Dioxide 30.3 (21.0-32.0) mmol/L BUN 12 (7.0-18.0) mg/dL Creatinine 0.9 (0.8-1.3) mg/dL Est Cr Clr Drug Dosing 55.81 mL/min Estimated GFR (MDRD) > 60.0 ml/min Glucose 116 H (74-106) mg/dL Calcium 9.5 (8.5-10.1) mg/dL Total Bilirubin 0.3 (0.2-1.0) mg/dL AST 16 (15-37) IU/L ALT 23 (14-63) IU/L Alkaline Phosphatase 126 H (46-116) U/L Total Protein 7.1 (6.4-8.2) g/dL Albumin 2.5 L (3.4-5.0) g/dL Globulin 4.6 H (2.6-4.0) g/dL Albumin/Globulin Ratio 0.5 L (0.9-1.6) Lipase 77 (73-393) U/L Urine Color Urine Appearance Urine pH (5.0-8.0) Ur Specific [place] (1.001-1.035) Urine Protein (NEGATIVE) mg/dL Urine Glucose (UA) (NEGATIVE) mg/dL Urine Ketones (NEGATIVE) mg/dL Urine Occult Blood (NEGATIVE) Urine Nitrite (NEGATIVE) Urine Bilirubin (NEGATIVE) Urine Urobilinogen (<2.0) EU/dL Ur Leukocyte Esterase (NEGATIVE) Influenza Type A RNA (NEGATIVE) Influenza Type B RNA (NEGATIVE) SARS-CoV-2 RNA (CHARMAINE) (NEGATIVE) 08/29/20 08/29/20 Range/Units 18:22 21:00 WBC (4.0-11.0) K/uL RBC (4.50-5.90) M/uL Hgb (13.0-17.0) g/dL Hct (38.0-50.0) % MCV (80.0-98.0) fL MCH (27.0-32.0) pg MCHC (31.0-37.0) g/dL RDW Std Deviation (28.0-62.0) fl RDW Coeff of [place] (11.0-15.0) % Plt Count (150-400) K/uL MPV (7.40-12.00) fL Neut % (Auto) (48.0-80.0) % Lymph % (Auto) (16.0-40.0) % [place] % (Auto) (0.0-15.0) % Eos % (Auto) (0.0-7.0) % Baso % (Auto) (0.0-1.5) % Neut # (Auto) (1.4-5.7) K/uL Lymph # (Auto) (0.6-2.4) K/uL [place] # (Auto) (0.0-0.8) K/uL Eos # (Auto) (0.0-0.7) K/uL Baso # (Auto) (0.0-0.1) K/uL Nucleated RBC % /100WBC Nucleated RBCs # K/uL Lactate (0.20-2.00) mmol/L Sodium (136-148) mmol/L Potassium (3.5-5.1) mmol/L Chloride (98-107) mmol/L Carbon Dioxide (21.0-32.0) mmol/L BUN (7.0-18.0) mg/dL Creatinine (0.8-1.3) mg/dL Est Cr Clr Drug Dosing mL/min Estimated GFR (MDRD) ml/min Glucose (74-106) mg/dL Calcium (8.5-10.1) mg/dL Total Bilirubin (0.2-1.0) mg/dL AST (15-37) IU/L ALT (14-63) IU/L Alkaline Phosphatase (46-116) U/L Total Protein (6.4-8.2) g/dL Albumin (3.4-5.0) g/dL Globulin (2.6-4.0) g/dL Albumin/Globulin Ratio (0.9-1.6) Lipase (73-393) U/L Urine Color YELLOW Urine Appearance CLEAR Urine pH 5.5 (5.0-8.0) Ur Specific [place] 1.015 (1.001-1.035) Urine Protein NEGATIVE (NEGATIVE) mg/dL Urine Glucose (UA) NEGATIVE (NEGATIVE) mg/dL Urine Ketones TRACE H (NEGATIVE) mg/dL Urine Occult Blood NEGATIVE (NEGATIVE) Urine Nitrite NEGATIVE (NEGATIVE) Urine Bilirubin NEGATIVE (NEGATIVE) Urine Urobilinogen 0.2 (<2.0) EU/dL Ur Leukocyte Esterase NEGATIVE (NEGATIVE) Influenza Type A RNA NEGATIVE (NEGATIVE) Influenza Type B RNA NEGATIVE (NEGATIVE) SARS-CoV-2 RNA (CHARMA[place]) NEGATIVE (NEGATIVE) Result Diagrams: 08/31/20 06:00 08/31/20 06:00 Teo Results Last 24 hrs: Microbiology 08/29/20 19:35 C. difficile Antigen & Toxins A,B - Final Stool / Feces 08/29/20 17:35 Stool Occult Blood (TEO) - Final Stool / Feces 08/29/20 18:53 Anaerobic Blood Culture - Final Blood - Venous - Lab Draw Sepsis Event Note - Evaluation Sepsis Screening Result: No Definite Risk - Focused Exam Vital Signs: Vital Signs Temp Pulse Resp BP Pulse Ox 08/29/20 22:45 36.9 C 107 H 18 144/69 H 100 08/29/20 22:30 101 H 20 123/78 08/29/20 21:15 99 18 128/58 L 99 08/29/20 17:00 37.1 C 108 H 18 147/65 H 98 - Problem List (1) Clostridium difficile infection SNOMED Code(s): 903308057 ICD Code: A49.8 - OTHER BACTERIAL INFECTIONS OF UNSPECIFIED SITE Status: Acute Current Visit: Yes (2) Immunosuppression SNOMED Code(s): 61326676 ICD Code: D84.9 - IMMUNODEFICIENCY, UNSPECIFIED Status: Acute Current Visit: Yes (3) Proctitis SNOMED Code(s): 1794851 ICD Code: K62.89 - OTHER SPECIFIED DISEASES OF ANUS AND RECTUM Status: Acute Current Visit: Yes Problem List Initiated/Reviewed/Updated: Yes Orders Last 24hrs: Active Orders 24 hr Category Date Time Status Admission Status [Patient Status] [ADT] Stat ADT 08/29/20 21:06 Active EKG Documentation Completion [RC] STAT Care 08/29/20 17:31 Active RT Aerosol Therapy [RC] ASDIRECTED Care 08/29/20 22:04 Active Telemetry Monitoring [Cardiac Monitoring] [RC] Q8H Care 08/29/20 22:43 Active C DIFICILE TOXIN BY PCR CONF [MREF] Stat Lab 08/29/20 19:35 Received CULTURE BLOOD [BC] Stat Lab 08/29/20 18:41 Received CULTURE BLOOD [BC] Stat Lab 08/29/20 18:53 Results OCCULT BLOOD, FECAL BY IMMUNOA Stat Lab 08/29/20 17:30 Ordered OVA & PARASITES BY IMMUNOASSAY [MREF] Stat Lab 08/29/20 17:28 Ordered STOOL CULTURE/SHIGA TOXIN [MREF] Stat Lab 08/29/20 17:28 Ordered Blood Culture x2 Reflex Set [OM.PC] Stat Oth 08/29/20 18:16 Ordered Assessment/Plan Comment:: 75 yo male admitted with C.diff infection. We will treat with PO vancomycin an hydrate with IV fluids due to frequent diarrhea.
[2020-08-30] MEDS ORDERED: Sodium Chloride 0.9% 500 ML IV SCH (00:45)
[2020-08-30] MEDS: Simvastatin 40 MG Tab PO SCH ×2 (00:48→21:49)
[2020-08-30] MEDS: Metoprolol Succinate 50 MG Tab.ER PO SCH ×3 (00:48→21:50)
[2020-08-30] MEDS: Famotidine 20 MG Tab PO SCH ×3 (00:48→21:49)
[2020-08-30] MEDS: Heparin Sodium 5,000 Units/ML Vial SUBCUT SCH ×4 (00:52→23:59)
[2020-08-30] MEDS: Acetaminophen/HYDROcodone 325-10 MG Tab PO PRN ×4 (00:57→21:54)
[2020-08-30] MEDS: Sodium Chloride 0.9% 1,000 ML IV SCH ×3 (01:16→18:18)
[2020-08-30] MEDS: Vancomycin 125 MG Cap PO SCH ×5 (04:41→23:59)
[2020-08-30 06:26] LABS: BLOOD UREA NITROGEN,BUN 12 mg/dL (7.0-18.0); CHLORIDE,CL 102 mmol/L (98-107); GLUCOSE RANDOM 137 mg/dL (74-106); POTASSIUM,K 4.5 mmol/L (3.5-5.1); SODIUM,NA 139 mmol/L (136-148)
[2020-08-30] MEDS: Levothyroxine 100 MCG Tab PO SCH (06:30)
[2020-08-30] MEDS: Cetirizine 10 MG Tab PO SCH (08:08)
[2020-08-30] MEDS: Aspirin 81 MG Tab.Chew PO SCH (08:10)
--- NOTE | 2020-08-30 09:17 | PCM.PN ---
- General Info Date of Service: 08/30/20 Admission Dx/Problem (Free Text): Admission Diagnosis/Problem Admission Diagnosis/Problem Cdiff, Clostridium difficile infection Subjective Update: Reports he is feeling improved today. Diarrhea has improved but continues to have a lot of rectal pain upon defecation. Denies any increasing shortness of breath or chest pain. He is eating and drinking well. Continues to need 3 L via trach mask. He reports he needed oxygen since he was discharged with pneumonia from [facility]. Functional Status: Reports: Pain Controlled, Tolerating Diet, Ambulating, Urinating - Review of Systems General: Reports: Weakness HEENT: Reports: No Symptoms (Generalized). Denies: Headaches, Sore Throat, Visual Changes Pulmonary: Reports: No Symptoms. Denies: Shortness of Breath Cardiovascular: Reports: No Symptoms. Denies: Chest Pain Gastrointestinal: Reports: Diarrhea (Diarrhea has since improved), Other (Rectal pain with bowel movements). Denies: Abdominal Pain Genitourinary: Reports: No Symptoms. Denies: Dysuria, Frequency, Burning Musculoskeletal: Reports: No Symptoms Skin: Reports: No Symptoms Neurological: Reports: No Symptoms Psychiatric: Reports: No Symptoms - Patient Data Vitals - Most Recent: Last Vital Signs Temp 99.0 F 08/30/20 08:06 Pulse 94 08/30/20 08:10 Resp 20 08/30/20 08:06 BP 135/69 08/30/20 08:10 Pulse Ox 90 L 08/30/20 08:06 Weight - Most Recent: 51.437 kg I&O - Last 24 Hours: Intake & Output 08/29/20 08/30/20 08/30/20 22:59 06:59 14:59 Intake Total 1302 Output Total 650 Balance 652 Lab Results Last 24 Hours: Laboratory Results - last 24 hr 08/29/20 08/29/20 08/29/20 Range/Units 17:55 17:55 18:16 WBC 21.65 H (4.0-11.0) K/uL RBC 4.17 L (4.50-5.90) M/uL Hgb 10.4 L (13.0-17.0) g/dL Hct 34.2 L (38.0-50.0) % MCV 82.0 (80.0-98.0) fL MCH 24.9 L (27.0-32.0) pg MCHC 30.4 L (31.0-37.0) g/dL RDW Std Deviation 51.6 (28.0-62.0) fl RDW Coeff of [place] 17 H (11.0-15.0) % Plt Count 558 H (150-400) K/uL MPV 9.70 (7.40-12.00) fL Neut % (Auto) 89.5 H (48.0-80.0) % Lymph % (Auto) 1.8 L (16.0-40.0) % [place] % (Auto) 7.7 (0.0-15.0) % Eos % (Auto) 0.8 (0.0-7.0) % Baso % (Auto) 0.2 (0.0-1.5) % Neut # (Auto) 19.4 H (1.4-5.7) K/uL Lymph # (Auto) 0.4 L (0.6-2.4) K/uL [place] # (Auto) 1.7 H (0.0-0.8) K/uL Eos # (Auto) 0.2 (0.0-0.7) K/uL Baso # (Auto) 0.1 (0.0-0.1) K/uL Nucleated RBC % 0.0 /100WBC Nucleated RBCs # 0 K/uL Lactate 1.0 (0.20-2.00) mmol/L Sodium 136 (136-148) mmol/L Potassium 4.4 (3.5-5.1) mmol/L Chloride 99 (98-107) mmol/L Carbon Dioxide 30.3 (21.0-32.0) mmol/L BUN 12 (7.0-18.0) mg/dL Creatinine 0.9 (0.8-1.3) mg/dL Est Cr Clr Drug Dosing 55.81 mL/min Estimated GFR (MDRD) > 60.0 ml/min Glucose 116 H (74-106) mg/dL Calcium 9.5 (8.5-10.1) mg/dL Total Bilirubin 0.3 (0.2-1.0) mg/dL AST 16 (15-37) IU/L ALT 23 (14-63) IU/L Alkaline Phosphatase 126 H (46-116) U/L Total Protein 7.1 (6.4-8.2) g/dL Albumin 2.5 L (3.4-5.0) g/dL Globulin 4.6 H (2.6-4.0) g/dL Albumin/Globulin Ratio 0.5 L (0.9-1.6) Lipase 77 (73-393) U/L Urine Color Urine Appearance Urine pH (5.0-8.0) Ur Specific [place] (1.001-1.035) Urine Protein (NEGATIVE) mg/dL Urine Glucose (UA) (NEGATIVE) mg/dL Urine Ketones (NEGATIVE) mg/dL Urine Occult Blood (NEGATIVE) Urine Nitrite (NEGATIVE) Urine Bilirubin (NEGATIVE) Urine Urobilinogen (<2.0) EU/dL Ur Leukocyte Esterase (NEGATIVE) Influenza Type A RNA (NEGATIVE) Influenza Type B RNA (NEGATIVE) SARS-CoV-2 RNA (CHARMA[place]) (NEGATIVE) 08/29/20 08/29/20 08/30/20 Range/Units 18:22 21:00 05:35 WBC 21.34 H (4.0-11.0) K/uL RBC 3.77 L (4.50-5.90) M/uL Hgb 9.3 L (13.0-17.0) g/dL Hct 31.0 L (38.0-50.0) % MCV 82.2 (80.0-98.0) fL MCH 24.7 L (27.0-32.0) pg MCHC 30.0 L (31.0-37.0) g/dL RDW Std Deviation 52.4 (28.0-62.0) fl RDW Coeff of [place] 17 H (11.0-15.0) % Plt Count 537 H (150-400) K/uL MPV 10.10 (7.40-12.00) fL Neut % (Auto) 87.6 H (48.0-80.0) % Lymph % (Auto) 3.4 L (16.0-40.0) % [place] % (Auto) 7.8 (0.0-15.0) % Eos % (Auto) 1.0 (0.0-7.0) % Baso % (Auto) 0.2 (0.0-1.5) % Neut # (Auto) 18.7 H (1.4-5.7) K/uL Lymph # (Auto) 0.7 (0.6-2.4) K/uL [place] # (Auto) 1.7 H (0.0-0.8) K/uL Eos # (Auto) 0.2 (0.0-0.7) K/uL Baso # (Auto) 0.0 (0.0-0.1) K/uL Nucleated RBC % 0.0 /100WBC Nucleated RBCs # 0 K/uL Lactate (0.20-2.00) mmol/L Sodium (136-148) mmol/L Potassium (3.5-5.1) mmol/L Chloride (98-107) mmol/L Carbon Dioxide (21.0-32.0) mmol/L BUN (7.0-18.0) mg/dL Creatinine (0.8-1.3) mg/dL Est Cr Clr Drug Dosing mL/min Estimated GFR (MDRD) ml/min Glucose (74-106) mg/dL Calcium (8.5-10.1) mg/dL Total Bilirubin (0.2-1.0) mg/dL AST (15-37) IU/L ALT (14-63) IU/L Alkaline Phosphatase (46-116) U/L Total Protein (6.4-8.2) g/dL Albumin (3.4-5.0) g/dL Globulin (2.6-4.0) g/dL Albumin/Globulin Ratio (0.9-1.6) Lipase (73-393) U/L Urine Color YELLOW Urine Appearance CLEAR Urine pH 5.5 (5.0-8.0) Ur Specific [place] 1.015 (1.001-1.035) Urine Protein NEGATIVE (NEGATIVE) mg/dL Urine Glucose (UA) NEGATIVE (NEGATIVE) mg/dL Urine Ketones TRACE H (NEGATIVE) mg/dL Urine Occult Blood NEGATIVE (NEGATIVE) Urine Nitrite NEGATIVE (NEGATIVE) Urine Bilirubin NEGATIVE (NEGATIVE) Urine Urobilinogen 0.2 (<2.0) EU/dL Ur Leukocyte Esterase NEGATIVE (NEGATIVE) Influenza Type A RNA NEGATIVE (NEGATIVE) Influenza Type B RNA NEGATIVE (NEGATIVE) SARS-CoV-2 RNA ([place]) NEGATIVE (NEGATIVE) 08/30/20 Range/Units 05:35 WBC (4.0-11.0) K/uL RBC (4.50-5.90) M/uL Hgb (13.0-17.0) g/dL Hct (38.0-50.0) % MCV (80.0-98.0) fL MCH (27.0-32.0) pg MCHC (31.0-37.0) g/dL RDW Std Deviation (28.0-62.0) fl RDW Coeff of [place] (11.0-15.0) % Plt Count (150-400) K/uL MPV (7.40-12.00) fL Neut % (Auto) (48.0-80.0) % Lymph % (Auto) (16.0-40.0) % [place] % (Auto) (0.0-15.0) % Eos % (Auto) (0.0-7.0) % Baso % (Auto) (0.0-1.5) % Neut # (Auto) (1.4-5.7) K/uL Lymph # (Auto) (0.6-2.4) K/uL [place] # (Auto) (0.0-0.8) K/uL Eos # (Auto) (0.0-0.7) K/uL Baso # (Auto) (0.0-0.1) K/uL Nucleated RBC % /100WBC Nucleated RBCs # K/uL Lactate (0.20-2.00) mmol/L Sodium 139 (136-148) mmol/L Potassium 4.5 (3.5-5.1) mmol/L Chloride 102 (98-107) mmol/L Carbon Dioxide 31.0 (21.0-32.0) mmol/L BUN 12 (7.0-18.0) mg/dL Creatinine 0.9 (0.8-1.3) mg/dL Est Cr Clr Drug Dosing 53.18 mL/min Estimated GFR (MDRD) > 60.0 ml/min Glucose 137 H (74-106) mg/dL Calcium 8.5 (8.5-10.1) mg/dL Total Bilirubin 0.1 L (0.2-1.0) mg/dL AST 19 (15-37) IU/L ALT 22 (14-63) IU/L Alkaline Phosphatase 112 (46-116) U/L Total Protein 6.0 L (6.4-8.2) g/dL Albumin 2.1 L (3.4-5.0) g/dL Globulin 3.9 (2.6-4.0) g/dL Albumin/Globulin Ratio 0.5 L (0.9-1.6) Lipase (73-393) U/L Urine Color Urine Appearance Urine pH (5.0-8.0) Ur Specific [place] (1.001-1.035) Urine Protein (NEGATIVE) mg/dL Urine Glucose (UA) (NEGATIVE) mg/dL Urine Ketones (NEGATIVE) mg/dL Urine Occult Blood (NEGATIVE) Urine Nitrite (NEGATIVE) Urine Bilirubin (NEGATIVE) Urine Urobilinogen (<2.0) EU/dL Ur Leukocyte Esterase (NEGATIVE) Influenza Type A RNA (NEGATIVE) Influenza Type B RNA (NEGATIVE) SARS-CoV-2 RNA ([place]) (NEGATIVE) Teo Results Last 24 Hours: Microbiology 08/29/20 19:35 C. difficile Antigen & Toxins A,B - Final Stool / Feces 08/29/20 17:35 Stool Occult Blood (TEO) - Final Stool / Feces 08/29/20 18:53 Anaerobic Blood Culture - Final Blood - Venous - Lab Draw Med Orders - Current: Current Medications Hydrocodone Bitart/Acetaminophen (Acetaminophen/Hydrocodone 325-10 Mg Tab) 1 tab PO Q4H PRN PRN Reason: Pain Last Admin: 08/30/20 08:09 Dose: 1 tab Documented by: Aspirin (Aspirin 81 Mg Tab.Chew) 81 mg PO DAILY [facility] Last Admin: 08/30/20 08:10 Dose: 81 mg Documented by: Cetirizine HCl (Cetirizine 10 Mg Tab) 10 mg PO DAILY [facility] Last Admin: 08/30/20 08:08 Dose: 10 mg Documented by: Famotidine (Famotidine 20 Mg Tab) 40 mg PO BID [facility] Last Admin: 08/30/20 08:08 Dose: 40 mg Documented by: Heparin Sodium (Porcine) (Heparin Sodium 5,000 Units/Ml Vial) 5,000 units SUBCUT Q8H [facility] Last Admin: 08/30/20 07:57 Dose: 5,000 units Documented by: Sodium Chloride (Normal Saline) 1,000 mls @ 125 mls/hr IV ASDIRECTED [facility] Last Admin: 08/30/20 01:16 Dose: 125 mls/hr Documented by: Levothyroxine Sodium (Levothyroxine 100 Mcg Tab) 100 mcg PO ACBREAKFAST [facility] Last Admin: 08/30/20 06:30 Dose: 100 mcg Documented by: Metoprolol Succinate (Metoprolol Succinate 50 Mg Tab.Er) 25 mg PO BID [facility] Last Admin: 08/30/20 08:10 Dose: 25 mg Documented by: Simvastatin (Simvastatin 40 Mg Tab) 40 mg PO BEDTIME [facility] Last Admin: 08/30/20 00:48 Dose: 40 mg Documented by: Vancomycin HCl (Vancomycin 125 Mg Cap) 125 mg PO QID [facility] Last Admin: 08/30/20 06:11 Dose: Not Given Documented by: Discontinued Medications Albuterol (Albuterol 0.083% 2.5 Mg/3 Ml Neb Soln) 2.5 mg NEB ONETIME ONE Stop: 08/29/20 22:05 Last Admin: 08/29/20 22:21 Dose: 2.5 mg Documented by: Sodium Chloride (Normal Saline) 1,000 mls @ 999 mls/hr IV BOLUS ONE Stop: 08/29/20 18:27 Last Admin: 08/29/20 17:50 Dose: 999 mls/hr Documented by: Sodium Chloride (Normal Saline) 500 mls @ 1,000 mls/hr IV .BOLUS [facility] Last Admin: 08/30/20 00:45 Dose: 1,000 mls/hr Documented by: Iopamidol (Iopamidol 755 Mg/Ml 500 Ml Multipack Bottle) 75 ml IVPUSH ONETIME STA Stop: 08/29/20 19:57 Last Admin: 08/29/20 19:56 Dose: 75 ml Documented by: Vancomycin HCl (Vancomycin 125 Mg Cap) 500 mg PO NOW STA Stop: 08/29/20 20:58 Last Admin: 08/29/20 21:55 Dose: 500 mg Documented by: - Exam General: Alert, Oriented, Cooperative, No Acute Distress Neck: Other (Tracheostomy intact no significant drainage lung sounds bronchial sounds clear) Lungs: Clear to Auscultation, Normal Respiratory Effort Cardiovascular: Regular Rate, Regular Rhythm GI/Abdominal Exam: Normal Bowel Sounds, Soft, Non-Tender Extremities: Normal Inspection, Normal Range of Motion, Non-Tender, No Pedal Edema Neurological: No New Focal Deficit Psy/Mental Status: Alert, Normal Affect, Normal Mood - Patient Data Lab Results Last 24 hrs: Laboratory Results - last 24 hr 08/29/20 08/29/20 08/29/20 Range/Units 17:55 17:55 18:16 WBC 21.65 H (4.0-11.0) K/uL RBC 4.17 L (4.50-5.90) M/uL Hgb 10.4 L (13.0-17.0) g/dL Hct 34.2 L (38.0-50.0) % MCV 82.0 (80.0-98.0) fL MCH 24.9 L (27.0-32.0) pg MCHC 30.4 L (31.0-37.0) g/dL RDW Std Deviation 51.6 (28.0-62.0) fl RDW Coeff of [place] 17 H (11.0-15.0) % Plt Count 558 H (150-400) K/uL MPV 9.70 (7.40-12.00) fL Neut % (Auto) 89.5 H (48.0-80.0) % Lymph % (Auto) 1.8 L (16.0-40.0) % [place] % (Auto) 7.7 (0.0-15.0) % Eos % (Auto) 0.8 (0.0-7.0) % Baso % (Auto) 0.2 (0.0-1.5) % Neut # (Auto) 19.4 H (1.4-5.7) K/uL Lymph # (Auto) 0.4 L (0.6-2.4) K/uL [place] # (Auto) 1.7 H (0.0-0.8) K/uL Eos # (Auto) 0.2 (0.0-0.7) K/uL Baso # (Auto) 0.1 (0.0-0.1) K/uL Nucleated RBC % 0.0 /100WBC Nucleated RBCs # 0 K/uL Lactate 1.0 (0.20-2.00) mmol/L Sodium 136 (136-148) mmol/L Potassium 4.4 (3.5-5.1) mmol/L Chloride 99 (98-107) mmol/L Carbon Dioxide 30.3 (21.0-32.0) mmol/L BUN 12 (7.0-18.0) mg/dL Creatinine 0.9 (0.8-1.3) mg/dL Est Cr Clr Drug Dosing 55.81 mL/min Estimated GFR (MDRD) > 60.0 ml/min Glucose 116 H (74-106) mg/dL Calcium 9.5 (8.5-10.1) mg/dL Total Bilirubin 0.3 (0.2-1.0) mg/dL AST 16 (15-37) IU/L ALT 23 (14-63) IU/L Alkaline Phosphatase 126 H (46-116) U/L Total Protein 7.1 (6.4-8.2) g/dL Albumin 2.5 L (3.4-5.0) g/dL Globulin 4.6 H (2.6-4.0) g/dL Albumin/Globulin Ratio 0.5 L (0.9-1.6) Lipase 77 (73-393) U/L Urine Color Urine Appearance Urine pH (5.0-8.0) Ur Specific [place] (1.001-1.035) Urine Protein (NEGATIVE) mg/dL Urine Glucose (UA) (NEGATIVE) mg/dL Urine Ketones (NEGATIVE) mg/dL Urine Occult Blood (NEGATIVE) Urine Nitrite (NEGATIVE) Urine Bilirubin (NEGATIVE) Urine Urobilinogen (<2.0) EU/dL Ur Leukocyte Esterase (NEGATIVE) Influenza Type A RNA (NEGATIVE) Influenza Type B RNA (NEGATIVE) SARS-CoV-2 RNA ([place]) (NEGATIVE) 08/29/20 08/29/20 08/30/20 Range/Units 18:22 21:00 05:35 WBC 21.34 H (4.0-11.0) K/uL RBC 3.77 L (4.50-5.90) M/uL Hgb 9.3 L (13.0-17.0) g/dL Hct 31.0 L (38.0-50.0) % MCV 82.2 (80.0-98.0) fL MCH 24.7 L (27.0-32.0) pg MCHC 30.0 L (31.0-37.0) g/dL RDW Std Deviation 52.4 (28.0-62.0) fl RDW Coeff of [place] 17 H (11.0-15.0) % Plt Count 537 H (150-400) K/uL MPV 10.10 (7.40-12.00) fL Neut % (Auto) 87.6 H (48.0-80.0) % Lymph % (Auto) 3.4 L (16.0-40.0) % [place] % (Auto) 7.8 (0.0-15.0) % Eos % (Auto) 1.0 (0.0-7.0) % Baso % (Auto) 0.2 (0.0-1.5) % Neut # (Auto) 18.7 H (1.4-5.7) K/uL Lymph # (Auto) 0.7 (0.6-2.4) K/uL [place] # (Auto) 1.7 H (0.0-0.8) K/uL Eos # (Auto) 0.2 (0.0-0.7) K/uL Baso # (Auto) 0.0 (0.0-0.1) K/uL Nucleated RBC % 0.0 /100WBC Nucleated RBCs # 0 K/uL Lactate (0.20-2.00) mmol/L Sodium (136-148) mmol/L Potassium (3.5-5.1) mmol/L Chloride (98-107) mmol/L Carbon Dioxide (21.0-32.0) mmol/L BUN (7.0-18.0) mg/dL Creatinine (0.8-1.3) mg/dL Est Cr Clr Drug Dosing mL/min Estimated GFR (MDRD) ml/min Glucose (74-106) mg/dL Calcium (8.5-10.1) mg/dL Total Bilirubin (0.2-1.0) mg/dL AST (15-37) IU/L ALT (14-63) IU/L Alkaline Phosphatase (46-116) U/L Total Protein (6.4-8.2) g/dL Albumin (3.4-5.0) g/dL Globulin (2.6-4.0) g/dL Albumin/Globulin Ratio (0.9-1.6) Lipase (73-393) U/L Urine Color YELLOW Urine Appearance CLEAR Urine pH 5.5 (5.0-8.0) Ur Specific [place] 1.015 (1.001-1.035) Urine Protein NEGATIVE (NEGATIVE) mg/dL Urine Glucose (UA) NEGATIVE (NEGATIVE) mg/dL Urine Ketones TRACE H (NEGATIVE) mg/dL Urine Occult Blood NEGATIVE (NEGATIVE) Urine Nitrite NEGATIVE (NEGATIVE) Urine Bilirubin NEGATIVE (NEGATIVE) Urine Urobilinogen 0.2 (<2.0) EU/dL Ur Leukocyte Esterase NEGATIVE (NEGATIVE) Influenza Type A RNA NEGATIVE (NEGATIVE) Influenza Type B RNA NEGATIVE (NEGATIVE) SARS-CoV-2 RNA ([place]) NEGATIVE (NEGATIVE) 08/30/20 Range/Units 05:35 WBC (4.0-11.0) K/uL RBC (4.50-5.90) M/uL Hgb (13.0-17.0) g/dL Hct (38.0-50.0) % MCV (80.0-98.0) fL MCH (27.0-32.0) pg MCHC (31.0-37.0) g/dL RDW Std Deviation (28.0-62.0) fl RDW Coeff of [place] (11.0-15.0) % Plt Count (150-400) K/uL MPV (7.40-12.00) fL Neut % (Auto) (48.0-80.0) % Lymph % (Auto) (16.0-40.0) % [place] % (Auto) (0.0-15.0) % Eos % (Auto) (0.0-7.0) % Baso % (Auto) (0.0-1.5) % Neut # (Auto) (1.4-5.7) K/uL Lymph # (Auto) (0.6-2.4) K/uL [place] # (Auto) (0.0-0.8) K/uL Eos # (Auto) (0.0-0.7) K/uL Baso # (Auto) (0.0-0.1) K/uL Nucleated RBC % /100WBC Nucleated RBCs # K/uL Lactate (0.20-2.00) mmol/L Sodium 139 (136-148) mmol/L Potassium 4.5 (3.5-5.1) mmol/L Chloride 102 (98-107) mmol/L Carbon Dioxide 31.0 (21.0-32.0) mmol/L BUN 12 (7.0-18.0) mg/dL Creatinine 0.9 (0.8-1.3) mg/dL Est Cr Clr Drug Dosing 53.18 mL/min Estimated GFR (MDRD) > 60.0 ml/min Glucose 137 H (74-106) mg/dL Calcium 8.5 (8.5-10.1) mg/dL Total Bilirubin 0.1 L (0.2-1.0) mg/dL AST 19 (15-37) IU/L ALT 22 (14-63) IU/L Alkaline Phosphatase 112 (46-116) U/L Total Protein 6.0 L (6.4-8.2) g/dL Albumin 2.1 L (3.4-5.0) g/dL Globulin 3.9 (2.6-4.0) g/dL Albumin/Globulin Ratio 0.5 L (0.9-1.6) Lipase (73-393) U/L Urine Color Urine Appearance Urine pH (5.0-8.0) Ur Specific [place] (1.001-1.035) Urine Protein (NEGATIVE) mg/dL Urine Glucose (UA) (NEGATIVE) mg/dL Urine Ketones (NEGATIVE) mg/dL Urine Occult Blood (NEGATIVE) Urine Nitrite (NEGATIVE) Urine Bilirubin (NEGATIVE) Urine Urobilinogen (<2.0) EU/dL Ur Leukocyte Esterase (NEGATIVE) Influenza Type A RNA (NEGATIVE) Influenza Type B RNA (NEGATIVE) SARS-CoV-2 RNA ([place]) (NEGATIVE) Result Diagrams: 08/30/20 05:35 08/30/20 05:35 Teo Results Last 24 hrs: Microbiology 08/29/20 19:35 C. difficile Antigen & Toxins A,B - Final Stool / Feces 08/29/20 17:35 Stool Occult Blood (TEO) - Final Stool / Feces 08/29/20 18:53 Anaerobic Blood Culture - Final Blood - Venous - Lab Draw Sepsis Event Note - Evaluation Sepsis Screening Result: No Definite Risk - Focused Exam Vital Signs: Vital Signs Temp Pulse Pulse Resp BP BP Pulse Ox 08/30/20 08:10 94 135/69 08/30/20 08:06 99.0 F 94 20 135/69 90 L 08/30/20 04:31 98.6 F 99 18 133/63 99 08/30/20 00:48 112 H 132/58 L 08/30/20 00:28 98.5 F 112 H 18 132/58 L 96 08/29/20 22:45 98.5 F 107 H 18 144/69 H 100 08/29/20 22:30 101 H 20 123/78 08/29/20 21:15 99 18 128/58 L 99 Pulse Ox 08/30/20 08:10 08/30/20 08:06 08/30/20 04:31 08/30/20 00:48 08/30/20 00:28 96 08/29/20 22:45 08/29/20 22:30 08/29/20 21:15 - Problem List & Annotations (1) Clostridium difficile infection SNOMED Code(s): 261750796 Code(s): A49.8 - OTHER BACTERIAL INFECTIONS OF UNSPECIFIED SITE Status: A cute Current Visit: Yes (2) Immunosuppression SNOMED Code(s): 75355460 Code(s): D84.9 - IMMUNODEFICIENCY, UNSPECIFIED Status: Acute Current Visit: Yes (3) Proctitis SNOMED Code(s): 6491351 Code(s): K62.89 - OTHER SPECIFIED DISEASES OF ANUS AND RECTUM Status: Acute Current Visit: Yes (4) History of airway aspiration SNOMED Code(s): 792170753 Code(s): Z78.9 - OTHER SPECIFIED HEALTH STATUS Status: Chronic Current Visit: No (5) TIA (transient ischemic attack) SNOMED Code(s): 676775055 Code(s): G45.9 - TRANSIENT CEREBRAL ISCHEMIC ATTACK, UNSPECIFIED Status: Chronic Current Visit: No (6) CAD (coronary artery disease) SNOMED Code(s): 91306545 Code(s): I25.10 - ATHSCL HEART DISEASE OF INUPIAT CORONARY ARTERY W/O ANG PCTRS Status: Chronic Priority: Medium Current Visit: No (7) COPD (chronic obstructive pulmonary disease) SNOMED Code(s): 19849225 Code(s): J44.9 - CHRONIC OBSTRUCTIVE PULMONARY DISEASE, UNSPECIFIED Status: Chronic Priority: Medium Current Visit: No Qualifiers: COPD type: unspecified COPD Qualified Code(s): J44.9 - Chronic obstructive pulmonary disease, unspecified (8) HLD (hyperlipidemia) SNOMED Code(s): 12334368 Code(s): E78.5 - HYPERLIPIDEMIA, UNSPECIFIED Status: Chronic Current Visit: No (9) HTN (hypertension) SNOMED Code(s): 29869696 Code(s): I10 - ESSENTIAL (PRIMARY) HYPERTENSION Status: Chronic Current Visit: No (10) Hx of laryngectomy SNOMED Code(s): 921968529, 079561522 Code(s): Z90.02 - ACQUIRED ABSENCE OF LARYNX Status: Chronic Priority: Low Current Visit: No (11) Tracheostomy in place SNOMED Code(s): 759861952 Code(s): Z93.0 - TRACHEOSTOMY STATUS Status: Chronic Priority: Low Current Visit: No (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 difficile diarrhea and proctitis 1. C. difficile diarrhea and proctitis -Continue vancomycin po QID, this is his first bout of C. difficile per his knowledge. -Was recently treated with antibiotics for pneumonia and [place] -Control as needed -Strict I's and O's to monitor stools. 2. CAD/HTN/HLD -Continue home medication of aspirin, metoprolol, statin 3. COPD/tracheostomy/history recurrent pneumonia -Continue oxygen 2 L per tracheostomy mask -Pulmonary toileting -DuoNebs as needed - Tracheostomy cares 4. Hypothyroidism -Stable continue levothyroxine VTE prophylaxis: Heparin CODE STATUS: DNR Dispo 2 to 3 days pending improvement. updated per telephone with Dr. Myles at bedside.
[2020-08-30] MEDS: Albuterol/Ipratropium 3.0-0.5 MG/3 ML Neb Soln NEB SCH ×4 (10:14→21:50)
[2020-08-30] MEDS ORDERED: traZODone 50 MG Tab PO ONE (22:29)
[2020-08-30] MEDS ORDERED: Cocoa Butter/Phenylephrine Rectal Supp RECTAL ONE (22:29)
[2020-08-31] MEDS: Albuterol/Ipratropium 3.0-0.5 MG/3 ML Neb Soln NEB SCH ×6 (02:10→21:36)
[2020-08-31] MEDS: Sodium Chloride 0.9% 1,000 ML IV SCH ×2 (03:00→12:23)
[2020-08-31 06:30] LABS: BLOOD UREA NITROGEN,BUN 8 mg/dL (7.0-18.0); CARBON DIOXIDE,CO2 30.2 mmol/L (21.0-32.0); CHLORIDE,CL 104 mmol/L (98-107); GLUCOSE RANDOM 115 mg/dL (74-106); SODIUM,NA 140 mmol/L (136-148)
[2020-08-31] MEDS: Vancomycin 125 MG Cap PO SCH ×4 (06:43→23:46)
[2020-08-31] MEDS: Levothyroxine 100 MCG Tab PO SCH (06:43)
--- NOTE | 2020-08-31 08:56 | PCM.PN ---
- General Info Date of Service: 08/31/20 Admission Dx/Problem (Free Text): Admission Diagnosis/Problem Admission Diagnosis/Problem Cdiff, Clostridium difficile infection Subjective Update: Reports his stools have improved but continues to have greater than 5 stools in 24 hours. Reports that rectal pain is significantly improved still has mild pain. Eating and drinking well continues to feel somewhat tired and weak. No other concerns at this time eager to go home when it is safe. Functional Status: Reports: Pain Controlled, Tolerating Diet, Ambulating, Urinating - Review of Systems General: Reports: Weakness (Generalized), Malaise Pulmonary: Reports: No Symptoms. Denies: Shortness of Breath Cardiovascular: Reports: No Symptoms. Denies: Chest Pain Gastrointestinal: Reports: Other (Rectal pain continues to improve). Denies: Abdominal Pain, Nausea, Vomiting Genitourinary: Reports: No Symptoms. Denies: Dysuria, Frequency, Burning Musculoskeletal: Reports: No Symptoms Skin: Reports: No Symptoms Neurological: Reports: No Symptoms Psychiatric: Reports: No Symptoms - Patient Data Vitals - Most Recent: Last Vital Signs Temp 99.0 F 08/31/20 08:16 Pulse 95 08/31/20 08:16 Resp 17 08/31/20 08:16 BP 139/73 08/31/20 08:16 Pulse Ox 97 08/31/20 08:16 Weight - Most Recent: 51.437 kg I&O - Last 24 Hours: Intake & Output 08/30/20 08/31/20 08/31/20 22:59 06:59 14:59 Intake Total 2384 1856 Output Total 950 1200 Balance 1434 656 Lab Results Last 24 Hours: Laboratory Results - last 24 hr 08/31/20 08/31/20 Range/Units 06:00 06:00 WBC 12.92 H (4.0-11.0) K/uL RBC 3.41 L (4.50-5.90) M/uL Hgb 8.5 L (13.0-17.0) g/dL Hct 28.0 L (38.0-50.0) % MCV 82.1 (80.0-98.0) fL MCH 24.9 L (27.0-32.0) pg MCHC 30.4 L (31.0-37.0) g/dL RDW Std Deviation 52.5 (28.0-62.0) fl RDW Coeff of [place] 17 H (11.0-15.0) % Plt Count 436 H (150-400) K/uL MPV 9.40 (7.40-12.00) fL Neut % (Auto) 85.5 H (48.0-80.0) % Lymph % (Auto) 4.6 L (16.0-40.0) % Wallace % (Auto) 6.8 (0.0-15.0) % Eos % (Auto) 2.9 (0.0-7.0) % Baso % (Auto) 0.2 (0.0-1.5) % Neut # (Auto) 11.0 H (1.4-5.7) K/uL Lymph # (Auto) 0.6 (0.6-2.4) K/uL Wallace # (Auto) 0.9 H (0.0-0.8) K/uL Eos # (Auto) 0.4 (0.0-0.7) K/uL Baso # (Auto) 0.0 (0.0-0.1) K/uL Nucleated RBC % 0.0 /100WBC Nucleated RBCs # 0 K/uL Sodium 140 (136-148) mmol/L Potassium 4.0 (3.5-5.1) mmol/L Chloride 104 (98-107) mmol/L Carbon Dioxide 30.2 (21.0-32.0) mmol/L BUN 8 (7.0-18.0) mg/dL Creatinine 0.6 L (0.8-1.3) mg/dL Est Cr Clr Drug Dosing 79.78 mL/min Estimated GFR (MDRD) > 60.0 ml/min Glucose 115 H (74-106) mg/dL Calcium 8.1 L (8.5-10.1) mg/dL Phosphorus 3.1 (2.6-4.7) mg/dL Magnesium 1.8 (1.8-2.4) mg/dL Teo Results Last 24 Hours: Microbiology 08/29/20 18:53 Aerobic Blood Culture - Preliminary Blood - Venous - Lab Draw NO GROWTH AFTER 1 DAY Anaerobic Blood Culture - Final 08/29/20 18:41 Aerobic Blood Culture - Preliminary Blood - Venous NO GROWTH AFTER 1 DAY Anaerobic Blood Culture - Preliminary NO GROWTH AFTER 1 DAY Med Orders - Current: Current Medications Hydrocodone Bitart/Acetaminophen (Acetaminophen/Hydrocodone 325-10 Mg Tab) 1 tab PO Q4H PRN PRN Reason: Pain Last Admin: 08/30/20 21:54 Dose: 1 tab Documented by: Albuterol/Ipratropium (Albuterol/Ipratropium 3.0-0.5 Mg/3 Ml Neb Soln) 3 ml NEB Q4HRRT [facility] Last Admin: 08/31/20 06:26 Dose: 3 ml Documented by: Aspirin (Aspirin 81 Mg Tab.Chew) 81 mg PO DAILY [facility] Last Admin: 08/30/20 08:10 Dose: 81 mg Documented by: Cetirizine HCl (Cetirizine 10 Mg Tab) 10 mg PO DAILY [facility] Last Admin: 08/30/20 08:08 Dose: 10 mg Documented by: Famotidine (Famotidine 20 Mg Tab) 40 mg PO BID [facility] Last Admin: 08/30/20 21:49 Dose: 40 mg Documented by: Heparin Sodium (Porcine) (Heparin Sodium 5,000 Units/Ml Vial) 5,000 units SUBCUT Q8H [facility] Last Admin: 08/30/20 23:59 Dose: 5,000 units Documented by: Sodium Chloride (Normal Saline) 1,000 mls @ 125 mls/hr IV ASDIRECTED [facility] Last Admin: 08/31/20 03:00 Dose: 125 mls/hr Documented by: Levothyroxine Sodium (Levothyroxine 100 Mcg Tab) 100 mcg PO ACBREAKFAST [facility] Last Admin: 08/31/20 06:43 Dose: 100 mcg Documented by: Metoprolol Succinate (Metoprolol Succinate 50 Mg Tab.Er) 25 mg PO BID [facility] Last Admin: 08/30/20 21:50 Dose: 25 mg Documented by: Simvastatin (Simvastatin 40 Mg Tab) 40 mg PO BEDTIME [facility] Last Admin: 08/30/20 21:49 Dose: 40 mg Documented by: Vancomycin HCl (Vancomycin 125 Mg Cap) 125 mg PO QID [facility] Last Admin: 08/31/20 06:43 Dose: 125 mg Documented by: Discontinued Medications Albuterol (Albuterol 0.083% 2.5 Mg/3 Ml Neb Soln) 2.5 mg NEB ONETIME ONE Stop: 08/29/20 22:05 Last Admin: 08/29/20 22:21 Dose: 2.5 mg Documented by: [place] Butter/Phenylephrine ([place] Butter/Phenylephrine Rectal Supp) 1 each RECTAL ONETIME ONE Stop: 08/30/20 22:30 Last Admin: 08/30/20 23:59 Dose: 1 each Documented by: Sodium Chloride (Normal Saline) 1,000 mls @ 999 mls/hr IV BOLUS ONE Stop: 08/29/20 18:27 Last Admin: 08/29/20 17:50 Dose: 999 mls/hr Documented by: Sodium Chloride (Normal Saline) 500 mls @ 1,000 mls/hr IV .BOLUS JORGE Last Admin: 08/30/20 00:45 Dose: 1,000 mls/hr Documented by: Iopamidol (Iopamidol 755 Mg/Ml 500 Ml Multipack Bottle) 75 ml IVPUSH ONETIME STA Stop: 08/29/20 19:57 Last Admin: 08/29/20 19:56 Dose: 75 ml Documented by: Trazodone HCl (Trazodone 50 Mg Tab) 50 mg PO ONETIME ONE Stop: 08/30/20 22:30 Last Admin: 08/30/20 23:59 Dose: 50 mg Documented by: Vancomycin HCl (Vancomycin 125 Mg Cap) 500 mg PO NOW STA Stop: 08/29/20 20:58 Last Admin: 08/29/20 21:55 Dose: 500 mg Documented by: - Exam Quality Assessment: Supplemental Oxygen, DVT Prophylaxis General: Alert, Oriented, Cooperative, No Acute Distress Neck: Other (Tracheostomy intact with tracheostomy mask at 2 L) Lungs: Clear to Auscultation, Normal Respiratory Effort Cardiovascular: Regular Rate, Regular Rhythm GI/Abdominal Exam: Normal Bowel Sounds, Soft, Non-Tender Back Exam: Normal Inspection, Full Range of Motion Extremities: Normal Inspection, Normal Range of Motion, Non-Tender, No Pedal Edema Wound/Incisions: Healing Well Neurological: No New Focal Deficit Psy/Mental Status: Alert, Normal Affect, Normal Mood - Patient Data Lab Results Last 24 hrs: Laboratory Results - last 24 hr 08/31/20 08/31/20 Range/Units 06:00 06:00 WBC 12.92 H (4.0-11.0) K/uL RBC 3.41 L (4.50-5.90) M/uL Hgb 8.5 L (13.0-17.0) g/dL Hct 28.0 L (38.0-50.0) % MCV 82.1 (80.0-98.0) fL MCH 24.9 L (27.0-32.0) pg MCHC 30.4 L (31.0-37.0) g/dL RDW Std Deviation 52.5 (28.0-62.0) fl RDW Coeff of [place] 17 H (11.0-15.0) % Plt Count 436 H (150-400) K/uL MPV 9.40 (7.40-12.00) fL Neut % (Auto) 85.5 H (48.0-80.0) % Lymph % (Auto) 4.6 L (16.0-40.0) % Wallace % (Auto) 6.8 (0.0-15.0) % Eos % (Auto) 2.9 (0.0-7.0) % Baso % (Auto) 0.2 (0.0-1.5) % Neut # (Auto) 11.0 H (1.4-5.7) K/uL Lymph # (Auto) 0.6 (0.6-2.4) K/uL Wallace # (Auto) 0.9 H (0.0-0.8) K/uL Eos # (Auto) 0.4 (0.0-0.7) K/uL Baso # (Auto) 0.0 (0.0-0.1) K/uL Nucleated RBC % 0.0 /100WBC Nucleated RBCs # 0 K/uL Sodium 140 (136-148) mmol/L Potassium 4.0 (3.5-5.1) mmol/L Chloride 104 (98-107) mmol/L Carbon Dioxide 30.2 (21.0-32.0) mmol/L BUN 8 (7.0-18.0) mg/dL Creatinine 0.6 L (0.8-1.3) mg/dL Est Cr Clr Drug Dosing 79.78 mL/min Estimated GFR (MDRD) > 60.0 ml/min Glucose 115 H (74-106) mg/dL Calcium 8.1 L (8.5-10.1) mg/dL Phosphorus 3.1 (2.6-4.7) mg/dL Magnesium 1.8 (1.8-2.4) mg/dL Result Diagrams: 08/31/20 06:00 08/31/20 06:00 Teo Results Last 24 hrs: Microbiology 08/29/20 18:53 Aerobic Blood Culture - Preliminary Blood - Venous - Lab Draw NO GROWTH AFTER 1 DAY Anaerobic Blood Culture - Final 08/29/20 18:41 Aerobic Blood Culture - Preliminary Blood - Venous NO GROWTH AFTER 1 DAY Anaerobic Blood Culture - Preliminary NO GROWTH AFTER 1 DAY Sepsis Event Note - Evaluation Sepsis Screening Result: No Definite Risk - Focused Exam Vital Signs: Vital Signs Temp Pulse Pulse Resp BP BP Pulse Ox 08/31/20 08:16 99.0 F 95 17 139/73 97 08/31/20 04:42 98 F 89 18 106/53 L 98 08/30/20 23:30 98 F 89 17 119/68 98 08/30/20 21:50 89 118/70 - Problem List & Annotations (1) Clostridium difficile infection SNOMED Code(s): 554333886 Code(s): A49.8 - OTHER BACTERIAL INFECTIONS OF UNSPECIFIED SITE Status: Acute Current Visit: Yes (2) Immunosuppression SNOMED Code(s): 29227822 Code(s): D84.9 - IMMUNODEFICIENCY, UNSPECIFIED Status: Acute Current Visit: Yes (3) Proctitis SNOMED Code(s): 4029369 Code(s): K62.89 - OTHER SPECIFIED DISEASES OF ANUS AND RECTUM Status: Acute Current Visit: Yes (4) History of airway aspiration SNOMED Code(s): 180093406 Code(s): Z78.9 - OTHER SPECIFIED HEALTH STATUS Status: Chronic Current Visit: No (5) TIA (transient ischemic attack) SNOMED Code(s): 045425683 Code(s): G45.9 - TRANSIENT CEREBRAL ISCHEMIC ATTACK, UNSPECIFIED Status: Chronic Current Visit: No (6) CAD (coronary artery disease) SNOMED Code(s): 49338329 Code(s): I25.10 - ATHSCL HEART DISEASE OF [place] CORONARY ARTERY W/O ANG PCTRS Status: Chronic Priority: Medium Current Visit: No (7) COPD (chronic obstructive pulmonary disease) SNOMED Code(s): 04938916 Code(s): J44.9 - CHRONIC OBSTRUCTIVE PULMONARY DISEASE, UNSPECIFIED Status: Chronic Priority: Medium Current Visit: No Qualifiers: COPD type: unspecified COPD Qualified Code(s): J44.9 - Chronic obstructive pulmonary disease, unspecified (8) HLD (hyperlipidemia) SNOMED Code(s): 27289040 Code(s): E78.5 - HYPERLIPIDEMIA, UNSPECIFIED Status: Chronic Current Visit: No (9) HTN (hypertension) SNOMED Code(s): 99630543 Code(s): I10 - ESSENTIAL (PRIMARY) HYPERTENSION Status: Chronic Current Visit: No (10) Hx of laryngectomy SNOMED Code(s): 873596711, 383190711 Code(s): Z90.02 - ACQUIRED ABSENCE OF LARYNX Status: Chronic Priority: Low Current Visit: No (11) Tracheostomy in place SNOMED Code(s): 423416564 Code(s): Z93.0 - TRACHEOSTOMY STATUS Status: Chronic Priority: Low Current Visit: No (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 SNOMED Code(s): 311642603 Code(s): C32.1 - MALIGNANT NEOPLASM OF SUPRAGLOTTIS Status: Chronic Current Visit: Yes - Problem List Review Problem List Initiated/Reviewed/Updated: Yes - My Orders Last 24 Hours: My Active Orders 08/30/20 09:43 Intake and Output Strict [RC] ASDIRECTED Tracheostomy Care [RT Tracheostomy Assessment] [RC] ASDIRECTED 08/30/20 09:58 RT Aerosol Therapy [RC] ASDIRECTED 08/30/20 10:00 Albuterol/Ipratropium [DuoNeb 3.0-0.5 MG/3 ML] 3 ml NEB Q4HRRT 09/01/20 05:11 BASIC METABOLIC PANEL,BMP [CHEM] AM CBC WITH AUTO DIFF [HEME] AM MAGNESIUM [CHEM] AM PHOSPHORUS [CHEM] AM 09/02/20 05:11 BASIC METABOLIC PANEL,BMP [CHEM] AM CBC WITH AUTO DIFF [HEME] AM MAGNESIUM [CHEM] AM PHOSPHORUS [CHEM] AM - Plan Plan:: This 75-year-old male admitted with C. difficile diarrhea and proctitis 1. C. difficile diarrhea and proctitis -Continue vancomycin po QID, this is his first bout of C. difficile per his knowledge. -Slow steady improvement continue to monitor -Strict I's and O's to monitor stools. 2. CAD/HTN/HLD -Continue home medication of aspirin, metoprolol, statin 3. COPD/tracheostomy/history recurrent pneumonia -Continue oxygen 2 L per tracheostomy mask -Pulmonary toileting -DuoNebs as needed - Tracheostomy cares 4. Hypothyroidism -Stable continue levothyroxine 5. Anemia -No active bleeding Hemoccult negative -Likely dilutional secondary to IV fluids we will continue to monitor daily. VTE prophylaxis: Heparin CODE STATUS: DNR Dispo 2 to 3 days pending improvement.
[2020-08-31] MEDS: Famotidine 20 MG Tab PO SCH ×2 (09:14→21:33)
[2020-08-31] MEDS: Metoprolol Succinate 50 MG Tab.ER PO SCH ×2 (09:15→21:35)
[2020-08-31] MEDS: Aspirin 81 MG Tab.Chew PO SCH (09:15)
[2020-08-31] MEDS: Cetirizine 10 MG Tab PO SCH (09:17)
[2020-08-31] MEDS: Heparin Sodium 5,000 Units/ML Vial SUBCUT SCH ×3 (09:22→23:46)
[2020-08-31] MEDS: Acetaminophen/HYDROcodone 325-10 MG Tab PO PRN ×4 (09:57→23:54)
[2020-08-31] MEDS: Simvastatin 40 MG Tab PO SCH (21:34)
[2020-08-31] MEDS: traZODone 50 MG Tab PO PRN (21:35)
[2020-09-01] MEDS: Albuterol/Ipratropium 3.0-0.5 MG/3 ML Neb Soln NEB SCH ×6 (01:19→21:02)
[2020-09-01] MEDS: Sodium Chloride 0.9% 1,000 ML IV SCH ×2 (02:23→16:13)
[2020-09-01] MEDS: Acetaminophen/HYDROcodone 325-10 MG Tab PO PRN ×4 (04:07→23:57)
[2020-09-01 06:08] LABS: BLOOD UREA NITROGEN,BUN 9 mg/dL (7.0-18.0); CARBON DIOXIDE,CO2 32.6 mmol/L (21.0-32.0); CHLORIDE,CL 102 mmol/L (98-107); GLUCOSE RANDOM 119 mg/dL (74-106); POTASSIUM,K 4.2 mmol/L (3.5-5.1); SODIUM,NA 140 mmol/L (136-148)
--- NOTE | 2020-09-01 06:21 | PCM.PN ---
- General Info Date of Service: 09/01/20 - Review of Systems Systems Review Comment:: had four loose stools yesterday, feeling better - Patient Data Vitals - Most Recent: Last Vital Signs Temp 37.3 C 09/01/20 04:01 Pulse 102 H 09/01/20 04:01 Resp 19 09/01/20 04:01 BP 130/66 09/01/20 04:01 Pulse Ox 96 09/01/20 04:01 Weight - Most Recent: 51.437 kg I&O - Last 24 Hours: Intake & Output 08/31/20 08/31/20 09/01/20 14:59 22:59 06:59 Intake Total 720 5749 850 Output Total 1999 2460 Balance 081 -238 -9391 Lab Results Last 24 Hours: Laboratory Results - last 24 hr 08/31/20 09/01/20 09/01/20 Range/Units 06:00 05:28 05:28 WBC 12.29 H (4.0-11.0) K/uL RBC 3.53 L (4.50-5.90) M/uL Hgb 8.8 L (13.0-17.0) g/dL Hct 29.0 L (38.0-50.0) % MCV 82.2 (80.0-98.0) fL MCH 24.9 L (27.0-32.0) pg MCHC 30.3 L (31.0-37.0) g/dL RDW Std Deviation 52.7 (28.0-62.0) fl RDW Coeff of Randolph 18 H (11.0-15.0) % Plt Count 477 H (150-400) K/uL MPV 10.00 (7.40-12.00) fL Neut % (Auto) 82.9 H (48.0-80.0) % Lymph % (Auto) 4.1 L (16.0-40.0) % [place] % (Auto) 9.2 (0.0-15.0) % Eos % (Auto) 3.4 (0.0-7.0) % Baso % (Auto) 0.4 (0.0-1.5) % Neut # (Auto) 10.2 H (1.4-5.7) K/uL Lymph # (Auto) 0.5 L (0.6-2.4) K/uL [place] # (Auto) 1.1 H (0.0-0.8) K/uL Eos # (Auto) 0.4 (0.0-0.7) K/uL Baso # (Auto) 0.1 (0.0-0.1) K/uL Nucleated RBC % 0.0 /100WBC Nucleated RBCs # 0 K/uL Sodium 140 140 (136-148) mmol/L Potassium 4.0 4.2 (3.5-5.1) mmol/L Chloride 104 102 (98-107) mmol/L Carbon Dioxide 30.2 32.6 H (21.0-32.0) mmol/L BUN 8 9 (7.0-18.0) mg/dL Creatinine 0.6 L 0.9 (0.8-1.3) mg/dL Est Cr Clr Drug Dosing 79.78 53.18 mL/min Estimated GFR (MDRD) > 60.0 > 60.0 ml/min Glucose 115 H 119 H (74-106) mg/dL Calcium 8.1 L 9.1 (8.5-10.1) mg/dL Phosphorus 3.1 3.6 (2.6-4.7) mg/dL Magnesium 1.8 1.8 (1.8-2.4) mg/dL Teo Results Last 24 Hours: Microbiology 08/29/20 18:53 Aerobic Blood Culture - Preliminary Blood - Venous - Lab Draw NO GROWTH AFTER 2 DAYS Anaerobic Blood Culture - Final 08/29/20 18:41 Aerobic Blood Culture - Preliminary Blood - Venous NO GROWTH AFTER 2 DAYS Anaerobic Blood Culture - Preliminary NO GROWTH AFTER 2 DAYS 08/29/20 19:35 Clostridioides difficile (PCR) - Final Stool / Feces 08/30/20 11:50 Cryptosporidium/Giardia - Final Stool / Feces 08/30/20 11:50 Shiga Toxin I & II - Final Stool / Feces Med Orders - Current: Current Medications Hydrocodone Bitart/Acetaminophen (Acetaminophen/Hydrocodone 325-10 Mg Tab) 1 tab PO Q4H PRN PRN Reason: Pain Last Admin: 09/01/20 04:07 Dose: 1 tab Documented by: Albuterol/Ipratropium (Albuterol/Ipratropium 3.0-0.5 Mg/3 Ml Neb Soln) 3 ml NEB Q4HRRT [facility] Last Admin: 09/01/20 01:19 Dose: 3 ml Documented by: Aspirin (Aspirin 81 Mg Tab.Chew) 81 mg PO DAILY [facility] Last Admin: 08/31/20 09:15 Dose: 81 mg Documented by: Cetirizine HCl (Cetirizine 10 Mg Tab) 10 mg PO DAILY [facility] Last Admin: 08/31/20 09:17 Dose: 10 mg Documented by: Famotidine (Famotidine 20 Mg Tab) 40 mg PO BID [facility] Last Admin: 08/31/20 21:33 Dose: 40 mg Documented by: Heparin Sodium (Porcine) (Heparin Sodium 5,000 Units/Ml Vial) 5,000 units SUBCUT Q8H [facility] Last Admin: 08/31/20 23:46 Dose: 5,000 units Documented by: Sodium Chloride (Normal Saline) 1,000 mls @ 75 mls/hr IV Q13H [facility] Last Admin: 09/01/20 02:23 Dose: 75 mls/hr Documented by: Levothyroxine Sodium (Levothyroxine 100 Mcg Tab) 100 mcg PO ACBREAKFAST [facility] Last Admin: 08/31/20 06:43 Dose: 100 mcg Documented by: Metoprolol Succinate (Metoprolol Succinate 50 Mg Tab.Er) 25 mg PO BID [facility] Last Admin: 08/31/20 21:35 Dose: 25 mg Documented by: Simvastatin (Simvastatin 40 Mg Tab) 40 mg PO BEDTIME [facility] Last Admin: 08/31/20 21:34 Dose: 40 mg Documented by: Trazodone HCl (Trazodone 50 Mg Tab) 50 mg PO BEDTIME PRN PRN Reason: Sleep Last Admin: 08/31/20 21:35 Dose: 50 mg Documented by: Vancomycin HCl (Vancomycin 125 Mg Cap) 125 mg PO QID [facility] Last Admin: 08/31/20 23:46 Dose: 125 mg Documented by: Discontinued Medications Albuterol (Albuterol 0.083% 2.5 Mg/3 Ml Neb Soln) 2.5 mg NEB ONETIME ONE Stop: 08/29/20 22:05 Last Admin: 08/29/20 22:21 Dose: 2.5 mg Documented by: [place] Butter/Phenylephrine ([place] Butter/Phenylephrine Rectal Supp) 1 each RECTAL ONETIME ONE Stop: 08/30/20 22:30 Last Admin: 08/30/20 23:59 Dose: 1 each Documented by: Sodium Chloride (Normal Saline) 1,000 mls @ 999 mls/hr IV BOLUS ONE Stop: 08/29/20 18:27 Last Admin: 08/29/20 17:50 Dose: 999 mls/hr Documented by: Sodium Chloride (Normal Saline) 1,000 mls @ 125 mls/hr IV ASDIRECTED [facility] Last Admin: 08/31/20 03:00 Dose: 125 mls/hr Documented by: Sodium Chloride (Normal Saline) 500 mls @ 1,000 mls/hr IV .BOLUS JORGE Last Admin: 08/30/20 00:45 Dose: 1,000 mls/hr Documented by: Iopamidol (Iopamidol 755 Mg/Ml 500 Ml Multipack Bottle) 75 ml IVPUSH ONETIME STA Stop: 08/29/20 19:57 Last Admin: 08/29/20 19:56 Dose: 75 ml Documented by: Trazodone HCl (Trazodone 50 Mg Tab) 50 mg PO ONETIME ONE Stop: 08/30/20 22:30 Last Admin: 08/30/20 23:59 Dose: 50 mg Documented by: Vancomycin HCl (Vancomycin 125 Mg Cap) 500 mg PO NOW STA Stop: 08/29/20 20:58 Last Admin: 08/29/20 21:55 Dose: 500 mg Documented by: - Exam General: Alert, Oriented Neck: Supple Lungs: Clear to Auscultation, Normal Respiratory Effort Cardiovascular: Regular Rate, Regular Rhythm GI/Abdominal Exam: Soft, Non-Tender, No Distention Extremities: Non-Tender, No Pedal Edema Skin: Warm, Dry, Intact Neurological: No New Focal Deficit - Patient Data Lab Results Last 24 hrs: Laboratory Results - last 24 hr 08/31/20 09/01/20 09/01/20 Range/Units 06:00 05:28 05:28 WBC 12.29 H (4.0-11.0) K/uL RBC 3.53 L (4.50-5.90) M/uL Hgb 8.8 L (13.0-17.0) g/dL Hct 29.0 L (38.0-50.0) % MCV 82.2 (80.0-98.0) fL MCH 24.9 L (27.0-32.0) pg MCHC 30.3 L (31.0-37.0) g/dL RDW Std Deviation 52.7 (28.0-62.0) fl RDW Coeff of [place] 18 H (11.0-15.0) % Plt Count 477 H (150-400) K/uL MPV 10.00 (7.40-12.00) fL Neut % (Auto) 82.9 H (48.0-80.0) % Lymph % (Auto) 4.1 L (16.0-40.0) % [place] % (Auto) 9.2 (0.0-15.0) % Eos % (Auto) 3.4 (0.0-7.0) % Baso % (Auto) 0.4 (0.0-1.5) % Neut # (Auto) 10.2 H (1.4-5.7) K/uL Lymph # (Auto) 0.5 L (0.6-2.4) K/uL [place] # (Auto) 1.1 H (0.0-0.8) K/uL Eos # (Auto) 0.4 (0.0-0.7) K/uL Baso # (Auto) 0.1 (0.0-0.1) K/uL Nucleated RBC % 0.0 /100WBC Nucleated RBCs # 0 K/uL Sodium 140 140 (136-148) mmol/L Potassium 4.0 4.2 (3.5-5.1) mmol/L Chloride 104 102 (98-107) mmol/L Carbon Dioxide 30.2 32.6 H (21.0-32.0) mmol/L BUN 8 9 (7.0-18.0) mg/dL Creatinine 0.6 L 0.9 (0.8-1.3) mg/dL Est Cr Clr Drug Dosing 79.78 53.18 mL/min Estimated GFR (MDRD) > 60.0 > 60.0 ml/min Glucose 115 H 119 H (74-106) mg/dL Calcium 8.1 L 9.1 (8.5-10.1) mg/dL Phosphorus 3.1 3.6 (2.6-4.7) mg/dL Magnesium 1.8 1.8 (1.8-2.4) mg/dL Result Diagrams: 09/01/20 05:28 09/01/20 05:28 Teo Results Last 24 hrs: Microbiology 08/29/20 18:53 Aerobic Blood Culture - Preliminary Blood - Venous - Lab Draw NO GROWTH AFTER 2 DAYS Anaerobic Blood Culture - Final 08/29/20 18:41 Aerobic Blood Culture - Preliminary Blood - Venous NO GROWTH AFTER 2 DAYS Anaerobic Blood Culture - Preliminary NO GROWTH AFTER 2 DAYS 08/29/20 19:35 Clostridioides difficile (PCR) - Final Stool / Feces 08/30/20 11:50 Cryptosporidium/Giardia - Final Stool / Feces 08/30/20 11:50 Shiga Toxin I & II - Final Stool / Feces Sepsis Event Note - Evaluation Sepsis Screening Result: Sepsis Risk - Focused Exam Vital Signs: Vital Signs Temp Pulse Pulse Resp BP BP Pulse Ox 09/01/20 04:01 37.3 C 102 H 19 130/66 96 08/31/20 23:48 37.5 C 104 H 18 123/66 97 08/31/20 21:35 112 H 163/85 H 08/31/20 19:44 36.3 C 112 H 19 163/85 H 97 - Problem List & Annotations (1) Clostridium difficile infection SNOMED Code(s): 966422656 Code(s): A49.8 - OTHER BACTERIAL INFECTIONS OF UNSPECIFIED SITE Status: Acute Current Visit: Yes (2) Immunosuppression SNOMED Code(s): 35420627 Code(s): D84.9 - IMMUNODEFICIENCY, UNSPECIFIED Status: Acute Current Visit: Yes (3) Proctitis SNOMED Code(s): 1011833 Code(s): K62.89 - OTHER SPECIFIED DISEASES OF ANUS AND RECTUM Status: Acute Current Visit: Yes - Problem List Review Problem List Initiated/Reviewed/Updated: Yes - My Orders Last 24 Hours: My Active Orders 08/31/20 21:17 traZODone 50 mg PO BEDTIME PRN - Plan Plan:: 75 yo male admitted with C.diff infection. 1. C. difficile diarrhea and proctitis -Continue vancomycin po QID -Strict I's and O's to monitor stools. 2. CAD/HTN/HLD -Continue home medication of aspirin, metoprolol, statin 3. COPD/tracheostomy/history recurrent pneumonia -Continue oxygen 2 L per tracheostomy mask -Pulmonary toileting -DuoNebs as needed - Tracheostomy cares 4. Hypothyroidism -Stable continue levothyroxine 5. Anemia -No active bleeding Hemoccult negative -Likely dilutional secondary to IV fluids we will continue to monitor daily. VTE prophylaxis: Heparin CODE STATUS: DNR Dispo 1-2 days pending improvement.
[2020-09-01] MEDS: Levothyroxine 100 MCG Tab PO SCH (06:39)
[2020-09-01] MEDS: Vancomycin 125 MG Cap PO SCH ×4 (06:39→23:08)
[2020-09-01] MEDS: Heparin Sodium 5,000 Units/ML Vial SUBCUT SCH ×2 (08:34→17:22)
[2020-09-01] MEDS: Metoprolol Succinate 50 MG Tab.ER PO SCH ×2 (08:35→20:56)
[2020-09-01] MEDS: Famotidine 20 MG Tab PO SCH ×2 (08:36→20:56)
[2020-09-01] MEDS: Cetirizine 10 MG Tab PO SCH (08:37)
[2020-09-01] MEDS: Aspirin 81 MG Tab.Chew PO SCH (08:37)
[2020-09-01] MEDS: Simvastatin 40 MG Tab PO SCH (21:00)
[2020-09-01] MEDS: traZODone 50 MG Tab PO PRN (23:08)
[2020-09-02] MEDS: Sodium Chloride 0.9% 1,000 ML IV SCH ×2 (01:29→06:34)
[2020-09-02] MEDS: Albuterol/Ipratropium 3.0-0.5 MG/3 ML Neb Soln NEB SCH ×6 (03:17→21:39)
[2020-09-02 06:27] LABS: BLOOD UREA NITROGEN,BUN 9 mg/dL (7.0-18.0); CHLORIDE,CL 101 mmol/L (98-107); GLUCOSE RANDOM 106 mg/dL (74-106); POTASSIUM,K 4.1 mmol/L (3.5-5.1); SODIUM,NA 138 mmol/L (136-148)
[2020-09-02] MEDS: Vancomycin 125 MG Cap PO SCH ×4 (06:27→23:25)
[2020-09-02] MEDS: Levothyroxine 100 MCG Tab PO SCH (06:30)
[2020-09-02] MEDS: Famotidine 20 MG Tab PO SCH ×2 (08:48→21:38)
[2020-09-02] MEDS: Aspirin 81 MG Tab.Chew PO SCH (08:48)
[2020-09-02] MEDS: Metoprolol Succinate 50 MG Tab.ER PO SCH ×2 (08:48→21:38)
[2020-09-02] MEDS: Cetirizine 10 MG Tab PO SCH (08:48)
[2020-09-02] MEDS: Acetaminophen/HYDROcodone 325-10 MG Tab PO PRN ×4 (09:11→23:24)
[2020-09-02] MEDS ORDERED: Cocoa Butter/Phenylephrine Rectal Supp RECTAL ONE (11:15)
--- NOTE | 2020-09-02 12:46 | PCM.PN ---
- General Info Date of Service: 09/02/20 Admission Dx/Problem (Free Text): Admission Diagnosis/Problem Admission Diagnosis/Problem Cdiff, Clostridium difficile infection Subjective Update: Reports no more loose stools overnight, feels weak but keen to go home Functional Status: Reports: Tolerating Diet, Ambulating, Urinating - Review of Systems General: Reports: Weakness, Malaise. Denies: Fever, Fatigue Pulmonary: Denies: Shortness of Breath, Pleuritic Chest Pain Cardiovascular: Denies: Chest Pain, Palpitations Gastrointestinal: Reports: Decreased Appetite. Denies: Abdominal Pain, Constipation, Diarrhea Genitourinary: Denies: Dysuria, Frequency, Burning Musculoskeletal: Denies: Neck Pain, Shoulder Pain, Arm Pain - Patient Data Vitals - Most Recent: Last Vital Signs Temp 37.3 C 09/02/20 12:00 Pulse 100 09/02/20 12:00 Resp 18 09/02/20 12:00 BP 129/61 09/02/20 12:00 Pulse Ox 95 09/02/20 12:00 Weight - Most Recent: 51.437 kg I&O - Last 24 Hours: Intake & Output 09/01/20 09/02/20 09/02/20 22:59 06:59 14:59 Intake Total 950 1681 Output Total 2250 2260 Balance -1300 -579 Lab Results Last 24 Hours: Laboratory Results - last 24 hr 09/02/20 09/02/20 Range/Units 05:50 05:50 WBC 10.35 (4.0-11.0) K/uL RBC 3.50 L (4.50-5.90) M/uL Hgb 8.6 L (13.0-17.0) g/dL Hct 28.8 L (38.0-50.0) % MCV 82.3 (80.0-98.0) fL MCH 24.6 L (27.0-32.0) pg MCHC 29.9 L (31.0-37.0) g/dL RDW Std Deviation 52.7 (28.0-62.0) fl RDW Coeff of [place] 18 H (11.0-15.0) % Plt Count 464 H (150-400) K/uL MPV 9.70 (7.40-12.00) fL Neut % (Auto) 78.2 (48.0-80.0) % Lymph % (Auto) 6.7 L (16.0-40.0) % [place] % (Auto) 10.0 (0.0-15.0) % Eos % (Auto) 4.8 (0.0-7.0) % Baso % (Auto) 0.3 (0.0-1.5) % Neut # (Auto) 8.1 H (1.4-5.7) K/uL Lymph # (Auto) 0.7 (0.6-2.4) K/uL [place] # (Auto) 1.0 H (0.0-0.8) K/uL Eos # (Auto) 0.5 (0.0-0.7) K/uL Baso # (Auto) 0.0 (0.0-0.1) K/uL Nucleated RBC % 0.0 /100WBC Nucleated RBCs # 0 K/uL Sodium 138 (136-148) mmol/L Potassium 4.1 (3.5-5.1) mmol/L Chloride 101 (98-107) mmol/L Carbon Dioxide 32.0 (21.0-32.0) mmol/L BUN 9 (7.0-18.0) mg/dL Creatinine 0.7 L (0.8-1.3) mg/dL Est Cr Clr Drug Dosing 68.38 mL/min Estimated GFR (MDRD) > 60.0 ml/min Glucose 106 (74-106) mg/dL Calcium 9.2 (8.5-10.1) mg/dL Phosphorus 3.9 (2.6-4.7) mg/dL Magnesium 1.8 (1.8-2.4) mg/dL Eto Results Last 24 Hours: Microbiology 08/29/20 18:53 Aerobic Blood Culture - Preliminary Blood - Venous - Lab Draw NO GROWTH AFTER 3 DAYS Anaerobic Blood Culture - Final 08/29/20 18:41 Aerobic Blood Culture - Preliminary Blood - Venous NO GROWTH AFTER 3 DAYS Anaerobic Blood Culture - Preliminary NO GROWTH AFTER 3 DAYS 08/30/20 11:50 Stool Culture - Preliminary Stool / Feces Shiga Toxin I & II - Final Med Orders - Current: Current Medications Hydrocodone Bitart/Acetaminophen (Acetaminophen/Hydrocodone 325-10 Mg Tab) 1 tab PO Q4H PRN PRN Reason: Pain Last Admin: 09/02/20 09:11 Dose: 1 tab Documented by: Albuterol/Ipratropium (Albuterol/Ipratropium 3.0-0.5 Mg/3 Ml Neb Soln) 3 ml NEB Q4HRRT [facility] Last Admin: 09/02/20 09:37 Dose: 3 ml Documented by: Aspirin (Aspirin 81 Mg Tab.Chew) 81 mg PO DAILY [facility] Last Admin: 09/02/20 08:48 Dose: 81 mg Documented by: Cetirizine HCl (Cetirizine 10 Mg Tab) 10 mg PO DAILY [facility] Last Admin: 09/02/20 08:48 Dose: 10 mg Documented by: Famotidine (Famotidine 20 Mg Tab) 40 mg PO BID [facility] Last Admin: 09/02/20 08:48 Dose: 40 mg Documented by: Levothyroxine Sodium (Levothyroxine 100 Mcg Tab) 100 mcg PO ACBREAKFAST [facility] Last Admin: 09/02/20 06:30 Dose: 100 mcg Documented by: Metoprolol Succinate (Metoprolol Succinate 50 Mg Tab.Er) 25 mg PO BID [facility] Last Admin: 09/02/20 08:48 Dose: 25 mg Documented by: Simvastatin (Simvastatin 40 Mg Tab) 40 mg PO BEDTIME [facility] Last Admin: 09/01/20 21:00 Dose: 40 mg Documented by: Trazodone HCl (Trazodone 50 Mg Tab) 50 mg PO BEDTIME PRN PRN Reason: Sleep Last Admin: 09/01/20 23:08 Dose: 50 mg Documented by: Vancomycin HCl (Vancomycin 125 Mg Cap) 125 mg PO QID [facility] Last Admin: 09/02/20 11:28 Dose: 125 mg Documented by: Discontinued Medications Albuterol (Albuterol 0.083% 2.5 Mg/3 Ml Neb Soln) 2.5 mg NEB ONETIME ONE Stop: 08/29/20 22:05 Last Admin: 08/29/20 22:21 Dose: 2.5 mg Documented by: [place] Butter/Phenylephrine ([place] Butter/Phenylephrine Rectal Supp) 1 each RECTAL ONETIME ONE Stop: 08/30/20 22:30 Last Admin: 08/30/20 23:59 Dose: 1 each Documented by: [place] Butter/Phenylephrine ([place] Butter/Phenylephrine Rectal Supp) 1 each RECTAL ONETIME ONE Stop: 09/02/20 11:16 Last Admin: 09/02/20 11:28 Dose: 1 each Documented by: Heparin Sodium (Porcine) (Heparin Sodium 5,000 Units/Ml Vial) 5,000 units SUB CUT Q8H [facility] Last Admin: 09/01/20 17:22 Dose: 5,000 units Documented by: Sodium Chloride (Normal Saline) 1,000 mls @ 999 mls/hr IV BOLUS ONE Stop: 08/29/20 18:27 Last Admin: 08/29/20 17:50 Dose: 999 mls/hr Documented by: Sodium Chloride (Normal Saline) 1,000 mls @ 125 mls/hr IV ASDIRECTED [facility] Last Admin: 08/31/20 03:00 Dose: 125 mls/hr Documented by: Sodium Chloride (Normal Saline) 500 mls @ 1,000 mls/hr IV .BOLUS [facility] Last Admin: 08/30/20 00:45 Dose: 1,000 mls/hr Documented by: Sodium Chloride (Normal Saline) 1,000 mls @ 75 mls/hr IV Q13H [facility] Last Admin: 09/02/20 06:34 Dose: 75 mls/hr Documented by: Iopamidol (Iopamidol 755 Mg/Ml 500 Ml Multipack Bottle) 75 ml IVPUSH ONETIME STA Stop: 08/29/20 19:57 Last Admin: 08/29/20 19:56 Dose: 75 ml Documented by: Trazodone HCl (Trazodone 50 Mg Tab) 50 mg PO ONETIME ONE Stop: 08/30/20 22:30 Last Admin: 08/30/20 23:59 Dose: 50 mg Documented by: Vancomycin HCl (Vancomycin 125 Mg Cap) 500 mg PO NOW STA Stop: 08/29/20 20:58 Last Admin: 08/29/20 21:55 Dose: 500 mg Documented by: - Exam General: Alert, Oriented Lungs: Clear to Auscultation, Normal Respiratory Effort Cardiovascular: Regular Rate, Regular Rhythm GI/Abdominal Exam: Normal Bowel Sounds, Soft, Non-Tender Extremities: Normal Inspection, Normal Range of Motion - Patient Data Lab Results Last 24 hrs: Laboratory Results - last 24 hr 09/02/20 09/02/20 Range/Units 05:50 05:50 WBC 10.35 (4.0-11.0) K/uL RBC 3.50 L (4.50-5.90) M/uL Hgb 8.6 L (13.0-17.0) g/dL Hct 28.8 L (38.0-50.0) % MCV 82.3 (80.0-98.0) fL MCH 24.6 L (27.0-32.0) pg MCHC 29.9 L (31.0-37.0) g/dL RDW Std Deviation 52.7 (28.0-62.0) fl RDW Coeff of [place] 18 H (11.0-15.0) % Plt Count 464 H (150-400) K/uL MPV 9.70 (7.40-12.00) fL Neut % (Auto) 78.2 (48.0-80.0) % Lymph % (Auto) 6.7 L (16.0-40.0) % Divide % (Auto) 10.0 (0.0-15.0) % Eos % (Auto) 4.8 (0.0-7.0) % Baso % (Auto) 0.3 (0.0-1.5) % Neut # (Auto) 8.1 H (1.4-5.7) K/uL Lymph # (Auto) 0.7 (0.6-2.4) K/uL [place] # (Auto) 1.0 H (0.0-0.8) K/uL Eos # (Auto) 0.5 (0.0-0.7) K/uL Baso # (Auto) 0.0 (0.0-0.1) K/uL Nucleated RBC % 0.0 /100WBC Nucleated RBCs # 0 K/uL Sodium 138 (136-148) mmol/L Potassium 4.1 (3.5-5.1) mmol/L Chloride 101 (98-107) mmol/L Carbon Dioxide 32.0 (21.0-32.0) mmol/L BUN 9 (7.0-18.0) mg/dL Creatinine 0.7 L (0.8-1.3) mg/dL Est Cr Clr Drug Dosing 68.38 mL/min Estimated GFR (MDRD) > 60.0 ml/min Glucose 106 (74-106) mg/dL Calcium 9.2 (8.5-10.1) mg/dL Phosphorus 3.9 (2.6-4.7) mg/dL Magnesium 1.8 (1.8-2.4) mg/dL Result Diagrams: 09/02/20 05:50 09/02/20 05:50 Teo Results Last 24 hrs: Microbiology 08/29/20 18:53 Aerobic Blood Culture - Preliminary Blood - Venous - Lab Draw NO GROWTH AFTER 3 DAYS Anaerobic Blood Culture - Final 08/29/20 18:41 Aerobic Blood Culture - Preliminary Blood - Venous NO GROWTH AFTER 3 DAYS Anaerobic Blood Culture - Preliminary NO GROWTH AFTER 3 DAYS 08/30/20 11:50 Stool Culture - Preliminary Stool / Feces Shiga Toxin I & II - Final Sepsis Event Note - Evaluation Sepsis Screening Result: Sepsis Risk - Focused Exam Vital Signs: Vital Signs Temp Pulse Pulse Resp BP BP Pulse Ox 09/02/20 12:00 37.3 C 100 18 129/61 95 09/02/20 08:48 94 135/76 09/02/20 08:00 36.9 C 94 18 135/76 96 09/02/20 04:56 09/02/20 04:00 35.7 C L 96 17 118/71 98 Pulse Ox 09/02/20 12:00 09/02/20 08:48 09/02/20 08:00 09/02/20 04:56 97 09/02/20 04:00 - Problem List & Annotations (1) Clostridium difficile infection SNOMED Code(s): 065570402 Code(s): A49.8 - OTHER BACTERIAL INFECTIONS OF UNSPECIFIED SITE Status: A cute Current Visit: Yes (2) Proctitis SNOMED Code(s): 5107361 Code(s): K62.89 - OTHER SPECIFIED DISEASES OF ANUS AND RECTUM Status: Acute Current Visit: Yes (3) Squamous cell carcinoma of epiglottis SNOMED Code(s): 025959963 Code(s): C32.1 - MALIGNANT NEOPLASM OF SUPRAGLOTTIS Status: Chronic Current Visit: Yes (4) History of COPD SNOMED Code(s): 792004282 Code(s): Z87.09 - PERSONAL HISTORY OF OTHER DISEASES OF THE RESPIRATORY SYSTEM Status: Acute Current Visit: No (5) History of chronic hypertension SNOMED Code(s): 130737229 Code(s): Z86.79 - PERSONAL HISTORY OF OTHER DISEASES OF THE CIRCULATORY SYSTEM Status: Acute Current Visit: No (6) History of coronary artery disease SNOMED Code(s): 834586595 Code(s): Z86.79 - PERSONAL HISTORY OF OTHER DISEASES OF THE CIRCULATORY SYSTEM Status: Acute Current Visit: No (7) HLD (hyperlipidemia) SNOMED Code(s): 35473810 Code(s): E78.5 - HYPERLIPIDEMIA, UNSPECIFIED Status: Chronic Current Visi t: No (8) Hx of laryngectomy SNOMED Code(s): 428537549, 081289757 Code(s): Z90.02 - ACQUIRED ABSENCE OF LARYNX Status: Chronic Priority: Low Current Visit: No (9) Tracheostomy in place SNOMED Code(s): 211501081 Code(s): Z93.0 - TRACHEOSTOMY STATUS Status: Chronic Priority: Low Current Visit: No - Problem List Review Problem List Initiated/Reviewed/Updated: Yes - Plan Plan:: 75 yo male admitted with C.diff infection. 1. C. difficile diarrhea and proctitis -Continue vancomycin po QID -Strict I's and O's to monitor stools. 2. CAD/HTN/HLD -Continue home medication of aspirin, metoprolol, statin 3. COPD/tracheostomy/history recurrent pneumonia -Continue oxygen 2 L per tracheostomy mask -Pulmonary toileting -DuoNebs as needed - Tracheostomy cares 4. Hypothyroidism -Stable continue levothyroxine 5. Anemia -No active bleeding Hemoccult negative -Likely dilutional secondary to IV fluids we will continue to monitor daily. VTE prophylaxis: Heparin has been stopped, cont SCD CODE STATUS: DNR Dispo 1-2 days pending improvement.
[2020-09-02] MEDS: Simvastatin 40 MG Tab PO SCH (21:38)
[2020-09-03] MEDS: Albuterol/Ipratropium 3.0-0.5 MG/3 ML Neb Soln NEB SCH ×4 (02:07→09:28)
[2020-09-03] MEDS: Acetaminophen/HYDROcodone 325-10 MG Tab PO PRN ×2 (04:37→09:24)
[2020-09-03] MEDS: Vancomycin 125 MG Cap PO SCH ×2 (06:47→11:44)
[2020-09-03] MEDS: Levothyroxine 100 MCG Tab PO SCH (06:47)
[2020-09-03 08:14] LABS: BLOOD UREA NITROGEN,BUN 10 mg/dL (7.0-18.0); CARBON DIOXIDE,CO2 32.3 mmol/L (21.0-32.0); CHLORIDE,CL 99 mmol/L (98-107); GLUCOSE RANDOM 126 mg/dL (74-106); POTASSIUM,K 4.7 mmol/L (3.5-5.1); SODIUM,NA 137 mmol/L (136-148)
[2020-09-03] MEDS: Aspirin 81 MG Tab.Chew PO SCH (08:32)
[2020-09-03] MEDS: Famotidine 20 MG Tab PO SCH (08:33)
[2020-09-03] MEDS: Cetirizine 10 MG Tab PO SCH (08:33)
[2020-09-03] MEDS ORDERED: Metoprolol Tartrate 25 MG Tab PO SCH (09:00)
--- NOTE | 2020-09-03 11:55 | PCM.DCSUM1 ---
Discharge Summary - Hospital Course Diagnosis: Stroke: No - Discharge Data Discharge Date: 09/03/20 Discharge Disposition: Home, Self-Care 01 Condition: Stable - Referral to Home Health Primary Care Physician: Akira Mai MD - Discharge Diagnosis/Problem(s) (1) Clostridium difficile infection SNOMED Code(s): 805340324 ICD Code: A49.8 - OTHER BACTERIAL INFECTIONS OF UNSPECIFIED SITE Status: Acute Current Visit: Yes (2) Proctitis SNOMED Code(s): 8976086 ICD Code: K62.89 - OTHER SPECIFIED DISEASES OF ANUS AND RECTUM Status: Acute Current Visit: Yes (3) Squamous cell carcinoma of epiglottis SNOMED Code(s): 719657555 ICD Code: C32.1 - MALIGNANT NEOPLASM OF SUPRAGLOTTIS Status: Chronic Current Visit: Yes (4) History of COPD SNOMED Code(s): 342759459 ICD Code: Z87.09 - PERSONAL HISTORY OF OTHER DISEASES OF THE RESPIRATORY SYSTEM Status: Acute Current Visit: No (5) History of chronic hypertension SNOMED Code(s): 504528396 ICD Code: Z86.79 - PERSONAL HISTORY OF OTHER DISEASES OF THE CIRCULATORY SYSTEM Status: Acute Current Visit: No (6) History of coronary artery disease SNOMED Code(s): 632185726 ICD Code: Z86.79 - PERSONAL HISTORY OF OTHER DISEASES OF THE CIRCULATORY SYSTEM Status: Acute Current Visit: No (7) HLD (hyperlipidemia) SNOMED Code(s): 01713704 ICD Code: E78.5 - HYPERLIPIDEMIA, UNSPECIFIED Status: Chronic Current Visit: No (8) Hx of laryngectomy SNOMED Code(s): 093682809, 270289244 ICD Code: Z90.02 - ACQUIRED ABSENCE OF LARYNX Status: Chronic Priority: Low Current Visit: No (9) Tracheostomy in place SNOMED Code(s): 643630814 ICD Code: Z93.0 - TRACHEOSTOMY STATUS Status: Chronic Priority: Low Current Visit: No - Patient Summary/Data Consults: Consultations 09/01/20 13:31 PT Evaluation and Treatment [CONS] Routine - Patient Instructions Diet: Usual Diet as Tolerated Activity: As Tolerated Showering/Bathing: May Shower Notify Provider of: Fever, Increased Pain, Swelling and Redness, Drainage, Nausea and/or Vomiting Other/Special Instructions: worsening nausea, vomiting, diarrhea, fever - Discharge Plan *PRESCRIPTION DRUG MONITORING PROGRAM REVIEWED*: No *COPY OF PRESCRIPTION DRUG MONITORING REPORT IN PATIENT CAITLYN: No Prescriptions/Med Rec: Vancomycin [Vancocin 125 MG Capsule] 125 mg PO Q6H 5 Days #20 cap Home Medications: Home Meds Aspirin 81 mg PO DAILY 11/25/15 [History] Levothyroxine 100 mcg PO ACBREAKFAST 11/25/15 [History] Metoprolol Succinate [Toprol XL] 25 mg PO BID 11/25/15 [History] Simvastatin [Zocor] 40 mg PO BEDTIME 11/25/15 [History] Cetirizine [ZyrTEC] 10 mg PO DAILY 08/17/17 [History] Cholecalciferol (Vitamin D3) [Vitamin D3] 1 cap PO DAILY 11/18/18 [History] Famotidine 40 mg PO BID 06/10/19 [History] Pentoxifylline 400 mg PO TID 06/10/19 [History] Vitamin E 400 unit PO BIDMEALS 06/10/19 [History] Acetaminophen/HYDROcodone [[place] 325-10 MG] 10 mg PO Q4H PRN 08/29/20 [History] Metoprolol Tartrate 25 mg PO BID 09/02/20 [History] Vancomycin [Vancocin 125 MG Capsule] 125 mg PO Q6H 5 Days #20 cap 09/03/20 [Rx] Patient Handouts: Clostridioides Difficile Infection, [id number] Referrals: Akira Mai MD [Primary Care Provider] - 09/12/20 10:30 am - Patient Data Vitals - Most Recent: Last Vital Signs Temp 36.7 C 09/03/20 08:49 Pulse 100 09/03/20 08:49 Resp 16 09/03/20 08:49 BP 138/73 09/03/20 08:49 Pulse Ox 94 L 09/03/20 08:49 Weight - Most Recent: 51.437 kg I&O - Last 24 hours: Intake & Output 09/02/20 09/03/20 09/03/20 22:59 06:59 14:59 Intake Total 680 710 Output Total 1325 0 Balance -645 710 Lab Results - Last 24 hrs: Laboratory Results - last 24 hr 09/03/20 09/03/20 Range/Units 07:46 07:46 WBC 12.54 H (4.0-11.0) K/uL RBC 3.71 L (4.50-5.90) M/uL Hgb 9.1 L (13.0-17.0) g/dL Hct 30.4 L (38.0-50.0) % MCV 81.9 (80.0-98.0) fL MCH 24.5 L (27.0-32.0) pg MCHC 29.9 L (31.0-37.0) g/dL RDW Std Deviation 52.5 (28.0-62.0) fl RDW Coeff of [place] 17 H (11.0-15.0) % Plt Count 486 H (150-400) K/uL MPV 9.80 (7.40-12.00) fL Neut % (Auto) 79.2 (48.0-80.0) % Lymph % (Auto) 4.5 L (16.0-40.0) % [place] % (Auto) 12.2 (0.0-15.0) % Eos % (Auto) 3.9 (0.0-7.0) % Baso % (Auto) 0.2 (0.0-1.5) % Neut # (Auto) 9.9 H (1.4-5.7) K/uL Lymph # (Auto) 0.6 (0.6-2.4) K/uL [place] # (Auto) 1.5 H (0.0-0.8) K/uL Eos # (Auto) 0.5 (0.0-0.7) K/uL Baso # (Auto) 0.0 (0.0-0.1) K/uL Nucleated RBC % 0.0 /100WBC Nucleated RBCs # 0 K/uL Sodium 137 (136-148) mmol/L Potassium 4.7 (3.5-5.1) mmol/L Chloride 99 (98-107) mmol/L Carbon Dioxide 32.3 H (21.0-32.0) mmol/L BUN 10 (7.0-18.0) mg/dL Creatinine 0.9 (0.8-1.3) mg/dL Est Cr Clr Drug Dosing 53.18 mL/min Estimated GFR (MDRD) > 60.0 ml/min Glucose 126 H (74-106) mg/dL Calcium 10.0 (8.5-10.1) mg/dL Phosphorus 4.2 (2.6-4.7) mg/dL Magnesium 1.9 (1.8-2.4) mg/dL ADRIANA Results - Last 24 hrs: Microbiology 08/29/20 18:53 Aerobic Blood Culture - Preliminary Blood - Venous - Lab Draw NO GROWTH AFTER 4 DAYS Anaerobic Blood Culture - Final 08/29/20 18:41 Aerobic Blood Culture - Preliminary Blood - Venous NO GROWTH AFTER 4 DAYS Anaerobic Blood Culture - Preliminary NO GROWTH AFTER 4 DAYS Med Orders - Current: Current Medications Hydrocodone Bitart/Acetaminophen (Acetaminophen/Hydrocodone 325-10 Mg Tab) 1 tab PO Q4H PRN PRN Reason: Pain Last Admin: 09/03/20 09:24 Dose: 1 tab Documented by: Albuterol/Ipratropium (Albuterol/Ipratropium 3.0-0.5 Mg/3 Ml Neb Soln) 3 ml NEB Q4HRRT [facility] Last Admin: 09/03/20 09:28 Dose: 3 ml Documented by: Aspirin (Aspirin 81 Mg Tab.Chew) 81 mg PO DAILY [facility] Last Admin: 09/03/20 08:32 Dose: 81 mg Documented by: Cetirizine HCl (Cetirizine 10 Mg Tab) 10 mg PO DAILY [facility] Last Admin: 09/03/20 08:33 Dose: 10 mg Documented by: Famotidine (Famotidine 20 Mg Tab) 40 mg PO BID [facility] Last Admin: 09/03/20 08:33 Dose: 40 mg Documented by: Levothyroxine Sodium (Levothyroxine 100 Mcg Tab) 100 mcg PO ACBREAKFAST [facility] Last Admin: 09/03/20 06:47 Dose: 100 mcg Documented by: Metoprolol Tartrate (Metoprolol Tartrate 25 Mg Tab) 25 mg PO BID [facility] Last Admin: 09/03/20 08:38 Dose: 25 mg Documented by: Simvastatin (Simvastatin 40 Mg Tab) 40 mg PO BEDTIME [facility] Last Admin: 09/02/20 21:38 Dose: 40 mg Documented by: Trazodone HCl (Trazodone 50 Mg Tab) 50 mg PO BEDTIME PRN PRN Reason: Sleep Last Admin: 09/01/20 23:08 Dose: 50 mg Documented by: Vancomycin HCl (Vancomycin 125 Mg Cap) 125 mg PO QID [facility] Last Admin: 09/03/20 11:44 Dose: 125 mg Documented by: Discontinued Medications Albuterol (Albuterol 0.083% 2.5 Mg/3 Ml Neb Soln) 2.5 mg NEB ONETIME ONE Stop: 08/29/20 22:05 Last Admin: 08/29/20 22:21 Dose: 2.5 mg Documented by: [place] Butter/Phenylephrine ([place] Butter/Phenylephrine Rectal Supp) 1 each RECTAL ONETIME ONE Stop: 08/30/20 22:30 Last Admin: 08/30/20 23:59 Dose: 1 each Documented by: [place] Butter/Phenylephrine ([place] Butter/Phenylephrine Rectal Supp) 1 each RECTAL ONETIME ONE Stop: 09/02/20 11:16 Last Admin: 09/02/20 11:28 Dose: 1 each Documented by: Heparin Sodium (Porcine) (Heparin Sodium 5,000 Units/Ml Vial) 5,000 units SUBCUT Q8H [facility] Last Admin: 09/01/20 17:22 Dose: 5,000 units Documented by: Sodium Chloride (Normal Saline) 1,000 mls @ 999 mls/hr IV BOLUS ONE Stop: 08/29/20 18:27 Last Admin: 08/29/20 17:50 Dose: 999 mls/hr Documented by: Sodium Chloride (Normal Saline) 1,000 mls @ 125 mls/hr IV ASDIRECTED [facility] Last Admin: 08/31/20 03:00 Dose: 125 mls/hr Documented by: Sodium Chloride (Normal Saline) 500 mls @ 1,000 mls/hr IV .BOLUS [facility] Last Admin: 08/30/20 00:45 Dose: 1,000 mls/hr Documented by: Sodium Chloride (Normal Saline) 1,000 mls @ 75 mls/hr IV Q13H [facility] Last Admin: 09/02/20 06:34 Dose: 75 mls/hr Documented by: Iopamidol (Iopamidol 755 Mg/Ml 500 Ml Multipack Bottle) 75 ml IVPUSH ONETIME STA Stop: 08/29/20 19:57 Last Admin: 08/29/20 19:56 Dose: 75 ml Documented by: Metoprolol Succinate (Metoprolol Succinate 50 Mg Tab.Er) 25 mg PO BID [facility] Last Admin: 09/02/20 21:38 Dose: 25 mg Documented by: Trazodone HCl (Trazodone 50 Mg Tab) 50 mg PO ONETIME ONE Stop: 08/30/20 22:30 Last Admin: 08/30/20 23:59 Dose: 50 mg Documented by: Vancomycin HCl (Vancomycin 125 Mg Cap) 500 mg PO NOW STA Stop: 08/29/20 20:58 Last Admin: 08/29/20 21:55 Dose: 500 mg Documented by:
[2020-09-03 12:40] VITALS: BP 99/61; PULSE 91
== END 2020-09-03 12:30 | disposition home or self-care (01) | DRG 372 ==
LOC: MW.ED 16:40 → MW.MS 21:06
PROVIDERS: ADMIT Internal Medicine; ATTEND Internal Medicine
DX: A04.72 Enterocolitis due to Clostridium difficile, not specified as recurrent (principal); D84.9 Immunodeficiency, unspecified; R65.10 Systemic inflammatory response syndrome (SIRS) of non-infectious origin without acute organ dysfunction; K59.00 Constipation, unspecified; J44.9 Chronic obstructive pulmonary disease, unspecified; Z66 Do not resuscitate; I10 Essential (primary) hypertension; E78.5 Hyperlipidemia, unspecified; I25.10 Atherosclerotic heart disease of native coronary artery without angina pectoris; Z85.89 Personal history of malignant neoplasm of other organs and systems; H54.7 Unspecified visual loss; H91.90 Unspecified hearing loss, unspecified ear; G47.30 Sleep apnea, unspecified; F41.9 Anxiety disorder, unspecified; Z88.8 Allergy status to other drugs, medicaments and biological substances; F32.9 Major depressive disorder, single episode, unspecified; K62.89 Other specified diseases of anus and rectum; M19.011 Primary osteoarthritis, right shoulder; M19.012 Primary osteoarthritis, left shoulder; M25.571 Pain in right ankle and joints of right foot; M25.572 Pain in left ankle and joints of left foot; Z86.19 Personal history of other infectious and parasitic diseases; E03.9 Hypothyroidism, unspecified; Z85.118 Personal history of other malignant neoplasm of bronchus and lung; Z95.5 Presence of coronary angioplasty implant and graft; Z87.01 Personal history of pneumonia (recurrent); Z93.0 Tracheostomy status; Z88.1 Allergy status to other antibiotic agents; Z79.82 Long term (current) use of aspirin; Z79.890 Hormone replacement therapy; Z79.899 Other long term (current) drug therapy; I25.2 Old myocardial infarction; Z85.01 Personal history of malignant neoplasm of esophagus; Z90.89 Acquired absence of other organs; Z98.890 Other specified postprocedural states; Z99.81 Dependence on supplemental oxygen; D64.9 Anemia, unspecified; Z90.02 Acquired absence of larynx; Z20.822 Contact with and (suspected) exposure to COVID-19
CPT/HCPCS: 0240U; 36415; 74177; 80048; 80053; 81003; 82272; 83605; 83690; 83735; 84100; 85025; 87040; 87045; 87046; 87324; 87328; 87329; 87449; 87493; 87899; 93005; 94640; 99285; 93010; 99284; A9270-GY; J1644; J7030; J7040; J7620-GY; Q9967

== ENCOUNTER 2020-11-06 11:49 | Inpatient (IN) | payer MEDICARE, BC ==
[2020-11-06] MEDS ORDERED: Sodium Chloride 0.9% 1,000 ML IV ONE (11:56)
[2020-11-06] MEDS ORDERED: Sodium Chloride 0.9% 10 ML Syringe FLUSH PRN (11:56)
[2020-11-06] MEDS ORDERED: Sodium Chloride 0.9% 2.5 ML Syringe FLUSH PRN ×2 (11:56→15:12)
--- NOTE | 2020-11-06 12:38 | CR ---
INDICATION: Sepsis. 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 TECHNIQUE: Chest 1 view. COMPARISON: Chest radiograph 08/17/2020. FINDINGS: Again seen is scarring and ground-glass opacity in the right mid to upper lung compatible with postradiation change. New consolidation in the medial right lower lung may represent atelectasis or infiltrate. There is also new elevation of the right hemidiaphragm with right basilar atelectasis. Probable tiny right pleural effusion. The left lung is clear. No pneumothorax. Multiple surgical clips projected over the lower neck and left lung. Normal heart size. Tubing projected over the lower neck. Degenerative changes of the right shoulder. IMPRESSION: 1. New consolidation in the medial right lower lung may represent atelectasis or infiltrate. There is also new elevation of the right hemidiaphragm suggesting volume loss. 2. Stable scarring in the right mid to upper lung compatible with post radiation change. Dictated by María Lenz MD @ 11/06/2020 12:36:[address] María Lenz @ Nov 06 2020 12:36PM
[2020-11-06 12:57] LABS: BLOOD UREA NITROGEN,BUN 15 mg/dL (7.0-18.0); CHLORIDE,CL 98 mmol/L (98-107); GLUCOSE RANDOM 110 mg/dL (74-106); POTASSIUM,K 4.1 mmol/L (3.5-5.1); SODIUM,NA 136 mmol/L (136-148)
[2020-11-06] MEDS ORDERED: Piperacillin/Tazobactam 3.375 GM in Sodium Chloride 0.9% 100 ML IV ONE ×2 (13:02→13:30)
--- NOTE | 2020-11-06 14:18 | EDM.PDOC ---
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 reports that earlier today she noted that his oxygen level was extremely low so she increases oxygen flow. She noted that his O2 tubing had holes in it so she switch his O2 tubing resulting in improvement of his oxygenation. She reports that secondary to his elevated temperature she gave him Tylenol at home with resulting defervescence of his fever as well as tachycardia. Patient was sent here from [facility] for further evaluation of possible sepsis. reports that he went today for his chemotherapy infusion for which she is due 1 more infusion. She reports after evaluation by the practitioner there, she was instructed to come to the ED for evaluation of possible sepsis. Patient denies any vomiting or diarrhea. He reports no change in his chronic cough. He denies any shortness of breath at this time. He denies any abdominal pain, dysuria, frequency, urgency. He reports normal p.o. intake at home. He does have a history of a PEG placement in the past but does not have it any more. Patient does have a Port-A-Cath in his left upper chest. Patient denies any rash or pain to his joints or swelling to his lower extremities. Patient denies any headache or nuchal rigidity. Patient denies any photophobia. Review of systems: As per history of present illness and below otherwise all systems reviewed and negative. Past medical history: As per history of present illness and as reviewed below otherwise noncontributory. Surgical history: As per history of present illness and as reviewed below otherwise noncontributory. Social history: No reported history of drug abuse. Family history: As per history of present illness and as reviewed below otherwise noncontributory. Physical exam: This patient was seen and evaluated during the 2019 SARS-CoV-2 novel coronavirus pandemic period. Community viral transmission is ongoing at time of this encounter and the emergency department is operating under pandemic response procedures. Constitutional: Patient is oriented to person, place, and time. Cachectic appearing. No distress. HEENT: Dry mucous membranes, Head: Normocephalic and atraumatic Eyes: Right eye exhibits no discharge. Left eye exhibits no discharge. No scleral icterus Neck: Normal range of motion. No tracheal deviation present. Cardiovascular: Normal rate and regular rhythm. Pulmonary: Effort normal, no respiratory distress. No wheezing rales or rhonchi Abdominal: No distention Musculoskeletal: Normal range of motion Neurologic: Alert and oriented to person, place and time. Skin: [place], warm and dry. Psychiatric: Normal mood and affect. Behavior is normal. Judgment and thought content normal. Nursing note and vital signs have been reviewed Diagnostics: Chest x-ray reveals a new pneumonia in the right lung. Markedly elevated WBC count with a left shift. Therapeutics: Zosyn, vancomycin NSS per sepsis protocol Assessment and plan: This is a 75-year-old gentleman with multiple medical problems who is currently being treated with chemotherapy for epiglottis cancer with mets to the lung who presents to the ER today secondary to fever and tachycardia. Patient was noted to have a markedly elevated WBC count with a left shift. Patient has been started on vancomycin and Zosyn. Sepsis protocol was initiated. Patient will be admitted for IV antibiotics and further monitoring of sepsis. Patient's lactic acid is normal. Case discussed with Dr. Khan Definitive disposition and diagnosis as appropriate pending reevaluation and review of above. - Related Data Allergies Allergy/AdvReac Type Severity Reaction Status Date / Time ertapenem [From Invanz] Allergy Unknown Rash Verified 11/06/20 12:04 Home Meds: Home Meds Aspirin 81 mg PO DAILY 11/25/15 [History] Levothyroxine 100 mcg PO ACBREAKFAST 11/25/15 [History] Simvastatin [Zocor] 40 mg PO BEDTIME 11/25/15 [History] Cetirizine [ZyrTEC] 10 mg PO DAILY 08/17/17 [History] Cholecalciferol (Vitamin D3) [Vitamin D3] 1 cap PO DAILY 11/18/18 [History] Famotidine 40 mg PO BID 06/10/19 [History] Pentoxifylline 400 mg PO TID 06/10/19 [History] Vitamin E 400 unit PO BIDMEALS 06/10/19 [History] Acetaminophen/HYDROcodone [[place] 325-10 MG] 10 mg PO Q4H PRN 08/29/20 [History] Metoprolol Tartrate 25 mg PO BID 09/02/20 [History] Morphine 1 tab PO BEDTIME 11/06/20 [History] Past Medical History HEENT History: Reports: Hard of Hearing, Impaired Vision, Other (See Below) Other HEENT History: wears glasses Cardiovascular History: Reports: Hypertension, TX, Stents Other Cardiovascular History: TX 2010 Respiratory History: Reports: COPD, Pneumonia, Recurrent, Sleep Apnea, Other (See Below) Other Respiratory History: Sleep apnea with machine "do not use it", 50 yr hist ory of tobacco use, QUIT 04/2011 Gastrointestinal History: Reports: Other (See Below) Other Gastrointestinal History: 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 Neurological History: Reports: None Psychiatric History: Reports: Anxiety, Depression Endocrine/Metabolic History: Reports: Hypothyroidism Other Endocrine/Metabolic History: Hypothyroidism Hematologic History: Reports: None Immunologic History: Reports: None Oncologic (Cancer) History: Reports: Lung, Other (See Below) Other Oncologic History: epiglottis Dermatologic History: Reports: None - Infectious Disease History Infectious Disease History: Reports: C-Difficile, Chicken Pox, Measles - Past Surgical History HEENT Surgical History: Reports: Tonsillectomy Other HEENT Surgeries/Procedures: total laryngectomy with trach placement 2016 Cardiovascular Surgical History: Reports: Coronary Artery Stent Respiratory Surgical History: Reports: Tracheostomy, Other (See Below) Other Respiratory Surgeries/Procedures: laryngectomy 08/04/17. "lung surgery" 2017 GI Surgical History: Reports: Other (See Below) Other GI Surgeries/Procedures: Gastrostomy Tube, has since been removed. Musculoskeletal Surgical History: Reports: Shoulder Surgery, Other (See Below) Other Musculoskeletal Surgeries/Procedures:: ankle surgery Social & Family History - Family History Family Medical History: No Pertinent Family History HEENT: Reports: Impaired Vision Cardiac: Reports: Heart Failure Musculoskeletal: Reports: Arthritis Neurological: Reports: CVA Endocrine/Metabolic: Reports: Diabetes, type II Oncologic: Reports: Breast, Other (See Below) Other Oncologic Family History: Stomach - Tobacco Use Tobacco Use Status *Q: Former Tobacco User Used Tobacco, but Quit: Yes Month/Year Tobacco Last Used: 2009 - Caffeine Use Caffeine Use: Reports: None - Recreational Drug Use Recreational Drug Use: No - Living Situation & Occupation Living situation: Reports: ED ROS GENERAL - Review of Systems Review Of Systems: See Below ED EXAM, GENERAL - Physical Exam Exam: See Below #1 Interpretation EKG Interpretation Comments: EKG: As interpreted by ER physician: Luis Miguel: Nonspecific ST-T wave abnormalities Normal axis No evidence of ST elevation TX Normal sinus rhythm heart rate of 93 Course - Vital Signs Last Recorded V/S: Last Vital Signs Temp 97.7 F 11/06/20 12:00 Pulse 93 11/06/20 14:17 Resp 16 11/06/20 14:17 BP 114/61 11/06/20 14:17 Pulse Ox 96 11/06/20 14:17 - Orders/Labs/Meds Orders: Active Orders 24 hr Category Date Time Status Patient Status [ADT] Routine ADT 11/06/20 14:08 Active Blood Pressure Mgt: Sepsis [RC] Q15MX2 Care 11/06/20 11:57 Active Cardiac Monitoring [RC] CONTINUOUS Care 11/06/20 11:57 Active EKG Documentation Completion [RC] STAT Care 11/06/20 11:56 Active Overnight Pulse Oximetry [RC] Click to Edit Care 11/06/20 11:57 Active CULTURE BLOOD [BC] Stat Lab 11/06/20 12:20 Received CULTURE BLOOD [BC] Stat Lab 11/06/20 12:33 Received CULTURE URINE [MREF] Stat Lab 11/06/20 13:31 Received TROPONIN I [CHEM] Stat Lab 11/06/20 14:16 Received Sodium Chloride 0.9% [Saline Flush] Med 11/06/20 11:56 Active 10 ml FLUSH ASDIRECTED PRN Sodium Chloride 0.9% [Saline Flush] Med 11/06/20 11:56 Active 2.5 ml FLUSH ASDIRECTED PRN Blood Culture x2 Reflex Set [OM.PC] Stat Oth 11/06/20 11:56 Ordered Pulse Oximetry Continuous Monitoring [OM.PC] Routine Oth 11/06/20 11:56 Ordered Saline Lock Insert [OM.PC] Stat Oth 11/06/20 11:56 Ordered Severe Sepsis Onset Time [OM.PC] Stat Oth 11/06/20 11:56 Ordered Medication Orders Sodium Chloride (Sodium Chloride 0.9% 10 Ml Syringe) 10 ml FLUSH ASDIRECTED PRN PRN Reason: Keep Vein Open Last Admin: 11/06/20 12:26 Dose: 10 ml Documented by: ANA Sodium Chloride (Sodium Chloride 0.9% 2.5 Ml Syringe) 2.5 ml FLUSH ASDIRECTED PRN PRN Reason: Keep Vein Open Last Admin: 11/06/20 12:26 Dose: 2.5 ml Documented by: ANA Labs: Laboratory Tests 11/06/20 11/06/20 11/06/20 Range/Units 12:20 12:20 12:20 WBC 21.61 H (4.0-11.0) K/uL RBC 3.21 L (4.50-5.90) M/uL Hgb 8.3 L (13.0-17.0) g/dL Hct 27.8 L (38.0-50.0) % MCV 86.6 (80.0-98.0) fL MCH 25.9 L (27.0-32.0) pg MCHC 29.9 L (31.0-37.0) g/dL RDW Std Deviation 57.6 (28.0-62.0) fl RDW Coeff of [place] 19 H (11.0-15.0) % Plt Count 411 H (150-400) K/uL MPV 9.40 (7.40-12.00) fL Add Manual Diff YES Neutrophils % (Manual) 91 H (48.0-80.0) % Band Neutrophils % 3 % Lymphocytes % (Manual) 1 L (16.0-40.0) % Monocytes % (Manual) 5 (0.0-15.0) % Absolute Seg Neuts 19.7 H (1.4-5.7) Band Neutrophils # 0.6 Lymphocytes # (Manual) 0.2 L (0.6-2.4) Monocytes # (Manual) 1.1 H (0.0-0.8) INR APTT (18.6-31.3) SEC Sodium 136 (136-148) mmol/L Potassium 4.1 (3.5-5.1) mmol/L Chloride 98 (98-107) mmol/L Carbon Dioxide 33.0 H (21.0-32.0) mmol/L BUN 15 (7.0-18.0) mg/dL Creatinine 0.8 (0.8-1.3) mg/dL Est Cr Clr Drug Dosing 54.79 mL/min Estimated GFR (MDRD) > 60.0 ml/min Glucose 110 H (74-106) mg/dL Lactic Acid 1.0 (0.4-2.0) mmol/L Calcium 11.0 H (8.5-10.1) mg/dL Total Bilirubin 0.4 (0.2-1.0) mg/dL AST 17 (15-37) IU/L ALT 18 (14-63) IU/L Alkaline Phosphatase 116 (46-116) U/L Total Protein 5.7 L (6.4-8.2) g/dL Albumin 2.3 L (3.4-5.0) g/dL Globulin 3.4 (2.6-4.0) g/dL Albumin/Globulin Ratio 0.7 L (0.9-1.6) Urine Color Urine Appearance Urine pH (5.0-8.0) Ur Specific [place] (1.001-1.035) Urine Protein (NEGATIVE) mg/dL Urine Glucose (UA) (NEGATIVE) mg/dL Urine Ketones (NEGATIVE) mg/dL Urine Occult Blood (NEGATIVE) Urine Nitrite (NEGATIVE) Urine Bilirubin (NEGATIVE) Urine Urobilinogen (<2.0) EU/dL Ur Leukocyte Esterase (NEGATIVE) Urine RBC (0-2/HPF) Urine WBC (0-5/HPF) Ur Epithelial Cells (NONE-FEW) Urine Bacteria (NEGATIVE) Urine Mucus (NONE-MOD) SARS-CoV-2 RNA (CHARMAINE) (NEGATIVE) 11/06/20 11/06/20 11/06/20 Range/Units 12:33 13:31 13:31 WBC (4.0-11.0) K/uL RBC (4.50-5.90) M/uL Hgb (13.0-17.0) g/dL Hct (38.0-50.0) % MCV (80.0-98.0) fL MCH (27.0-32.0) pg MCHC (31.0-37.0) g/dL RDW Std Deviation (28.0-62.0) fl RDW Coeff of Randolph (11.0-15.0) % Plt Count (150-400) K/uL MPV (7.40-12.00) fL Add Manual Diff Neutrophils % (Manual) (48.0-80.0) % Band Neutrophils % % Lymphocytes % (Manual) (16.0-40.0) % Monocytes % (Manual) (0.0-15.0) % Absolute Seg Neuts (1.4-5.7) Band Neutrophils # Lymphocytes # (Manual) (0.6-2.4) Monocytes # (Manual) (0.0-0.8) INR 1.23 APTT 25.9 (18.6-31.3) SEC Sodium (136-148) mmol/L Potassium (3.5-5.1) mmol/L Chloride (98-107) mmol/L Carbon Dioxide (21.0-32.0) mmol/L BUN (7.0-18.0) mg/dL Creatinine (0.8-1.3) mg/dL Est Cr Clr Drug Dosing mL/min Estimated GFR (MDRD) ml/min Glucose (74-106) mg/dL Lactic Acid (0.4-2.0) mmol/L Calcium (8.5-10.1) mg/dL Total Bilirubin (0.2-1.0) mg/dL AST (15-37) IU/L ALT (14-63) IU/L Alkaline Phosphatase (46-116) U/L Total Protein (6.4-8.2) g/dL Albumin (3.4-5.0) g/dL Globulin (2.6-4.0) g/dL Albumin/Globulin Ratio (0.9-1.6) Urine Color YELLOW Urine Appearance CLEAR Urine pH 6.0 (5.0-8.0) Ur Specific [place] 1.010 (1.001-1.035) Urine Protein NEGATIVE (NEGATIVE) mg/dL Urine Glucose (UA) NEGATIVE (NEGATIVE) mg/dL Urine Ketones NEGATIVE (NEGATIVE) mg/dL Urine Occult Blood NEGATIVE (NEGATIVE) Urine Nitrite NEGATIVE (NEGATIVE) Urine Bilirubin NEGATIVE (NEGATIVE) Urine Urobilinogen 0.2 (<2.0) EU/dL Ur Leukocyte Esterase NEGATIVE (NEGATIVE) Urine RBC NONE SEEN (0-2/HPF) Urine WBC 0-1 (0-5/HPF) Ur Epithelial Cells RARE (NONE-FEW) Urine Bacteria RARE (NEGATIVE) Urine Mucus LIGHT (NONE-MOD) SARS-CoV-2 RNA (CHARMAINE) NEGATIVE (NEGATIVE) Meds: Medications Generic Name Dose Route Start Last Admin Trade Name Freq PRN Reason Stop Dose Admin Sodium Chloride 10 ml 11/06/20 11:56 11/06/20 12:26 Sodium Chloride 0.9% 10 Ml Syringe FLUSH 10 ml ASDIRECTED PRN Administration Keep Vein Open Sodium Chloride 2.5 ml 11/06/20 11:56 11/06/20 12:26 Sodium Chloride 0.9% 2.5 Ml Syringe FLUSH 2.5 ml ASDIRECTED PRN Administration Keep Vein Open Discontinued Medications Generic Name Dose Route Start Last Admin Trade Name Freq PRN Reason Stop Dose Admin Sodium Chloride 1,000 mls @ 999 mls/hr 11/06/20 11:56 11/06/20 12:23 Normal Saline IV 11/06/20 12:56 999 mls/hr BOLUS ONE Administration Protocol Piperacillin Sod/Tazobactam 100 mls @ 100 mls/hr 11/06/20 13:30 11/06/20 13:28 Sod 3.375 gm/ Sodium Chloride IV 11/06/20 14:29 100 mls/hr ONETIME ONE Administration Vancomycin HCl 1 gm/ Sodium 250 mls @ 250 mls/hr 11/06/20 13:30 11/06/20 14:29 Chloride IV 11/06/20 14:29 250 mls/hr ONETIME ONE Administration Departure - Departure Time of Disposition: 14:18 Disposition: Admitted As Inpatient 68 Condition: Good Clinical Impression: Pneumonia Sepsis Qualifiers: Sepsis type: sepsis due to unspecified organism Qualified Code(s): A41.9 - Sepsis, unspecified organism; R65.20 - Severe sepsis without septic shock Referrals: PCP,Not In Area [Primary Care Provider] - Forms: ED Department Discharge Sepsis Event Note (ED) - Evaluation Sepsis Screening Result: Possible Sepsis Risk - Focused Exam Vital Signs: Vital Signs Temp Pulse Resp BP Pulse Ox 11/06/20 14:17 93 16 114/61 96 11/06/20 13:47 91 11 L 106/55 L 96 11/06/20 13:32 85 13 110/56 L 96 11/06/20 13:17 85 13 98/49 L 96 11/06/20 13:02 89 16 110/59 L 98 11/06/20 12:47 86 15 87/47 L 96 11/06/20 12:32 90 22 H 108/57 L 97 11/06/20 12:17 92 98/51 L 95 11/06/20 12:00 97.7 F 95 22 H 119/59 L 95 - My Orders Last 24 Hours: My Active Orders 11/06/20 11:56 EKG Documentation Completion [RC] STAT Sodium Chloride 0.9% [Saline Flush] 10 ml FLUSH ASDIRECTED PRN Sodium Chloride 0.9% [Saline Flush] 2.5 ml FLUSH ASDIRECTED PRN Blood Culture x2 Reflex Set [OM.PC] Stat Pulse Oximetry Continuous Monitoring [OM.PC] Routine Saline Lock Insert [OM.PC] Stat Severe Sepsis Onset Time [OM.PC] Stat 11/06/20 11:57 Blood Pressure Mgt: Sepsis [RC] Q15MX2 Cardiac Monitoring [RC] CONTINUOUS Overnight Pulse Oximetry [RC] Click to Edit 11/06/20 12:20 CULTURE BLOOD [BC] Stat 11/06/20 12:33 CULTURE BLOOD [BC] Stat 11/06/20 13:31 CULTURE URINE [MREF] Stat 11/06/20 14:08 Patient Status [ADT] Routine 11/06/20 14:16 TROPONIN I [CHEM] Stat - Assessment/Plan Last 24 Hours: My Active Orders 11/06/20 11:56 EKG Documentation Completion [RC] STAT Sodium Chloride 0.9% [Saline Flush] 10 ml FLUSH ASDIRECTED PRN Sodium Chloride 0.9% [Saline Flush] 2.5 ml FLUSH ASDIRECTED PRN Blood Culture x2 Reflex Set [OM.PC] Stat Pulse Oximetry Continuous Monitoring [OM.PC] Routine Saline Lock Insert [OM.PC] Stat Severe Sepsis Onset Time [OM.PC] Stat 11/06/20 11:57 Blood Pressure Mgt: Sepsis [RC] Q15MX2 Cardiac Monitoring [RC] CONTINUOUS Overnight Pulse Oximetry [RC] Click to Edit 11/06/20 12:20 CULTURE BLOOD [BC] Stat 11/06/20 12:33 CULTURE BLOOD [BC] Stat 11/06/20 13:31 CULTURE URINE [MREF] Stat 11/06/20 14:08 Patient Status [ADT] Routine 11/06/20 14:16 TROPONIN I [CHEM] Stat
[2020-11-06] MEDS ORDERED: Acetaminophen 325 MG Tab PO PRN (15:12)
[2020-11-06] MEDS ORDERED: Acetaminophen/HYDROcodone 325-10 MG Tab PO ONE (15:12)
[2020-11-06] MEDS ORDERED: Ondansetron 4 MG/2 ML SDV IVPUSH PRN (15:12)
--- NOTE | 2020-11-06 15:12 | PCM.HP.2 ---
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 attempted to call nurse practitioner at oncology office in [place] who recommended patient be evaluated promptly due to concerns of sepsis. reports fever at home reached proximately 103 F with associated tachycardia and hypoxia. The reports that earlier today she did note that his oxygen level was low and increased his oxygen flow but then noticed he had some holes in the O2 tubing. Once this was fixed his oxygenation did improve. With the fever she did give him Tylenol which helped with relief of Tylenol as well tachycardia. reports that patient has 1 more chemotherapy infusion to complete tomorrow but was directed here for further evaluation due to concerns of sepsis. Patient denies any chest pain. He denies any changes in chronic cough denies any significant shortness of breath at this time. He denies any abdominal pain, dysuria, urgency. Does report black stools but does take iron at home. Denies any vomiting or diarrhea. Reports he has been eating and drinking well. reports that he has been having some anemia secondary to recent chemotherapy treatments. Recent hemoglobin in [facility] was around 8.0. She reports that approximately 4 weeks ago he did receive blood transfusion and has been taking iron consistently at home. They also report kn own hypercalcemia and oncology in [facility] has been monitoring this closely. In the ER labs found significant leukocytosis at 21,000 hemoglobin 8.3 hematocrit 27.8. Platelet count 411,000 neutrophil 91% with 3% bandemia. Sodium 136, potassium 4.1 bicarb 33.0. BUN 15 creatinine 0.8. Glucose 110 la ctic acid 1.0. Troponin negative UA negative. Covid swab negative. Chest x- ray obtained which reveals new consolidation in the medial right lower lung which may represent atelectasis and/or filtrate there is also new elevation of right heme diaphragm suggesting volume loss. Stable scarring in the right upper lung compatible with post radiation change. In the ER he was treated with 1 L normal saline bolus along with vancomycin and Zosyn. Vital signs in the ER revealed patient is afebrile. Blood pressures have been stable with intermittent hypotension. Heart rate 90s. Patient is 3 L of oxygen sat 96%. Clayton will be admitted inpatient for severe CAP with risk factor secondary to being immunocompromised and sepsis. - Related Data Allergies/Adverse Reactions: Allergies Allergy/AdvReac Type Severity Reaction Status Date / Time ertapenem [From Invanz] Allergy Unknown Rash Verified 11/06/20 12:04 Home Medications: Home Meds Aspirin 81 mg PO DAILY 11/25/15 [History] Levothyroxine 100 mcg PO ACBREAKFAST 11/25/15 [History] Simvastatin [Zocor] 40 mg PO BEDTIME 11/25/15 [History] Cetirizine [ZyrTEC] 10 mg PO DAILY 08/17/17 [History] Cholecalciferol (Vitamin D3) [Vitamin D3] 1 cap PO DAILY 11/18/18 [History] Famotidine 40 mg PO BID 06/10/19 [History] Pentoxifylline 400 mg PO TID 06/10/19 [History] Vitamin E 400 unit PO BIDMEALS 06/10/19 [History] Acetaminophen/HYDROcodone [[place] 325-10 MG] 10 mg PO Q4H PRN 08/29/20 [History] Metoprolol Tartrate 25 mg PO BID 09/02/20 [History] Morphine 1 tab PO BEDTIME 11/06/20 [History] Past Medical History HEENT History: Reports: Hard of Hearing, Impaired Vision, Other (See Below) Other HEENT History: wears glasses Cardiovascular History: Reports: Hypertension, MT, Stents Other Cardiovascular History: MT 2010 Respiratory History: Reports: COPD, Pneumonia, Recurrent, Sleep Apnea, Other (See Below) Other Respiratory History: Sleep apnea with machine "do not use it", 50 yr history of tobacco use, QUIT 04/2011 Gastrointestinal History: Reports: Other (See Below) Other Gastrointestinal History: 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 Neurological History: Reports: None Psychiatric History: Reports: Anxiety, Depression Endocrine/Metabolic History: Reports: Hypothyroidism Other Endocrine/Metabolic History: Hypothyroidism Hematologic History: Reports: None Immunologic History: Reports: None Oncologic (Cancer) History: Reports: Lung, Other (See Below) Other Oncologic History: epiglottis Dermatologic History: Reports: None - Infectious Disease History Infectious Disease History: Reports: C-Difficile, Chicken Pox, Measles - Past Surgical History HEENT Surgical History: Reports: Tonsillectomy Other HEENT Surgeries/Procedures: total laryngectomy with trach placement 2016 Cardiovascular Surgical History: Reports: Coronary Artery Stent Respiratory Surgical History: Reports: Tracheostomy, Other (See Below) Other Respiratory Surgeries/Procedures: laryngectomy 08/04/17. "lung surgery" 2017 GI Surgical History: Reports: Other (See Below) Other GI Surgeries/Procedures: Gastrostomy Tube, has since been removed. Musculoskeletal Surgical History: Reports: Shoulder Surgery, Other (See Below) Other Musculoskeletal Surgeries/Procedures:: ankle surgery Social & Family History - Family History Family Medical History: No Pertinent Family History HEENT: Reports: Impaired Vision Cardiac: Reports: Heart Failure Musculoskeletal: Reports: Arthritis Neurological: Reports: CVA Endocrine/Metabolic: Reports: Diabetes, type II Oncologic: Reports: Breast, Other (See Below) Other Oncologic Family History: Stomach - Tobacco Use Tobacco Use Status *Q: Former Tobacco User Used Tobacco, but Quit: Yes Month/Year Tobacco Last Used: 2009 - Caffeine Use Caffeine Use: Reports: None - Recreational Drug Use Recreational Drug Use: No - Living Situation & Occupation Living situation: Reports: H&P Review of Systems - Review of Systems: Review Of Systems: See Below General: Reports: Fever, Chills, Malaise, Weakness HEENT: Reports: No Symptoms. Denies: Headaches, Sinus Congestion, Sore Throat Pulmonary: Reports: Shortness of Breath (Has improved since oxygen tubing fixed.), Sputum ( reports increased sputum noted from tracheostomy compared to baseline). Denies: Cough Cardiovascular: Reports: No Symptoms. Denies: Chest Pain Gastrointestinal: Reports: Black Stool (Takes iron daily), Constipation. Denies: Abdominal Pain, Bloody Stool, Diarrhea, Distension, Nausea, Vomiting Genitourinary: Reports: No Symptoms. Denies: Dysuria, Frequency, Burning Skin: Reports: Wound (Decubitus ulcer noted to coccyx reports dressing recently fell off) Psychiatric: Reports: No Symptoms Neurological: Reports: No Symptoms Hematologic/Lymphatic: Reports: No Symptoms Immunologic: Reports: No Symptoms Exam - Exam Exam: See Below - Vital Signs Vital Signs: Last Vital Signs Temp 97.7 F 11/06/20 12:00 Pulse 93 11/06/20 14:17 Resp 16 11/06/20 14:17 BP 114/61 11/06/20 14:17 Pulse Ox 96 11/06/20 14:17 Weight: 47.1 kg - Exam Quality Assessment: Supplemental Oxygen (Via tracheostomy), DVT Prophylaxis (SCDs) General: Alert, Oriented, Cooperative HEENT: Conjunctiva Clear, Mucosa Moist & Donalds, Posterior Pharynx Clear Neck: Supple, Trachea Midline, Full Range of Motion, Other (Tracheostomy place with trach oxygen noted) Lungs: Normal Respiratory Effort, Decreased Breath Sounds (Bibasilar), Crackles (Right midlung). No: Wheezing Cardiovascular: Regular Rate, Regular Rhythm, Normal S1, Normal S2 GI/Abdominal Exam: Normal Bowel Sounds, Soft, Non-Tender Extremities: Normal Inspection, Normal Range of Motion, Non-Tender, No Pedal Edema Skin: Warm, Dry, Decubitis (Stage I ulcer noted to coccyx. Nonblanchable small quarter inch opening in skin with no sitting.) Neurological: Cranial Nerves Intact, Reflexes Equal Bilateral Neuro Extensive - Mental Status: Alert, Oriented x3, Normal Mood/Affect Neuro Extensive - Motor, Sensory, Reflexes: CN II-XII Intact Psychiatric: Alert, Normal Affect, Normal Mood - Patient Data Lab Results Last 24 hrs: Laboratory Results - last 24 hr 11/06/20 11/06/20 11/06/20 Range/Units 12:20 12:20 12:20 WBC 21.61 H (4.0-11.0) K/uL RBC 3.21 L (4.50-5.90) M/uL Hgb 8.3 L (13.0-17.0) g/dL Hct 27.8 L (38.0-50.0) % MCV 86.6 (80.0-98.0) fL MCH 25.9 L (27.0-32.0) pg MCHC 29.9 L (31.0-37.0) g/dL RDW Std Deviation 57.6 (28.0-62.0) fl RDW Coeff of Randolph 19 H (11.0-15.0) % Plt Count 411 H (150-400) K/uL MPV 9.40 (7.40-12.00) fL Add Manual Diff YES Neutrophils % (Manual) 91 H (48.0-80.0) % Band Neutrophils % 3 % Lymphocytes % (Manual) 1 L (16.0-40.0) % Monocytes % (Manual) 5 (0.0-15.0) % Absolute Seg Neuts 19.7 H (1.4-5.7) Band Neutrophils # 0.6 Lymphocytes # (Manual) 0.2 L (0.6-2.4) Monocytes # (Manual) 1.1 H (0.0-0.8) INR APTT (18.6-31.3) SEC Sodium 136 (136-148) mmol/L Potassium 4.1 (3.5-5.1) mmol/L Chloride 98 (98-107) mmol/L Carbon Dioxide 33.0 H (21.0-32.0) mmol/L BUN 15 (7.0-18.0) mg/dL Creatinine 0.8 (0.8-1.3) mg/dL Est Cr Clr Drug Dosing 54.79 mL/min Estimated GFR (MDRD) > 60.0 ml/min Glucose 110 H (74-106) mg/dL Lactic Acid 1.0 (0.4-2.0) mmol/L Calcium 11.0 H (8.5-10.1) mg/dL Total Bilirubin 0.4 (0.2-1.0) mg/dL AST 17 (15-37) IU/L ALT 18 (14-63) IU/L Alkaline Phosphatase 116 (46-116) U/L Troponin I (0.000-0.056) ng/mL Total Protein 5.7 L (6.4-8.2) g/dL Albumin 2.3 L (3.4-5.0) g/dL Globulin 3.4 (2.6-4.0) g/dL Albumin/Globulin Ratio 0.7 L (0.9-1.6) Urine Color Urine Appearance Urine pH (5.0-8.0) Ur Specific Taylor (1.001-1.035) Urine Protein (NEGATIVE) mg/dL Urine Glucose (UA) (NEGATIVE) mg/dL Urine Ketones (NEGATIVE) mg/dL Urine Occult Blood (NEGATIVE) Urine Nitrite (NEGATIVE) Urine Bilirubin (NEGATIVE) Urine Urobilinogen (<2.0) EU/dL Ur Leukocyte Esterase (NEGATIVE) Urine RBC (0-2/HPF) Urine WBC (0-5/HPF) Ur Epithelial Cells (NONE-FEW) Urine Bacteria (NEGATIVE) Urine Mucus (NONE-MOD) SARS-CoV-2 RNA (CHARMAINE) (NEGATIVE) 11/06/20 11/06/20 11/06/20 Range/Units 12:33 13:31 13:31 WBC (4.0-11.0) K/uL RBC (4.50-5.90) M/uL Hgb (13.0-17.0) g/dL Hct (38.0-50.0) % MCV (80.0-98.0) fL MCH (27.0-32.0) pg MCHC (31.0-37.0) g/dL RDW Std Deviation (28.0-62.0) fl RDW Coeff of Randolph (11.0-15.0) % Plt Count (150-400) K/uL MPV (7.40-12.00) fL Add Manual Diff Neutrophils % (Manual) (48.0-80.0) % Band Neutrophils % % Lymphocytes % (Manual) (16.0-40.0) % Monocytes % (Manual) (0.0-15.0) % Absolute Seg Neuts (1.4-5.7) Band Neutrophils # Lymphocytes # (Manual) (0.6-2.4) Monocytes # (Manual) (0.0-0.8) INR 1.23 APTT 25.9 (18.6-31.3) SEC Sodium (136-148) mmol/L Potassium (3.5-5.1) mmol/L Chloride (98-107) mmol/L Carbon Dioxide (21.0-32.0) mmol/L BUN (7.0-18.0) mg/dL Creatinine (0.8-1.3) mg/dL Est Cr Clr Drug Dosing mL/min Estimated GFR (MDRD) ml/min Glucose (74-106) mg/dL Lactic Acid (0.4-2.0) mmol/L Calcium (8.5-10.1) mg/dL Total Bilirubin (0.2-1.0) mg/dL AST (15-37) IU/L ALT (14-63) IU/L Alkaline Phosphatase (46-116) U/L Troponin I (0.000-0.056) ng/mL Total Protein (6.4-8.2) g/dL Albumin (3.4-5.0) g/dL Globulin (2.6-4.0) g/dL Albumin/Globulin Ratio (0.9-1.6) Urine Color YELLOW Urine Appearance CLEAR Urine pH 6.0 (5.0-8.0) Ur Specific Taylor 1.010 (1.001-1.035) Urine Protein NEGATIVE (NEGATIVE) mg/dL Urine Glucose (UA) NEGATIVE (NEGATIVE) mg/dL Urine Ketones NEGATIVE (NEGATIVE) mg/dL Urine Occult Blood NEGATIVE (NEGATIVE) Urine Nitrite NEGATIVE (NEGATIVE) Urine Bilirubin NEGATIVE (NEGATIVE) Urine Urobilinogen 0.2 (<2.0) EU/dL Ur Leukocyte Esterase NEGATIVE (NEGATIVE) Urine RBC NONE SEEN (0-2/HPF) Urine WBC 0-1 (0-5/HPF) Ur Epithelial Cells RARE (NONE-FEW) Urine Bacteria RARE (NEGATIVE) Urine Mucus LIGHT (NONE-MOD) SARS-CoV-2 RNA (CHARMAINE) NEGATIVE (NEGATIVE) 11/06/20 Range/Units 14:16 WBC (4.0-11.0) K/uL RBC (4.50-5.90) M/uL Hgb (13.0-17.0) g/dL Hct (38.0-50.0) % MCV (80.0-98.0) fL MCH (27.0-32.0) pg MCHC (31.0-37.0) g/dL RDW Std Deviation (28.0-62.0) fl RDW Coeff of [place] (11.0-15.0) % Plt Count (150-400) K/uL MPV (7.40-12.00) fL Add Manual Diff Neutrophils % (Manual) (48.0-80.0) % Band Neutrophils % % Lymphocytes % (Manual) (16.0-40.0) % Monocytes % (Manual) (0.0-15.0) % Absolute Seg Neuts (1.4-5.7) Band Neutrophils # Lymphocytes # (Manual) (0.6-2.4) Monocytes # (Manual) (0.0-0.8) INR APTT (18.6-31.3) SEC Sodium (136-148) mmol/L Potassium (3.5-5.1) mmol/L Chloride (98-107) mmol/L Carbon Dioxide (21.0-32.0) mmol/L BUN (7.0-18.0) mg/dL Creatinine (0.8-1.3) mg/dL Est Cr Clr Drug Dosing mL/min Estimated GFR (MDRD) ml/min Glucose (74-106) mg/dL Lactic Acid (0.4-2.0) mmol/L Calcium (8.5-10.1) mg/dL Total Bilirubin (0.2-1.0) mg/dL AST (15-37) IU/L ALT (14-63) IU/L Alkaline Phosphatase (46-116) U/L Troponin I < 0.050 (0.000-0.056) ng/mL Total Protein (6.4-8.2) g/dL Albumin (3.4-5.0) g/dL Globulin (2.6-4.0) g/dL Albumin/Globulin Ratio (0.9-1.6) Urine Color Urine Appearance Urine pH (5.0-8.0) Ur Specific Taylor (1.001-1.035) Urine Protein (NEGATIVE) mg/dL Urine Glucose (UA) (NEGATIVE) mg/dL Urine Ketones (NEGATIVE) mg/dL Urine Occult Blood (NEGATIVE) Urine Nitrite (NEGATIVE) Urine Bilirubin (NEGATIVE) Urine Urobilinogen (<2.0) EU/dL Ur Leukocyte Esterase (NEGATIVE) Urine RBC (0-2/HPF) Urine WBC (0-5/HPF) Ur Epithelial Cells (NONE-FEW) Urine Bacteria (NEGATIVE) Urine Mucus (NONE-MOD) SARS-CoV-2 RNA (CHARMAINE) (NEGATIVE) Result Diagrams: 11/06/20 12:20 11/06/20 12:20 Sepsis Event Note - Evaluation Sepsis Screening Result: Possible Sepsis Risk Current Stage of Sepsis: Sepsis Possible Source of Sepsis: Pulmonary - Focused Exam Sepsis Event Note Statement: Focused Sepsis Exam Completed Vital Signs: Vital Signs Temp Pulse Resp BP Pulse Ox 11/06/20 14:17 93 16 114/61 96 11/06/20 13:47 91 11 L 106/55 L 96 11/06/20 13:32 85 13 110/56 L 96 11/06/20 13:17 85 13 98/49 L 96 11/06/20 13:02 89 16 110/59 L 98 11/06/20 12:47 86 15 87/47 L 96 11/06/20 12:32 90 22 H 108/57 L 97 11/06/20 12:17 92 98/51 L 95 11/06/20 12:00 97.7 F 95 22 H 119/59 L 95 Pulse Description: 2+ Normal Skin Exam (Focused Sepsis): Normal Turgor, Donalds - Problem List (1) CAP (community acquired pneumonia) SNOMED Code(s): 389744982 ICD Code: J18.9 - PNEUMONIA, UNSPECIFIED ORGANISM Status: Acute Current Visit: No Qualifiers: Laterality: right Lung location: middle lobe of lung Qualified Code(s): J18.9 - Pneumonia, unspecified organism (2) Septicemia, Sepsis SNOMED Code(s): 70192993 ICD Code: A41.9 - SEPSIS, UNSPECIFIED ORGANISM Status: Acute Current Visit: No (3) Hypercalcemia SNOMED Code(s): 46631037 ICD Code: E83.52 - HYPERCALCEMIA Status: Acute Current Visit: Yes (4) Leukocytosis SNOMED Code(s): 180802043, 254495797 ICD Code: D72.829 - ELEVATED WHITE BLOOD CELL COUNT, UNSPECIFIED Status: Acute Current Visit: No (5) Lung metastases SNOMED Code(s): 95334279 ICD Code: C78.00 - SECONDARY MALIGNANT NEOPLASM OF UNSPECIFIED LUNG Status: Chronic Current Visit: Yes Qualifiers: Laterality: right Qualified Code(s): C78.01 - Secondary malignant neoplasm of right lung (6) Clostridium difficile infection SNOMED Code(s): 342790867 ICD Code: A49.8 - OTHER BACTERIAL INFECTIONS OF UNSPECIFIED SITE Status: Chronic Current Visit: No (7) Immunosuppression SNOMED Code(s): 30686563 ICD Code: D84.9 - IMMUNODEFICIENCY, UNSPECIFIED Status: Chronic Current Visit: No (8) CAD (coronary artery disease) SNOMED Code(s): 41323503 ICD Code: I25.10 - ATHSCL HEART DISEASE OF [place] CORONARY ARTERY W/O ANG PCTRS Status: Chronic Priority: Medium Current Visit: No (9) COPD (chronic obstructive pulmonary disease) SNOMED Code(s): 00855297 ICD Code: J44.9 - CHRONIC OBSTRUCTIVE PULMONARY DISEASE, UNSPECIFIED Status: Chronic Priority: Medium Current Visit: No Qualifiers: COPD type: unspecified COPD Qualified Code(s): J44.9 - Chronic obstructive pulmonary disease, unspecified (10) HLD (hyperlipidemia) SNOMED Code(s): 93852861 ICD Code: E78.5 - HYPERLIPIDEMIA, UNSPECIFIED Status: Chronic Current Visit: No (11) HTN (hypertension) SNOMED Code(s): 94942007 ICD Code: I10 - ESSENTIAL (PRIMARY) HYPERTENSION Status: Chronic Current Visit: No (12) History of airway aspiration SNOMED Code(s): 753226195 ICD Code: Z78.9 - OTHER SPECIFIED HEALTH STATUS Status: Chronic Current Visit: No (13) Hx of laryngectomy SNOMED Code(s): 652334737, 327399981 ICD Code: Z90.02 - ACQUIRED ABSENCE OF LARYNX Status: Chronic Priority: Low Current Visit: No (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 SNOMED Code(s): 725132271 ICD Code: C32.1 - MALIGNANT NEOPLASM OF SUPRAGLOTTIS Status: Chronic Current Visit: No (15) TIA (transient ischemic attack) SNOMED Code(s): 718495646 ICD Code: G45.9 - TRANSIENT CEREBRAL ISCHEMIC ATTACK, UNSPECIFIED Status: Chronic Current Visit: No (16) Tracheostomy in place SNOMED Code(s): 977611384 ICD Code: Z93.0 - TRACHEOSTOMY STATUS Status: Chronic Priority: Low Current Visit: No Problem List Initiated/Reviewed/Updated: Yes Orders Last 24hrs: Active Orders 24 hr Category Date Time Status Patient Status [ADT] Routine ADT 11/06/20 14:08 Active Blood Pressure Mgt: Sepsis [RC] [id number] Care 11/06/20 11:57 Active Cardiac Monitoring [RC] CONTINUOUS Care 11/06/20 11:57 Active EKG Documentation Completion [RC] STAT Care 11/06/20 11:56 Active Overnight Pulse Oximetry [RC] Click to Edit Care 11/06/20 11:57 Active CULTURE BLOOD [BC] Stat Lab 11/06/20 12:20 Received CULTURE BLOOD [BC] Stat Lab 11/06/20 12:33 Received CULTURE URINE [MREF] Stat Lab 11/06/20 13:31 Received Sodium Chloride 0.9% [Saline Flush] Med 11/06/20 11:56 Active 10 ml FLUSH ASDIRECTED PRN Sodium Chloride 0.9% [Saline Flush] Med 11/06/20 11:56 Active 2.5 ml FLUSH ASDIRECTED PRN Blood Culture x2 Reflex Set [OM.PC] Stat Oth 11/06/20 11:56 Ordered Pulse Oximetry Continuous Monitoring [OM.PC] Routine Oth 11/06/20 11:56 Ordered Saline Lock Insert [OM.PC] Stat Ot 11/06/20 11:56 Ordered Severe Sepsis Onset Time [OM.PC] Stat Ot 11/06/20 11:56 Ordered Medication Orders Sodium Chloride (Sodium Chloride 0.9% 10 Ml Syringe) 10 ml FLUSH ASDIRECTED PRN PRN Reason: Keep Vein Open Last Admin: 11/06/20 12:26 Dose: 10 ml Documented by: ANA Sodium Chloride (Sodium Chloride 0.9% 2.5 Ml Syringe) 2.5 ml FLUSH ASDIRECTED PRN PRN Reason: Keep Vein Open Last Admin: 11/06/20 12:26 Dose: 2.5 ml Documented by: ANA Assessment/Plan Comment:: This 75-year-old male admitted with sepsis, healthcare associated pneumonia 1. Sepsis secondary to severe community-acquired pneumonia with risk factors including recent chemotherapy and cancer with mets to lung -Patient immunocompromised as he is currently receiving chemotherapy for new lung metastases patient is receiving carboplatin paclitaxel nivolumab and Yervoy from oncology in sitting down -Continue vancomycin and Zosyn for broad coverage -Blood cultures and urine culture obtained -Attempt sputum culture if possible from tracheostomy -Continue IV fluids, LR 125 -Lactic acid normal 2. Hypercalcemia -Corrected due to low albumin calcium noted to be 12.3 -We will hydrate and recheck in a.m. -Patient alert and oriented 3. History chronic hypoxic respiratory failure -Continue oxygen therapy, 3 L continuously -Continue tracheostomy care and suctioning as needed -Nebulizers as needed 4. Hypertension/HLD/CAD -Continue aspirin and statin -Hold metoprolol due to hypotension -Monitor on telemetry 5. History cancer of epiglottis with new metastases to lungs noted recently -Continues to see oncology in [facility] -Last chemo infusion was supposed to be tomorrow with follow-up PET scan to evaluate effectiveness 6. Anemia -Likely secondary to recent chemotherapy - and patient report black stools -We will check Hemoccult -Hold prophylactic VTE treatment until resolved. - reports hemoglobin normally around 8 most recently. -Asymptomatic VTE prophylaxis: SCDs for now we will check stool for Hemoccult GI prophylaxis: Continue Pepcid twice daily CODE STATUS: DNR/DNI confirmed by patient, at bedside Dispo: 2 to 3 days pending improvement.
[2020-11-06] MEDS: Lactated Ringers 1,000 ML IV SCH (16:46)
[2020-11-06] MEDS ORDERED: Vitamin E (dl-alpha-tocopherol acetate) 400 Unit Cap PO SCH (17:00)
[2020-11-06] MEDS: Piperacillin/Tazobactam 3.375 GM in Sodium Chloride 0.9% 100 ML IV SCH (17:52)
[2020-11-06] MEDS: Acetaminophen/HYDROcodone 325-10 MG Tab PO PRN (19:25)
[2020-11-06] MEDS: Simvastatin 40 MG Tab PO SCH (21:27)
[2020-11-06] MEDS: Famotidine 20 MG Tab PO SCH (21:27)
[2020-11-06] MEDS ORDERED: Pentoxifylline 400 MG Tab.ER PO SCH (22:00)
[2020-11-07] MEDS: Acetaminophen/HYDROcodone 325-10 MG Tab PO PRN ×5 (00:09→22:14)
[2020-11-07] MEDS: Morphine 15 MG Tab PO PRN (01:36)
[2020-11-07] MEDS: Lactated Ringers 1,000 ML IV SCH ×2 (01:37→07:28)
[2020-11-07] MEDS: Azithromycin 500 MG in Sodium Chloride 0.9% 250 ML IV SCH ×2 (01:38→23:33)
[2020-11-07] MEDS: Piperacillin/Tazobactam 3.375 GM in Sodium Chloride 0.9% 100 ML IV SCH ×4 (04:05→22:12)
[2020-11-07 06:34] LABS: BLOOD UREA NITROGEN,BUN 11 mg/dL (7.0-18.0); CARBON DIOXIDE,CO2 33.4 mmol/L (21.0-32.0); CHLORIDE,CL 100 mmol/L (98-107); GLUCOSE RANDOM 105 mg/dL (74-106); POTASSIUM,K 4.4 mmol/L (3.5-5.1); SODIUM,NA 136 mmol/L (136-148)
[2020-11-07] MEDS: Levothyroxine 100 MCG Tab PO SCH (07:29)
--- NOTE | 2020-11-07 07:52 | PCM.PN ---
- General Info Date of Service: 11/07/20 Admission Dx/Problem (Free Text): Admission Diagnosis/Problem Admission Diagnosis/Problem Sepsis, severe community-acquired pneumonia Subjective Update: Feeling improved today. No chest pain. SOB improved. Continues to have slightly increased sputum production with suction to tracheostomy. and patient has concerns regarding depressive feelings and would like to start some medication, recommend following with PCP, who would be starting and titrating this for them. The verbalized agreement with this plan. They report OR telehealth psych helped in the past. Functional Status: Reports: Pain Controlled, Tolerating Diet, Ambulating - Review of Systems General: Reports: No Symptoms. Denies: Fever, Weakness, Fatigue HEENT: Reports: No Symptoms. Denies: Sore Throat, Visual Changes Pulmonary: Reports: Shortness of Breath, Sputum. Denies: Hemoptysis, Wheezing Cardiovascular: Reports: No Symptoms. Denies: Chest Pain Gastrointestinal: Reports: No Symptoms. Denies: Abdominal Pain, Decreased Appetite, Melena, Nausea, Vomiting Genitourinary: Reports: No Symptoms. Denies: Dysuria, Frequency, Burning Skin: Reports: No Symptoms Neurological: Reports: No Symptoms Psychiatric: Reports: No Symptoms - Patient Data Vitals - Most Recent: Last Vital Signs Temp 98.0 F 11/07/20 00:00 Pulse 106 H 11/07/20 00:00 Resp 18 11/07/20 00:00 BP 159/79 H 11/07/20 00:00 Pulse Ox 94 L 11/07/20 00:00 Weight - Most Recent: 50.712 kg Lab Results Last 24 Hours: Laboratory Results - last 24 hr 11/06/20 11/06/20 11/06/20 Range/Units 12:20 12:20 12:20 WBC 21.61 H (4.0-11.0) K/uL RBC 3.21 L (4.50-5.90) M/uL Hgb 8.3 L (13.0-17.0) g/dL Hct 27.8 L (38.0-50.0) % MCV 86.6 (80.0-98.0) fL MCH 25.9 L (27.0-32.0) pg MCHC 29.9 L (31.0-37.0) g/dL RDW Std Deviation 57.6 (28.0-62.0) fl RDW Coeff of [place] 19 H (11.0-15.0) % Plt Count 411 H (150-400) K/uL MPV 9.40 (7.40-12.00) fL Neut % (Auto) (48.0-80.0) % Lymph % (Auto) (16.0-40.0) % [place] % (Auto) (0.0-15.0) % Eos % (Auto) (0.0-7.0) % Baso % (Auto) (0.0-1.5) % Neut # (Auto) (1.4-5.7) K/uL Lymph # (Auto) (0.6-2.4) K/uL [place] # (Auto) (0.0-0.8) K/uL Eos # (Auto) (0.0-0.7) K/uL Baso # (Auto) (0.0-0.1) K/uL Add Manual Diff YES Neutrophils % (Manual) 91 H (48.0-80.0) % Band Neutrophils % 3 % Lymphocytes % (Manual) 1 L (16.0-40.0) % Monocytes % (Manual) 5 (0.0-15.0) % Nucleated RBC % /100WBC Absolute Seg Neuts 19.7 H (1.4-5.7) Band Neutrophils # 0.6 Lymphocytes # (Manual) 0.2 L (0.6-2.4) Monocytes # (Manual) 1.1 H (0.0-0.8) Nucleated RBCs # K/uL INR APTT (18.6-31.3) SEC Sodium 136 (136-148) mmol/L Potassium 4.1 (3.5-5.1) mmol/L Chloride 98 (98-107) mmol/L Carbon Dioxide 33.0 H (21.0-32.0) mmol/L BUN 15 (7.0-18.0) mg/dL Creatinine 0.8 (0.8-1.3) mg/dL Est Cr Clr Drug Dosing 54.79 mL/min Estimated GFR (MDRD) > 60.0 ml/min Glucose 110 H (74-106) mg/dL Lactic Acid 1.0 (0.4-2.0) mmol/L Calcium 11.0 H (8.5-10.1) mg/dL Phosphorus (2.6-4.7) mg/dL Magnesium (1.8-2.4) mg/dL Total Bilirubin 0.4 (0.2-1.0) mg/dL AST 17 (15-37) IU/L ALT 18 (14-63) IU/L Alkaline Phosphatase 116 (46-116) U/L Troponin I (0.000-0.056) ng/mL Total Protein 5.7 L (6.4-8.2) g/dL Albumin 2.3 L (3.4-5.0) g/dL Globulin 3.4 (2.6-4.0) g/dL Albumin/Globulin Ratio 0.7 L (0.9-1.6) Urine Color Urine Appearance Urine pH (5.0-8.0) Ur Specific [place] (1.001-1.035) Urine Protein (NEGATIVE) mg/dL Urine Glucose (UA) (NEGATIVE) mg/dL Urine Ketones (NEGATIVE) mg/dL Urine Occult Blood (NEGATIVE) Urine Nitrite (NEGATIVE) Urine Bilirubin (NEGATIVE) Urine Urobilinogen (<2.0) EU/dL Ur Leukocyte Esterase (NEGATIVE) Urine RBC (0-2/HPF) Urine WBC (0-5/HPF) Ur Epithelial Cells (NONE-FEW) Urine Bacteria (NEGATIVE) Urine Mucus (NONE-MOD) SARS-CoV-2 RNA (CHARMAINE) (NEGATIVE) 11/06/20 11/06/20 11/06/20 Range/Units 12:33 13:31 13:31 WBC (4.0-11.0) K/uL RBC (4.50-5.90) M/uL Hgb (13.0-17.0) g/dL Hct (38.0-50.0) % MCV (80.0-98.0) fL MCH (27.0-32.0) pg MCHC (31.0-37.0) g/dL RDW Std Deviation (28.0-62.0) fl RDW Coeff of [place] (11.0-15.0) % Plt Count (150-400) K/uL MPV (7.40-12.00) fL Neut % (Auto) (48.0-80.0) % Lymph % (Auto) (16.0-40.0) % [place] % (Auto) (0.0-15.0) % Eos % (Auto) (0.0-7.0) % Baso % (Auto) (0.0-1.5) % Neut # (Auto) (1.4-5.7) K/uL Lymph # (Auto) (0.6-2.4) K/uL [place] # (Auto) (0.0-0.8) K/uL Eos # (Auto) (0.0-0.7) K/uL Baso # (Auto) (0.0-0.1) K/uL Add Manual Diff Neutrophils % (Manual) (48.0-80.0) % Band Neutrophils % % Lymphocytes % (Manual) (16.0-40.0) % Monocytes % (Manual) (0.0-15.0) % Nucleated RBC % /100WBC Absolute Seg Neuts (1.4-5.7) Band Neutrophils # Lymphocytes # (Manual) (0.6-2.4) Monocytes # (Manual) (0.0-0.8) Nucleated RBCs # K/uL INR 1.23 APTT 25.9 (18.6-31.3) SEC Sodium (136-148) mmol/L Potassium (3.5-5.1) mmol/L Chloride (98-107) mmol/L Carbon Dioxide (21.0-32.0) mmol/L BUN (7.0-18.0) mg/dL Creatinine (0.8-1.3) mg/dL Est Cr Clr Drug Dosing mL/min Estimated GFR (MDRD) ml/min Glucose (74-106) mg/dL Lactic Acid (0.4-2.0) mmol/L Calcium (8.5-10.1) mg/dL Phosphorus (2.6-4.7) mg/dL Magnesium (1.8-2.4) mg/dL Total Bilirubin (0.2-1.0) mg/dL AST (15-37) IU/L ALT (14-63) IU/L Alkaline Phosphatase (46-116) U/L Troponin I (0.000-0.056) ng/mL Total Protein (6.4-8.2) g/dL Albumin (3.4-5.0) g/dL Globulin (2.6-4.0) g/dL Albumin/Globulin Ratio (0.9-1.6) Urine Color YELLOW Urine Appearance CLEAR Urine pH 6.0 (5.0-8.0) Ur Specific [place] 1.010 (1.001-1.035) Urine Protein NEGATIVE (NEGATIVE) mg/dL Urine Glucose (UA) NEGATIVE (NEGATIVE) mg/dL Urine Ketones NEGATIVE (NEGATIVE) mg/dL Urine Occult Blood NEGATIVE (NEGATIVE) Urine Nitrite NEGATIVE (NEGATIVE) Urine Bilirubin NEGATIVE (NEGATIVE) Urine Urobilinogen 0.2 (<2.0) EU/dL Ur Leukocyte Esterase NEGATIVE (NEGATIVE) Urine RBC NONE SEEN (0-2/HPF) Urine WBC 0-1 (0-5/HPF) Ur Epithelial Cells RARE (NONE-FEW) Urine Bacteria RARE (NEGATIVE) Urine Mucus LIGHT (NONE-MOD) SARS-CoV-2 RNA (CHARMAINE) NEGATIVE (NEGATIVE) 11/06/20 11/07/20 11/07/20 Range/Units 14:16 05:15 05:15 WBC 20.33 H (4.0-11.0) K/uL RBC 3.03 L (4.50-5.90) M/uL Hgb 7.8 L (13.0-17.0) g/dL Hct 26.0 L (38.0-50.0) % MCV 85.8 (80.0-98.0) fL MCH 25.7 L (27.0-32.0) pg MCHC 30.0 L (31.0-37.0) g/dL RDW Std Deviation 60.1 (28.0-62.0) fl RDW Coeff of [place] 20 H (11.0-15.0) % Plt Count 395 (150-400) K/uL MPV 9.40 (7.40-12.00) fL Neut % (Auto) 90.1 H (48.0-80.0) % Lymph % (Auto) 2.9 L (16.0-40.0) % [place] % (Auto) 6.5 (0.0-15.0) % Eos % (Auto) 0.4 (0.0-7.0) % Baso % (Auto) 0.1 (0.0-1.5) % Neut # (Auto) 18.3 H (1.4-5.7) K/uL Lymph # (Auto) 0.6 (0.6-2.4) K/uL [place] # (Auto) 1.3 H (0.0-0.8) K/uL Eos # (Auto) 0.1 (0.0-0.7) K/uL Baso # (Auto) 0.0 (0.0-0.1) K/uL Add Manual Diff Neutrophils % (Manual) (48.0-80.0) % Band Neutrophils % % Lymphocytes % (Manual) (16.0-40.0) % Monocytes % (Manual) (0.0-15.0) % Nucleated RBC % 0.0 /100WBC Absolute Seg Neuts (1.4-5.7) Band Neutrophils # Lymphocytes # (Manual) (0.6-2.4) Monocytes # (Manual) (0.0-0.8) Nucleated RBCs # 0 K/uL INR APTT (18.6-31.3) SEC Sodium 136 (136-148) mmol/L Potassium 4.4 (3.5-5.1) mmol/L Chloride 100 (98-107) mmol/L Carbon Dioxide 33.4 H (21.0-32.0) mmol/L BUN 11 (7.0-18.0) mg/dL Creatinine 0.7 L (0.8-1.3) mg/dL Est Cr Clr Drug Dosing 67.41 mL/min Estimated GFR (MDRD) > 60.0 ml/min Glucose 105 (74-106) mg/dL Lactic Acid (0.4-2.0) mmol/L Calcium 10.5 H (8.5-10.1) mg/dL Phosphorus 2.4 L (2.6-4.7) mg/dL Magnesium 1.6 L (1.8-2.4) mg/dL Total Bilirubin (0.2-1.0) mg/dL AST (15-37) IU/L ALT (14-63) IU/L Alkaline Phosphatase (46-116) U/L Troponin I < 0.050 (0.000-0.056) ng/mL Total Protein (6.4-8.2) g/dL Albumin (3.4-5.0) g/dL Globulin (2.6-4.0) g/dL Albumin/Globulin Ratio (0.9-1.6) Urine Color Urine Appearance Urine pH (5.0-8.0) Ur Specific [place] (1.001-1.035) Urine Protein (NEGATIVE) mg/dL Urine Glucose (UA) (NEGATIVE) mg/dL Urine Ketones (NEGATIVE) mg/dL Urine Occult Blood (NEGATIVE) Urine Nitrite (NEGATIVE) Urine Bilirubin (NEGATIVE) Urine Urobilinogen (<2.0) EU/dL Ur Leukocyte Esterase (NEGATIVE) Urine RBC (0-2/HPF) Urine WBC (0-5/HPF) Ur Epithelial Cells (NONE-FEW) Urine Bacteria (NEGATIVE) Urine Mucus (NONE-MOD) SARS-CoV-2 RNA (CHARMAINE) (NEGATIVE) Teo Results Last 24 Hours: Microbiology 11/06/20 19:00 Stool Occult Blood (TEO) - Final Stool / Feces Med Orders - Current: Current Medications Acetaminophen (Acetaminophen 325 Mg Tab) 650 mg PO Q4H PRN PRN Reason: Pain (Mild 1-3)/fever Hydrocodone Bitart/Acetaminophen (Acetaminophen/Hydrocodone 325-10 Mg Tab) 1 tab PO Q4H PRN PRN Reason: Pain Last Admin: 11/07/20 07:29 Dose: 1 tab Documented by: Cetirizine HCl (Cetirizine 10 Mg Tab) 10 mg PO DAILY [facility] Famotidine (Famotidine 20 Mg Tab) 40 mg PO BID [facility] Last Admin: 11/06/20 21:27 Dose: 40 mg Documented by: Lactated Ringer's (Ringers, Lactated) 1,000 mls @ 125 mls/hr IV Q8H [facility] Last Admin: 11/07/20 07:28 Dose: Not Given Documented by: Azithromycin 500 mg/ Sodium (Chloride) 250 mls @ 250 mls/hr IV Q24H [facility] Last Admin: 11/07/20 01:38 Dose: 250 mls/hr Documented by: Vancomycin HCl 750 mg/ Sodium (Chloride) 250 mls @ 166.667 mls/hr IV Q12H [facility] Piperacillin Sod/Tazobactam (Sod 3.375 gm/ Sodium Chloride) 100 mls @ 200 mls /hr IV Q6H [facility] Magnesium Sulfate 4 gm/ Premix 100 mls @ 50 mls/hr IV ONETIME ONE Stop: 11/07/20 09:49 Levothyroxine Sodium (Levothyroxine 100 Mcg Tab) 100 mcg PO ACBREAKFAST [facility] Last Admin: 11/07/20 07:29 Dose: 100 mcg Documented by: Metoprolol Tartrate (Metoprolol Tartrate 25 Mg Tab) 25 mg PO BID [facility] Morphine Sulfate (Morphine 15 Mg Tab) 15 mg PO BEDTIME PRN PRN Reason: PAIN Last Admin: 11/07/20 01:36 Dose: 15 mg Documented by: Ondansetron HCl (Ondansetron 4 Mg/2 Ml Sdv) 4 mg IVPUSH Q4H PRN PRN Reason: Nausea Simvastatin (Simvastatin 40 Mg Tab) 40 mg PO BEDTIME [facility] Last Admin: 11/06/20 21:27 Dose: 40 mg Documented by: Sodium Chloride (Sodium Chloride 0.9% 2.5 Ml Syringe) 2.5 ml FLUSH ASDIRECTED PRN PRN Reason: Keep Vein Open Sodium Phosphate (Phosphorus #1 250 Mg Tab) 250 mg PO QID [facility] Vancomycin HCl (Pharmacy To Dose - Vancomycin) 1 dose .XX ASDIRECTED [facility] Discontinued Medications Hydrocodone Bitart/Acetaminophen (Acetaminophen/Hydrocodone 325-10 Mg Tab) 1 tab PO ONETIME ONE Stop: 11/06/20 15:13 Last Admin: 11/06/20 15:23 Dose: 1 tab Documented by: Aspirin (Aspirin 81 Mg Tab.Chew) 81 mg PO DAILY [facility] Sodium Chloride (Normal Saline) 1,000 mls @ 999 mls/hr IV BOLUS ONE; Protocol Stop: 11/06/20 12:56 Last Admin: 11/06/20 12:23 Dose: 999 mls/hr Documented by: Piperacillin Sod/Tazobactam (Sod 3.375 gm/ Sodium Chloride) 100 mls @ 100 mls/hr IV ONETIME ONE Stop: 11/06/20 14:29 Last Admin: 11/06/20 13:28 Dose: 100 mls/hr Documented by: Vancomycin HCl 1 gm/ Sodium (Chloride) 250 mls @ 250 mls/hr IV ONETIME ONE Stop: 11/06/20 14:29 Last Admin: 11/06/20 14:29 Dose: 250 mls/hr Documented by: Piperacillin Sod/Tazobactam (Sod 3.375 gm/ Sodium Chloride) 100 mls @ 200 mls/hr IV Q6H [facility] Last Admin: 11/07/20 04:05 Dose: 200 mls/hr Documented by: Vancomycin HCl 750 mg/ Sodium (Chloride) 250 mls @ 166.667 mls/hr IV Q12H [facility] Last Admin: 11/06/20 18:08 Dose: Not Given Documented by: Vancomycin HCl 750 mg/ Sodium (Chloride) 250 mls @ 166.667 mls/hr IV Q12H [facility] Pentoxifylline (Pentoxifylline 400 Mg Tab.Er) 400 mg PO TID [facility] Sodium Chloride (Sodium Chloride 0.9% 10 Ml Syringe) 10 ml FLUSH ASDIRECTED PRN PRN Reason: Keep Vein Open Last Admin: 11/06/20 12:26 Dose: 10 ml Documented by: Sodium Chloride (Sodium Chloride 0.9% 2.5 Ml Syringe) 2.5 ml FLUSH ASDIRECTED PRN PRN Reason: Keep Vein Open Last Admin: 11/06/20 12:26 Dose: 2.5 ml Documented by: - Exam Quality Assessment: Supplemental Oxygen (trach collar) General: Alert, Oriented, Cooperative, No Acute Distress Lungs: Normal Respiratory Effort, Decreased Breath Sounds (R), Crackles (R mid lung) Cardiovascular: Regular Rate, Regular Rhythm, No Murmurs GI/Abdominal Exam: Normal Bowel Sounds, Soft, Non-Tender, No Distention Extremities: Normal Inspection, Normal Range of Motion, Non-Tender, No Pedal Edema Wound/Incisions: Healing Well, Dressing Dry and Intact Neurological: No New Focal Deficit Psy/Mental Status: Alert, Normal Affect, Normal Mood - Patient Data Lab Results Last 24 hrs: Laboratory Results - last 24 hr 11/06/20 11/06/20 11/06/20 Range/Units 12:20 12:20 12:20 WBC 21.61 H (4.0-11.0) K/uL RBC 3.21 L (4.50-5.90) M/uL Hgb 8.3 L (13.0-17.0) g/dL Hct 27.8 L (38.0-50.0) % MCV 86.6 (80.0-98.0) fL MCH 25.9 L (27.0-32.0) pg MCHC 29.9 L (31.0-37.0) g/dL RDW Std Deviation 57.6 (28.0-62.0) fl RDW Coeff of [place] 19 H (11.0-15.0) % Plt Count 411 H (150-400) K/uL MPV 9.40 (7.40-12.00) fL Neut % (Auto) (48.0-80.0) % Lymph % (Auto) (16.0-40.0) % [place] % (Auto) (0.0-15.0) % Eos % (Auto) (0.0-7.0) % Baso % (Auto) (0.0-1.5) % Neut # (Auto) (1.4-5.7) K/uL Lymph # (Auto) (0.6-2.4) K/uL [place] # (Auto) (0.0-0.8) K/uL Eos # (Auto) (0.0-0.7) K/uL Baso # (Auto) (0.0-0.1) K/uL Add Manual Diff YES Neutrophils % (Manual) 91 H (48.0-80.0) % Band Neutrophils % 3 % Lymphocytes % (Manual) 1 L (16.0-40.0) % Monocytes % (Manual) 5 (0.0-15.0) % Nucleated RBC % /100WBC Absolute Seg Neuts 19.7 H (1.4-5.7) Band Neutrophils # 0.6 Lymphocytes # (Manual) 0.2 L (0.6-2.4) Monocytes # (Manual) 1.1 H (0.0-0.8) Nucleated RBCs # K/uL INR APTT (18.6-31.3) SEC Sodium 136 (136-148) mmol/L Potassium 4.1 (3.5-5.1) mmol/L Chloride 98 (98-107) mmol/L Carbon Dioxide 33.0 H (21.0-32.0) mmol/L BUN 15 (7.0-18.0) mg/dL Creatinine 0.8 (0.8-1.3) mg/dL Est Cr Clr Drug Dosing 54.79 mL/min Estimated GFR (MDRD) > 60.0 ml/min Glucose 110 H (74-106) mg/dL Lactic Acid 1.0 (0.4-2.0) mmol/L Calcium 11.0 H (8.5-10.1) mg/dL Phosphorus (2.6-4.7) mg/dL Magnesium (1.8-2.4) mg/dL Total Bilirubin 0.4 (0.2-1.0) mg/dL AST 17 (15-37) IU/L ALT 18 (14-63) IU/L Alkaline Phosphatase 116 (46-116) U/L Troponin I (0.000-0.056) ng/mL Total Protein 5.7 L (6.4-8.2) g/dL Albumin 2.3 L (3.4-5.0) g/dL Globulin 3.4 (2.6-4.0) g/dL Albumin/Globulin Ratio 0.7 L (0.9-1.6) Urine Color Urine Appearance Urine pH (5.0-8.0) Ur Specific [place] (1.001-1.035) Urine Protein (NEGATIVE) mg/dL Urine Glucose (UA) (NEGATIVE) mg/dL Urine Ketones (NEGATIVE) mg/dL Urine Occult Blood (NEGATIVE) Urine Nitrite (NEGATIVE) Urine Bilirubin (NEGATIVE) Urine Urobilinogen (<2.0) EU/dL Ur Leukocyte Esterase (NEGATIVE) Urine RBC (0-2/HPF) Urine WBC (0-5/HPF) Ur Epithelial Cells (NONE-FEW) Urine Bacteria (NEGATIVE) Urine Mucus (NONE-MOD) SARS-CoV-2 RNA (CHARMAINE) (NEGATIVE) 11/06/20 11/06/20 11/06/20 Range/Units 12:33 13:31 13:31 WBC (4.0-11.0) K/uL RBC (4.50-5.90) M/uL Hgb (13.0-17.0) g/dL Hct (38.0-50.0) % MCV (80.0-98.0) fL MCH (27.0-32.0) pg MCHC (31.0-37.0) g/dL RDW Std Deviation (28.0-62.0) fl RDW Coeff of [place] (11.0-15.0) % Plt Count (150-400) K/uL MPV (7.40-12.00) fL Neut % (Auto) (48.0-80.0) % Lymph % (Auto) (16.0-40.0) % [place] % (Auto) (0.0-15.0) % Eos % (Auto) (0.0-7.0) % Baso % (Auto) (0.0-1.5) % Neut # (Auto) (1.4-5.7) K/uL Lymph # (Auto) (0.6-2.4) K/uL [place] # (Auto) (0.0-0.8) K/uL Eos # (Auto) (0.0-0.7) K/uL Baso # (Auto) (0.0-0.1) K/uL Add Manual Diff Neutrophils % (Manual) (48.0-80.0) % Band Neutrophils % % Lymphocytes % (Manual) (16.0-40.0) % Monocytes % (Manual) (0.0-15.0) % Nucleated RBC % /100WBC Absolute Seg Neuts (1.4-5.7) Band Neutrophils # Lymphocytes # (Manual) (0.6-2.4) Monocytes # (Manual) (0.0-0.8) Nucleated RBCs # K/uL INR 1.23 APTT 25.9 (18.6-31.3) SEC Sodium (136-148) mmol/L Potassium (3.5-5.1) mmol/L Chloride (98-107) mmol/L Carbon Dioxide (21.0-32.0) mmol/L BUN (7.0-18.0) mg/dL Creatinine (0.8-1.3) mg/dL Est Cr Clr Drug Dosing mL/min Estimated GFR (MDRD) ml/min Glucose (74-106) mg/dL Lactic Acid (0.4-2.0) mmol/L Calcium (8.5-10.1) mg/dL Phosphorus (2.6-4.7) mg/dL Magnesium (1.8-2.4) mg/dL Total Bilirubin (0.2-1.0) mg/dL AST (15-37) IU/L ALT (14-63) IU/L Alkaline Phosphatase (46-116) U/L Troponin I (0.000-0.056) ng/mL Total Protein (6.4-8.2) g/dL Albumin (3.4-5.0) g/dL Globulin (2.6-4.0) g/dL Albumin/Globulin Ratio (0.9-1.6) Urine Color YELLOW Urine Appearance CLEAR Urine pH 6.0 (5.0-8.0) Ur Specific [place] 1.010 (1.001-1.035) Urine Protein NEGATIVE (NEGATIVE) mg/dL Urine Glucose (UA) NEGATIVE (NEGATIVE) mg/dL Urine Ketones NEGATIVE (NEGATIVE) mg/dL Urine Occult Blood NEGATIVE (NEGATIVE) Urine Nitrite NEGATIVE (NEGATIVE) Urine Bilirubin NEGATIVE (NEGATIVE) Urine Urobilinogen 0.2 (<2.0) EU/dL Ur Leukocyte Esterase NEGATIVE (NEGATIVE) Urine RBC NONE SEEN (0-2/HPF) Urine WBC 0-1 (0-5/HPF) Ur Epithelial Cells RARE (NONE-FEW) Urine Bacteria RARE (NEGATIVE) Urine Mucus LIGHT (NONE-MOD) SARS-CoV-2 RNA (CHARMAINE) NEGATIVE (NEGATIVE) 11/06/20 11/07/20 11/07/20 Range/Units 14:16 05:15 05:15 WBC 20.33 H (4.0-11.0) K/uL RBC 3.03 L (4.50-5.90) M/uL Hgb 7.8 L (13.0-17.0) g/dL Hct 26.0 L (38.0-50.0) % MCV 85.8 (80.0-98.0) fL MCH 25.7 L (27.0-32.0) pg MCHC 30.0 L (31.0-37.0) g/dL RDW Std Deviation 60.1 (28.0-62.0) fl RDW Coeff of [place] 20 H (11.0-15.0) % Plt Count 395 (150-400) K/uL MPV 9.40 (7.40-12.00) fL Neut % (Auto) 90.1 H (48.0-80.0) % Lymph % (Auto) 2.9 L (16.0-40.0) % [place] % (Auto) 6.5 (0.0-15.0) % Eos % (Auto) 0.4 (0.0-7.0) % Baso % (Auto) 0.1 (0.0-1.5) % Neut # (Auto) 18.3 H (1.4-5.7) K/uL Lymph # (Auto) 0.6 (0.6-2.4) K/uL [place] # (Auto) 1.3 H (0.0-0.8) K/uL Eos # (Auto) 0.1 (0.0-0.7) K/uL Baso # (Auto) 0.0 (0.0-0.1) K/uL Add Manual Diff Neutrophils % (Manual) (48.0-80.0) % Band Neutrophils % % Lymphocytes % (Manual) (16.0-40.0) % Monocytes % (Manual) (0.0-15.0) % Nucleated RBC % 0.0 /100WBC Absolute Seg Neuts (1.4-5.7) Band Neutrophils # Lymphocytes # (Manual) (0.6-2.4) Monocytes # (Manual) (0.0-0.8) Nucleated RBCs # 0 K/uL INR APTT (18.6-31.3) SEC Sodium 136 (136-148) mmol/L Potassium 4.4 (3.5-5.1) mmol/L Chloride 100 (98-107) mmol/L Carbon Dioxide 33.4 H (21.0-32.0) mmol/L BUN 11 (7.0-18.0) mg/dL Creatinine 0.7 L (0.8-1.3) mg/dL Est Cr Clr Drug Dosing 67.41 mL/min Estimated GFR (MDRD) > 60.0 ml/min Glucose 105 (74-106) mg/dL Lactic Acid (0.4-2.0) mmol/L Calcium 10.5 H (8.5-10.1) mg/dL Phosphorus 2.4 L (2.6-4.7) mg/dL Magnesium 1.6 L (1.8-2.4) mg/dL Total Bilirubin (0.2-1.0) mg/dL AST (15-37) IU/L ALT (14-63) IU/L Alkaline Phosphatase (46-116) U/L Troponin I < 0.050 (0.000-0.056) ng/mL Total Protein (6.4-8.2) g/dL Albumin (3.4-5.0) g/dL Globulin (2.6-4.0) g/dL Albumin/Globulin Ratio (0.9-1.6) Urine Color Urine Appearance Urine pH (5.0-8.0) Ur Specific [place] (1.001-1.035) Urine Protein (NEGATIVE) mg/dL Urine Glucose (UA) (NEGATIVE) mg/dL Urine Ketones (NEGATIVE) mg/dL Urine Occult Blood (NEGATIVE) Urine Nitrite (NEGATIVE) Urine Bilirubin (NEGATIVE) Urine Urobilinogen (<2.0) EU/dL Ur Leukocyte Esterase (NEGATIVE) Urine RBC (0-2/HPF) Urine WBC (0-5/HPF) Ur Epithelial Cells (NONE-FEW) Urine Bacteria (NEGATIVE) Urine Mucus (NONE-MOD) SARS-CoV-2 RNA (CHARMAINE) (NEGATIVE) Result Diagrams: 11/07/20 05:15 11/07/20 05:15 Teo Results Last 24 hrs: Microbiology 11/06/20 19:00 Stool Occult Blood (TEO) - Final Stool / Feces Sepsis Event Note - Evaluation Sepsis Screening Result: Sepsis Risk - Focused Exam Vital Signs: Vital Signs Temp Pulse Resp BP Pulse Ox 11/07/20 00:00 98.0 F 106 H 18 159/79 H 94 L 11/06/20 20:00 98.7 F 105 H 16 129/61 94 L - Problem List & Annotations (1) CAP (community acquired pneumonia) SNOMED Code(s): 618404732 Code(s): J18.9 - PNEUMONIA, UNSPECIFIED ORGANISM Status: Acute Current Visit: No Qualifiers: Laterality: right Lung location: middle lobe of lung Qualified Code(s): J 18.9 - Pneumonia, unspecified organism (2) Septicemia, Sepsis SNOMED Code(s): 94824068 Code(s): A41.9 - SEPSIS, UNSPECIFIED ORGANISM Status: Acute Current Visit: No (3) Hypercalcemia SNOMED Code(s): 23122772 Code(s): E83.52 - HYPERCALCEMIA Status: Acute Current Visit: Yes (4) Leukocytosis SNOMED Code(s): 573501938, 576042795 Code(s): D72.829 - ELEVATED WHITE BLOOD CELL COUNT, UNSPECIFIED Status: Acute Current Visit: No (5) Lung metastases SNOMED Code(s): 77145678 Code(s): C78.00 - SECONDARY MALIGNANT NEOPLASM OF UNSPECIFIED LUNG Status: Chronic Current Visit: Yes Qualifiers: Laterality: right Qualified Code(s): C78.01 - Secondary malignant neoplasm of right lung (6) Clostridium difficile infection SNOMED Code(s): 909226159 Code(s): A49.8 - OTHER BACTERIAL INFECTIONS OF UNSPECIFIED SITE Status: Chronic Current Visit: No (7) Immunosuppression SNOMED Code(s): 27718798 Code(s): D84.9 - IMMUNODEFICIENCY, UNSPECIFIED Status: Chronic Current Visit: No (8) CAD (coronary artery disease) SNOMED Code(s): 03786266 Code(s): I25.10 - ATHSCL HEART DISEASE OF [place] CORONARY ARTERY W/O ANG PCTRS Status: Chronic Priority: Medium Current Visit: No (9) COPD (chronic obstructive pulmonary disease) SNOMED Code(s): 67890181 Code(s): J44.9 - CHRONIC OBSTRUCTIVE PULMONARY DISEASE, UNSPECIFIED Status: Chronic Priority: Medium Current Visit: No Qualifiers: COPD type: unspecified COPD Qualified Code(s): J44.9 - Chronic obstructive pulmonary disease, unspecified (10) HLD (hyperlipidemia) SNOMED Code(s): 82358322 Code(s): E78.5 - HYPERLIPIDEMIA, UNSPECIFIED Status: Chronic Current Visit: No (11) HTN (hypertension) SNOMED Code(s): 85291603 Code(s): I10 - ESSENTIAL (PRIMARY) HYPERTENSION Status: Chronic Current Visit: No (12) History of airway aspiration SNOMED Code(s): 667658518 Code(s): Z78.9 - OTHER SPECIFIED HEALTH STATUS Status: Chronic Current Visit: No (13) Hx of laryngectomy SNOMED Code(s): 465536916, 108563055 Code(s): Z90.02 - ACQUIRED ABSENCE OF LARYNX Status: Chronic Priority: Low Current Visit: No (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 SNOMED Code(s): 549177773 Code(s): C32.1 - MALIGNANT NEOPLASM OF SUPRAGLOTTIS Status: Chronic Current Visit: No (15) TIA (transient ischemic attack) SNOMED Code(s): 867291775 Code(s): G45.9 - TRANSIENT CEREBRAL ISCHEMIC ATTACK, UNSPECIFIED Status: Chronic Current Visit: No (16) Tracheostomy in place SNOMED Code(s): 329258776 Code(s): Z93.0 - TRACHEOSTOMY STATUS Status: Chronic Priority: Low Current Visit: No - Problem List Review Problem List Initiated/Reviewed/Updated: Yes - My Orders Last 24 Hours: My Active Orders 11/06/20 Lunch Regular Diet [DIET] 11/06/20 15:12 Oxygen Therapy [RC] PRN Up With Assistance [RC] ASDIRECTED VTE/DVT Education [RC] PER UNIT ROUTINE Acetaminophen [TylenoL] 650 mg PO Q4H PRN Ondansetron [Zofran] 4 mg IVPUSH Q4H PRN Sodium Chloride 0.9% [Saline Flush] 2.5 ml FLUSH ASDIRECTED PRN Saline Lock Insert [OM.PC] Routine Resuscitation Status Routine 11/06/20 15:13 Antiembolic Devices [RC] PER UNIT ROUTINE Sequential Compression Device [OM.PC] Per Unit Routine 11/06/20 15:15 Lactated Ringers [Ringers, Lactated] 1,000 ml IV Q8H 11/06/20 15:17 Airway Tracheostomy Assessment [RC] ASDIRECTED RT Tracheostomy Assessment [RC] Q4H Telemetry Monitoring [Cardiac Monitoring] [RC] Q8H 11/06/20 15:18 Acetaminophen/HYDROcodone [Campbell 325-10 MG] 1 tab PO Q4H PRN 11/06/20 15:30 Pharmacy to Dose - Vancomycin 1 dose .XX ASDIRECTED 11/06/20 19:52 GRAM STAIN [MREF] Routine RESPIRATORY CULT [MREF] Routine 11/06/20 21:00 Famotidine [Pepcid] 40 mg PO BID Morphine 15 mg PO BEDTIME PRN Simvastatin [Zocor] 40 mg PO BEDTIME 11/07/20 07:30 Levothyroxine [Synthroid] 100 mcg PO ACBREAKFAST 11/07/20 07:45 Vancomycin 750 mg Sodium Chloride 0.9% [Normal Saline (AdvBag)] 250 ml IV Q12H 11/07/20 07:50 Magnesium Sulfate/Water [Magnesium Sulfate in Water 4 GM/100 ML] 4 gm Premix Bag 1 bag IV ONETIME Phosphorus #1 [Neutra-Phos] 250 mg PO QID 11/07/20 09:00 Cetirizine [ZyrTEC] 10 mg PO DAILY Metoprolol Tartrate [Lopressor] 25 mg PO BID 11/07/20 10:00 Piperacillin/Tazobactam [Piperacil-Tazobact] 3.375 gm Sodium Chloride 0.9% [Normal Saline] 100 ml IV Q6H 11/08/20 19:00 VANCOMYCIN TROUGH [CHEM] Routine - Plan Plan:: This 75-year-old male admitted with sepsis, healthcare associated pneumonia 1. Sepsis secondary to severe community-acquired pneumonia with risk factors including recent chemotherapy and cancer with mets to lung -Patient immunocompromised as he is currently receiving chemotherapy for new lung metastases patient is receiving carboplatin paclitaxel nivolumab and Yervoy from oncology in sitting down -Continue vancomycin, Azithromycin and Zosyn for broad coverage -Blood cultures and urine culture obtained -Sputum pending -DC fluids -Lactic acid normal 2. Hypercalcemia -Ca 10.5 today, continue to monitor. -Patient alert and oriented 3. History chronic hypoxic respiratory failure -Continue oxygen therapy, 2 L continuously -Continue tracheostomy care and suctioning as needed -Nebulizers as needed 4. Hypertension/HLD/CAD -Continue aspirin and statin -Restart Metoprolol -Monitor on telemetry 5. 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 -Last chemo infusion was supposed to be tomorrow with follow-up PET scan to evaluate effectiveness 6. Anemia -Hgb 7.8 today, asymptomatic but has CAD wtih stenting. - Transufuse 1 unit pRBC today. - and patient report black stools, likely secondary to iron supplements -Negative Hemoccult - reports hemoglobin normally around 8 most recently. VTE prophylaxis: SCDs for now GI prophylaxis: Continue Pepcid twice daily CODE STATUS: DNR/DNI confirmed by patient, at bedside Dispo: 2 to 3 days pending improvement.
[2020-11-07] MEDS: Magnesium Sulfate/Water 4 GM in Premix Bag 1 BAG IV ONE ×2 (08:40→11:15)
[2020-11-07] MEDS: Phosphorus #1 250 MG Tab PO SCH ×4 (08:49→23:33)
[2020-11-07] MEDS: Cetirizine 10 MG Tab PO SCH (08:50)
[2020-11-07] MEDS: Famotidine 20 MG Tab PO SCH ×2 (08:50→20:04)
[2020-11-07] MEDS: Metoprolol Tartrate 25 MG Tab PO SCH ×2 (08:51→20:03)
[2020-11-07] MEDS ORDERED: Aspirin 81 MG Tab.Chew PO SCH (09:00)
[2020-11-07] MEDS ORDERED: Magnesium Sulfate/Water 4 GM in Premix Bag 1 BAG IV ONE (12:00)
[2020-11-07] MEDS: Simvastatin 40 MG Tab PO SCH (20:04)
[2020-11-07] MEDS: Albuterol/Ipratropium 3.0-0.5 MG/3 ML Neb Soln NEB PRN (22:14)
[2020-11-08] MEDS: Acetaminophen/HYDROcodone 325-10 MG Tab PO PRN ×5 (02:09→21:13)
[2020-11-08] MEDS: Piperacillin/Tazobactam 3.375 GM in Sodium Chloride 0.9% 100 ML IV SCH ×4 (04:29→22:54)
[2020-11-08] MEDS: Phosphorus #1 250 MG Tab PO SCH ×4 (06:13→23:47)
[2020-11-08] MEDS: Levothyroxine 100 MCG Tab PO SCH ×2 (06:14→06:32)
[2020-11-08 06:16] LABS: BLOOD UREA NITROGEN,BUN 12 mg/dL (7.0-18.0); CARBON DIOXIDE,CO2 33.9 mmol/L (21.0-32.0); CHLORIDE,CL 99 mmol/L (98-107); GLUCOSE RANDOM 79 mg/dL (74-106); POTASSIUM,K 3.3 mmol/L (3.5-5.1); SODIUM,NA 137 mmol/L (136-148)
[2020-11-08] MEDS: Cetirizine 10 MG Tab PO SCH (08:36)
[2020-11-08] MEDS: Famotidine 20 MG Tab PO SCH ×2 (08:36→21:15)
[2020-11-08] MEDS: Metoprolol Tartrate 25 MG Tab PO SCH ×2 (08:36→21:14)
--- NOTE | 2020-11-08 08:59 | PCM.PN ---
- General Info Date of Service: 11/08/20 Admission Dx/Problem (Free Text): Admission Diagnosis/Problem Admission Diagnosis/Problem Sepsis, severe community-acquired pneumonia Subjective Update: Feeling improved today. NO chest pain or SOB. Reports some watery stools yesterday and 1 this morning. no abdominal pain. Functional Status: Reports: Pain Controlled, Tolerating Diet, Ambulating - Review of Systems General: Reports: No Symptoms. Denies: Weakness, Fatigue, Malaise Pulmonary: Reports: No Symptoms. Denies: Shortness of Breath Cardiovascular: Reports: No Symptoms. Denies: Chest Pain Gastrointestinal: Reports: No Symptoms. Denies: Abdominal Pain, Nausea, Vomiting Genitourinary: Reports: No Symptoms. Denies: Dysuria, Frequency Musculoskeletal: Reports: No Symptoms Skin: Reports: No Symptoms Neurological: Reports: No Symptoms Psychiatric: Reports: No Symptoms - Patient Data Vitals - Most Recent: Last Vital Signs Temp 96.3 F L 11/08/20 07:24 Pulse 112 H 11/08/20 08:36 Resp 16 11/08/20 07:24 BP 116/67 11/08/20 08:36 Pulse Ox 97 11/08/20 07:24 Weight - Most Recent: 50.712 kg I&O - Last 24 Hours: Intake & Output 11/07/20 11/08/20 11/08/20 22:59 06:59 14:59 Intake Total 1430 1380 Output Total 1610 980 Balance -180 400 Lab Results Last 24 Hours: Laboratory Results - last 24 hr 11/07/20 11/08/20 11/08/20 Range/Units 10:46 05:05 05:05 WBC 19.90 H (4.0-11.0) K/uL RBC 3.44 L (4.50-5.90) M/uL Hgb 8.8 L (13.0-17.0) g/dL Hct 28.7 L (38.0-50.0) % MCV 83.4 (80.0-98.0) fL MCH 25.6 L (27.0-32.0) pg MCHC 30.7 L (31.0-37.0) g/dL RDW Std Deviation 59.1 (28.0-62.0) fl RDW Coeff of [place] 20 H (11.0-15.0) % Plt Count 357 (150-400) K/uL MPV 9.40 (7.40-12.00) fL Neut % (Auto) 87.4 H (48.0-80.0) % Lymph % (Auto) 2.7 L (16.0-40.0) % [place] % (Auto) 9.2 (0.0-15.0) % Eos % (Auto) 0.5 (0.0-7.0) % Baso % (Auto) 0.2 (0.0-1.5) % Neut # (Auto) 17.4 H (1.4-5.7) K/uL Lymph # (Auto) 0.5 L (0.6-2.4) K/uL [place] # (Auto) 1.8 H (0.0-0.8) K/uL Eos # (Auto) 0.1 (0.0-0.7) K/uL Baso # (Auto) 0.0 (0.0-0.1) K/uL Nucleated RBC % 0.0 /100WBC Nucleated RBCs # 0 K/uL Sodium 137 (136-148) mmol/L Potassium 3.3 L (3.5-5.1) mmol/L Chloride 99 (98-107) mmol/L Carbon Dioxide 33.9 H (21.0-32.0) mmol/L BUN 12 (7.0-18.0) mg/dL Creatinine 0.7 L (0.8-1.3) mg/dL Est Cr Clr Drug Dosing 67.41 mL/min Estimated GFR (MDRD) > 60.0 ml/min Glucose 79 (74-106) mg/dL Calcium 9.5 (8.5-10.1) mg/dL Phosphorus 2.9 (2.6-4.7) mg/dL Magnesium 2.1 (1.8-2.4) mg/dL Total Bilirubin 0.4 (0.2-1.0) mg/dL AST 16 (15-37) IU/L ALT 19 (14-63) IU/L Alkaline Phosphatase 128 H (46-116) U/L Total Protein 5.3 L (6.4-8.2) g/dL Albumin 2.0 L (3.4-5.0) g/dL Globulin 3.3 (2.6-4.0) g/dL Albumin/Globulin Ratio 0.6 L (0.9-1.6) Blood Type B POSITIVE Antibody Screen NEGATIVE Crossmatch See Detail Teo Results Last 24 Hours: Microbiology 11/06/20 13:31 Urine Culture - Preliminary Urine 11/06/20 12:33 Aerobic Blood Culture - Preliminary Blood - Venous - Lab Draw NO GROWTH AFTER 1 DAY Anaerobic Blood Culture - Preliminary NO GROWTH AFTER 1 DAY 11/06/20 12:20 Aerobic Blood Culture - Preliminary Blood - Venous NO GROWTH AFTER 1 DAY Anaerobic Blood Culture - Preliminary NO GROWTH AFTER 1 DAY Med Orders - Current: Current Medications Acetaminophen (Acetaminophen 325 Mg Tab) 650 mg PO Q4H PRN PRN Reason: Pain (Mild 1-3)/fever Hydrocodone Bitart/Acetaminophen (Acetaminophen/Hydrocodone 325-10 Mg Tab) 1 tab PO Q4H PRN PRN Reason: Pain Last Admin: 11/08/20 06:14 Dose: 1 tab Documented by: Albuterol/Ipratropium (Albuterol/Ipratropium 3.0-0.5 Mg/3 Ml Neb Soln) 3 ml NEB Q4HRRT PRN PRN Reason: Dyspnea Last Admin: 11/07/20 22:14 Dose: 3 ml Documented by: Cetirizine HCl (Cetirizine 10 Mg Tab) 10 mg PO DAILY [facility] Last Admin: 11/08/20 08:36 Dose: 10 mg Documented by: Famotidine (Famotidine 20 Mg Tab) 40 mg PO BID [facility] Last Admin: 11/08/20 08:36 Dose: 40 mg Documented by: Azithromycin 500 mg/ Sodium (Chloride) 250 mls @ 250 mls/hr IV Q24H [facility] Last Admin: 11/07/20 23:33 Dose: 250 mls/hr Documented by: Piperacillin Sod/Tazobactam (Sod 3.375 gm/ Sodium Chloride) 100 mls @ 200 mls/hr IV Q6H [facility] Last Admin: 11/08/20 04:29 Dose: 200 mls/hr Documented by: Levothyroxine Sodium (Levothyroxine 100 Mcg Tab) 100 mcg PO ACBREAKFAST [facility] Last Admin: 11/08/20 06:32 Dose: Not Given Documented by: Metoprolol Tartrate (Metoprolol Tartrate 25 Mg Tab) 25 mg PO BID [facility] Last Admin: 11/08/20 08:36 Dose: 25 mg Documented by: Morphine Sulfate (Morphine 15 Mg Tab) 15 mg PO BEDTIME PRN PRN Reason: PAIN Last Admin: 11/07/20 01:36 Dose: 15 mg Documented by: Ondansetron HCl (Ondansetron 4 Mg/2 Ml Sdv) 4 mg IVPUSH Q4H PRN PRN Reason: Nausea Simvastatin (Simvastatin 40 Mg Tab) 40 mg PO BEDTIME [facility] Last Admin: 11/07/20 20:04 Dose: 40 mg Documented by: Sodium Chloride (Sodium Chloride 0.9% 2.5 Ml Syringe) 2.5 ml FLUSH ASDIRECTED PRN PRN Reason: Keep Vein Open Sodium Phosphate (Phosphorus #1 250 Mg Tab) 250 mg PO QID [facility] Last Admin: 11/08/20 06:13 Dose: 250 mg Documented by: Discontinued Medications Hydrocodone Bitart/Acetaminophen (Acetaminophen/Hydrocodone 325-10 Mg Tab) 1 tab PO ONETIME ONE Stop: 11/06/20 15:13 Last Admin: 11/06/20 15:23 Dose: 1 tab Documented by: Aspirin (Aspirin 81 Mg Tab.Chew) 81 mg PO DAILY [facility] Sodium Chloride (Normal Saline) 1,000 mls @ 999 mls/hr IV BOLUS ONE; Protocol Stop: 11/06/20 12:56 Last Admin: 11/06/20 12:23 Dose: 999 mls/hr Documented by: Piperacillin Sod/Tazobactam (Sod 3.375 gm/ Sodium Chloride) 100 mls @ 100 mls/hr IV ONETIME ONE Stop: 11/06/20 14:29 Last Admin: 11/06/20 13:28 Dose: 100 mls/hr Documented by: Vancomycin HCl 1 gm/ Sodium (Chloride) 250 mls @ 250 mls/hr IV ONETIME ONE Stop: 11/06/20 14:29 Last Admin: 11/06/20 14:29 Dose: 250 mls/hr Documented by: Lactated Ringer's (Ringers, Lactated) 1,000 mls @ 125 mls/hr IV Q8H [facility] Last Admin: 11/07/20 07:28 Dose: Not Given Documented by: Piperacillin Sod/Tazobactam (Sod 3.375 gm/ Sodium Chloride) 100 mls @ 200 mls/hr IV Q6H [facility] Last Admin: 11/07/20 04:05 Dose: 200 mls/hr Documented by: Vancomycin HCl 750 mg/ Sodium (Chloride) 250 mls @ 166.667 mls/hr IV Q12H [facility] Last Admin: 11/06/20 18:08 Dose: Not Given Documented by: Vancomycin HCl 750 mg/ Sodium (Chloride) 250 mls @ 166.667 mls/hr IV Q12H JORGE Vancomycin HCl 750 mg/ Sodium (Chloride) 250 mls @ 166.667 mls/hr IV Q12H [facility] Last Admin: 11/08/20 08:35 Dose: 166.667 mls/hr Documented by: Magnesium Sulfate 4 gm/ Premix 100 mls @ 33.333 mls/hr IV ONETIME ONE Stop: 11/07/20 10:49 Last Admin: 11/07/20 11:15 Dose: Not Given Documented by: Magnesium Sulfate 4 gm/ Premix 100 mls @ 33.333 mls/hr IV ONETIME ONE Stop: 11/07/20 14:59 Last Admin: 11/07/20 11:53 Dose: 33.333 mls/hr Documented by: Pentoxifylline (Pentoxifylline 400 Mg Tab.Er) 400 mg PO TID [facility] Sodium Chloride (Sodium Chloride 0.9% 10 Ml Syringe) 10 ml FLUSH ASDIRECTED PRN PRN Reason: Keep Vein Open Last Admin: 11/06/20 12:26 Dose: 10 ml Documented by: Sodium Chloride (Sodium Chloride 0.9% 2.5 Ml Syringe) 2.5 ml FLUSH ASDIRECTED PRN PRN Reason: Keep Vein Open Last Admin: 11/06/20 12:26 Dose: 2.5 ml Documented by: Vancomycin HCl (Pharmacy To Dose - Vancomycin) 1 dose .XX ASDIRECTED [facility] - Exam General: Alert, Oriented, Cooperative, No Acute Distress Lungs: Normal Respiratory Effort, Decreased Breath Sounds, Crackles (R upper lobe) Cardiovascular: Regular Rate, Regular Rhythm GI/Abdominal Exam: Normal Bowel Sounds, Soft, Non-Tender Back Exam: Normal Inspection, Full Range of Motion Extremities: Normal Inspection, Normal Range of Motion, Non-Tender, No Pedal Edema Wound/Incisions: Healing Well Neurological: No New Focal Deficit Psy/Mental Status: Alert, Normal Affect, Normal Mood - Patient Data Lab Results Last 24 hrs: Laboratory Results - last 24 hr 11/07/20 11/08/20 11/08/20 Range/Units 10:46 05:05 05:05 WBC 19.90 H (4.0-11.0) K/uL RBC 3.44 L (4.50-5.90) M/uL Hgb 8.8 L (13.0-17.0) g/dL Hct 28.7 L (38.0-50.0) % MCV 83.4 (80.0-98.0) fL MCH 25.6 L (27.0-32.0) pg MCHC 30.7 L (31.0-37.0) g/dL RDW Std Deviation 59.1 (28.0-62.0) fl RDW Coeff of [place] 20 H (11.0-15.0) % Plt Count 357 (150-400) K/uL MPV 9.40 (7.40-12.00) fL Neut % (Auto) 87.4 H (48.0-80.0) % Lymph % (Auto) 2.7 L (16.0-40.0) % [place] % (Auto) 9.2 (0.0-15.0) % Eos % (Auto) 0.5 (0.0-7.0) % Baso % (Auto) 0.2 (0.0-1.5) % Neut # (Auto) 17.4 H (1.4-5.7) K/uL Lymph # (Auto) 0.5 L (0.6-2.4) K/uL [place] # (Auto) 1.8 H (0.0-0.8) K/uL Eos # (Auto) 0.1 (0.0-0.7) K/uL Baso # (Auto) 0.0 (0.0-0.1) K/uL Nucleated RBC % 0.0 /100WBC Nucleated RBCs # 0 K/uL Sodium 137 (136-148) mmol/L Potassium 3.3 L (3.5-5.1) mmol/L Chloride 99 (98-107) mmol/L Carbon Dioxide 33.9 H (21.0-32.0) mmol/L BUN 12 (7.0-18.0) mg/dL Creatinine 0.7 L (0.8-1.3) mg/dL Est Cr Clr Drug Dosing 67.41 mL/min Estimated GFR (MDRD) > 60.0 ml/min Glucose 79 (74-106) mg/dL Calcium 9.5 (8.5-10.1) mg/dL Phosphorus 2.9 (2.6-4.7) mg/dL Magnesium 2.1 (1.8-2.4) mg/dL Total Bilirubin 0.4 (0.2-1.0) mg/dL AST 16 (15-37) IU/L ALT 19 (14-63) IU/L Alkaline Phosphatase 128 H (46-116) U/L Total Protein 5.3 L (6.4-8.2) g/dL Albumin 2.0 L (3.4-5.0) g/dL Globulin 3.3 (2.6-4.0) g/dL Albumin/Globulin Ratio 0.6 L (0.9-1.6) Blood Type B POSITIVE Antibody Screen NEGATIVE Crossmatch See Detail Result Diagrams: 11/08/20 05:05 11/08/20 05:05 Teo Results Last 24 hrs: Microbiology 11/06/20 13:31 Urine Culture - Preliminary Urine 11/06/20 12:33 Aerobic Blood Culture - Preliminary Blood - Venous - Lab Draw NO GROWTH AFTER 1 DAY Anaerobic Blood Culture - Preliminary NO GROWTH AFTER 1 DAY 11/06/20 12:20 Aerobic Blood Culture - Preliminary Blood - Venous NO GROWTH AFTER 1 DAY Anaerobic Blood Culture - Preliminary NO GROWTH AFTER 1 DAY Sepsis Event Note - Evaluation Sepsis Screening Result: Sepsis Risk - Focused Exam Vital Signs: Vital Signs Temp Pulse Pulse Resp BP BP Pulse Ox 11/08/20 08:36 112 H 116/67 11/08/20 07:24 96.3 F L 112 H 16 116/67 97 11/08/20 04:34 97.7 F 92 18 125/65 96 11/07/20 23:39 98.3 F 108 H 18 174/84 H 98 - Problem List & Annotations (1) CAP (community acquired pneumonia) SNOMED Code(s): 985204573 Code(s): J18.9 - PNEUMONIA, UNSPECIFIED ORGANISM Status: Acute Current Visit: No Qualifiers: Laterality: right Lung location: middle lobe of lung Qualified Code(s): J18.9 - Pneumonia, unspecified organism (2) Septicemia, Sepsis SNOMED Code(s): 55679125 Code(s): A41.9 - SEPSIS, UNSPECIFIED ORGANISM Status: Acute Current Visit: No (3) Hypercalcemia SNOMED Code(s): 23930852 Code(s): E83.52 - HYPERCALCEMIA Status: Acute Current Visit: Yes (4) Leukocytosis SNOMED Code(s): 246460668, 337582164 Code(s): D72.829 - ELEVATED WHITE BLOOD CELL COUNT, UNSPECIFIED Status: Acute Current Visit: No (5) Lung metastases SNOMED Code(s): 32363718 Code(s): C78.00 - SECONDARY MALIGNANT NEOPLASM OF UNSPECIFIED LUNG Status: Chronic Current Visit: Yes Qualifiers: Laterality: right Qualified Code(s): C78.01 - Secondary malignant neoplasm of right lung (6) Clostridium difficile infection SNOMED Code(s): 779908536 Code(s): A49.8 - OTHER BACTERIAL INFECTIONS OF UNSPECIFIED SITE Status: Chronic Current Visit: No (7) Immunosuppression SNOMED Code(s): 75031925 Code(s): D84.9 - IMMUNODEFICIENCY, UNSPECIFIED Status: Chronic Current Visit: No (8) CAD (coronary artery disease) SNOMED Code(s): 65330466 Code(s): I25.10 - ATHSCL HEART DISEASE OF [place] CORONARY ARTERY W/O ANG PCTRS Status: Chronic Priority: Medium Current Visit: No (9) COPD (chronic obstructive pulmonary disease) SNOMED Code(s): 09486020 Code(s): J44.9 - CHRONIC OBSTRUCTIVE PULMONARY DISEASE, UNSPECIFIED Status: Chronic Priority: Medium Current Visit: No Qualifiers: COPD type: unspecified COPD Qualified Code(s): J44.9 - Chronic obstructive pulmonary disease, unspecified (10) HLD (hyperlipidemia) SNOMED Code(s): 07322997 Code(s): E78.5 - HYPERLIPIDEMIA, UNSPECIFIED Status: Chronic Current Visit: No (11) HTN (hypertension) SNOMED Code(s): 92522814 Code(s): I10 - ESSENTIAL (PRIMARY) HYPERTENSION Status: Chronic Current Visit: No (12) History of airway aspiration SNOMED Code(s): 229328275 Code(s): Z78.9 - OTHER SPECIFIED HEALTH STATUS Status: Chronic Current Visit: No (13) Hx of laryngectomy SNOMED Code(s): 402178064, 520901289 Code(s): Z90.02 - ACQUIRED ABSENCE OF LARYNX Status: Chronic Priority: Low Current Visit: No (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 SNOMED Code(s): 553517733 Code(s): C32.1 - MALIGNANT NEOPLASM OF SUPRAGLOTTIS Status: Chronic Current Visit: No (15) TIA (transient ischemic attack) SNOMED Code(s): 579721719 Code(s): G45.9 - TRANSIENT CEREBRAL ISCHEMIC ATTACK, UNSPECIFIED Status: Ch ronic Current Visit: No (16) Tracheostomy in place SNOMED Code(s): 338782522 Code(s): Z93.0 - TRACHEOSTOMY STATUS Status: Chronic Priority: Low Current Visit: No - Problem List Review Problem List Initiated/Reviewed/Updated: Yes - My Orders Last 24 Hours: My Active Orders 11/07/20 09:00 Cetirizine [ZyrTEC] 10 mg PO DAILY Metoprolol Tartrate [Lopressor] 25 mg PO BID 11/07/20 10:00 Piperacillin/Tazobactam [Piperacil-Tazobact] 3.375 gm Sodium Chloride 0.9% [Normal Saline] 100 ml IV Q6H 11/07/20 10:12 Verify Patient Consent Obtain [RC] ASDIRECTED Transfuse Red Blood Cells [COMM] Routine 11/07/20 10:46 RED BLOOD CELLS LP [BBK] Routine TYPE AND SCREEN [BBK] Routine 11/09/20 05:11 CBC WITH AUTO DIFF [HEME] AM COMPREHENSIVE METABOLIC PN,CMP [CHEM] AM MAGNESIUM [CHEM] AM PHOSPHORUS [CHEM] AM 11/10/20 05:11 CBC WITH AUTO DIFF [HEME] AM COMPREHENSIVE METABOLIC PN,CMP [CHEM] AM MAGNESIUM [CHEM] AM PHOSPHORUS [CHEM] AM 11/11/20 05:11 CBC WITH AUTO DIFF [HEME] AM COMPREHENSIVE METABOLIC PN,CMP [CHEM] AM MAGNESIUM [CHEM] AM PHOSPHORUS [CHEM] AM - Plan Plan:: This 75-year-old male admitted with sepsis, healthcare associated pneumonia 1. Sepsis secondary to severe community-acquired pneumonia with risk factors including recent chemotherapy and cancer with mets to lung -Patient immunocompromised as he is currently receiving chemotherapy for new lung metastases patient is receiving carboplatin paclitaxel nivolumab and Yervoy from oncology in sitting down -Start to de-escalate antibiotcs. Will stop Vancomycin. Continue Azithromycin and Zosyn -Blood cultures negative x 1 day and urine culture less than 10,000 cultures. -Sputum pending 2. Hypercalcemia -Ca 9.5 today, continue to monitor. -Patient alert and oriented 3. History chronic hypoxic respiratory failure -Continue oxygen therapy, 2 L continuously -Continue tracheostomy care and suctioning as needed -Nebulizers as needed 4. Hypertension/HLD/CAD -Continue aspirin and statin -Continue Metoprolol -Monitor on telemetry 5. 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 Anemia -Hgb 8.8 today, asymptomatic -Negative Hemoccult - reports hemoglobin normally around 8 most recently. VTE prophylaxis: SCDs for now GI prophylaxis: Continue Pepcid twice daily CODE STATUS: DNR/DNI Dispo: 2 to 3 days pending improvement.
[2020-11-08] MEDS: Albuterol/Ipratropium 3.0-0.5 MG/3 ML Neb Soln NEB PRN (11:21)
[2020-11-08] MEDS: Simvastatin 40 MG Tab PO SCH (21:14)
[2020-11-08] MEDS: Morphine 15 MG Tab PO PRN (23:00)
[2020-11-08] MEDS: Azithromycin 500 MG in Sodium Chloride 0.9% 250 ML IV SCH (23:49)
[2020-11-09] MEDS: Acetaminophen/HYDROcodone 325-10 MG Tab PO PRN ×3 (02:13→10:14)
[2020-11-09] MEDS: Piperacillin/Tazobactam 3.375 GM in Sodium Chloride 0.9% 100 ML IV SCH ×2 (03:53→10:10)
[2020-11-09 06:19] LABS: BLOOD UREA NITROGEN,BUN 7 mg/dL (7.0-18.0); CHLORIDE,CL 100 mmol/L (98-107); GLUCOSE RANDOM 119 mg/dL (74-106); POTASSIUM,K 3.7 mmol/L (3.5-5.1); SODIUM,NA 139 mmol/L (136-148)
[2020-11-09] MEDS: Phosphorus #1 250 MG Tab PO SCH (06:31)
[2020-11-09] MEDS: Levothyroxine 100 MCG Tab PO SCH (06:31)
[2020-11-09 07:30] VITALS: BP 156/78; PULSE 97
[2020-11-09] MEDS: Cetirizine 10 MG Tab PO SCH (08:46)
[2020-11-09] MEDS: Metoprolol Tartrate 25 MG Tab PO SCH (08:46)
[2020-11-09] MEDS: Famotidine 20 MG Tab PO SCH (08:47)
--- NOTE | 2020-11-09 09:29 | PCM.DCSUM1 ---
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 attempted to call nurse practitioner at oncology office in [place] who recommended patient be evaluated promptly due to concerns of sepsis. reports fever at home reached proximately 103 F with associated tachycardia and hypoxia. The reports that earlier today she did note that his oxygen level was low and increased his oxygen flow but then noticed he had some holes in the O2 tubing. Once this was fixed his oxygenation did improve. With the fever she did give him Tylenol which helped with relief of Tylenol as well tachycardia. reports that patient has 1 more chemotherapy infusion to complete tomorrow but was directed here for further evaluation due to concerns of sepsis. Patient denies any chest pain. He denies any changes in chronic cough denies any significant shortness of breath at this time. He denies any abdominal pain, dysuria, urgency. Does report black stools but does take iron at home. Denies any vomiting or diarrhea. Reports he has been eating and drinking well. reports that he has been having some anemia secondary to recent chemotherapy treatments. Recent hemoglobin in [facility] was around 8.0. She reports that approximately 4 weeks ago he did receive blood transfusion and has been taking iron consistently at home. They also report known hypercalcemia and oncology in [facility] has been monitoring this closely. In the ER labs found significant leukocytosis at 21,000 hemoglobin 8.3 hematocrit 27.8. Platelet count 411,000 neutrophil 91% with 3% bandemia. Sodium 136, potassium 4.1 bicarb 33.0. BUN 15 creatinine 0.8. Glucose 110 lactic acid 1.0. Troponin negative UA negative. Covid swab negative. Chest x-ray obtained which reveals new consolidation in the medial right lower lung which may represent atelectasis and/or filtrate there is also new elevation of right heme diaphragm suggesting volume loss. Stable scarring in the right upper lung compatible with post radiation change. In the ER he was treated with 1 L normal saline bolus along with vancomycin and Zosyn. Vital signs in the ER revealed patient is afebrile. Blood pressures have been stable with intermittent hypotension. Heart rate 90s. Patient is 3 L of oxygen sat 96%. [place] will be admitted inpatient for severe CAP with risk factor secondary to being immunocompromised and sepsis. Diagnosis: Stroke: No - Discharge Data Discharge Date: 11/09/20 Discharge Disposition: Home, Self-Care 01 Condition: Stable - Referral to Home Health Primary Care Physician: PCP Not In Area - Discharge Diagnosis/Problem(s) (1) CAP (community acquired pneumonia) SNOMED Code(s): 129585625 ICD Code: J18.9 - PNEUMONIA, UNSPECIFIED ORGANISM Status: Acute Current Visit: No Qualifiers: Laterality: right Lung location: middle lobe of lung Qualified Code(s): J18.9 - Pneumonia, unspecified organism (2) Septicemia, Sepsis SNOMED Code(s): 21010076 ICD Code: A41.9 - SEPSIS, UNSPECIFIED ORGANISM Status: Acute Current Visit: No (3) Hypercalcemia SNOMED Code(s): 66255613 ICD Code: E83.52 - HYPERCALCEMIA Status: Acute Current Visit: No (4) Leukocytosis SNOMED Code(s): 762596327, 152661024 ICD Code: D72.829 - ELEVATED WHITE BLOOD CELL COUNT, UNSPECIFIED Status: Acute Current Visit: No (5) Lung metastases SNOMED Code(s): 88051929 ICD Code: C78.00 - SECONDARY MALIGNANT NEOPLASM OF UNSPECIFIED LUNG Status: Chronic Current Visit: No Qualifiers: Laterality: right Qualified Code(s): C78.01 - Secondary malignant neoplasm of right lung (6) Clostridium difficile infection SNOMED Code(s): 397243254 ICD Code: A49.8 - OTHER BACTERIAL INFECTIONS OF UNSPECIFIED SITE Status: Chronic Current Visit: No (7) Immunosuppression SNOMED Code(s): 39148487 ICD Code: D84.9 - IMMUNODEFICIENCY, UNSPECIFIED Status: Chronic Current Visit: No (8) CAD (coronary artery disease) SNOMED Code(s): 78022282 ICD Code: I25.10 - ATHSCL HEART DISEASE OF THE [place] CORONARY ARTERY W/O ANG PCTRS Status: Chronic Priority: Medium Current Visit: No (9) COPD (chronic obstructive pulmonary disease) SNOMED Code(s): 28267348 ICD Code: J44.9 - CHRONIC OBSTRUCTIVE PULMONARY DISEASE, UNSPECIFIED Status: Chronic Priority: Medium Current Visit: No Qualifiers: COPD type: unspecified COPD Qualified Code(s): J44.9 - Chronic obstructive pulmonary disease, unspecified (10) HLD (hyperlipidemia) SNOMED Code(s): 36058570 ICD Code: E78.5 - HYPERLIPIDEMIA, UNSPECIFIED Status: Chronic Current Visit: No (11) HTN (hypertension) SNOMED Code(s): 75278323 ICD Code: I10 - ESSENTIAL (PRIMARY) HYPERTENSION Status: Chronic Current Visit: No (12) History of airway aspiration SNOMED Code(s): 870181597 ICD Code: Z78.9 - OTHER SPECIFIED HEALTH STATUS Status: Chronic Current Visit: No (13) Hx of laryngectomy SNOMED Code(s): 764920028, 779964257 ICD Code: Z90.02 - ACQUIRED ABSENCE OF LARYNX Status: Chronic Priority: Low Current Visit: No (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 SNOMED Code(s): 309366026 ICD Code: C32.1 - MALIGNANT NEOPLASM OF SUPRAGLOTTIS Status: Chronic Current Visit: No (15) TIA (transient ischemic attack) SNOMED Code(s): 349227646 ICD Code: G45.9 - TRANSIENT CEREBRAL ISCHEMIC ATTACK, UNSPECIFIED Status: Chronic Current Visit: No (16) Tracheostomy in place SNOMED Code(s): 607934524 ICD Code: Z93.0 - TRACHEOSTOMY STATUS Status: Chronic Priority: Low Current Visit: No - Patient Summary/Data Hospital Course: Admission diagnoses Severe community-acquired pneumonia Sepsis Discharge diagnosis Severe community-acquired pneumonia Sepsis resolved Other PMH COPD HTN HLD CAD with stent Recurrent pneumonia Tracheostomy status post laryngectomy Squamous cell carcinoma epiglottis with recent metastatic disease to right lung [place] was admitted secondary to community-acquired pneumonia with sepsis. He was treated with aggressive IV fluid resuscitation along with broad-spectrum antibiotic. Patient white count elevated on arrival patient does receive Decadron with chemotherapy weekly. Chest x-ray revealed new consolidation in the medial right lower lung. Over the next 2 days patient steadily improved white count slowly improved. Blood cultures returned negative sputum returned negative urine culture returned negative. Patient had intermittent diarrhea but over the last 24 hours has had no diarrhea. Patient does have history of C. difficile so he was monitored 1 extra day to ensure no reemergence of C. difficile. Patient will be discharged home today he is back on his normal oxygen use at 2 L per trach collar. Patient is feeling significantly better. He will be discharged home with cefdinir and azithromycin for another 4 days to complete 7-day course. Patient counseled heavily on monitoring for C. difficile symptoms along with worsening shortness of breath or fevers and chills at home. He will be discharged home today with the above recommended antibiotic course. [facility] He will also follow with oncology in [facility] regarding further chemotherapy and PET scan. He is to return to the ER clinic if concerns should arise sooner During stay patient and did express concerns regarding depressive feelings and the desire to start antidepressant medications. They [facility] regarding [facility] with [facility] previous [facility] endeavor. We recommended [facility] with [facility] and visit with telepsych regarding starting any antidepressants. Him and his verbalized understanding they also were looking at something for insomnia at night agree with continue to follow with [facility] as well as PCP for this. - Patient Instructions Diet: Regular Diet as Tolerated Activity: No Strenuous Activities Showering/Bathing: May Shower Notify Provider of: Fever, Increased Pain, Swelling and Redness, Drainage, Nausea and/or Vomiting Other/Special Instructions: Monitor for diarrhea closely. Take probiotics. If diarrhea worsens significantly or you have abdominal pain with nausea vomiting please contact PCP or come to be evaluated within the ER. - Discharge Plan *PRESCRIPTION DRUG MONITORING PROGRAM REVIEWED*: Not Applicable *COPY OF PRESCRIPTION DRUG MONITORING REPORT IN PATIENT CAITLYN: Not Applicable Prescriptions/Med Rec: Azithromycin 500 mg PO DAILY #4 tablet Cefdinir [Omnicef] 300 mg PO BID #8 cap Home Medications: Home Meds Aspirin 81 mg PO DAILY 11/25/15 [History] Levothyroxine 100 mcg PO ACBREAKFAST 11/25/15 [History] Simvastatin [Zocor] 40 mg PO BEDTIME 11/25/15 [History] Cetirizine [ZyrTEC] 10 mg PO DAILY 08/17/17 [History] Cholecalciferol (Vitamin D3) [Vitamin D3] 1 cap PO DAILY 11/18/18 [History] Famotidine 40 mg PO BID 06/10/19 [History] Vitamin E 400 unit PO WITHDINNER 06/10/19 [History] Acetaminophen/HYDROcodone [[place] 325-10 MG] 10 mg PO Q4H PRN 08/29/20 [History] Metoprolol Tartrate 25 mg PO BID 09/02/20 [History] Morphine 1 tab PO BEDTIME 11/06/20 [History] Azithromycin 500 mg PO DAILY #4 tablet 11/09/20 [Rx] Cefdinir [Omnicef] 300 mg PO BID #8 cap 11/09/20 [Rx] Oxygen Therapy Mode: Room Air Patient Handouts: Cefdinir Capsules, Sepsis, Diagnosis, Adult, Azithromycin tablets, Community-Acquired Pneumonia, Adult, [id number] Referrals: Dany Avelar NP [Ordering Only Provider] - 11/22/20 1:30 pm Akira Mai MD [Ordering Only Provider] - 11/16/20 12:45 pm - Discharge Summary/Plan Comment DC Time >30 min.: No - Patient Data Vitals - Most Recent: Last Vital Signs Temp 96.2 F L 11/09/20 07:29 Pulse 97 11/09/20 08:46 Resp 20 11/09/20 07:29 BP 156/78 H 11/09/20 08:46 Pulse Ox 96 11/09/20 07:29 Weight - Most Recent: 50.712 kg I&O - Last 24 hours: Intake & Output 11/08/20 11/09/20 11/09/20 22:59 06:59 14:59 Intake Total 620 690 Output Total 1050 850 Balance -430 -160 Lab Results - Last 24 hrs: Laboratory Results - last 24 hr 11/09/20 11/09/20 Range/Units 05:32 05:32 WBC 15.81 H (4.0-11.0) K/uL RBC 3.56 L (4.50-5.90) M/uL Hgb 9.1 L (13.0-17.0) g/dL Hct 30.0 L (38.0-50.0) % MCV 84.3 (80.0-98.0) fL MCH 25.6 L (27.0-32.0) pg MCHC 30.3 L (31.0-37.0) g/dL RDW Std Deviation 58.3 (28.0-62.0) fl RDW Coeff of [place] 19 H (11.0-15.0) % Plt Count 408 H (150-400) K/uL MPV 9.30 (7.40-12.00) fL Neut % (Auto) 88.6 H (48.0-80.0) % Lymph % (Auto) 2.6 L (16.0-40.0) % Prentiss % (Auto) 8.2 (0.0-15.0) % Eos % (Auto) 0.4 (0.0-7.0) % Baso % (Auto) 0.2 (0.0-1.5) % Neut # (Auto) 14.0 H (1.4-5.7) K/uL Lymph # (Auto) 0.4 L (0.6-2.4) K/uL Prentiss # (Auto) 1.3 H (0.0-0.8) K/uL Eos # (Auto) 0.1 (0.0-0.7) K/uL Baso # (Auto) 0.0 (0.0-0.1) K/uL Nucleated RBC % 0.0 /100WBC Nucleated RBCs # 0 K/uL Sodium 139 (136-148) mmol/L Potassium 3.7 (3.5-5.1) mmol/L Chloride 100 (98-107) mmol/L Carbon Dioxide 37.0 H (21.0-32.0) mmol/L BUN 7 (7.0-18.0) mg/dL Creatinine 0.7 L (0.8-1.3) mg/dL Est Cr Clr Drug Dosing 67.41 mL/min Estimated GFR (MDRD) > 60.0 ml/min Glucose 119 H (74-106) mg/dL Calcium 9.4 (8.5-10.1) mg/dL Phosphorus 3.3 (2.6-4.7) mg/dL Magnesium 2.0 (1.8-2.4) mg/dL Total Bilirubin 0.3 (0.2-1.0) mg/dL AST 18 (15-37) IU/L ALT 20 (14-63) IU/L Alkaline Phosphatase 151 H (46-116) U/L Total Protein 5.5 L (6.4-8.2) g/dL Albumin 1.9 L (3.4-5.0) g/dL Globulin 3.6 (2.6-4.0) g/dL Albumin/Globulin Ratio 0.5 L (0.9-1.6) ADRIANA Results - Last 24 hrs: Microbiology 11/06/20 19:52 Gram Stain - Final Sputum - Induced 11/06/20 12:33 Aerobic Blood Culture - Preliminary Blood - Venous - Lab Draw NO GROWTH AFTER 2 DAYS Anaerobic Blood Culture - Preliminary NO GROWTH AFTER 2 DAYS 11/06/20 12:20 Aerobic Blood Culture - Preliminary Blood - Venous NO GROWTH AFTER 2 DAYS Anaerobic Blood Culture - Preliminary NO GROWTH AFTER 2 DAYS 11/06/20 13:31 Urine Culture - Preliminary Urine Med Orders - Current: Current Medications Acetaminophen (Acetaminophen 325 Mg Tab) 650 mg PO Q4H PRN PRN Reason: Pain (Mild 1-3)/fever Hydrocodone Bitart/Acetaminophen (Acetaminophen/Hydrocodone 325-10 Mg Tab) 1 tab PO Q4H PRN PRN Reason: Pain Last Admin: 11/09/20 06:31 Dose: 1 tab Documented by: Albuterol/Ipratropium (Albuterol/Ipratropium 3.0-0.5 Mg/3 Ml Neb Soln) 3 ml NEB Q4HRRT PRN PRN Reason: Dyspnea Last Admin: 11/08/20 11:21 Dose: 3 ml Documented by: Cetirizine HCl (Cetirizine 10 Mg Tab) 10 mg PO DAILY [facility] Last Admin: 11/09/20 08:46 Dose: 10 mg Documented by: Famotidine (Famotidine 20 Mg Tab) 40 mg PO BID [facility] Last Admin: 11/09/20 08:47 Dose: 40 mg Documented by: Azithromycin 500 mg/ Sodium (Chloride) 250 mls @ 250 mls/hr IV Q24H [facility] Last Admin: 11/08/20 23:49 Dose: 250 mls/hr Documented by: Piperacillin Sod/Tazobactam (Sod 3.375 gm/ Sodium Chloride) 100 mls @ 200 mls/hr IV Q6H [facility] Last Admin: 11/09/20 03:53 Dose: 200 mls/hr Documented by: Levothyroxine Sodium (Levothyroxine 100 Mcg Tab) 100 mcg PO ACBREAKFAST [facility] Last Admin: 11/09/20 06:31 Dose: 100 mcg Documented by: Metoprolol Tartrate (Metoprolol Tartrate 25 Mg Tab) 25 mg PO BID [facility] Last Admin: 11/09/20 08:46 Dose: 25 mg Documented by: Morphine Sulfate (Morphine 15 Mg Tab) 15 mg PO BEDTIME PRN PRN Reason: PAIN Last Admin: 11/08/20 23:00 Dose: 15 mg Documented by: Ondansetron HCl (Ondansetron 4 Mg/2 Ml Sdv) 4 mg IVPUSH Q4H PRN PRN Reason: Nausea Simvastatin (Simvastatin 40 Mg Tab) 40 mg PO BEDTIME [facility] Last Admin: 11/08/20 21:14 Dose: 40 mg Documented by: Sodium Chloride (Sodium Chloride 0.9% 2.5 Ml Syringe) 2.5 ml FLUSH ASDIRECTED PRN PRN Reason: Keep Vein Open Sodium Phosphate (Phosphorus #1 250 Mg Tab) 250 mg PO QID [facility] Last Admin: 11/09/20 06:31 Dose: 250 mg Documented by: Discontinued Medications Hydrocodone Bitart/Acetaminophen (Acetaminophen/Hydrocodone 325-10 Mg Tab) 1 tab PO ONETIME ONE Stop: 11/06/20 15:13 Last Admin: 11/06/20 15:23 Dose: 1 tab Documented by: Aspirin (Aspirin 81 Mg Tab.Chew) 81 mg PO DAILY [facility] Sodium Chloride (Normal Saline) 1,000 mls @ 999 mls/hr IV BOLUS ONE; Protocol Stop: 11/06/20 12:56 Last Admin: 11/06/20 12:23 Dose: 999 mls/hr Documented by: Piperacillin Sod/Tazobactam (Sod 3.375 gm/ Sodium Chloride) 100 mls @ 100 mls/hr IV ONETIME ONE Stop: 11/06/20 14:29 Last Admin: 11/06/20 13:28 Dose: 100 mls/hr Documented by: Vancomycin HCl 1 gm/ Sodium (Chloride) 250 mls @ 250 mls/hr IV ONETIME ONE Stop: 11/06/20 14:29 Last Admin: 11/06/20 14:29 Dose: 250 mls/hr Documented by: Lactated Ringer's (Ringers, Lactated) 1,000 mls @ 125 mls/hr IV Q8H [facility] Last Admin: 11/07/20 07:28 Dose: Not Given Documented by: Piperacillin Sod/Tazobactam (Sod 3.375 gm/ Sodium Chloride) 100 mls @ 200 mls/hr IV Q6H [facility] Last Admin: 11/07/20 04:05 Dose: 200 mls/hr Documented by: Vancomycin HCl 750 mg/ Sodium (Chloride) 250 mls @ 166.667 mls/hr IV Q12H [facility] Last Admin: 11/06/20 18:08 Dose: Not Given Documented by: Vancomycin HCl 750 mg/ Sodium (Chloride) 250 mls @ 166.667 mls/hr IV Q12H [facility] Vancomycin HCl 750 mg/ Sodium (Chloride) 250 mls @ 166.667 mls/hr IV Q12H [facility] Last Admin: 11/08/20 08:35 Dose: 166.667 mls/hr Documented by: Magnesium Sulfate 4 gm/ Premix 100 mls @ 33.333 mls/hr IV ONETIME ONE Stop: 11/07/20 10:49 Last Admin: 11/07/20 11:15 Dose: Not Given Documented by: Magnesium Sulfate 4 gm/ Premix 100 mls @ 33.333 mls/hr IV ONETIME ONE Stop: 11/07/20 14:59 Last Admin: 11/07/20 11:53 Dose: 33.333 mls/hr Documented by: Pentoxifylline (Pentoxifylline 400 Mg Tab.Er) 400 mg PO TID [facility] Sodium Chloride (Sodium Chloride 0.9% 10 Ml Syringe) 10 ml FLUSH ASDIRECTED PRN PRN Reason: Keep Vein Open Last Admin: 11/06/20 12:26 Dose: 10 ml Documented by: Sodium Chloride (Sodium Chloride 0.9% 2.5 Ml Syringe) 2.5 ml FLUSH ASDIRECTED PRN PRN Reason: Keep Vein Open Last Admin: 11/06/20 12:26 Dose: 2.5 ml Documented by: Vancomycin HCl (Pharmacy To Dose - Vancomycin) 1 dose .XX ASDIRECTED [facility]
== END 2020-11-09 11:40 | disposition home or self-care (01) | DRG 871 ==
LOC: MW.ED 11:49 → MW.MS 14:08
PROVIDERS: ADMIT Student in an Organized Health Care Education/Training Program; ATTEND Student in an Organized Health Care Education/Training Program
DX: A41.9 Sepsis, unspecified organism (principal); J18.9 Pneumonia, unspecified organism; C78.00 Secondary malignant neoplasm of unspecified lung; C79.01 Secondary malignant neoplasm of right kidney and renal pelvis; D84.9 Immunodeficiency, unspecified; J44.0 Chronic obstructive pulmonary disease with (acute) lower respiratory infection; E83.52 Hypercalcemia; I25.10 Atherosclerotic heart disease of native coronary artery without angina pectoris; Z66 Do not resuscitate; J44.9 Chronic obstructive pulmonary disease, unspecified; Z20.822 Contact with and (suspected) exposure to COVID-19; D64.81 Anemia due to antineoplastic chemotherapy; T45.1X5A Adverse effect of antineoplastic and immunosuppressive drugs, initial encounter; R65.20 Severe sepsis without septic shock; E78.5 Hyperlipidemia, unspecified; I10 Essential (primary) hypertension; C32.1 Malignant neoplasm of supraglottis; H91.90 Unspecified hearing loss, unspecified ear; G47.30 Sleep apnea, unspecified; A49.8 Other bacterial infections of unspecified site; H54.7 Unspecified visual loss; F41.9 Anxiety disorder, unspecified; F32.9 Major depressive disorder, single episode, unspecified; E03.9 Hypothyroidism, unspecified; Z78.9 Other specified health status; Z90.02 Acquired absence of larynx; Z86.73 Personal history of transient ischemic attack (TIA), and cerebral infarction without residual deficits; Z93.0 Tracheostomy status; Z88.1 Allergy status to other antibiotic agents; Z79.82 Long term (current) use of aspirin; Z79.899 Other long term (current) drug therapy; I25.2 Old myocardial infarction; Z87.891 Personal history of nicotine dependence; Z85.12 Personal history of malignant neoplasm of trachea; Z95.5 Presence of coronary angioplasty implant and graft
CPT/HCPCS: 36415; 71045; 80053; 81001; 83605; 85025; 85610; 85730; 87040 ×2; 87086; 93005; 99285; J2543; J7030; U0002; 36430; 80048; 82272; 83735; 84100; 84484; 86850; 86900; 86901; 86920; 86921; 86922; 87070; 87205; 93010; 94640; A9270-GY; J0456; J3370; J3475; J7050; J7120; J7620-GY; P9016